=== PATIENT | female | born 1955 | race Caucasian/White ===

== ENCOUNTER 2023-06-06 09:58 | Emergency (ER) | payer MEDICARE, SELFPAY ==
[2023-06-06 10:05] VITALS: BP 116/68; BP 124/76; PULSE 60; PULSE 64; RESP 16; TEMP 36.7; O2SAT 99; BMI 22.5
--- NOTE | 2023-06-06 10:06 | ED.GENADULT ---
HPI - General Adult General Chief complaint: Chest Pain Stated complaint: cp Time Seen by Provider: 06/06/23 09:59 Source: patient, family and EMS Mode of arrival: EMS Limitations: no limitations History of Present Illness HPI narrative: 67-year-old female Latvian speaking history of dilated cardiomyopathy, HFrEF ( left ventricular ejection fracture of 20%, TTE on 01/14/2023 with diffuse severe hypokinesis), left bundle-branch block, COPD, type 2 diabetes, hypertension Zoll life vest on person ( unknown why per family and patient), presenting with substernal chest pressure with radiation into left upper extremity, pressure started last night and progressively worsened as of this morning. No associated shortness of breath. Patient and family member poor historian. Denies fevers, chills, nausea, vomiting, abdominal pain, headache, vision changes, dizziness and weakness Related Data Allergies Allergy/AdvReac Type Severity Reaction Status Date / Time Unable to Assess Allergy Verified 06/06/23 10:00 Review of Systems Review of Systems: Constitutional : No Weight loss, No Fever, No Chills, No Fatigue, No Malaise ENT/Mouth : No sore throat, No Rhinorrhea Eyes: No Eye Pain, No Swelling, No Redness Cardiovascular : No Chest Pain, No SOB, No Dyspnea on Exertion, No Orthopnea, No Edema, No Palpitations Respiratory : No Cough, No Sputum, No Wheezing Gastrointestinal : No Nausea, No Vomiting, No Diarrhea, No Constipation, No abdominal Pain, No Hematochezia, No Melena Genitourinary : No Dysuria, No Urinary Frequency, No Hematuria, Musculoskeletal : No joint pain, No Myalgias, No Joint Swelling Skin : No Skin Lesions, No rash Neuro : No Weakness, No Numbness, No Dizziness, No Headache Psych : No Anxiety/Panic, No Depression Heme/Lymph: No Bruising, No Bleeding,No Lymphadenopathy Endocrine : No Polyuria, No Polydipsia All other systems reviewed and are negative Yes all other systems are reviewed and are negative PMFSH Past Medical History Attestation statement: The following information was validated with the patient. Source: old records reviewed and nursing notes reviewed Social History Social History Smoked in Last 30 Days: No Use of substances other than those prescribed or required for medical reasons: No Advance Directives: Yes Advance Directives Information Provided: Yes Advance Directives on File: No Physical Exam ED Vital Signs: Vital Signs - 24 hr 06/06/23 10:05 06/06/23 12:42 06/06/23 12:49 Temperature 98.1 F Pulse Rate 60 64 Respiratory Rate 16 16 19 Blood Pressure 116/68 138/68 Pulse Oximetry 99 98 Oxygen Delivery Method Room Air Room Air BMI result Body Mass Index 22.5 vss Appearance: Alert.? Oriented X3.? No acute distress.? Head: Normocephalic, atraumatic, no step-offs or deformities Eyes: Pupils equal, round and reactive to light.? CVS: Normal heart rate and rhythm.? Pulses normal.? Respiratory: No respiratory distress.? Breath sounds normal.? Abdomen: Soft and nontender.? Skin: Skin warm and dry.? Normal skin color.? Normal skin turgor.? Extremities: No lower extremity edema.? No calf ttp. 5/5 strength to bilateral upper and lower extremities Neuro: Oriented X 3.? No motor deficit.? No sensory deficit. CN 2-12 intact Course Reevaluation(s) Reevaluation #1: Discussed this case w/ Dr. Morin cardiology who recommends biomarkers and will obain and echo at this time to look at EF. Time: 10:41 Reevaluation #2: cardiology here evaluated patient multiple times, as long as troponins are negative and there is no delta arise patient can be discharged home with outpatient follow-up, will likely need catheterization and ICD placement. He spoke to a novelties sales representative from his old who states patient's vest is still good for another month. Pending second troponin. Time: 13:27 Reevaluation #3: Initial troponin 3.9, repeat 4.5 nonischemic ekg LBBB old , not meeting delta criteria. Unlikely ACS, cardiology agrees. Cardiology also reviewed echo and imaging patient is good for DC home w/ prompt cardiology follow up. Time: 14:44 Medications Administered Discontinued Medications Generic Name Dose Route Start Last Admin Trade Name Freq PRN Reason Stop Dose Admin Morphine Sulfate 4 mg 06/06/23 10:05 06/06/23 12:42 Morphine Sulfate 4 Mg/Ml Cartridge IVPUSH 06/06/23 10:06 4 mg ONCE ONE Administration Protocol Medical Decision Making Medical Decision Making MDM Narrative: 1013 67 year old F presents w/ substernal cp since last night PE- unremarkable concerns for noncardiac related chest pain versus ACS versus viral illness vs anginal cp. Unlikely PE, pneumonia, dissection. Plan labs, imaging. Differential Diagnosis Differential Diagnoses: The differential diagnosis associated with the presentation includes concerns for noncardiac related chest pain versus ACS versus viral illness vs anginal cp. Unlikely PE, pneumonia, dissection. Admission/Observation Consideration of admission/observation: Escalation of care including admission/observation considered possible Consult Healthcare Provider Management of the patient was discussed with: Procurement Services Manager (cardiology ) Lab Data MDM Lab Attestation statement: I reviewed the patient's lab results. 06/06/23 10:59 06/06/23 10:59 Labs: Lab Results 06/06/23 06/06/23 06/06/23 Range/Units 10:59 12:51 13:44 WBC 7.8 (4.8-10.8) X10*3/uL RBC 5.18 (4.20-5.50) X10*6/uL Hgb 15.2 (12.0-16.0) g/dl Hct 47.6 H (37.0-47.0) % MCV 91.9 (80.0-98.0) fL MCH 29.3 (27.0-33.0) pg MCHC 31.9 (31.0-35.0) g/dl RDW 13.2 (11.0-16.0) % Plt Count 251 (160-400) X10*3/uL MPV 9.4 (9.4-12.3) fL Immature Gran % (Auto) 0.3 (0.0-0.4) % Neut % (Auto) 48.8 (45-73) % Lymph % (Auto) 36.5 (20-40) % [place] % (Auto) 10.2 (2-11) % Eos % (Auto) 3.8 (0-4) % Baso % (Auto) 0.4 (0-2) % Lymph # (Auto) 2.9 (1.2-4.9) X10*3/uL [place] # (Auto) 0.8 (0.1-1.2) X10*3/uL Eos # (Auto) 0.3 (0.0-0.4) X10*3/uL Baso # (Auto) 0.0 (0.0-0.2) X10*3/uL Abs Immat Gran (auto) 0.02 (0.00-0.03) X10*3/uL Absolute Neuts (auto) 3.8 (2.0-8.3) x10*3/uL Absolute Nucleated RBC 0.000 (0.0-0.012) X10*3/uL Nucleated RBC % (auto) 0.0 (0.0-0.2) /100WBC Sodium 141 (135-145) mmol/L Potassium 4.3 (3.3-5.1) mmol/L Chloride 103 (96-108) mmol/L Carbon Dioxide 28 (22-29) mmol/L Anion Gap 14 (12-20) BUN 17 H (9-16) mg/dL Creatinine 0.70 (0.5-1.4) mg/dL Estim Creat Clear Calc 59.9 Estimated GFR > 60 Random Glucose 69 (60-115) mg/dL Calcium 10.3 H (8.4-10.2) mg/dL Magnesium 2.2 (1.6-2.6) mg/dL Total Bilirubin 0.8 (0.0-1.0) mg/dL AST 22 (5-31) U/L ALT 16 (0-31) U/L Alkaline Phosphatase 84 (39-117) U/L Troponin I High Sens 3.9 4.5 (<3.5-17.0) ng/L B-Natriuretic Peptide 86 (<100) pg/mL Total Protein 8.3 H (6.5-8.0) g/dL Albumin 4.3 (3.5-5.0) g/dL Urine Color Yellow Urine Appearance Clear Urine pH 7.5 (5.0-9.0) Ur Specific [place] 1.025 (1.005-1.025) Urine Protein Negative (Neg-Trace) mg/dL Urine Glucose (UA) >=1000 H (Negative) mg/dL Urine Ketones Negative (Negative) mg/dL Urine Blood Negative (Negative) Urine Nitrite Negative (Negative) Ur Leukocyte Esterase Negative (Negative) Urine RBC 0-2 (0-2) /HPF Urine WBC 0-5 (0-5) /HPF Ur Squamous Epith Cells 0-2 (0-2) /HPF Urine Bacteria None Seen (None Seen) Hyaline Casts 0-2 (0-2) /LPF Independent Interpretation I performed an independent interpretation of an: EKG (ventricular rate of 64, pr normal, LBBB no robbi or inversions concerning for acute ischemia. ), Plain X-Ray and Ultrasound Radiology Impression Discussion of test interpretation with radiology: I have reviewed the radiologist's reading. Core Measures AMI core measures followed: Yes Measure exclusions: not indicated Critical Care Time Critical Care Time Critical Care Time: Yes Total Critical Care Time: 45 Attestation: I attest to this time spent taking care of the patient, obtaining history, physical, reviewing labs, imaging, speaking to my attending, speaking to specialist. Discharge Plan Discharge Clinical Impression: Chest pain Patient Disposition: Home, Self-Care Instructions: Chest Pain (ED), Chest Pain (DC) Additional Instructions: Take your medications as prescribed. If you were prescribed antibiotics today, it is important that you take your medication to their entirety, do not skip any doses, do not finish them early. Follow-up with your primary care provider this week. Return to the emergency department with new or worsening symptoms. Such as fevers, chills, chest pain, shortness of breath, nausea, vomiting, dizziness, headache, vision changes, lethargy In case of emergency call 911 Referrals: Camille Pineda, PRESS ASSISTANT AND FEEDER-C [Nurse Practitioner] - 2 days Pawan Morin MD [Physician] - 1 day Stand Alone Forms: Work/School Release
[2023-06-06 11:04] LABS: MANUAL DIFF FLAG NO
[2023-06-06 11:06] LABS: Basophils Percent Auto 0.4 % (0-2); Eosinophils Absolute Auto 0.3 X10*3/uL (0.0-0.4); Eosinophils Percent Auto 3.8 % (0-4); Hematocrit 47.6 % (37.0-47.0); Hemoglobin 15.2 g/dl (12.0-16.0); Imm Gran Abs Auto 0.02 X10*3/uL (0.00-0.03); Imm Gran Pct Auto 0.3 % (0.0-0.4); Lymphocytes Absolute Auto 2.9 X10*3/uL (1.2-4.9); Lymphocytes Percent Auto 36.5 % (20-40); Mean Corpuscular HGB Conc 31.9 g/dl (31.0-35.0); Mean Corpuscular Hemoglobin 29.3 pg (27.0-33.0); Mean Corpuscular Volume 91.9 fL (80.0-98.0); Mean Platelet Volume 9.4 fL (9.4-12.3); Monocytes Absolute Auto 0.8 X10*3/uL (0.1-1.2); Monocytes Percent Auto 10.2 % (2-11); Neutrophils Absolute Auto 3.8 x10*3/uL (2.0-8.3); Neutrophils Percent Auto 48.8 % (45-73); Platelet Count 251 X10*3/uL (160-400); Red Blood Count 5.18 X10*6/uL (4.20-5.50); Red Cell Distribution Width 13.2 % (11.0-16.0); White Blood Count 7.8 X10*3/uL (4.8-10.8)
[2023-06-06 11:54] LABS: Alanine Aminotransferase 16 U/L (0-31); Albumin Level 4.3 g/dL (3.5-5.0); Alkaline Phosphatase 84 U/L (39-117); Anion Gap 14 (12-20); Aspartate Amino Transferase 22 U/L (5-31); Bilirubin Total 0.8 mg/dL (0.0-1.0); Blood Urea Nitrogen 17 mg/dL (9-16); Calcium 10.3 mg/dL (8.4-10.2); Carbon Dioxide 28 mmol/L (22-29); Chloride 103 mmol/L (96-108); Creatinine Clr Calc Pharmacy 59.9; Estimated Glomerular Filt Rate > 60; Glucose Random 69 mg/dL (60-115); Magnesium 2.2 mg/dL (1.6-2.6); Potassium 4.3 mmol/L (3.3-5.1); Sodium 141 mmol/L (135-145); Total Protein 8.3 g/dL (6.5-8.0)
--- NOTE | 2023-06-06 12:21 | PM.CNCAR ---
History of Present Illness History of Present Illness Date of Service: 06/06/23 Requesting physician: Ti Redmond Chief complaint: cp, cardiomyopathy Narrative: 67-year-old female who presented to [facility] with chest pain. She said she had chest pain yesterday which is a pressure-like feeling in the center chest with radiation to left arm. Again today around 06:00 she started having same discomfort and she decided come to the emergency department. She previously has not come to [facility]. She had her care done at [facility] in [place]. It appears she was labeled as dilated cardiomyopathy with EF of 20 25%. There was some concern for nonsustained VT and she presented with a questionable history of syncope which actually happened in started the emergency department. No arrhythmia were documented in the notes. She was sent home by Cardiology with Zoll vest. She is with the impression that Zoll vest is only for 10 more days. I have received some records and I have reviewed them where she presented to [facility] with chest pain and was ruled out. She had a stress Mibi performed where large fixed anterior apical perfusion defect were noticed. Exercise Science Instructor there did not pursue angiography by documentation. She was sent home with Randall Flores and resolved past. Plan was to reassess ejection fraction and consider ICD. She also has a left bundle-branch block. She is insulin-dependent diabetic and also has history of asthma. I have discussed with is all wrapped and she did not have any episodes of nonsustained/sustained VT. No therapies given by the vest. [facility] Social History Social History Advance Directives: Yes Advance Directives Information Provided: Yes Advance Directives on File: No Meds Allergies Allergy/AdvReac Type Severity Reaction Status Date / Time Unable to Assess Allergy Verified 06/06/23 10:00 Physical Exam Vital Signs: Vital Signs: Last Vital Signs Temp 98.1 F 06/06/23 10:05 Pulse 60 06/06/23 10:05 Resp 16 06/06/23 10:05 BP 116/68 06/06/23 10:05 Pulse Ox 99 06/06/23 10:05 O2 Del Method Room Air 06/06/23 10:05 BMI result Body Mass Index 22.5 GENERAL APPEARANCE: in no acute distress, pleasant. NECK: no carotid bruit, no jugular venous distention. SKIN: no suspicious lesions, warm and dry. HEART: no murmurs, regular rate and rhythm. LUNGS: clear to auscultation bilaterally. ABDOMEN: soft, nontender. EXTREMITIES: no edema. PERIPHERAL PULSES: equal. NEUROLOGIC: No gross deficits, AAO X 3 Objective Labs and Meds 06/06/23 10:59 06/06/23 10:59 Lab results: Laboratory Results - last 24 hr 06/06/23 10:59 WBC 7.8 RBC 5.18 Hgb 15.2 Hct 47.6 H MCV 91.9 MCH 29.3 MCHC 31.9 RDW 13.2 Plt Count 251 MPV 9.4 Immature Gran % (Auto) 0.3 Neut % (Auto) 48.8 Lymph % (Auto) 36.5 [place] % (Auto) 10.2 Eos % (Auto) 3.8 Baso % (Auto) 0.4 Lymph # (Auto) 2.9 [place] # (Auto) 0.8 Eos # (Auto) 0.3 Baso # (Auto) 0.0 Abs Immat Gran (auto) 0.02 Absolute Neuts (auto) 3.8 Absolute Nucleated RBC 0.000 Nucleated RBC % (auto) 0.0 Sodium 141 Potassium 4.3 Chloride 103 Carbon Dioxide 28 Anion Gap 14 BUN 17 H Creatinine 0.70 Estim Creat Clear Calc 59.9 Estimated GFR > 60 Random Glucose 69 Calcium 10.3 H Magnesium 2.2 Total Bilirubin 0.8 AST 22 ALT 16 Alkaline Phosphatase 84 Troponin I High Sens 3.9 B-Natriuretic Peptide 86 Total Protein 8.3 H Albumin 4.3 Assessment and Plan (1) Chest pain: Status: Acute (2) LBBB (left bundle branch block): Status: Acute (3) Cardiomyopathy: Status: Acute Plan [age] year female presenting with chest discomfort radiating to her arm. She had persistent pain for many hours with normal troponin. Will repeat 1 more set. She previously had chest pains and had stress Mibi performed while she was in [facility]. This showed fixed anterior apical perfusion defect. No further testing was done based on documentation. Also had a discussion was all account maintenance representative and they have no record of cardiac catheterization. Clinically she appears euvolemic and stable. I really doubt this is ACS right now. I do think she needs a diagnostic angiogram and referral to EP for Bi V AICD placement. At EF by echo performed today is anyway 25-30% with severe dyskinesis of the apex and I feel left bundle-branch block could be the cause for her cardiomyopathy. If her 2nd set of troponin is normal I think she can be discharged back home and will do further testing as outpatient. Thank you for allowing me to participate in the care of your patient. Please feel free to contact me if you have any questions. Time Spent With Patient Time: Total time managing care of this patient today ____ minutes. Procedures Date of Service Date of Service: 06/06/23
[2023-06-06 12:42] VITALS: RESP 16
[2023-06-06 12:49] VITALS: BP 138/68; PULSE 64; RESP 19; O2SAT 98
== END 2023-06-06 16:50 | disposition home or self-care (01) ==
PROVIDERS: Physician Assistant; Emergency Provider Student in an Organized Health Care Education/Training Program
DX: R07.89 Other chest pain (principal); I44.7 Left bundle-branch block, unspecified; I42.9 Cardiomyopathy, unspecified; R06.02 Shortness of breath; Z79.899 Other long term (current) drug therapy
CPT/HCPCS: 36415; 71045; 80053; 81001; 81003; 83735; 83880; 84484; 85025; 93005; 93306; 96374; 99284; J2270; Q9957

== ENCOUNTER → 2023-06-06 10:38 | Outpatient (BNV) | payer MEDICARE, SELFPAY | PROVIDERS: Emergency Provider Student in an Organized Health Care Education/Training Program; Visit Provider Internal Medicine Cardiovascular Disease | DX: R07.9 Chest pain, unspecified (principal); I44.7 Left bundle-branch block, unspecified; I42.9 Cardiomyopathy, unspecified | CPT/HCPCS: 93306; 99283 ==

== ENCOUNTER 2023-06-07 13:12 | Outpatient (REF) | payer OTHER, SELFPAY ==
[2023-06-07 13:52] LABS: Prothrombin Time 12.1 SEC (11.1-13.3)
== END 2023-06-07 13:13 | disposition home or self-care (01) ==
LOC: HO.LAB 13:12
PROVIDERS: Visit Provider Internal Medicine Cardiovascular Disease
DX: I42.9 Cardiomyopathy, unspecified (principal); I44.7 Left bundle-branch block, unspecified
CPT/HCPCS: 36415; 85610

== ENCOUNTER → 2023-07-04 23:59 | Outpatient (BNV) | payer OTHER, SELFPAY | PROVIDERS: Visit Provider Internal Medicine Cardiovascular Disease | DX: I42.9 Cardiomyopathy, unspecified (principal); I44.7 Left bundle-branch block, unspecified; I50.20 Unspecified systolic (congestive) heart failure | CPT/HCPCS: 93458; 99152 ==

== ENCOUNTER 2023-07-26 12:31 | Outpatient (AMB) | payer OTHER, SELFPAY ==
--- NOTE | 2023-07-26 12:39 | A.OFFVIS_ITS ---
Intake Vital Signs 07/26/23 12:40 Height 5 ft 2 in Weight 130 lb 1.164 oz BMI 23.8 BP 126/76 Blood Pressure Location Lt brachial Position Sitting Pulse 87 Intake Visit Reasons: Follow up post cardiac cath Intake Note: Follow-up post defibrillator 07/19 at [facility] Cloth Hand Required: Yes Cloth Hand Name: daughter signed Test Tube Maker: Test Tube Maker Present Accompanied by: Daughter Allergies Unable to Assess Allergy (Verified 06/06/23 10:00) Medication List - Last Reconciled 07/26/23 by Vanita Alves NP aspirin 81 mg PO DAILY atorvastatin 10 mg PO DAILY empagliflozin (Jardiance) 10 mg PO DAILY gabapentin 300 mg PO BEDTIME metoprolol succinate ER 25 mg PO DAILY sacubitril-valsartan 24-26 mg (Entresto) 1 tab PO BID tiotropium bromide 2.5 mcg/actuation (Spiriva Respimat) 2 puffs inhalation DAILY torsemide 20 mg PO DAILY HPI HPI Comments History of Present Illness Details 67-year-old female presents with her [facility] for after having a Medtronic ICD placed and having a cardiac catheterization performed. Daughter and patient report she has been doing well with no complaints. She denies shortness of breath, chest pain, or swelling. ICD site is healing well and well approximated. Right radial site is healing well with no tenderness or redness. Pulse present proximal and distal to the site. [facility] Social History Household Members: Children Household Members Other:: Son Alcohol intake: never Patient Tobacco Use Status: Former Tobacco user Review of Systems Const Denies chills, Denies fatigue, Denies fever(s), Denies frequent falls, Denies weakness, Denies weight gain and Denies weight loss ENT Denies dizziness Card Denies chest pain, Denies leg edema, Denies lightheadedness, Denies palpitations, Denies dyspnea, Denies dyspnea on exertion, Denies orthopnea and Denies other (loss of consciousness) Resp Denies cough, Denies dyspnea and Denies dyspnea on exertion GI Denies hematochezia and Denies change in stool character Musc Denies abnormal gait, Denies muscle weakness, Denies numbness, Denies radiating pain into limb and Denies tingling Neuro Denies abnormal gait, Denies dizziness, Denies frequent falls, Denies numbness, Denies tingling and Denies weakness Endo Denies fatigue and Denies palpitations Physical Exam Vital Signs: Last Vital Signs Pulse 87 07/26/23 12:40 BP 126/76 07/26/23 12:40 BMI result Body Mass Index 23.8 Const General: healthy appearing and no acute distress Orientation/consciousness: patient oriented x3 HEENT Head: Yes normal to inspection Eyes General: appearance normal, both eyes and all related structures Neck Neck: Yes normal visual inspection Chest Chest palpation & inspection: normal inspection of the chest Resp Effort & Inspection: normal respiratory effort Auscultation: clear to auscultation bilaterally Cardio Jugular venous distension: no JVD Palpation: normal PMI Rate: regular rate Rhythm: regular rhythm Heart sounds: S1 normal heart sound present, S2 normal heart sound present, no click, no gallops, no murmurs and no rubs GI Inspection: Yes normal to inspection Palpation (GI): Soft to palpation Skin General skin exam: no rashes or lesions noted Neuro General: patient oriented x3 Extrem General: Yes normal to inspection Psych Appearance: grossly normal Assessment & Plan Assessment & Plan (1) Cardiomyopathy: Code(s): I42.9 - Cardiomyopathy, unspecified (2) LBBB (left bundle branch block): Code(s): I44.7 - Left bundle-branch block, unspecified Plan Went into detail about heart healthy diet including controlling her diabetes and reduction of salt. Activity as tolerated with gradual increase Continue to abstain from smoking or any alcohol use. Medication compliance stressed heavily and daughter assists with her medications. Report any new or worsening symptoms. Will have her return in 3 months to meet with Dr. Morin. Medications: New atorvastatin 10 mg PO DAILY 90 tabs 1RF metoprolol succinate ER 25 mg PO DAILY 90 tabs 1RF aspirin 81 mg PO DAILY 90 tabs 1RF Refilled sacubitril-valsartan 24-26 mg (Entresto) 1 tab PO BID 90 tabs 1RF torsemide 20 mg PO DAILY 90 tabs 1RF Coding Level of Care Code Est Pt Level 3 (38723) Diagnoses Cardiomyopathy I42.9 LBBB (left bundle branch block) I44.7
[2023-07-26 12:40] VITALS: BP 126/76; PULSE 87; BMI 23.8
== END 2023-07-26 13:38 | disposition home or self-care (01) ==
PROVIDERS: PCP Internal Medicine; Visit Provider Nurse Practitioner
DX: I42.9 Cardiomyopathy, unspecified (principal); I44.7 Left bundle-branch block, unspecified
CPT/HCPCS: 99213

== ENCOUNTER → 2023-07-26 12:31 | Outpatient (BNVA) | payer OTHER, SELFPAY | PROVIDERS: PCP Internal Medicine; Visit Provider Nurse Practitioner | DX: I42.9 Cardiomyopathy, unspecified (principal); I44.7 Left bundle-branch block, unspecified | CPT/HCPCS: 99212 ==

== ENCOUNTER 2023-08-10 10:30 | Outpatient (REF) | payer OTHER, SELFPAY ==
--- NOTE | ~2023-08-10 | XR_ITS ---
EXAMINATION: XR CHEST CLINICAL INFORMATION: Left bundle-branch block COMPARISON: Chest x-ray June 06, 2023 TECHNIQUE: 2 views of the chest were obtained. FINDINGS: Cardiac silhouette is normal in size. Interval insertion of multi lead AICD. The lungs are adequately aerated. There is similar diffuse coarsening of the interstitial markings, particularly within the right mid to lower lung. No gross lobar consolidation. No pleural effusion or pneumothorax. Mild degenerative changes of the spine. XR/XR chest 2V IMPRESSION: Similar diffuse coarsening of the interstitial markings, particularly within the right mid to lower lung. I suspect this represents chronic changes. CT imaging can always be obtained for further evaluation if clinically indicated.
== END 2023-08-10 10:31 | disposition home or self-care (01) ==
LOC: HO.XRAY 10:30
PROVIDERS: Visit Provider Internal Medicine Cardiovascular Disease
DX: I44.7 Left bundle-branch block, unspecified (principal); Z95.810 Presence of automatic (implantable) cardiac defibrillator
CPT/HCPCS: 71046

== ENCOUNTER → 2023-09-17 23:59 | Outpatient (BNV) | payer OTHER, SELFPAY ==
--- NOTE | 2023-09-25 13:53 | A.OFFVIS_ITS ---
Intake Intake Visit Reasons: Remote ICD Check- Medtronic Allergies Unable to Assess Allergy (Verified 06/06/23 10:00) [facility] Social History Household Members: Children Household Members Other:: Son Alcohol intake: never Patient Tobacco Use Status: Former Tobacco user Office Procedures Cardiac Device Check Cardiac Device Check Details: Medtronic [facility]-D No VT/VF. New onset Atrial fibrillation noted. The patient has been started on A/C. [id number] Cardiac Device Interrogation, pacemaker or defibrillator Procedure code (CPT) selection complete Assessment & Plan Assessment & Plan (1) Cardiomyopathy: Code(s): I42.9 - Cardiomyopathy, unspecified Plan: Medications: Discontinued aspirin Discontinued Reason: Doctor's Order 81 mg PO DAILY 90 tabs 1RF Coding Level of Care Code Procedure Only Diagnoses Cardiomyopathy I42.9 CPT Codes Cardiac Device Check - Cardiac Device 14: [id number] Cardiac Device Interrogation, pacemaker or defibrillator ([id number])
== END ==
PROVIDERS: PCP Internal Medicine; Visit Provider Internal Medicine Cardiovascular Disease
DX: I42.9 Cardiomyopathy, unspecified (principal); Z95.810 Presence of automatic (implantable) cardiac defibrillator
CPT/HCPCS: 93295

== ENCOUNTER 2023-10-18 10:13 | Outpatient (REF) | payer OTHER, MEDICAID, SELFPAY ==
[2023-10-21 08:34] LABS: TS Negative Control Passed; TS Panel A 0; TS Panel B 0; TS Positive Control Passed; TSpotTB Negative (Negative)
== END 2023-10-18 10:14 | disposition home or self-care (01) ==
LOC: HO.HHCL 10:13
PROVIDERS: Visit Provider General Practice
DX: Z11.1 Encounter for screening for respiratory tuberculosis (principal)
CPT/HCPCS: 36415; 86481

== ENCOUNTER 2023-11-06 13:38 | Outpatient (AMB) | payer OTHER, SELFPAY ==
--- NOTE | 2023-11-06 14:08 | A.OFFVIS_ITS ---
Intake Vital Signs 11/06/23 14:12 Height 5 ft 2 in Weight 130 lb BMI 23.8 BP 140/68 H Blood Pressure Location Rt brachial Position Sitting Pulse 66 Intake Visit Reasons: 3 mth fu w/ medtronic Intake Note: 3 month follow up [place] [employer] Required: No Accompanied by: Daughter Allergies Unable to Assess Allergy (Verified 11/06/23 14:12) Medication List - Last Reconciled 11/06/23 by Pawan Morin MD apixaban (Eliquis) 5 mg PO BID 30 days atorvastatin 10 mg PO DAILY empagliflozin (Jardiance) 10 mg PO DAILY gabapentin 300 mg PO BEDTIME metoprolol succinate ER 25 mg PO DAILY sacubitril-valsartan 24-26 mg (Entresto) 1 tab PO BID tiotropium bromide 2.5 mcg/actuation (Spiriva Respimat) 2 puffs inhalation DAILY torsemide 20 mg PO DAILY HPI HPI Comments History of Present Illness Details 67-year-old female who is here for [facility]. She was seen for cardiomyopathy and left bundle-branch block. Cardiac catheterization did not show any coronary disease. She was referred for Bi V AICD placement. Device interrogation showed that she has atrial fibrillation episodes and she was started on anticoagulation for stroke prevention. She is returning and has been doing well. No chest discomfort shortness of breath. She does have history of COPD. Blood pressure is elevated. She is taking medication regularly. No orthopnea or PND. She has been eating a lot and has gained weight. Compared to May 2023 her weight is increased 7 lb. [facility] Social History Household Members: Children Household Members Other:: Son Alcohol intake: never Patient Tobacco Use Status: Former Tobacco user Review of Systems Const Denies weakness ENT Denies dizziness Card Denies chest pain, Denies chest pain with activity, Denies syncope, Denies rapid heart rate, Denies pedal edema, Denies edema, Denies leg edema, Denies lightheadedness, Denies palpitations, Denies dyspnea, Denies dyspnea on exertion and Denies orthopnea Resp Denies cough, Denies dyspnea and Denies dyspnea on exertion GI Denies hematochezia and Denies change in stool character Musc Denies abnormal gait, Denies muscle cramps, Denies muscle weakness, Denies numbness, Denies radiating pain into limb and Denies tingling Neuro Denies abnormal gait, Denies dizziness, Denies syncope, Denies numbness, Denies tingling and Denies weakness Endo Denies palpitations Physical Exam Vital Signs: Last Vital Signs Pulse 66 11/06/23 14:12 BP 140/68 H 11/06/23 14:12 BMI result Body Mass Index 23.8 GENERAL APPEARANCE: in no acute distress, pleasant. NECK: no carotid bruit, no jugular venous distention. SKIN: no suspicious lesions, warm and dry. HEART: no murmurs, regular rate and rhythm. LUNGS: Right lung has fine inspiratory crackles starting from base to mid lungs. Left lung is completely normal. ABDOMEN: soft, nontender. EXTREMITIES: no edema. PERIPHERAL PULSES: equal. NEUROLOGIC: No gross deficits, AAO X 3 Office Procedures Cardiac Device Check Cardiac Device Check Details: Medtronic SHAPING MACHINE TENDER D DDD mode. Battery life 8.5 years. Ventricular paced 99.4%. Optivol is showing evidence of fluid overload. [id number] Cardiac Device Interrogation, pacemaker or defibrillator [id number] Cardiac Device Interrogation, cardio physiologic monitor Procedure code (CPT) selection complete Assessment & Plan Assessment & Plan (1) Cardiomyopathy: Code(s): I42.9 - Cardiomyopathy, unspecified (2) COPD (chronic obstructive pulmonary disease): Code(s): J44.9 - Chronic obstructive pulmonary disease, unspecified Plan [age] year female who is here for follow-up. She is history of COPD and left bundle-branch block and was diagnosed with cardiomyopathy near [place]. She underwent cardiac catheterization which did not show any coronary disease. She was referred for Bi V AICD placement. She is status post SHAPING MACHINE TENDER D at this stage. We will repeat echocardiogram to reassess LV function. Increasing the Entresto as her blood pressure is elevated. She is fine inspiratory crackles on examination which can be a sign for interstitial lung disease. Clinically she has not in heart failure although the OptiVol setting is showing some changes. I will check a BNP level. We will refer her to pulmonology for further assessment. Thank you for allowing me to participate in the care of your patient. Please feel free to contact me if you have any questions. Orders: Orders B Type Natriuretic Peptide Today I42.9 - Cardiomyopathy, unspecified AMB Cardiac Device Follow-up Today I48.0 - Paroxysmal atrial fibrillation Referrals Pulmonary Medicine Referral J44.9 - Chronic obstructive pulmonary disease, unspecified Medications: New sacubitril-valsartan 49-51 mg 1 tab PO BID 120 tabs 4RF J44.9 - Chronic obstructive pulmonary disease, unspecified Discontinued sacubitril-valsartan 24-26 mg (Entresto) Discontinued Reason: Duplicate 1 tab PO BID 90 tabs 3RF Coding Level of Care Code Est Pt Level 4 (71400) Diagnoses Cardiomyopathy I42.9 COPD (chronic obstructive pulmonary disease) J44.9 CPT Codes Cardiac Device Check - Cardiac Device 14: [id number] Cardiac Device Interrogation, pacemaker or defibrillator ([id number]) Cardiac Device Check - Cardiac Device 15: [id number] Cardiac Device Interrogation, cardio physiologic monitor ([id number])
[2023-11-06 14:12] VITALS: BP 140/68; PULSE 66; BMI 23.8
== END 2023-11-06 14:34 | disposition home or self-care (01) ==
PROVIDERS: PCP General Practice; Visit Provider Internal Medicine Cardiovascular Disease
DX: I42.9 Cardiomyopathy, unspecified (principal); J44.9 Chronic obstructive pulmonary disease, unspecified
CPT/HCPCS: 99214

== ENCOUNTER → 2023-11-06 13:38 | Outpatient (BNVA) | payer MEDICAID, SELFPAY | PROVIDERS: PCP Internal Medicine; Visit Provider Internal Medicine Cardiovascular Disease ==

== ENCOUNTER 2023-11-08 15:22 | Outpatient (REF) | payer OTHER, SELFPAY ==
[2023-11-08 18:41] LABS: B Type Natriuretic Peptide 40 pg/mL (<100)
== END 2023-11-08 15:23 | disposition home or self-care (01) ==
LOC: HO.LAB 15:22
PROVIDERS: PCP General Practice; Visit Provider Internal Medicine Cardiovascular Disease
DX: I42.9 Cardiomyopathy, unspecified (principal)
CPT/HCPCS: 36415; 83880

== ENCOUNTER 2023-12-18 14:09 | Outpatient (AMB) | payer OTHER, SELFPAY ==
--- NOTE | 2023-12-18 14:16 | A.OFFVIS_ITS ---
Vital Signs 12/18/23 14:24 Height 5 ft 2 in Weight 132 lb 4.438 oz BMI 24.2 BP 100/52 L Blood Pressure Location Rt brachial Position Sitting Pulse 60 Pulse Source Pulse Oximeter Pulse Oximetry (%) 97 Oxygen Delivery Method Room Air Intake Visit Reasons: Chronic obstructive pulmonary disease Allergies No Known Allergies Allergy (Verified 12/18/23 14:27) HPI HPI Chronic obstructive pulmonary disease: Details: Pebbles is a pleasant 67 year old female, former smoker with 80+ pack year history, quit approximately 10 years ago, with underlying COPD, CAD, HTN, LBBB, EF 32% s/p AICD and atrial fibrillation on coumadin. She was referred by cardiology for pulmonary evaluation for possible ILD. At baseline, she is using spiriva and albuterol multiple times per day. She reports dyspnea on exertion as well as at rest, with intermittent productive cough with clear sputum and wheezing. She denies chest tightness. She denies prior history of asthma. She reports parents with COPD, both smokers, otherwise no other pertinent family history. She denies any seasonal allergies. She denies any occupational exposures. [facility] Social History Household Members: Children Household Members Other:: Son Alcohol intake: never Patient Tobacco Use Status: Former Tobacco user Review of Systems Const Denies chills, Denies excessive sweating, Denies fever(s), Denies headache(s) and Denies night sweats Eyes Denies dry eyes, Denies irritation and Denies itchy eyes ENT Reports Normal hearing present, Denies headache(s), Denies nasal congestion, Denies nasal discharge, Denies post nasal drip and Denies sore throat Card Denies chest pain, Denies chest pain at rest, Denies chest pain with activity, Denies claudication, Denies leg edema, Denies orthopnea and Denies paroxysmal nocturnal dyspnea Resp Denies chest congestion, Denies excessive phlegm production, Denies pain on inspiration, Denies pain with cough and Denies stridor Musc Denies myalgias Neuro Reports Normal hearing present and Denies headache(s) Endo Denies excessive sweating Evan/Lymph Denies lymphadenopathy Aller/Immun Denies itchy eyes and Denies seasonal rhinorrhea Physical Exam Vital Signs: Last Vital Signs Pulse 60 12/18/23 14:24 BP 100/52 L 12/18/23 14:24 Pulse Ox 97 12/18/23 14:24 Oxygen Delivery Method Room Air 12/18/23 14:24 BMI result Body Mass Index 24.2 Const General: cooperative, healthy appearing, comfortable, no acute distress, well developed and alert Orientation/consciousness: patient oriented x3 Limitations: no limitations HEENT Head: Yes normal to inspection, Yes normocephalic and Yes atraumatic Ears: hearing grossly normal bilaterally and external ears normal Eyes General: appearance normal, both eyes and all related structures Eyelids: Yes eyelids normal Sclerae: sclerae normal EOM: EOMs intact bilaterally Neck Neck: Yes normal visual inspection and Yes no lymphadenopathy Lymphatic: no lymphadenopathy noted Chest Chest palpation & inspection: normal inspection of the chest Resp Other: inspiratory crackles right mid to lung base, otherwise clear. Effort & Inspection: normal respiratory effort, able to speak in complete sentences, no audible wheezes, no cough, no stridor, not tachypneic, no tripod positioning and no use of accessory muscles Auscultation: clear to auscultation bilaterally Cardio Jugular venous distension: no JVD Rate: regular rate Rhythm: regular rhythm Skin Other: warm, dry General skin exam: no rashes or lesions noted Neuro General: patient oriented x3 Cranial nerves: Yes Normal hearing present Cognition (Neuro): normal cognition Gait exam (Neuro): Normal gait present Extrem General: Yes normal to inspection, Yes capillary refill normal, Yes no clubbing, cyanosis or edema and Yes no pedal edema Psych Appearance: grossly normal and well kempt Speech and movement: Normal speech and movement present and Clear speech present Affect: normal affect Attitude: cooperative Thought process: Normal thought process present Thought content: Normal thought content present Insight: Good insight present (Psych) Judgement: Good judgement present (Psych) Office Procedures 6 Minute Walk Time:: 14:57 SPO2 % at rest: 97 Pulse at rest: 61 SPO2 % during excercise: 93 Pulse during excercise: 81 SPO2 % after excercise: 94 Pulse after excercise: 72 Distance in yards walked: 500 Bernadette Score: 5 Performance Observations:: Patient walked unassisted on level ground. Patient maintained O2 saturation of 93% or greater with pulse of 81 or less for the entire walk. Patient's daughter reports patient is short of breath with walking any distance. No resp distress today. No supplemental O2 was needed. 97216 - 6 Minute Walk Results Reviewed Results Reviewed: [address] [address] XRay Report Signed Patient: Pebbles Bourgeois MR#: [id number] : 1955 Acct:[id number] Age/Sex: 67 / F ADM Date: 08/10/23 Loc: HO.XRAY Attending Dr: Hilton Barrientos MD Ordering Physician: Hilton Barrientos MD Date of Service: 08/10/23 Procedure(s): XR chest 2V Accession Number(s): [id number] cc: Hilton Barrientos MD~ EXAMINATION: XR CHEST CLINICAL INFORMATION: Left bundle-branch block COMPARISON: Chest x-ray June 06, 2023 TECHNIQUE: 2 views of the chest were obtained. FINDINGS: Cardiac silhouette is normal in size. Interval insertion of multi lead AICD. The lungs are adequately aerated. There is similar diffuse coarsening of the interstitial markings, particularly within the right mid to lower lung. No gross lobar consolidation. No pleural effusion or pneumothorax. Mild degenerative changes of the spine. XR/XR chest 2V IMPRESSION: Similar diffuse coarsening of the interstitial markings, particularly within the right mid to lower lung. I suspect this represents chronic changes. CT imaging can always be obtained for further evaluation if clinically indicated. Dictated By: Jonny Ghosh MD Signed By: <Electronically signed by Jonny Ghosh MD in OV> 08/10/23 1455 DD/ 1121 TD/TT: Security Program Manager: PD Assessment & Plan Assessment & Plan (1) COPD (chronic obstructive pulmonary disease): Code(s): J44.9 - Chronic obstructive pulmonary disease, unspecified Category: Medical (2) Abnormal chest xray: Code(s): R93.89 - Abnormal findings on diagnostic imaging of other specified body structures Category: Medical (3) Personal history of tobacco use: Code(s): Z87.891 - Personal history of nicotine dependence Category: Social Hx (4) Cough: Code(s): R05.9 - Cough, unspecified Category: Medical (5) Dyspnea: Code(s): R06.00 - Dyspnea, unspecified Category: Medical Plan Pebbles reports worsening control of likely COPD, given smoking history, will send for PFT to thoroughly evaluate. Will also switch spiriva to Trelegy, as patient reports daily use of albuterol. 6MWT performed, and patient does not require supplemental oxygen at this time. On exam inspiratory crackles appreciated on right mid to lung base and prior CXR revealed diffused coarsening of the interstitial markings, within the right mid to lower lung suggestive of ILD. Will send for chest CT to evaluate. All questions were answered and patient is in agreement of plan. Will follow up to review results and response to inhaler. Orders: Orders CT chest wo IV con Today J84.9 - Interstitial pulmonary disease, unspecified, R93.89 - Abnormal findings on diagnostic imaging of other specified body structures, Z87.891 - Personal history of nicotine dependence AMB 6 minute walk Today J44.9 - Chronic obstructive pulmonary disease, unspecified PFT pulmonary function test Today J44.9 - Chronic obstructive pulmonary disease, unspecified Medications: New ayojdefsjhq-uhpfgyrwz-nsnlcrda 200-62.5-25 mcg (Trelegy Ellipta) 1 inh inhalation DAILY 60 ea 6RF
[2023-12-18 14:24] VITALS: BP 100/52; PULSE 60; O2SAT 97; BMI 24.2
[2023-12-18 15:13] VITALS: PULSE 61; O2SAT 97
== END 2023-12-18 15:14 | disposition home or self-care (01) ==
LOC: HO.HPS 14:10
PROVIDERS: PCP General Practice; Referring Provider Internal Medicine Cardiovascular Disease; Visit Provider Nurse Practitioner Family
DX: J44.9 Chronic obstructive pulmonary disease, unspecified (principal); R93.89 Abnormal findings on diagnostic imaging of other specified body structures; Z87.891 Personal history of nicotine dependence; R05.9 Cough, unspecified; R06.00 Dyspnea, unspecified
CPT/HCPCS: 99204

== ENCOUNTER → 2023-12-18 14:10 | Outpatient (BNVA) | payer OTHER, SELFPAY | PROVIDERS: PCP General Practice; Referring Provider Internal Medicine Cardiovascular Disease; Visit Provider Nurse Practitioner Family | DX: J44.9 Chronic obstructive pulmonary disease, unspecified (principal); R39.89 Other symptoms and signs involving the genitourinary system; R05.9 Cough, unspecified; R06.00 Dyspnea, unspecified; Z87.891 Personal history of nicotine dependence | CPT/HCPCS: 94618 ==

== ENCOUNTER → 2023-12-19 23:59 | Outpatient (BNV) | payer OTHER, SELFPAY ==
--- NOTE | 2024-01-01 10:53 | A.OFFVIS_ITS ---
Intake Visit Reasons: Remote HF monitoring- Medtronic Allergies No Known Allergies Allergy (Verified 12/18/23 14:27) [facility] Social History Household Members: Children Household Members Other:: Son Alcohol intake: never Patient Tobacco Use Status: Former Tobacco user Office Procedures Cardiac Device Check Cardiac Device Check Details: HF monitoring Optivol was showing fluid accumulation from September to mid November but improving fluid status since mid November. [id number]-Ulvjre Cardiac Device Interrogation, cardio physiologic monitor Procedure code (CPT) selection complete Assessment & Plan Assessment & Plan (1) Cardiomyopathy: Code(s): I42.9 - Cardiomyopathy, unspecified Category: Medical Plan Coding Level of Care Code Procedure Only Diagnoses Cardiomyopathy I42.9 CPT Codes Cardiac Device Check - Cardiac Device 15: [id number] Cardiac Device Int errogation, cardio physiologic monitor ([id number])
== END ==
PROVIDERS: PCP General Practice; Visit Provider Internal Medicine Cardiovascular Disease
DX: I42.9 Cardiomyopathy, unspecified (principal); Z95.810 Presence of automatic (implantable) cardiac defibrillator
CPT/HCPCS: 93297

== ENCOUNTER → 2023-12-19 23:59 | Outpatient (BNV) | payer OTHER, SELFPAY ==
--- NOTE | 2024-01-01 10:49 | A.OFFVIS_ITS ---
Intake Visit Reasons: Remote ICD check-Medtronic Allergies No Known Allergies Allergy (Verified 12/18/23 14:27) COUNT INCLUDES THE [facility] Social History Household Members: Children Household Members Other:: Son Alcohol intake: never Patient Tobacco Use Status: Former Tobacco user Office Procedures Cardiac Device Check Cardiac Device Check Details: Medtronic VEGETABLE WASHER-D Good battery life. V paced 98%. Episodes of atrial fibrillation recorded. [id number] Cardiac Device Interrogation, pacemaker or defibrillator Procedure code (CPT) selection complete Assessment & Plan Assessment & Plan (1) Cardiac defibrillator in place: Code(s): Z95.810 - Presence of automatic (implantable) cardiac defibrillator Category: Medical Plan Coding Level of Care Code Procedure Only Diagnoses Cardiac defibrillator in place Z95.810 CPT Codes Cardiac Device Check - Cardiac Device 14: [id number] Cardiac Device Interrogation, pacemaker or defibrillator ([id number])
== END ==
PROVIDERS: PCP General Practice; Visit Provider Internal Medicine Cardiovascular Disease
DX: Z45.02 Encounter for adjustment and management of automatic implantable cardiac defibrillator (principal)
CPT/HCPCS: 93295

== ENCOUNTER 2024-02-09 09:48 | Outpatient (REF) | payer OTHER, SELFPAY ==
[2024-02-09 11:53] LABS: Creatinine Urine 93.43 mg/dL; Microalbum/Creatinine Ratio Ur 14.9 ug/mg cr (<30)
[2024-02-09 12:00] LABS: Alanine Aminotransferase 22 U/L (0-31); Albumin Level 4.1 g/dL (3.5-5.0); Alkaline Phosphatase 90 U/L (39-117); Anion Gap 12 (12-20); Aspartate Amino Transferase 31 U/L (5-31); Bilirubin Total 0.6 mg/dL (0.0-1.0); Blood Urea Nitrogen 15 mg/dL (9-16); Calcium 9.7 mg/dL (8.4-10.2); Carbon Dioxide 30 mmol/L (22-29); Chloride 104 mmol/L (96-108); Cholesterol 167 mg/dL (<200); Estimated Glomerular Filt Rate > 60; Glucose Random 76 mg/dL (60-115); HDL Cholesterol 41 mg/dL (>40); LDL Cholesterol Calculated 110 mg/dL (<100); Potassium 4.2 mmol/L (3.3-5.1); Sodium 142 mmol/L (135-145); Total Protein 7.8 g/dL (6.5-8.0); Triglycerides 82 mg/dL (<150)
[2024-02-12 04:09] LABS: ~HepC Num1 0.25 S/CO (0.00-0.79); ~Hepatitis C Antibody Nonreactive (Nonreactive)
== END 2024-02-09 09:49 | disposition home or self-care (01) ==
LOC: HO.HHCL 09:48
PROVIDERS: Visit Provider General Practice
DX: E11.9 Type 2 diabetes mellitus without complications (principal); Z11.59 Encounter for screening for other viral diseases
CPT/HCPCS: 36415; 80053; 80061; 82043; 82570; 86803

== ENCOUNTER 2024-02-13 10:19 | Outpatient (REF) | payer OTHER, SELFPAY ==
--- NOTE | ~2024-02-13 | MM_ITS ---
EXAMINATION: MM SCREENING DIGITAL BREAST TOMOSYNTHESIS, BILATERAL CLINICAL INFORMATION: Screening. Asymptomatic. COMPARISON: Mammography: There are no prior mammograms available for comparison. TECHNIQUE: Digital breast tomosynthesis is performed in both the craniocaudal and mediolateral oblique views along with computer-aided detection (CAD). Synthesized 2D images are generated from the tomosynthesis. FINDINGS: There are scattered areas of fibroglandular density (ACR BI-RADS breast composition Category b). There are no significant masses, abnormal calcifications, or other abnormalities. There is a pacemaker in the superior aspect of the left side of the chest. MM/MM tomosynthesis screening BI IMPRESSION: No mammographic evidence of malignancy. ASSESSMENT: BI-RADS BI-RADS 1 - Negative RECOMMENDATION: Routine annual mammography screening. 1 year F/U This examination should not preclude the clinical evaluation of a suspicious palpable abnormality. This patient's information was entered into a reminder system with a target due date for their next mammogram.
== END 2024-02-13 10:20 | disposition home or self-care (01) ==
LOC: HO.MAMMO 10:19
PROVIDERS: PCP General Practice; Visit Provider General Practice
DX: Z12.31 Encounter for screening mammogram for malignant neoplasm of breast (principal)
CPT/HCPCS: 77063; 77067

== ENCOUNTER → 2024-02-13 11:15 | Outpatient (BNV) | payer OTHER, SELFPAY | PROVIDERS: PCP General Practice; Visit Provider Radiology Diagnostic Radiology | DX: Z12.31 Encounter for screening mammogram for malignant neoplasm of breast (principal) | CPT/HCPCS: 77063; 77067 ==

== ENCOUNTER 2024-02-19 13:35 | Outpatient (AMB) | payer OTHER, SELFPAY ==
--- NOTE | 2024-02-18 20:29 | MHC.OFFVIS ---
Vital Signs 02/19/24 13:41 Height 5 ft 2 in Weight 136 lb 10.986 oz BMI 25.0 BP 100/58 L Blood Pressure Location Lt brachial Position Sitting Pulse 78 Pulse Source Pulse Oximeter Pulse Oximetry (%) 95 Oxygen Delivery Method Room Air Intake Visit Reasons: COPD Allergies No Known Allergies Allergy (Verified 02/19/24 13:45) HPI HPI COPD: Details: Pebbles is a pleasant 67 year old female, former smoker with 80+ pack year history, quit approximately 10 years ago, with underlying COPD, CAD, HTN, LBBB, EF 32% s/p AICD and atrial fibrillation on coumadin. She was referred by cardiology for pulmonary evaluation for possible ILD. At the last visit, she reported suboptimal control with Spiriva and switched to Trelegy. She reports moderate improvements with Trelegy, continuing with dyspnea on exertion. Denies cough and wheezing at this time. Awaiting PFT which unfortunately had to be rescheduled by our office and chest CT which is scheduled in the next few weeks. [facility] Social History (Reviewed 02/19/24 @ 13:45 by Dorota Franco [facility] [address]) Household Members: Children Household Members Other:: Son Alcohol intake: never Patient Tobacco Use Status: Former Tobacco user Review of Systems Const Denies chills, Denies excessive sweating, Denies fever(s), Denies headache(s) and Denies night sweats Eyes Denies dry eyes, Denies irritation and Denies itchy eyes ENT Reports Normal hearing present, Denies headache(s), Denies nasal congestion, Denies nasal discharge, Denies post nasal drip and Denies sore throat Card Denies chest pain, Denies chest pain at rest, Denies chest pain with activity, Denies claudication, Denies leg edema, Denies orthopnea and Denies paroxysmal nocturnal dyspnea Resp Denies chest congestion, Denies excessive phlegm production, Denies pain on inspiration, Denies pain with cough and Denies stridor Musc Denies myalgias Neuro Reports Normal hearing present and Denies headache(s) Endo Denies excessive sweating Evan/Lymph Denies lymphadenopathy Aller/Immun Denies itchy eyes and Denies seasonal rhinorrhea Physical Exam Vital Signs: Last Vital Signs Pulse 78 02/19/24 13:41 BP 100/58 L 02/19/24 13:41 Pulse Ox 95 02/19/24 13:41 Oxygen Delivery Method Room Air 02/19/24 13:41 BMI result Body Mass Index 25.0 Const General: cooperative, healthy appearing, comfortable, no acute distress, well developed and alert Orientation/consciousness: patient oriented x3 Limitations: no limitations HEENT Head: Yes normal to inspection, Yes normocephalic and Yes atraumatic Ears: hearing grossly normal bilaterally and external ears normal Eyes General: appearance normal, both eyes and all related structures Eyelids: Yes eyelids normal Sclerae: sclerae normal EOM: EOMs intact bilaterally Neck Neck: Yes normal visual inspection and Yes no lymphadenopathy Lymphatic: no lymphadenopathy noted Chest Chest palpation & inspection: normal inspection of the chest Resp Other: inspiratory crackles right mid to lung base, otherwise clear. Effort & Inspection: normal respiratory effort, able to speak in complete sentences, no audible wheezes, no cough, no stridor, not tachypneic, no tripod positioning and no use of accessory muscles Auscultation: clear to auscultation bilaterally Cardio Jugular venous distension: no JVD Rate: regular rate Rhythm: regular rhythm Skin Other: warm, dry General skin exam: no rashes or lesions noted Neuro General: patient oriented x3 Cranial nerves: Yes Normal hearing present Cognition (Neuro): normal cognition Gait exam (Neuro): Normal gait present Extrem General: Yes normal to inspection, Yes capillary refill normal, Yes no clubbing, cyanosis or edema and Yes no pedal edema Psych Appearance: grossly normal and well kempt Speech and movement: Normal speech and movement present and Clear speech present Affect: normal affect Attitude: cooperative Thought process: Normal thought process present Thought content: Normal thought content present Insight: Good insight present (Psych) Judgement: Good judgement present (Psych) Assessment & Plan Assessment & Plan (1) COPD (chronic obstructive pulmonary disease): Code(s): J44.9 - Chronic obstructive pulmonary disease, unspecified Category: Medical (2) Abnormal chest xray: Code(s): R93.89 - Abnormal findings on diagnostic imaging of other specified body structures Category: Medical (3) Personal history of tobacco use: Code(s): Z87.891 - Personal history of nicotine dependence Category: Social Hx (4) Cough: Code(s): R05.9 - Cough, unspecified Category: Medical (5) Dyspnea: Code(s): R06.00 - Dyspnea, unspecified Category: Medical Plan Pebbles reports moderate improvement in symptoms since switching to Trelegy, advised to continue. Awaiting PFT and chest CT to evaluate patient more thoroughly. All questions were answered and patient is in agreement of plan. Will follow up in 4-6 weeks to review results or sooner if needed. Coding Level of Care Code Est Pt Level 3 (34449) Diagnoses COPD (chronic obstructive pulmonary disease) J44.9 Abnormal chest xray R93.89 Personal history of tobacco use Z87.891 Cough R05.9 Dyspnea R06.00
[2024-02-19 13:41] VITALS: BP 100/58; PULSE 78; O2SAT 95; BMI 25.0
== END 2024-02-19 14:13 | disposition home or self-care (01) ==
PROVIDERS: PCP General Practice; Visit Provider Nurse Practitioner Family
DX: J44.9 Chronic obstructive pulmonary disease, unspecified (principal); R93.89 Abnormal findings on diagnostic imaging of other specified body structures; Z87.891 Personal history of nicotine dependence; R05.9 Cough, unspecified; R06.00 Dyspnea, unspecified
CPT/HCPCS: 99213

== ENCOUNTER → 2024-02-19 13:35 | Outpatient (BNVA) | payer OTHER, SELFPAY | PROVIDERS: PCP General Practice; Visit Provider Nurse Practitioner Family | DX: J44.9 Chronic obstructive pulmonary disease, unspecified (principal) ==

== ENCOUNTER 2024-03-11 07:06 | Outpatient (REF) | payer OTHER, SELFPAY ==
--- NOTE | ~2024-03-11 | CT_ITS ---
EXAMINATION: CT CHEST WITHOUT CONTRAST CLINICAL INFORMATION: Personal history of nicotine dependence. COMPARISON: No prior CT available. Chest x-ray 08/10/2023. TECHNIQUE: Multidetector volumetric CT imaging of the chest was done. Axial MIP volume rendering provided. Sagittal and coronal reformatted images were obtained. This CT examination was performed using dose optimization techniques as appropriate, variously including the following: *Automated exposure control *Adjustment of mA and/or kV according to patient size (this includes techniques or standardized protocols for targeted exams where dose is matched to indication/reason for exam; i.e. extremities or head) *Use of iterative reconstruction technique DLP: 129 mGy-cm Please note, due to [employer] contractual, systems, and staffing issues, a radiologist was not available for review and dictation until 04/16/2024. FINDINGS: IDENTITY MANAGEMENT DEVELOPER: 3-lead left-sided AICD device in place, with leads terminating in the right atrium, right ventricle, and coronary sinus. The generator pack in the left hemithorax generates significant streak artifact, limiting evaluation of structures in the same plane. PULMONARY NODULES: -The degree of underlying interstitial lung disease limits the sensitivity for detection of small nodules, especially notable in the right lung. -There are a few scattered tiny calcified granulomata in both lungs. These are benign. -3 mm nodule in the medial posterior right apex, triangular in shape, with pleural tag most likely intrapulmonary lymph node (series 11, image 36). -5 mm groundglass nodule superior segment right lower lobe (series 11, image 85). -3 mm triangular nodule in the posterior right middle lobe, minor fissure, consistent with intrapulmonary lymph node (series 11, image 108). LUNGS: -There is subpleural and predominantly lower lung interstitial fibrosis present with honeycombing, extensive inter and intralobular septal thickening, peribronchovascular interstitial thickening, and mild traction bronchiectasis with bronchial thickening most notable in the right upper lobe, right middle lobe and lingula, and right greater than left lower lobes. Findings are highly suggestive of pulmonary fibrosis. -There are mild groundglass changes as well, most notable in the regions of honeycombing, and in the inferior left lower lobe medially, suggesting ongoing lung injury. -There is relative paucity of disease within the superior segment left lower lobe, and apical anterior segments left upper lobe. -There are no consolidations or findings suspicious for superimposed infectious disease. MEDIASTINUM: -Normal-appearing thyroid gland. -There are prominent lymph nodes in the pretracheal and precarinal region, subcarinal region, and in both yael, suggesting reactive etiology from fibrotic lung disease. There is also a prevascular node anterior to the descending aorta measuring 1.0 cm in diameter. -The thoracic aorta is normal in caliber, course, and branching pattern, with no significant calcific atheromatous change. -The main pulmonary artery is enlarged, with diameter of 3.5 cm, suggesting pulmonary hypertension to some degree. The trachea and major bronchi are patent. -Mildly patulous esophagus noted. No thickening. -Heart size is normal. There is no pericardial effusion. CORONARY ARTERY CALCIFICATION: Moderate LAD and RCA calcifications. PLEURA: There is no pleural effusion or pleural masses. AXILLA AND CHEST WALL: No masses. No abnormal lymph nodes. -Left upper chest anterior AICD generator pack. UPPER ABDOMEN: Unremarkable. OSSEOUS STRUCTURES: -No suspicious lytic or blastic bone lesions. -Mild to moderate spondylosis of the thoracic spine is present. -Mild associated dextroconvex thoracic scoliosis. CT/CT chest wo IV con IMPRESSION: 1. A few scattered pulmonary nodules bilaterally, with solid nodules measuring up to 3 mm and groundglass nodules measuring up to 5 mm. As noted, degree of underlying interstitial lung disease could easily obscure small pulmonary nodules. 2. A few calcified granulomata are present scattered in both lungs, benign. 3. Basilar interstitial disease most predominant in the right lower lobe and right middle lobe, with honeycombing and pattern distended with pulmonary fibrosis. Differential includes UIP, NSIP, and fibrotic lung disease based upon collagen vascular disease. Areas of groundglass attenuation are present as well, as described, likely indicating regions of ongoing lung injury. 4. 3-lead AICD device in place. 5. Lymphadenopathy in the mediastinum and hilar regions, likely reactive given the process in the lung parenchyma. 6. Enlarged main pulmonary arteries suggesting some degree of pulmonary hypertension. 7. Additional ancillary findings as discussed in the body of the report. Recommend one-year follow-up exam as per Fleischner criteria, or sooner as per patient symptomatology. Appointment Clerk consultation may be of benefit as well.
== END 2024-03-11 07:07 | disposition home or self-care (01) ==
LOC: HO.CT 07:06
PROVIDERS: Visit Provider Nurse Practitioner Family
DX: J84.9 Interstitial pulmonary disease, unspecified (principal); R93.89 Abnormal findings on diagnostic imaging of other specified body structures; Z87.891 Personal history of nicotine dependence
CPT/HCPCS: 71250

== ENCOUNTER → 2024-03-11 07:08 | Outpatient (BNV) | payer OTHER, SELFPAY | PROVIDERS: Visit Provider Radiology Diagnostic Radiology | DX: J84.9 Interstitial pulmonary disease, unspecified (principal); F17.210 Nicotine dependence, cigarettes, uncomplicated | CPT/HCPCS: 71250 ==

== ENCOUNTER → 2024-03-19 23:59 | Outpatient (BNV) | payer OTHER, SELFPAY ==
--- NOTE | 2024-03-25 11:25 | MHC.OFFVIS ---
Intake Visit Reasons: Remote HF monitoring- Medtronic Allergies No Known Allergies Allergy (Verified 02/19/24 13:45) PFSH Social History Household Members: Children Household Members Other:: Son Alcohol intake: never Patient Tobacco Use Status: Former Tobacco user Office Procedures Cardiac Device Check Cardiac Device Check Details: Medtronic HF monitoring DIRECTOR TRADING 99% Stable thoracic impedance. [id number] Cardiac Device Interrogation, cardio physiologic monitor Procedure code (CPT) selection complete Assessment & Plan Assessment & Plan (1) Cardiomyopathy: Code(s): I42.9 - Cardiomyopathy, unspecified Category: Medical Plan Orders: Orders AMB Cardiac Device Follow-up 03/19/24 I42.9 - Cardiomyopathy, unspecified Coding Level of Care Code Procedure Only Diagnoses Cardiomyopathy I42.9 CPT Codes Cardiac Device Check - Cardiac Device 15: [id number] Cardiac Device Interrogation, cardio physiologic monitor ([id number])
== END ==
PROVIDERS: PCP General Practice; Visit Provider Internal Medicine Cardiovascular Disease
DX: I42.9 Cardiomyopathy, unspecified (principal); Z95.810 Presence of automatic (implantable) cardiac defibrillator
CPT/HCPCS: 93297

== ENCOUNTER → 2024-03-19 23:59 | Outpatient (BNV) | payer OTHER, SELFPAY ==
--- NOTE | 2024-03-25 11:22 | A.OFFVIS_ITS ---
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 Episodes of PAF noted (known Afib). 83981-BB Cardiac Device Check, multi lead implantable defibrillator Procedure code (CPT) selection complete Assessment & Plan Assessment & Plan (1) Cardiomyopathy: Code(s): I42.9 - Cardiomyopathy, unspecified Category: Medical Plan Orders: Orders AMB Cardiac Device Follow-up 03/19/24 I42.9 - Cardiomyopathy, unspecified Coding Level of Care Code Procedure Only Diagnoses Cardiomyopathy I42.9 CPT Codes Cardiac Device Check - Cardiac Device 6: 23286-SD Cardiac Device Check, multi lead implantable defibrillator ([id number])
--- NOTE | 2024-03-25 11:22 | MHC.OFFVIS ---
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 Episodes of PAF noted (known Afib). 90780-EA Cardiac Device Check, multi lead implantable defibrillator Procedure code (CPT) selection complete Assessment & Plan Assessment & Plan (1) Cardiomyopathy: Code(s): I42.9 - Cardiomyopathy, unspecified Category: Medical Plan Orders: Orders AMB Cardiac Device Follow-up 03/19/24 I42.9 - Cardiomyopathy, unspecified Coding Level of Care Code Procedure Only Diagnoses Cardiomyopathy I42.9 CPT Codes Cardiac Device Check - Cardiac Device 6: 12583-JT Cardiac Device Check, multi lead implantable defibrillator ([id number])
== END ==
PROVIDERS: PCP General Practice; Visit Provider Internal Medicine Cardiovascular Disease
DX: I42.9 Cardiomyopathy, unspecified (principal); Z95.810 Presence of automatic (implantable) cardiac defibrillator
CPT/HCPCS: 93295

== ENCOUNTER 2024-04-01 08:47 | Outpatient (REF) | payer OTHER, SELFPAY ==
[2024-04-01 10:31] LABS: Rheumatoid Factor 23.3 IU/mL (<15.0)
[2024-04-01 15:49] LABS: Erythrocyte Sedimentation Rate 12 MM/HR (0-20)
[2024-04-02 20:53] LABS: Anti DNA DS Antibody 7 IU/mL; Antibody to SS-A Antigen <1.0 NEG AI (<1.0 NEG); Antibody to SS-B Antigen <1.0 NEG AI (<1.0 NEG); Scleroderma 70 Antibody <1.0 NEG AI (<1.0 NEG)
[2024-04-04 11:04] LABS: Anti Nuclear Antibody Screen POSITIVE (NEGATIVE); Anti Nuclear Antibody Titer 1:40 titer
== END 2024-04-01 08:48 | disposition home or self-care (01) ==
LOC: HO.LAB 08:47
PROVIDERS: PCP General Practice; Visit Provider Nurse Practitioner Family
DX: J44.9 Chronic obstructive pulmonary disease, unspecified (principal); J84.9 Interstitial pulmonary disease, unspecified; Z87.891 Personal history of nicotine dependence
CPT/HCPCS: 36415; 85652; 86038; 86039; 86141; 86225; 86235; 86431

== ENCOUNTER 2024-04-01 08:47 | Outpatient (AMB) | payer OTHER, SELFPAY ==
--- NOTE | 2024-04-01 08:19 | A.OFFVIS_ITS ---
Vital Signs 04/01/24 08:51 Height 5 ft 2 in Weight 137 lb 12.623 oz BMI 25.2 BP 118/64 Blood Pressure Location Rt brachial Position Sitting Pulse 80 Pulse Source Pulse Oximeter Pulse Oximetry (%) 95 Oxygen Delivery Method Room Air Intake Visit Reasons: COPD Allergies No Known Allergies Allergy (Verified 04/01/24 08:54) HPI HPI COPD: Details: Pebbles is a pleasant 68 year old female, former smoker with 80+ pack year history, quit approximately 10 years ago, with underlying COPD, CAD, HTN, LBBB, EF 32% s/p AICD and atrial fibrillation on coumadin. She was referred by cardiology for pulmonary evaluation for possible ILD. She has been well controlled on Trelegy and albuterol MDI, currently denies any symptoms. Today she presents to review chest CT which is not officially read by radiology. She denies any prior history of autoimmune conditions. She denies any rash, skin abnormalities, joint pain or fevers. She denies any difficulties with swallowing suggestive of aspiration. She reports daughter with fibromyalgia, otherwise denies family history of underlying autoimmune conditions. [facility] Social History (Reviewed 04/01/24 @ 08:54 by Dorota Franco [facility]) Household Members: Children Household Members Other:: Son Alcohol intake: never Patient Tobacco Use Status: Former Tobacco user Review of Systems Const Denies chills, Denies excessive sweating, Denies fever(s), Denies headache(s) and Denies night sweats Eyes Denies dry eyes, Denies irritation and Denies itchy eyes ENT Reports Normal hearing present, Denies headache(s), Denies nasal congestion, Denies nasal discharge, Denies post nasal drip and Denies sore throat Card Denies chest pain, Denies chest pain at rest, Denies chest pain with activity, Denies claudication, Denies leg edema, Denies orthopnea and Denies paroxysmal nocturnal dyspnea Resp Denies chest congestion, Denies excessive phlegm production, Denies pain on inspiration, Denies pain with cough and Denies stridor Musc Denies myalgias Neuro Reports Normal hearing present and Denies headache(s) Endo Denies excessive sweating Evan/Lymph Denies lymphadenopathy Aller/Immun Denies itchy eyes and Denies seasonal rhinorrhea Physical Exam Vital Signs: Last Vital Signs Pulse 80 04/01/24 08:51 BP 118/64 04/01/24 08:51 Pulse Ox 95 04/01/24 08:51 Oxygen Delivery Method Room Air 04/01/24 08:51 BMI result Body Mass Index 25.2 Const General: cooperative, healthy appearing, comfortable, no acute distress, well developed and alert Orientation/consciousness: patient oriented x3 Limitations: no limitations HEENT Head: Yes normal to inspection, Yes normocephalic and Yes atraumatic Ears: hearing grossly normal bilaterally and external ears normal Eyes General: appearance normal, both eyes and all related structures Eyelids: Yes eyelids normal Sclerae: sclerae normal EOM: EOMs intact bilaterally Neck Neck: Yes normal visual inspection and Yes no lymphadenopathy Lymphatic: no lymphadenopathy noted Chest Chest palpation & inspection: normal inspection of the chest Resp Other: inspiratory crackles right mid to lung base, otherwise clear. Effort & Inspection: normal respiratory effort, able to speak in complete sentences, no audible wheezes, no cough, no stridor, not tachypneic, no tripod positioning and no use of accessory muscles Auscultation: clear to auscultation bilaterally Cardio Jugular venous distension: no JVD Rate: regular rate Rhythm: regular rhythm Skin Other: warm, dry General skin exam: no rashes or lesions noted Neuro General: patient oriented x3 Cranial nerves: Yes Normal hearing present Cognition (Neuro): normal cognition Gait exam (Neuro): Normal gait present Extrem General: Yes normal to inspection, Yes capillary refill normal, Yes no clubbing, cyanosis or edema and Yes no pedal edema Psych Appearance: grossly normal and well kempt Speech and movement: Normal speech and movement present and Clear speech present Affect: normal affect Attitude: cooperative Thought process: Normal thought process present Thought content: Normal thought content present Insight: Good insight present (Psych) Judgement: Good judgement present (Psych) Assessment & Plan Assessment & Plan (1) COPD (chronic obstructive pulmonary disease): Code(s): J44.9 - Chronic obstructive pulmonary disease, unspecified Category: Medical (2) Personal history of tobacco use: Code(s): Z87.891 - Personal history of nicotine dependence Category: Social Hx (3) Interstitial lung disease: Code(s): J84.9 - Interstitial pulmonary disease, unspecified Category: Medical Plan At this time Pebbles denies any respiratory symptoms, advised to continue current regimen of Trelegy and albuterol MDI. She is aware if symptoms worsen to call office. Reviewed chest CT in office which reveals moderate to severe honeycombing of RML to RLL with mild honeycombing of LLL. Discussed possibility of idiopathic pulmonary fibrosis and need for an anti-fibrotic agent. Will send for assess for underlying causes of interstitial lung disease including connective tissue disorders. All questions were answered and patient is in agreement of plan. Will follow up when results available. Orders: Orders BRITTNI Reflex Titer and Pattern Today J84.9 - Interstitial pulmonary disease, unspecified Erythrocyte Sedimentation Rate Today J84.9 - Interstitial pulmonary disease, unspecified Anti DNA DS Antibody Today J84.9 - Interstitial pulmonary disease, unspecified Sjogren's Antibodies Today J84.9 - Interstitial pulmonary disease, unspecified Scleroderma 70 Antibody Today J84.9 - Interstitial pulmonary disease, unspecified Rheumatoid Factor Today J84.9 - Interstitial pulmonary disease, unspecified CRP High Sensitivity Today J84.9 - Interstitial pulmonary disease, unspecified Coding Level of Care Code Est Pt Level 4 (49484) Diagnoses COPD (chronic obstructive pulmonary disease) J44.9 Personal history of tobacco use Z87.891 Interstitial lung disease J84.9
[2024-04-01 08:51] VITALS: BP 118/64; PULSE 80; O2SAT 95; BMI 25.2
== END 2024-04-01 10:06 | disposition home or self-care (01) ==
PROVIDERS: PCP General Practice; Visit Provider Nurse Practitioner Family
DX: J44.9 Chronic obstructive pulmonary disease, unspecified (principal); Z87.891 Personal history of nicotine dependence; J84.9 Interstitial pulmonary disease, unspecified
CPT/HCPCS: 99214

== ENCOUNTER → 2024-05-03 23:59 | Outpatient (BNV) | payer OTHER, SELFPAY ==
--- NOTE | 2024-05-21 19:59 | A.OFFVIS_ITS ---
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 [id number] Cardiac Device Interrogation, cardio physiologic monitor Procedure code (CPT) selection complete Assessment & Plan Assessment & Plan (1) Cardiomyopathy: Code(s): I42.9 - Cardiomyopathy, unspecified Category: Medical Plan: Coding Level of Care Code Procedure Only Diagnoses Cardiomyopathy I42.9 CPT Codes Cardiac Device Check - Cardiac Device 15: [id number] Cardiac Device Interrogation, cardio physiologic monitor ([id number])
--- NOTE | 2024-05-21 19:59 | MHC.OFFVIS ---
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 12064-[id number] Cardiac Device Interrogation, cardio physiologic monitor Procedure code (CPT) selection complete Assessment & Plan Assessment & Plan (1) Cardiomyopathy: Code(s): I42.9 - Cardiomyopathy, unspecified Category: Medical Plan: Coding Level of Care Code Procedure Only Diagnoses Cardiomyopathy I42.9 CPT Codes Cardiac Device Check - Cardiac Device 15: [id number] Cardiac Device Interrogation, cardio physiologic monitor ([id number])
== END ==
PROVIDERS: PCP General Practice; Visit Provider Internal Medicine Cardiovascular Disease
DX: I42.9 Cardiomyopathy, unspecified (principal); Z95.810 Presence of automatic (implantable) cardiac defibrillator
CPT/HCPCS: 93297

== ENCOUNTER 2024-05-27 07:07 | Outpatient (REF) | payer OTHER, SELFPAY ==
--- NOTE | ~2024-05-27 | CT_ITS ---
EXAMINATION: CT CHEST WITHOUT CONTRAST CLINICAL INFORMATION: Interstitial pulmonary disease unspecified. COMPARISON: 03/11/2024. TECHNIQUE: Multidetector volumetric CT imaging of the chest was done. Axial MIP volume rendering provided. Sagittal and coronal reformatted images were obtained. This CT examination was performed using dose optimization techniques as appropriate, variously including the following: *Automated exposure control *Adjustment of mA and/or kV according to patient size (this includes techniques or standardized protocols for targeted exams where dose is matched to indication/reason for exam; i.e. extremities or head) *Use of iterative reconstruction technique DLP: 136 mGy-cm FINDINGS: MOLD STACKER: 3-lead left-sided AICD device in place, with leads terminating in the right atrium, right ventricle, and coronary sinus. The generator pack in the left hemithorax generates significant streak artifact, limiting evaluation of structures in the same plane. PULMONARY NODULES: -The degree of underlying interstitial lung disease limits the sensitivity for detection of small nodules, especially notable in the right lung. -There are a few scattered tiny calcified granulomata in both lungs. These are benign. -3 mm nodule in the medial posterior right apex, triangular in shape, with pleural tag most likely intrapulmonary lymph node (series 8, image 28), stable. -4 mm groundglass nodule superior segment right lower lobe (series 8, image 75), stable. -3 mm triangular nodule in the posterior right middle lobe, minor fissure, consistent with intrapulmonary lymph node (series 8, image 94), stable. -No new or enlarging nodules. LUNGS: -There is completely unchanged subpleural and predominantly lower lung interstitial fibrosis present with honeycombing, extensive inter and intralobular septal thickening, peribronchovascular interstitial thickening, and mild traction bronchiectasis with bronchial thickening most notable in the right upper lobe, right middle lobe and lingula, and right greater than left lower lobes. Findings are highly suggestive of pulmonary fibrosis. -There are mild groundglass changes as well, most notable in the regions of honeycombing, and in the inferior left lower lobe medially, suggesting ongoing lung injury. -There is relative paucity of disease within the superior segment left lower lobe, and apical anterior segments left upper lobe. -There are no consolidations or findings suspicious for superimposed infectious disease. MEDIASTINUM: -Normal-appearing thyroid gland. -There are prominent lymph nodes in the pretracheal and precarinal region, subcarinal region, and in both yael, suggesting reactive etiology from fibrotic lung disease. There is also a prevascular node anterior to the descending aorta measuring 1.0 cm in diameter. These are stable. -The thoracic aorta is normal in caliber, course, and branching pattern, with no significant calcific atheromatous change. -The main pulmonary artery is enlarged, with diameter of 3.5 cm, suggesting pulmonary hypertension to some degree. -The trachea and major bronchi are patent. -Mildly patulous esophagus noted. No thickening. -Heart size is normal. There is no pericardial effusion. CORONARY ARTERY CALCIFICATION: Moderate LAD and RCA calcifications. PLEURA: There is no pleural effusion or pleural masses. AXILLA AND CHEST WALL: -No masses. No abnormal lymph nodes. -Left upper chest anterior AICD generator pack. UPPER ABDOMEN: Unremarkable. OSSEOUS STRUCTURES: -No suspicious lytic or blastic bone lesions. -Mild to moderate spondylosis of the thoracic spine is present. -Mild associated dextroconvex thoracic scoliosis. CT/CT chest wo IV con IMPRESSION: 1. A few scattered pulmonary nodules bilaterally, unchanged, with solid nodules measuring up to 3 mm and groundglass nodules measuring up to 4 mm. As noted, degree of underlying interstitial lung disease could easily obscure small pulmonary nodules. 2. A few calcified granulomata are present scattered in both lungs, benign. 3. Basilar interstitial disease most predominant in the right lower lobe and right middle lobe, with honeycombing and pattern distended with pulmonary fibrosis. Differential includes UIP, NSIP, and fibrotic lung disease based upon collagen vascular disease. Areas of groundglass attenuation are present as well, as described, likely indicating regions of ongoing lung injury. Findings appear relatively unchanged when compared with 03/11/2024. 4. Lymphadenopathy in the mediastinum and hilar regions, likely reactive given the process in the lung parenchyma. 5. Enlarged main pulmonary arteries suggesting some degree of pulmonary hypertension. 6. Additional ancillary findings as discussed in the body of the report. Recommend one-year follow-up exam as per Fleischner criteria, or sooner as per patient symptomatology. Electronically signed by: Alex Alves MD 07/26/2024 02:46 PM [facility] - [place], [place]
== END 2024-05-27 07:08 | disposition home or self-care (01) ==
LOC: HO.CT 07:07
PROVIDERS: PCP General Practice; Visit Provider Nurse Practitioner Family
DX: J84.9 Interstitial pulmonary disease, unspecified (principal)
CPT/HCPCS: 71250

== ENCOUNTER → 2024-05-27 07:09 | Outpatient (BNV) | payer OTHER, SELFPAY | PROVIDERS: PCP General Practice; Visit Provider Radiology Diagnostic Radiology | DX: R91.1 Solitary pulmonary nodule (principal); L92.8 Other granulomatous disorders of the skin and subcutaneous tissue | CPT/HCPCS: 71250 ==

== ENCOUNTER 2024-05-27 09:06 | Outpatient (AMB) | payer OTHER, SELFPAY ==
--- NOTE | 2024-05-27 08:34 | A.OFFVIS_ITS ---
Vital Signs 05/27/24 09:09 Height 5 ft 2 in Weight 141 lb 1.533 oz BMI 25.8 BP 114/68 Blood Pressure Location Rt brachial Position Sitting Pulse 60 Pulse Source Pulse Oximeter Pulse Oximetry (%) 98 Oxygen Delivery Method Room Air Intake Visit Reasons: COPD Allergies No Known Allergies Allergy (Verified 05/27/24 09:13) HPI HPI COPD: Details: Pebbles is a pleasant 68 year old female, former smoker with 80+ pack year history, quit approximately 10 years ago, with underlying COPD, CAD, HTN, LBBB, EF 32% s/p AICD and atrial fibrillation on coumadin. She has been well controlled on Trelegy and albuterol MDI, currently denies any symptoms. Prior chest CT suggestive of pulmonary fibrosis with extensive subpleural and predominantly lower lung interstitial fibrosis present with honeycombing, extensive inter and intralobular septal thickening, peribronchovascular interstitial thickening, and mild traction bronchiectasis with bronchial thickening most notable in the right upper lobe, right middle lobe and lingula, and right greater than left lower lobes. She was started on prednisone and presents today to assess for any radiographic improvements. CT performed this AM, no official at this time. [facility] Social History Household Members: Children Household Members Other:: Son Alcohol intake: never Patient Tobacco Use Status: Former Tobacco user Review of Systems Const Denies chills, Denies excessive sweating, Denies fever(s), Denies headache(s) and Denies night sweats Eyes Denies dry eyes, Denies irritation and Denies itchy eyes ENT Reports Normal hearing present, Denies headache(s), Denies nasal congestion, Denies nasal discharge, Denies post nasal drip and Denies sore throat Card Denies chest pain, Denies chest pain at rest, Denies chest pain with activity, Denies claudication, Denies leg edema, Denies orthopnea and Denies paroxysmal nocturnal dyspnea Resp Denies chest congestion, Denies excessive phlegm production, Denies pain on inspiration, Denies pain with cough and Denies stridor Musc Denies myalgias Neuro Reports Normal hearing present and Denies headache(s) Endo Denies excessive sweating Evan/Lymph Denies lymphadenopathy Aller/Immun Denies itchy eyes and Denies seasonal rhinorrhea Physical Exam Vital Signs: Last Vital Signs Pulse 60 05/27/24 09:09 BP 114/68 05/27/24 09:09 Pulse Ox 98 05/27/24 09:09 Oxygen Delivery Method Room Air 05/27/24 09:09 BMI result Body Mass Index 25.8 Const General: cooperative, healthy appearing, comfortable, no acute distress, well developed and alert Orientation/consciousness: patient oriented x3 Limitations: no limitations HEENT Head: Yes normal to inspection, Yes normocephalic and Yes atraumatic Ears: hearing grossly normal bilaterally and external ears normal Eyes General: appearance normal, both eyes and all related structures Eyelids: Yes eyelids normal Sclerae: sclerae normal EOM: EOMs intact bilaterally Neck Neck: Yes normal visual inspection and Yes no lymphadenopathy Lymphatic: no lymphadenopathy noted Chest Chest palpation & inspection: normal inspection of the chest Resp Other: inspiratory crackles right mid to lung base, otherwise clear. Effort & Inspection: normal respiratory effort, able to speak in complete sentences, no audible wheezes, no cough, no stridor, not tachypneic, no tripod positioning and no use of accessory muscles Auscultation: clear to auscultation bilaterally Cardio Jugular venous distension: no JVD Rate: regular rate Rhythm: regular rhythm Skin Other: warm, dry General skin exam: no rashes or lesions noted Neuro General: patient oriented x3 Cranial nerves: Yes Normal hearing present Cognition (Neuro): normal cognition Gait exam (Neuro): Normal gait present Extrem General: Yes normal to inspection, Yes capillary refill normal, Yes no clubbing, cyanosis or edema and Yes no pedal edema Psych Appearance: grossly normal and well kempt Speech and movement: Normal speech and movement present and Clear speech present Affect: normal affect Attitude: cooperative Thought process: Normal thought process present Thought content: Normal thought content present Insight: Good insight present (Psych) Judgement: Good judgement present (Psych) Assessment & Plan Assessment & Plan (1) COPD (chronic obstructive pulmonary disease): Code(s): J44.9 - Chronic obstructive pulmonary disease, unspecified Category: Medical (2) Personal history of tobacco use: Code(s): Z87.891 - Personal history of nicotine dependence Category: Social Hx (3) Interstitial lung disease: Code(s): J84.9 - Interstitial pulmonary disease, unspecified Category: Medical Plan Reviewed chest CT and does reveal decrease in interstitial changes, however not officially read by radiology. Will continue prednisone for a total of three months. Discussed adverse effects of continued prednisone. Will monitor blood glucose and assess for any signs of infection. She has upcoming appt with station inspector. All questions were answered and patient is in agreement of plan. Will follow up when results available. Medications: Refilled prednisone 40 mg (2 x 20 mg) PO DAILY 60 tabs 2RF Coding Level of Care Code Est Pt Level 4 (52521) Diagnoses COPD (chronic obstructive pulmonary disease) J44.9 Personal history of tobacco use Z87.891 Interstitial lung disease J84.9
[2024-05-27 09:09] VITALS: BP 114/68; PULSE 60; O2SAT 98; BMI 25.8
== END 2024-05-27 09:29 | disposition home or self-care (01) ==
PROVIDERS: PCP General Practice; Visit Provider Nurse Practitioner Family
DX: J44.9 Chronic obstructive pulmonary disease, unspecified (principal); Z87.891 Personal history of nicotine dependence; J84.9 Interstitial pulmonary disease, unspecified
CPT/HCPCS: 99214

== ENCOUNTER → 2024-06-03 23:59 | Outpatient (BNV) | payer OTHER, SELFPAY ==
--- NOTE | 2024-06-09 18:33 | A.OFFVIS_ITS ---
Intake Visit Reasons: Remote ICD check- [employer] Allergies No Known Allergies Allergy (Verified 05/27/24 09:13) [facility] Social History Household Members: Children Household Members Other:: Son Alcohol intake: never Patient Tobacco Use Status: Former Tobacco user Office Procedures Cardiac Device Check Cardiac Device Check Details: CRTD Good battery life TELEMETRY TECH 99% Episodes of Afib recorded. Total duration 77 min. 58012-XO Cardiac Device Check, multi lead implantable defibrillator Procedure code (CPT) selection complete Assessment & Plan Assessment & Plan (1) Cardiomyopathy: Code(s): I42.9 - Cardiomyopathy, unspecified Category: Medical Plan: Orders: Orders 2 AMB Cardiac Device Follow-up 06/03/24 I42.9 - Cardiomyopathy, unspecified Coding Level of Care Code Procedure Only Diagnoses Cardiomyopathy I42.9 CPT Codes Cardiac Device Check - Cardiac Device 6: 28513-EO Cardiac Device Check, multi lead implantable defibrillator ([id number])
--- NOTE | 2024-06-09 18:33 | MHC.OFFVIS ---
Intake Visit Reasons: Remote ICD check- [employer] Allergies No Known Allergies Allergy (Verified 05/27/24 09:13) [facility] Social History Household Members: Children Household Members Other:: Son Alcohol intake: never Patient Tobacco Use Status: Former Tobacco user Office Procedures Cardiac Device Check Cardiac Device Check Details: CRTD Good battery life [employer] 99% Episodes of Afib recorded. Total duration 77 min. 77397-[place] Cardiac Device Check, multi lead implantable defibrillator Procedure code (CPT) selection complete Assessment & Plan Assessment & Plan (1) Cardiomyopathy: Code(s): I42.9 - Cardiomyopathy, unspecified Category: Medical Plan: Orders: Orders AMB Cardiac Device Follow-up 06/03/24 I42.9 - Cardiomyopathy, unspecified Coding Level of Care Code Procedure Only Diagnoses Cardiomyopathy I42.9 CPT Codes Cardiac Device Check - Cardiac Device 6: 18967-[place] Cardiac Device Check, multi lead implantable defibrillator ([id number])
== END ==
PROVIDERS: PCP General Practice; Visit Provider Internal Medicine Cardiovascular Disease
DX: I42.9 Cardiomyopathy, unspecified (principal); Z95.810 Presence of automatic (implantable) cardiac defibrillator
CPT/HCPCS: 93295

== ENCOUNTER → 2024-06-03 23:59 | Outpatient (BNV) | payer OTHER, SELFPAY ==
--- NOTE | 2024-06-09 18:27 | MHC.OFFVIS ---
Intake Visit Reasons: Remote HF monitoring- [employer] Allergies No Known Allergies Allergy (Verified 05/27/24 09:13) [facility] Social History Household Members: Children Household Members Other:: Son Alcohol intake: never Patient Tobacco Use Status: Former Tobacco user Office Procedures Cardiac Device Check Cardiac Device Check Details: HF monitoring Stable thoracic impedance. 37946-[id number] Device Interrogation, cardiac physiologic monitor system Procedure code (CPT) selection complete Assessment & Plan Assessment & Plan (1) Cardiomyopathy: Code(s): I42.9 - Cardiomyopathy, unspecified Category: Medical Plan: Orders: Orders AMB Cardiac Device Follow-up 06/03/24 I42.9 - Cardiomyopathy, unspecified Coding Level of Care Code Procedure Only Diagnoses Cardiomyopathy I42.9 CPT Codes Cardiac Device Check - Cardiac Device 10: 22316-[id number] Device Interrogation, cardiac physiologic monitor system ([id number])
== END ==
PROVIDERS: PCP General Practice; Visit Provider Internal Medicine Cardiovascular Disease
DX: I42.9 Cardiomyopathy, unspecified (principal); Z95.810 Presence of automatic (implantable) cardiac defibrillator
CPT/HCPCS: 93297

== ENCOUNTER 2024-06-14 10:27 | Outpatient (REF) | payer OTHER, SELFPAY ==
[2024-06-14 12:07] LABS: MANUAL DIFF FLAG NO
[2024-06-14 12:30] LABS: Basophils Percent Auto 0.2 % (0-2); Eosinophils Absolute Auto 0.3 X10*3/uL (0.0-0.4); Eosinophils Percent Auto 2.3 % (0-4); Hematocrit 49.1 % (37.0-47.0); Hemoglobin 15.9 g/dl (12.0-16.0); Imm Gran Abs Auto 0.04 X10*3/uL (0.00-0.03); Imm Gran Pct Auto 0.3 % (0.0-0.4); Lymphocytes Absolute Auto 3.2 X10*3/uL (1.2-4.9); Lymphocytes Percent Auto 23.5 % (20-40); Mean Corpuscular HGB Conc 32.4 g/dl (31.0-35.0); Mean Corpuscular Hemoglobin 29.4 pg (27.0-33.0); Mean Corpuscular Volume 90.9 fL (80.0-98.0); Mean Platelet Volume 9.5 fL (9.4-12.3); Monocytes Absolute Auto 1.2 X10*3/uL (0.1-1.2); Monocytes Percent Auto 8.8 % (2-11); Neutrophils Absolute Auto 8.9 x10*3/uL (2.0-8.3); Neutrophils Percent Auto 64.9 % (45-73); Platelet Count 195 X10*3/uL (160-400); Red Cell Distribution Width 14.3 % (11.0-16.0); White Blood Count 13.7 X10*3/uL (4.8-10.8)
[2024-06-14 13:41] LABS: Alanine Aminotransferase 28 U/L (0-31); Albumin Level 3.6 g/dL (3.5-5.0); Alkaline Phosphatase 54 U/L (39-117); Anion Gap 11 (12-20); Aspartate Amino Transferase 15 U/L (5-31); Bilirubin Total 0.9 mg/dL (0.0-1.0); Blood Urea Nitrogen 19 mg/dL (9-16); Calcium 9.4 mg/dL (8.4-10.2); Carbon Dioxide 29 mmol/L (22-29); Chloride 103 mmol/L (96-108); Estimated Glomerular Filt Rate > 60; Glucose Random 127 mg/dL (60-115); Magnesium 1.9 mg/dL (1.6-2.6); Potassium 4.9 mmol/L (3.3-5.1); Sodium 138 mmol/L (135-145); Total Protein 6.4 g/dL (6.5-8.0)
[2024-06-14 13:44] LABS: TSH reflex Free T4 1.02 uIU/mL (0.32-4.0)
== END 2024-06-14 10:28 | disposition home or self-care (01) ==
LOC: HO.LAB 10:27
PROVIDERS: PCP General Practice; Visit Provider Nurse Practitioner Family
DX: Z45.02 Encounter for adjustment and management of automatic implantable cardiac defibrillator (principal); Z95.810 Presence of automatic (implantable) cardiac defibrillator
CPT/HCPCS: 36415; 80053; 83735; 84443; 85025; 93005

== ENCOUNTER 2024-06-14 10:27 | Outpatient (AMB) | payer OTHER, SELFPAY ==
--- NOTE | 2024-06-14 11:15 | AM.OFFVISNUR ---
Vital Signs 06/14/24 11:37 BP 126/68 Blood Pressure Location Rt brachial Position Sitting Pulse 66 Pulse Source Monitor Intake Visit Reasons: metronic check the nurse visit Sales Performance Manager Required: Yes Sales Performance Manager Services: Sales Performance Manager Offered & Declined Accompanied by: Daughter Allergies No Known Allergies Allergy (Verified 05/27/24 09:13) Nursing Note pt is here for nurse visit with ekg device check and blood pressure check pt states before shock she felt numbness where heart and under arm is. Office Procedures EKG 11529-Hbkzxlqhrbhbevsux, Complete
[2024-06-14 11:37] VITALS: BP 126/68; PULSE 66
== END 2024-06-14 11:46 | disposition home or self-care (01) ==
PROVIDERS: PCP General Practice; Visit Provider Nurse Practitioner Family
DX: R94.31 Abnormal electrocardiogram [ECG] [EKG] (principal)
CPT/HCPCS: 93010

== ENCOUNTER → 2024-07-04 23:59 | Outpatient (BNV) | payer OTHER, SELFPAY ==
--- NOTE | 2024-07-20 20:57 | MHC.OFFVIS ---
Intake Visit Reasons: Remote HF monitoring- [employer] Allergies No Known Allergies Allergy (Verified 07/08/24 09:05) [facility] Social History Household Members: Children Household Members Other:: Son Alcohol intake: never Patient Tobacco Use Status: Former Tobacco user Office Procedures Cardiac Device Check Cardiac Device Check Details: HF monitoring Stable thoracic impedance. [id number] Device Interrogation, cardiac physiologic monitor system Procedure code (CPT) selection complete Assessment & Plan Assessment & Plan (1) ICD (implantable cardioverter-defibrillator) discharge: Code(s): Z45.02 - Encounter for adjustment and management of automatic implantable cardiac defibrillator Category: Medical Plan: Coding Level of Care Code Procedure Only Diagnoses ICD (implantable cardioverter-defibrillator) discharge Z45.02 CPT Codes Cardiac Device Check - Cardiac Device 10: 88718-Kvjwdka Device Interrogation, cardiac physiologic monitor system ([id number])
== END ==
PROVIDERS: PCP General Practice; Visit Provider Internal Medicine Cardiovascular Disease
DX: Z45.02 Encounter for adjustment and management of automatic implantable cardiac defibrillator (principal)
CPT/HCPCS: 93297

== ENCOUNTER 2024-07-08 08:54 | Outpatient (AMB) | payer OTHER, SELFPAY ==
--- NOTE | 2024-07-08 08:39 | MHC.OFFVIS ---
Vital Signs 07/08/24 08:59 Height 5 ft 2 in Weight 135 lb 9.349 oz BMI 24.8 BP 118/66 Blood Pressure Location Rt brachial Position Sitting Pulse 80 Pulse Source Pulse Oximeter Pulse Oximetry (%) 95 Oxygen Delivery Method Room Air Intake Visit Reasons: COPD Allergies No Known Allergies Allergy (Verified 07/08/24 09:05) HPI HPI COPD: Details: Pebbles is a pleasant 68 year old female, former smoker with 80+ pack year history, quit approximately 10 years ago, with underlying COPD, CAD, HTN, LBBB, EF 32% s/p AICD and atrial fibrillation on coumadin. She has been well controlled on Trelegy and albuterol MDI, however reports more noticeable dyspnea on exertion. Prior chest CT suggestive of pulmonary fibrosis with extensive subpleural and predominantly lower lung interstitial fibrosis present with honeycombing, extensive inter and intralobular septal thickening, peribronchovascular interstitial thickening, and mild traction bronchiectasis with bronchial thickening most notable in the right upper lobe, right middle lobe and lingula, and right greater than left lower lobes. She was started on prednisone and repeat chest CT revealed radiologic improvements. She has been maintained on prednisone and has been tolerating well. She denies any infections or visits to urgent/hospitalizations since the last visit. She has upcoming PFT at [facility]. [facility] Social History Household Members: Children Household Members Other:: Son Alcohol intake: never Patient Tobacco Use Status: Former Tobacco user Review of Systems Const Denies chills, Denies excessive sweating, Denies fever(s), Denies headache(s) and Denies night sweats Eyes Denies dry eyes, Denies irritation and Denies itchy eyes ENT Reports Normal hearing present, Denies headache(s), Denies nasal congestion, Denies nasal discharge, Denies post nasal drip and Denies sore throat Card Denies chest pain, Denies chest pain at rest, Denies chest pain with activity, Denies claudication, Denies leg edema, Denies orthopnea and Denies paroxysmal nocturnal dyspnea Resp Denies chest congestion, Denies excessive phlegm production, Denies pain on inspiration, Denies pain with cough and Denies stridor Musc Denies myalgias Neuro Reports Normal hearing present and Denies headache(s) Endo Denies excessive sweating Evan/Lymph Denies lymphadenopathy Aller/Immun Denies itchy eyes and Denies seasonal rhinorrhea Physical Exam Vital Signs: Last Vital Signs Pulse 80 07/08/24 08:59 BP 118/66 07/08/24 08:59 Pulse Ox 95 07/08/24 08:59 Oxygen Delivery Method Room Air 07/08/24 08:59 BMI result Body Mass Index 24.8 Const General: cooperative, healthy appearing, comfortable, no acute distress, well developed and alert Orientation/consciousness: patient oriented x3 Limitations: no limitations HEENT Head: Yes normal to inspection, Yes normocephalic and Yes atraumatic Ears: hearing grossly normal bilaterally and external ears normal Eyes General: appearance normal, both eyes and all related structures Eyelids: Yes eyelids normal Sclerae: sclerae normal EOM: EOMs intact bilaterally Neck Neck: Yes normal visual inspection and Yes no lymphadenopathy Lymphatic: no lymphadenopathy noted Chest Chest palpation & inspection: normal inspection of the chest Resp Other: inspiratory crackles right mid to lung base, otherwise clear. Effort & Inspection: normal respiratory effort, able to speak in complete sentences, no audible wheezes, no cough, no stridor, not tachypneic, no tripod positioning and no use of accessory muscles Auscultation: clear to auscultation bilaterally Cardio Jugular venous distension: no JVD Rate: regular rate Rhythm: regular rhythm Skin Other: warm, dry General skin exam: no rashes or lesions noted Neuro General: patient oriented x3 Cranial nerves: Yes Normal hearing present Cognition (Neuro): normal cognition Gait exam (Neuro): Normal gait present Extrem General: Yes normal to inspection, Yes capillary refill normal, Yes no clubbing, cyanosis or edema and Yes no pedal edema Psych Appearance: grossly normal and well kempt Speech and movement: Normal speech and movement present and Clear speech present Affect: normal affect Attitude: cooperative Thought process: Normal thought process present Thought content: Normal thought content present Insight: Good insight present (Psych) Judgement: Good judgement present (Psych) Assessment & Plan Assessment & Plan (1) COPD (chronic obstructive pulmonary disease): Code(s): J44.9 - Chronic obstructive pulmonary disease, unspecified Category: Medical (2) Personal history of tobacco use: Code(s): Z87.891 - Personal history of nicotine dependence Category: Social Hx (3) Interstitial lung disease: Code(s): J84.9 - Interstitial pulmonary disease, unspecified Category: Medical Plan Will maintain patient on prednisone for a total of three months and switch to steroid sparing agent. Will send for rheumatology given +BRITTNI, elevated RF and DSDNA. Patient has upcoming PFT scheduled through [facility]. Discussed adverse effects of continued prednisone. Will monitor blood glucose and assess for any signs of infection. 6MWT performed and after 300 yds desaturated to 1L recovering quickly with 1L of supplemental oxygen to 95%. Will send order for 1L supplemental oxygen with exertion and send for an overnight oximetry to assess for nocturnal hypoxemia. All questions were answered and patient is in agreement of plan. Will follow up in 4-6 weeks or sooner if needed. Orders: Orders Overnight Pulse Oximetry 07/08/24 G47.34 - Idiopathic sleep related nonobstructive alveolar hypoventilation Referrals Rheumatology Referral J84.9 - Interstitial pulmonary disease, unspecified, R76.8 - Other specified abnormal immunological findings in serum Coding Level of Care Code Est Pt Level 4 (54925) Complex EM visit Add On G2211 Diagnoses COPD (chronic obstructive pulmonary disease) J44.9 Personal history of tobacco use Z87.891 Interstitial lung disease J84.9
[2024-07-08 08:59] VITALS: BP 118/66; PULSE 80; O2SAT 95; BMI 24.8
== END 2024-07-08 09:38 | disposition home or self-care (01) ==
PROVIDERS: PCP General Practice; Visit Provider Nurse Practitioner Family
DX: J44.9 Chronic obstructive pulmonary disease, unspecified (principal); Z87.891 Personal history of nicotine dependence; J84.9 Interstitial pulmonary disease, unspecified
CPT/HCPCS: 99214; G2211

== ENCOUNTER → 2024-07-08 08:54 | Outpatient (BNVA) | payer OTHER, SELFPAY | PROVIDERS: PCP General Practice; Visit Provider Nurse Practitioner Family | DX: J84.9 Interstitial pulmonary disease, unspecified (principal); R76.8 Other specified abnormal immunological findings in serum ==

== ENCOUNTER → 2024-08-04 23:59 | Outpatient (BNV) | payer OTHER, SELFPAY ==
--- NOTE | 2024-08-21 20:57 | MHC.OFFVIS ---
Intake Visit Reasons: Remote HF monitoring-[employer] Allergies No Known Allergies Allergy (Verified 08/19/24 10:04) [facility] Social History Household Members: Children Household Members Other:: Son Alcohol intake: never Patient Tobacco Use Status: Former Tobacco user Office Procedures Cardiac Device Check Cardiac Device Check Details: HF monitoring Stable thoracic impedance. 78044-Bvjgigj Device Interrogation, cardiac physiologic monitor system Procedure code (CPT) selection complete Assessment & Plan Assessment & Plan (1) Cardiomyopathy: Code(s): I42.9 - Cardiomyopathy, unspecified Category: Medical Plan: Coding Level of Care Code Procedure Only Diagnoses Cardiomyopathy I42.9 CPT Codes Cardiac Device Check - Cardiac Device 10: 82360-Vdbpkqd Device Interrogation, cardiac physiologic monitor system ([id number])
== END ==
PROVIDERS: PCP General Practice; Visit Provider Internal Medicine Cardiovascular Disease
DX: I42.9 Cardiomyopathy, unspecified (principal); Z95.810 Presence of automatic (implantable) cardiac defibrillator
CPT/HCPCS: 93297

== ENCOUNTER 2024-08-19 09:58 | Outpatient (AMB) | payer OTHER, SELFPAY ==
--- NOTE | 2024-08-18 12:37 | MHC.OFFVIS ---
Vital Signs 08/19/24 10:02 Height 5 ft 2 in Weight 127 lb 13.89 oz BMI 23.4 BP 108/70 Blood Pressure Location Rt brachial Position Sitting Pulse 66 Pulse Source Pulse Oximeter Pulse Oximetry (%) 97 Oxygen Delivery Method Room Air Intake Visit Reasons: COPD Allergies No Known Allergies Allergy (Verified 08/19/24 10:04) HPI HPI COPD: Details: Pebbles is a pleasant 68 year old female, former smoker with 80+ pack year history, quit approximately 10 years ago, with underlying COPD, CAD, HTN, LBBB, EF 32% s/p AICD and atrial fibrillation on coumadin. She has been well controlled on Trelegy and albuterol MDI, however reports more noticeable dyspnea on exertion. Prior chest CT suggestive of pulmonary fibrosis with extensive subpleural and predominantly lower lung interstitial fibrosis present with honeycombing, extensive inter and intralobular septal thickening, peribronchovascular interstitial thickening, and mild traction bronchiectasis with bronchial thickening most notable in the right upper lobe, right middle lobe and lingula, and right greater than left lower lobes. She was started on prednisone and repeat chest CT revealed radiologic improvements. She has been maintained on prednisone and has been tolerating well. She denies any visits to urgent/hospitalizations since the last visit. She does note over the last two weeks productive cough with yellow sputum, denies wheezing, dyspnea, or chest tightness. Endorses chills, no fevers. She does note son who she lives with has had similar symptoms. She recently had eye exam which was reportedly unremarkable. She reported upcoming PFT at [facility], however this may have been a cardiology appt, so will need to reschedule. COUNT [facility]CLUDES [facility] Social History Household Members: Children Household Members Other:: Son Alcohol intake: never Patient Tobacco Use Status: Former Tobacco user Review of Systems Const Denies excessive sweating, Denies fever(s), Denies headache(s) and Denies night sweats Eyes Denies dry eyes, Denies irritation and Denies itchy eyes ENT Reports Normal hearing present, Denies headache(s), Denies nasal congestion, Denies nasal discharge, Denies post nasal drip and Denies sore throat Card Denies chest pain, Denies chest pain at rest, Denies chest pain with activity, Denies claudication, Denies leg edema, Denies dyspnea, Denies dyspnea on exertion, Denies orthopnea and Denies paroxysmal nocturnal dyspnea Resp Denies pain on inspiration, Denies pain with cough, Denies dyspnea, Denies dyspnea on exertion, Denies stridor and Denies wheezing Musc Denies myalgias Neuro Reports Normal hearing present and Denies headache(s) Endo Denies excessive sweating Evan/Lymph Denies lymphadenopathy Aller/Immun Denies itchy eyes, Denies seasonal rhinorrhea and Denies wheezing Physical Exam Vital Signs: Last Vital Signs Pulse 66 08/19/24 10:02 BP 108/70 08/19/24 10:02 Pulse Ox 97 08/19/24 10:02 Oxygen Delivery Method Room Air 08/19/24 10:02 BMI result Body Mass Index 23.4 Const General: cooperative, healthy appearing, comfortable, no acute distress, well developed and alert Orientation/consciousness: patient oriented x3 Limitations: no limitations HEENT Head: Yes normal to inspection, Yes normocephalic and Yes atraumatic Ears: hearing grossly normal bilaterally and external ears normal Eyes General: appearance normal, both eyes and all related structures Eyelids: Yes eyelids normal Sclerae: sclerae normal EOM: EOMs intact bilaterally Neck Neck: Yes normal visual inspection and Yes no lymphadenopathy Lymphatic: no lymphadenopathy noted Chest Chest palpation & inspection: normal inspection of the chest Resp Other: inspiratory crackles right mid to lung base, otherwise clear. Effort & Inspection: normal respiratory effort, able to speak in complete sentences, no audible wheezes, no cough, no stridor, not tachypneic, no tripod positioning and no use of accessory muscles Cardio Jugular venous distension: no JVD Rate: regular rate Rhythm: regular rhythm Skin Other: warm, dry General skin exam: no rashes or lesions noted Neuro General: patient oriented x3 Cranial nerves: Yes Normal hearing present Cognition (Neuro): normal cognition Gait exam (Neuro): Normal gait present Extrem General: Yes normal to inspection, Yes capillary refill normal, Yes no clubbing, cyanosis or edema and Yes no pedal edema Psych Appearance: grossly normal and well kempt Speech and movement: Normal speech and movement present and Clear speech present Affect: normal affect Attitude: cooperative Thought process: Normal thought process present Thought content: Normal thought content present Insight: Good insight present (Psych) Judgement: Good judgement present (Psych) Assessment & Plan Assessment & Plan (1) COPD (chronic obstructive pulmonary disease): Code(s): J44.9 - Chronic obstructive pulmonary disease, unspecified Category: Medical (2) Personal history of tobacco use: Code(s): Z87.891 - Personal history of nicotine dependence Category: Social Hx (3) Interstitial lung disease: Code(s): J84.9 - Interstitial pulmonary disease, unspecified Category: Medical Plan Patient was maintained on prednisone for a total of three months with mild improvement in chest CT and at baseline denies any respiratory symptoms. Will await rheum input. Order placed for rheumatology consultation given +BRITTNI, elevated RF and DSDNA, however not scheduled until October. Will see if patient can be seen sooner. Awaiting PFT to be scheduled. Discussed adverse effects of continued prednisone. Will monitor blood glucose and assess for any signs of infection. Will treat bronchitic symptoms with doxycycline, she is aware to call if symptoms do not improve. Will send for an overnight oximetry to assess for nocturnal hypoxemia, as patient requires 1L of supplemental oxygen with exertion. All questions were answered and patient is in agreement of plan. Will follow up in 4-6 weeks or sooner if needed. Medications: New prednisone see taper instructions 30 mg x 7 days, 20 mg x 7 days, 15 mg x 7 days, 10 mg x 7 days, 5 mg x 7 days 10 mg PO DIRECTED 57 tabs 0RF doxycycline hyclate 100 mg PO BID 14 caps 0RF Coding Level of Care Code Est Pt Level 4 (67737) Complex EM visit Add On G2211 Diagnoses COPD (chronic obstructive pulmonary disease) J44.9 Personal history of tobacco use Z87.891 Interstitial lung disease J84.9
[2024-08-19 10:02] VITALS: BP 108/70; PULSE 66; O2SAT 97; BMI 23.4
== END 2024-08-19 10:42 | disposition home or self-care (01) ==
PROVIDERS: PCP General Practice; Visit Provider Nurse Practitioner Family
DX: J44.9 Chronic obstructive pulmonary disease, unspecified (principal); Z87.891 Personal history of nicotine dependence; J84.9 Interstitial pulmonary disease, unspecified
CPT/HCPCS: 99214; G2211

== ENCOUNTER 2024-09-25 10:13 | Outpatient (AMB) | payer OTHER, SELFPAY ==
--- NOTE | 2024-09-25 10:25 | A.OFFVIS_ITS ---
Vital Signs 09/25/24 10:29 Height 5 ft 2 in Weight 130 lb 8.218 oz BMI 23.9 BP 124/64 Blood Pressure Location Rt brachial Position Sitting Pulse 70 Pulse Source Pulse Oximeter Intake Visit Reasons: r/s 03/13/24 4 mos followup s/p phan echo Intake Note: 4 mth f/up s/p echo Saddle Stitch Operator Required: No Saddle Stitch Operator Services: Saddle Stitch Operator Offered & Declined Saddle Stitch Operator Name: daughter Accompanied by: Daughter Allergies No Known Allergies Allergy (Verified 08/19/24 10:04) Medication List - Last Reconciled 09/25/24 by Pawan Morin MD apixaban (Eliquis) 5 mg PO BID 90 days atorvastatin 10 mg PO DAILY doxycycline hyclate 100 mg PO BID empagliflozin (Jardiance) 10 mg PO DAILY dyvrsrojchs-zhaszcdjo-dsocwvax 200-62.5-25 mcg (Trelegy Ellipta) 1 inh inhalation DAILY gabapentin 300 mg PO BEDTIME metoprolol succinate ER 50 mg PO DAILY prednisone 40 mg (2 x 20 mg) PO DAILY prednisone 10 mg PO DIRECTED sacubitril-valsartan 49-51 mg 1 tab PO BID torsemide 20 mg PO DAILY HPI Comments Details: 68-year-old female who is here for follow-up. She was seen for cardiomyopathy and left bundle-branch block. Cardiac catheterization did not show any coronary disease. She was referred for Bi V AICD placement. Device interrogation showed that she has atrial fibrillation episodes and she was started on anticoagulation for stroke prevention. 09/25/2024: In 06/16/2024 she had run of atrial fibrillation and device delivered a shock to her. She does not remember anything. She since then has been referred to [facility] and is due to see the for potential ablation. Amiodarone was suggested but she has known interstitial lung disease and we decided not to start that. She has not had any further episodes since then. S he has not had any recent EF assessment too. [facility] Social History Household Members: Children Household Members Other:: Son Alcohol intake: never Patient Tobacco Use Status: Former Tobacco user Review of Systems Const Denies chills, Denies fatigue, Denies fever(s), Denies frequent falls, Denies weakness, Denies weight gain and Denies weight loss ENT Denies dizziness Card Denies chest pain, Denies leg edema, Denies lightheadedness, Denies palpitations, Denies dyspnea and Denies dyspnea on exertion Resp Denies cough, Denies dyspnea and Denies dyspnea on exertion GI Denies hematochezia Musc Denies abnormal gait, Denies muscle weakness, Denies numbness, Denies radiating pain into limb and Denies tingling Neuro Denies abnormal gait, Denies dizziness, Denies frequent falls, Denies numbness, Denies tingling and Denies weakness Endo Denies fatigue and Denies palpitations Physical Exam Vital Signs: Last Vital Signs Pulse 70 09/25/24 10:29 BP 124/64 09/25/24 10:29 BMI result Body Mass Index 23.9 GENERAL APPEARANCE: in no acute distress, pleasant. NECK: no carotid bruit, no jugular venous distention. SKIN: no suspicious lesions, warm and dry. HEART: no murmurs, regular rate and rhythm. LUNGS: Right lung has fine inspiratory crackles starting from base to mid lungs. Left lung is completely normal. ABDOMEN: soft, nontender. EXTREMITIES: no edema. PERIPHERAL PULSES: equal. NEUROLOGIC: No gross deficits, AAO X 3 Assessment & Plan Assessment & Plan (1) Paroxysmal A-fib: Code(s): I48.0 - Paroxysmal atrial fibrillation Category: Medical (2) ICD (implantable cardioverter-defibrillator) discharge: Code(s): Z45.02 - Encounter for adjustment and management of automatic implantable cardiac defibrillator Category: Medical (3) Cardiomyopathy: Code(s): I42.9 - Cardiomyopathy, unspecified Category: Medical Plan Pleasant 68 year female with nonischemic cardiomyopathy with severe LV dysfunction due to left bundle-branch block. She had [employer]. Clinically she is euvolemic and has been doing well from heart failure point of view. Continue same medications. She had 1 shock delivered from episode of atrial fibrillation. She since then has been referred to [facility] for ablation in the assessment. Amiodarone was not given due to interstitial lung disease. I think we will repeat echocardiography to reassess the ejection fraction. If EF has improved then flecainide is an option to start while she is waiting for assessment by EP at [facility]. Thank you for allowing me to participate in the care of your patient. Please feel free to contact me if you have any questions. Orders: Orders CA echo transthoracic complete Today I42.9 - Cardiomyopathy, unspecified Coding Level of Care Code Est Pt Level 4 (22576) Diagnoses Paroxysmal A-fib I48.0 ICD (implantable cardioverter-defibrillator) discharge Z45.02 Cardiomyopathy I42.9
[2024-09-25 10:29] VITALS: BP 124/64; PULSE 70; BMI 23.9
== END 2024-09-25 10:48 | disposition home or self-care (01) ==
PROVIDERS: PCP General Practice; Visit Provider Internal Medicine Cardiovascular Disease
DX: I48.0 Paroxysmal atrial fibrillation (principal); Z45.02 Encounter for adjustment and management of automatic implantable cardiac defibrillator; I42.9 Cardiomyopathy, unspecified
CPT/HCPCS: 99214

== ENCOUNTER 2024-09-25 15:34 | Outpatient (REF) | payer OTHER, SELFPAY ==
--- NOTE | 2024-09-25 15:41 | PFT_ITS ---
Flows: FEV1: 82 % of predicted at 1.62 L FVC: 72 % of predicted at 1.83 L FEV1/FVC: 88 % Bronchodilator response: Absent Volumes: Total lung capacity: 60 % of predicted at 2.68 L Residual volume: 57 % of predicted at 1.00 L Slow vital capacity: 63 % of predicted at 1.68 L Expiratory reserve volume: 47 % of predicted at 0.29 L Diffusion capacity: Moderately decreased, adjusts to being mildly decreased after correction for alveolar ventilation. Impression: Mild restrictive ventilatory defect with no bronchodilator response. Decreased expiratory reserve volume suggests extrathoracic restriction likely secondary to abdominal obesity. Combination of restrictive ventilatory defect with decreased diffusion capacity suggests underlying pulmonary parenchymal disease. Clinical correlation is advised. MTDD
--- OUTSIDE RECORDS SUMMARY | 2024-09-25 17:27 | XMS_ITS | Data Portability ---
Author Organization [place] [employer] [facility], [facility] - Biomolecular Determination [facility] Address [address] [address] [place] [address] Assessment No assessment recorded. Plan of Treatment Reminders Order Date Submit Date Provider Last Modified By Organization Details Last Modified Time Details Appointments None recorded. Lab None recorded. Referral bone density referral 2018 019 [facility] (Radiology), [address] [place] [address], [id number], 9 12:42:32 Procedures None recorded. Surgeries None recorded. Imaging MAMMO, screening, digital, bilateral 2018 019 ROJAS [facility] (Radiology), [address] [place] [address], [id number], 0 05:03:02 Medication Orders quetiapine 200 mg tablet 2017 018 [facility][id number], [address] [place] [address], [id number], 8 10:12:27 trazodone 100 mg tablet 2017 018 INTERFACE [facility] #[id number], [address] [place] [address], [id number], 8 10:12:27 Zithromax Z-Darnell 250 mg tablet 2017 018 pvidal [facility] #[id number], [address] [place] [address], [id number], 9 08:48:40 Alcohol Prep Pads 2017 018 INTERFACE [facility] #[id number], [address] [place] [address], [id number], 8 10:12:26 Mapap Arthritis Pain 650 mg tablet,ext ended release 2018 019 INTERFACE [facility], [address] [place] [address], [id number], 9 09:19:39 Calcium 600 + D(3) 600 mg-10 mcg (400 unit) tablet 2018 019 INTERFACE [facility], [address] [place] [address], [id number], 9 11:09:11 Patient TargetsNo targets recorded. Patient InstructionsNo instructions recorded. Reason for Referral Bone Density Referral for Sc reening for osteoporosis Referring Physician: Rome Tafyoa, Internal Medicine, Encounter Date: 06/21/2019 Results Created Date Observation Date Name Description Value Unit Range Abnormal Flag Note LastModifiedBy Organization Detail LastModifiedTime 07/31/20 18 08/01/2018 glyco hemog lobin , total , blood hemoglobin A1C 6.2 % high <5.7% DECRE ASED RISK OF DIABE LOIDA 5.7-6 .0% INCRE ASED RISK OF DIABE LOIDA 6.1-6 .4% HIGHE R RISK OF DIABE LOIDA >6.4% CONSI STENT WITH DIABE LOIDA Not Available [facility] ([facility]) 4[place], [address], 08/01/2018 08:00:42 07/31/20 18 08/01/2018 glyco hemog lobin , total , blood estimated average glucose 131 mg/dL Not Available [facility] ([facility]) 4[place], [address], 08/01/2018 08:00:42 07/31/20 18 08/01/2018 micro album in, urine microalbumin (urine) 1.5 mg/dL 0.0-2. 3 Not Available [facility] ([facility]) [address], [address], 08/01/2018 08:00:43 06/21/2006/22/2019 TSH, ultra -sens itive , serum TSH - ultra sensitive 1.01 uIU/m L 0.35-4 .50 Not Available [facility] ([facility]) [address] [place] [address], [address], 06/22/2019 09:01:08 06/21/2006/22/2019 micro album in, urine microalbumin (urine) 6.3 mg/dL 0.0-2. 3 high Not Available [facility]) [address] [place] [address], [address], 06/22/2019 09:01:08 06/21/2006/22/2019 urina lysis , compl ete color YELLOW Not Available [facility] [address] [place] [address], [address], 06/22/2019 09:01:09 06/21/2006/22/2019 urina lysis , compl ete appearance CLEAR Not Available [facility]) [address] [place] [address], [address], 06/22/2019 09:01:09 06/21/2006/22/2019 urina lysis , compl ete spec.gravity 1.025 1.003- 1.035 Not Available [facility] ([facility]) [address] [place] [address], [address], 06/22/2019 09:01:09 06/21/2006/22/2019 urina lysis , compl ete urine pH 5.0 4.5-8. 0 Not Available [facility]) [address] [place] [address], [address], 06/22/2019 09:01:09 06/21/20 19 06/22/2019 urina lysis , compl ete nitrite NEGATI VE negati ve Not Available [facility] ([facility]) [address] [place] [address], [place], [address], 06/22/2019 09:01:09 06/21/20 19 06/22/2019 urina lysis , compl ete protein NEGATI VE negati ve Not Available [facility] ([facility]) [address] [place] [address], [address], 06/22/2019 09:01:09 06/21/20 19 06/22/2019 urina lysis , compl ete urine glucose NEGATI VE negati ve Not Available [facility] ([facility]) [address] [place] [address], [address], 06/22/2019 09:01:09 06/21/2006/22/2019 urina lysis , compl ete ketones NEGATI VE negati ve Not Available [facility] ([facility]) [address] [place] [address], [address], 06/22/2019 09:01:09 06/21/20 19 06/22/2019 urina lysis , compl ete blood NEGATI VE negati ve Not Available [facility] ([facility]) [address] [place] [address], [address], 06/22/2019 09:01:09 06/21/20 19 06/22/2019 urina lysis , compl ete bilirubine NEGATI VE negati ve Not Available [facility] ([facility]) [address] [place] [address], [address], 06/22/2019 09:01:09 06/21/20 19 06/22/2019 urina lysis , compl ete leukocyte esterase NEGATI VE negati ve Not Available [facility] ([facility]) [address] [place] [address], [address], 06/22/2019 09:01:09 06/21/20 19 06/22/2019 urina lysis , compl ete RBC/hpf 0-2 0-2 Not Available [facility] ([facility]) [address] [place] [address], [address], 06/22/2019 09:01:09 06/21/20 19 06/22/2019 urina lysis , compl ete WBC/hpf 0 0-2 Not Available [facility] ([facility]) [address] [place] [address], [address], 06/22/2019 09:01:09 06/21/20 19 06/22/2019 urina lysis , compl ete epithelium/h pf 0-1 0-2 Not Available [facility]) [address] [place] [address], [address], 06/22/2019 09:01:09 06/21/2006/22/2019 vitam in B12, serum vitamin B12 278 pg/mL DEFIC IENT <154 pg/mL INDET ERMIN ATE 154-2 22 pg/mL RIGO L 223-9 25 pg/mL Not Available [facility]) [address] [place] [address], [address], 06/22/2019 09:01:09 06/21/2006/22/2019 vitam in D, 25-hy droxy , total , serum vitamin D, 25-hydroxy 28.0 NG/mL low <30 ng/mL DEFIC IENCY 30-10 0 ng/mL OPTIM UM >150 ng/mL TOXIC ITY Not Available [facility] ([facility]) [address] [place] [address], [address], 06/22/2019 09:01:09 06/21/2006/22/2019 CBC w/ auto diff white blood cell count 7.8 10 3.8-10 .8 Not Available [facility]) [address] [place] [address], [address], 06/22/2019 09:01:10 06/21/20 19 06/22/2019 CBC w/ auto diff red blood cell count 4.95 10 4.00-5 .20 Not Available [facility]) [address] [place] [address], [address], 06/22/2019 09:01:10 06/21/20 19 06/22/2019 CBC w/ auto diff hemoglobin 14.5 g/dL 12.0-1 6.0 Not Available [facility] ([facility]) [address], [address], 06/22/2019 09:01:10 06/21/20 19 06/22/2019 CBC w/ auto diff hematocrit 45.9 % 36.0-4 6.0 Not Available [facility] ([facility]) [address], [address], 06/22/2019 09:01:10 06/21/20 19 06/22/2019 CBC w/ auto diff MCV 93 fL 80.0-1 00.0 Not Available [facility]) [address], [address], 06/22/2019 09:01:10 06/21/20 19 06/22/2019 CBC w/ auto diff MCH 29.3 pg 26.0-3 4.0 Not Available [facility] ([facility]) [address], [address], 06/22/2019 09:01:10 06/21/20 19 06/22/2019 CBC w/ auto diff MCHC 31.6 % 28.0-3 8.0 Not Available [facility] ([facility]) [address], [address], 06/22/2019 09:01:10 06/21/20 19 06/22/2019 CBC w/ auto diff RDW 13.5 % 11.5-1 4.5 Not Available [facility] ([facility]) [facility] [place], [address], 06/22/2019 09:01:10 06/21/20 19 06/22/2019 CBC w/ auto diff platelet count 307 10 150-45 0 Not Available [facility]) [address], [address], 06/22/2019 09:01:10 06/21/20 19 06/22/2019 CBC w/ auto diff mean platelet volume 10.1 fL 8.4-12 .0 Not Available [facility] ([facility]) [address], [address], 06/22/2019 09:01:10 06/21/20 19 06/22/2019 CBC w/ auto diff lymphocytes 38.9 % 19.3-5 1.7 Not Available [facility]) [address], [address], 06/22/2019 09:01:10 06/21/20 19 06/22/2019 CBC w/ auto diff monocytes 8.3 % 4.0-11 .0 Not Available [facility] ([facility]) [place], [address], 06/22/2019 09:01:10 06/21/20 19 06/22/2019 CBC w/ auto diff neutrophils 46.6 % 34.0-7 1.1 Not Available [facility] ([facility]) [address], [address], 06/22/2019 09:01:10 06/21/20 19 06/22/2019 CBC w/ auto diff eosinophils 5.7 % 0-7.0 Not Available [facility]) [address], [address], 06/22/2019 09:01:10 06/21/20 19 06/22/2019 CBC w/ auto diff basophils 0.4 % 0-3 Not Available [facility] ([facility]) [address] [place] [address], [address], 06/22/2019 09:01:10 06/21/20 19 06/22/2019 CBC w/ auto diff imm grans 0.1 % 0-0.5 Not Available [facility] ([facility]) 4[place], [address], 06/22/2019 09:01:10 06/21/20 19 06/22/2019 CBC w/ auto diff nucleated RBC 0.0 /100_ WBC 0-0.2 Not Available [facility] ([facility]) [place] [place], [address], 06/22/2019 09:01:10 06/21/20 19 06/22/2019 CBC w/ auto diff lymphocytes, absolute 3.1 10 1.18-3 .74 Not Available [facility] ([facility]) [address] [place] [address], [address], 06/22/2019 09:01:10 06/21/20 19 06/22/2019 CBC w/ auto diff monocytes, absolute 0.7 10 0.2-1. 2 Not Available [facility] [address] [place] [address], [address], 06/22/2019 09:01:10 06/21/20 19 06/22/2019 CBC w/ auto diff neutrophils, absolute 3.7 10 1.56-6 .13 Not Available [facility] ([facility]) [address] [place] [address], [address], 06/22/2019 09:01:10 06/21/20 19 06/22/2019 CBC w/ auto diff eosinophils, absolute 0.45 10 0.05-0 .55 Not Available [facility]) [address] [place] [address], [address], 06/22/2019 09:01:10 06/21/20 19 06/22/2019 CBC w/ auto diff basophils, absolute 0.03 10 0-0.20 Not Available [facility] ([facility]) [place] [place], [address], 06/22/2019 09:01:10 06/21/20 19 06/22/2019 CBC w/ auto diff imm grans, absolute 0.01 10 0-0.10 Not Available [facility] ([facility]) [address] [facility] [place], [address], 06/22/2019 09:01:10 06/21/2006/22/2019 CBC w/ auto diff nucleated RBC, absolute 0.00 10 0-0.01 2 Not Available [facility]) [address], [address], 06/22/2019 09:01:10 06/21/20 19 06/22/2019 CBC w/ auto diff comment Not Available [facility]) [address], [address], 06/22/2019 09:01:10 06/21/2006/22/2019 glyco hemog lobin , total , blood hemoglobin A1C 6.2 % high <5.7% DECRE ASED RISK OF DIABE LOIDA 5.7-6 .0% INCRE ASED RISK OF DIABE LOIDA 6.1-6 .4% HIGHE R RISK OF DIABE LOIDA >6.4% CONSI STENT WITH DIABE LOIDA Not Available [facility] ([facility]) [address], [address], 06/22/2019 09:01:10 06/21/2006/22/2019 glyco hemog lobin , total , blood estimated average glucose 131 mg/dL Not Available [facility] ([facility]) [address], [address], 06/22/2019 09:01:10 06/21/2006/22/2019 HIV 1+2 AB + HIV 1 p24 Ag, quali tativ e immun oassa y, serum HIV-1 Ag, HIV1/HIV2 Ab NOT DETECT ED NO ANTIB ODIES DETEC SHAJI TO HIV-1 AND HIV-2 Not Available [facility]) [address], [address], 06/22/2019 09:01:10 06/21/2006/22/2019 BMP, serum or plasm a CO2 28 mmol/ L 21-33 Not Available [facility] ([facility]) [address] [place] [address], [address], 06/22/2019 09:01:11 06/21/20 19 06/22/2019 BMP, serum or plasm a chloride 101 mmol/ L 98-110 Not Available [facility]) [address] [place] [address], [address], 06/22/2019 09:01:11 06/21/2006/22/2019 BMP, serum or plasm a potassium 5.1 mmol/ L 3.5-5. 3 Not Available [facility] ([facility]) [address] [place] [address], [address], 06/22/2019 09:01:11 06/21/2006/22/2019 BMP, serum or plasm a sodium 140 mmol/ L 135-14 6 Not Available [facility] ([facility]) [address] [place] [address], [address], 06/22/2019 09:01:11 06/21/2006/22/2019 BMP, serum or plasm a BUN 13 mg/dL 7-25 Not Available [facility] ([facility]) [address] [place] [address], [address], 06/22/2019 09:01:11 06/21/2006/22/2019 BMP, serum or plasm a creatinine serum 0.58 mg/dL 0.50-0 .99 Not Available [facility] ([facility]) [address] [place] [address], [address], 06/22/2019 09:01:11 06/21/2006/22/2019 BMP, serum or plasm a eGFR (non-) >90 > OR = 60 mL/mi n/1.7 3 SQUAR E METER S eGFR INTER PRETA TION (mL/m in/1. 73 SQUAR E METER S) >OR= 90 RIGO L 60 - 89 MILD DECRE ASE 45 - 59 MILD TO MODER ATE DECRE ASE 30 - 44 MODER ATE TO SEVER E DECRE ASE 15 - 29 SEVER E DECRE ASE <15 KIDNE Y FAILU RE Not Available [facility]) [address] [place] [address], [address], 06/22/2019 09:01:11 06/21/20 19 06/22/2019 BMP, serum or plasm a eGFR () >90 > OR = 60 mL/mi n/1.7 3 SQUAR E METER S eGFR INTER PRETA TION (mL/m in/1. 73 SQUAR E METER S) >OR= 90 RIGO L 60 - 89 MILD DECRE ASE 45 - 59 MILD TO MODER ATE DECRE ASE 30 - 44 MODER ATE TO SEVER E DECRE ASE 15 - 29 SEVER E DECRE ASE <15 KIDNE Y FAILU RE IF PATIE NT IS AFRIC AN-AM JAM N, MULTI PLY eGFR VALUE BY 1.212 . Not Available [facility]) [address] [place] [address], [address], 06/22/2019 09:01:11 06/21/20 19 06/22/2019 BMP, serum or plasm a glucose 94 mg/dL 65-99 Not Available [facility]) [address] [place] [address], [address], 06/22/2019 09:01:11 06/21/20 19 06/22/2019 BMP, serum or plasm a calcium 9.7 mg/dL 8.6-10 .4 Not Available [facility]) [address] [place] [address], [address], 06/22/2019 09:01:11 06/21/20 19 06/22/2019 hepat ic funct ion panel , serum albumin 4.2 g/dL 3.6-5. 1 Not Available [facility]) [address] [place] [address], [address], 06/22/2019 09:01:11 06/21/20 19 06/22/2019 hepat ic funct ion panel , serum total protein 7.6 g/dL 6.2-8. 3 [facility] Available [facility]) [address] [facility], [place], [address], 06/22/2019 09:01:11 06/21/20 19 06/22/2019 hepat ic funct ion panel , serum direct bilirubin 0.10 mg/dL 0.00-0 .20 Not Available [facility]) [address] [place] [address], [address], 06/22/2019 09:01:11 06/21/20 19 06/22/2019 hepat ic funct ion panel , serum bilirubin total 0.5 mg/dL 0.2-1. 2 Not Available [facility]) [address] [place] [address], [address], 06/22/2019 09:01:11 06/21/20 19 06/22/2019 hepat ic funct ion panel , serum SGPT(ALT) 12 U/L 6-40 Not Available [facility]) [address] [place] [address], [address], 06/22/2019 09:01:11 06/21/20 19 06/22/2019 hepat ic funct ion panel , serum SGOT(AST) 15 U/L 10-35 Not Available [facility]) [address] [place] [address], [address], 06/22/2019 09:01:11 06/21/20 19 06/22/2019 hepat ic funct ion panel , serum alkaline phosphatase 81 U/L 33-130 Not Available [facility] [place] [place], [address], 06/22/2019 09:01:11 06/21/20 19 06/22/2019 lipid panel , serum cholesterol, total 140 mg/dL 125-20 0 Not Available [facility]) [address] [place] [address], [address], 06/22/2019 09:01:12 06/21/20 19 06/22/2019 lipid panel , serum triglyceride s 102 mg/dL <150 Not Available [facility] ([facility]) [address], [address], 06/22/2019 09:01:12 06/21/20 19 06/22/2019 lipid panel , serum HDL cholesterol 41 mg/dL >46 low Not Available [facility]) [address] [place] [address], [address], 06/22/2019 09:01:12 06/21/20 19 06/22/2019 lipid panel , serum LDL cholesterol (calc.) 78 mg/dL <130 Not Available [facility] ([facility]) [address] [place] [address], [address], 06/22/2019 09:01:12 06/21/20 19 06/22/2019 lipid panel , serum VLDL cholesterol (calc.) 20 mg/dL <30 Not Available [facility]) [address] [place] [address], [address], 06/22/2019 09:01:12 06/21/2006/22/2019 lipid panel , serum cholesterol/ HDL risk factor 3.4 ratio 3.7-6. 7 Not Available [facility]) [address] [place] [address], [address], 06/22/2019 09:01:12 Result Notes None recorded. Problems Name Problem SNOMED Code Status Onset Date Resolution Date Notes Provider Name and Address Organization Details Recorded Time Hyperten sive disorder 04183067 Active 2017 Gwen nath [facility] 8 10:44:23 Diabetes mellitus 33002497 Completed 201709/11/2018 Removal Reason: improved Mark nath [employer] [facility], [facility] 9 08:48:03 Hypercho lesterol emia 96608999 Active 2017 Gwen nath [employer] [facility], [facility] 8 10:44:46 Vertigo 171413596 [facility] 2017 [facility] 8 10:45:00 Heart disease 37393387 Active 2017 [facility] 8 10:46:00 Chronic depressi on 430772031 [facility] 8 11:25:22 Parkinso nism 33450965 [facility] 8 15:02:26 Type 2 diabetes mellitus without complica tion 349575592 Active 2018 [facility] 9 08:47:47 Problem Notes None recorded. Procedures Surgical History Date Name Laterality Status Provider Name and Address Organization Details Recorded Time Pacemaker monitr digital/vis completed [facility] 02/05/2018 10:47:18 delivery completed [facility] 02/05/2018 10:47:30 Tubal Ligation completed [facility] 02/05/2018 10:48:06 Imaging Results None recorded. Procedure Notes None recorded. Medical Equipment None Reported. Allergies No known drug allergies Medications Name Sig Start Date Stop Date Status Note LastModified by Organization Details LastModified Time Prescriptio n - Renewal active Not Available Not Available Not Available Prescriptio n - Change active Not Available Not Available N ot Available Miralax 17 gram oral powder packet Take 1 packet every day by oral route. 2017 active Not Available Not Available Not Avai lable losartan 50 mg tablet Take 1 tablet every day by oral route. active Not Available Not Available No t Available furosemide 40 mg tablet TAKE 1 TABLET BY MOUTH EVERY DAY. 2020 active Not Available Not Available Not Avai lable benztropine 0.5 mg tablet TAKE 1 TABLET BY MOUTH AT BEDTIME. DAVID 1 TABLETA POR BOCA AL ACOSTARSE . 2020 active Not Available Not Available Not Avai lable cefpodoxime 200 mg tablet active Not Available Not Available Not Available azithromyci n 250 mg tablet TAKE 2 TABLETS (500 MG) BY ORAL ROUTE ONCE DAILY FOR 1 DAY THEN 1 TABLET (250 MG) BY ORAL ROUTE ONCE DAILY FOR 4 DAYS 05/22 completed Not Available Not Available Not Available metoprolol succinate ER 50 mg tablet,exte nded release 24 hr TAKE 1 TABLET BY MOUTH IN THE EVENING EVERY DAY. DAVID 1 TABLETA POR BOCA POR LA NOCHE. DAVID TENA MEDICAMEN TO TODOS LOS D . 2020 active Not Available Not Available Not Avai lable lisinopril 20 mg tablet TAKE 1 TABLET BY MOUTH EVERY DAY. DAVID 1 TABLETA POR BOCA TODOS LOS D . 2020 active Not Available Not Available Not Avai lable Alcohol Pads USE DIRECTED. USAR SEG N LO INDICADO. active Not Available Not Available No t Available quetiapine 200 mg tablet TAKE ONE TABLET BY MOUTH AT BEDTIME/ DAVID LOPEZ TABLETA POR BOCA EN AL ACOSTARSE active Not Available Not Available No t Available Lantus U-100 Insulin 100 unit/mL subcutaneou s solution INJECT 20 UNITS SUBCUTANE OUSLY. USE THIS MEDICINE EVERY DAY. INYE CTAR 20 UNIDADES POR V A SUBCUT DORIE. USAR TENA MEDICAMEN TO TODOS LOS D . 2020 active Not Available Not Available Not Avai lable Advair Diskus 100 mcg-50 mcg/dose powder for inhalation Inhale 1 puff twice a day by inhalatio n route. active Not Available Not Available No t Available aspirin 81 mg tablet,zackery yed release TAKE 1 TABLET BY MOUTH EVERY DAY. MAGDA R 1 TABLETA POR BOCA TODOS LOS D . active Not Available Not Available No t Available spironolact one 25 mg tablet TAKE 1 TABLET BY MOUTH IN THE MORNING. TAKE EVERY DAY. MAGDA R 1 TABLETA POR BOCA POR LA VERN BRITTNI. DAVID TODOS LOS D . active Not Available Not Available No t Available butalbital- acetaminoph en-caffeine 50 mg-325 mg-40 mg tablet Take 1 tablet every 4 hours by oral route. 05/22 completed Not Available Not Available Not Available simvastatin 40 mg tablet TAKE 1 TABLET BY MOUTH EVERY DAY. MAGDA R 1 TABLETA POR BOCA TODOS LOS D . 2020 active Not Available Not Available Not Avai lable citalopram 20 mg tablet TAKE 1 TABLET BY MOUTH EVERY DAY. DAVID 1 TABLETA POR ROMANA TODOS LOS D . 2020 active Not Available Not Available Not Avai lable trazodone 100 mg tablet TAKE 1 TABLET BY MOUTH AT BEDTIME. active Not Available Not Available No t Available diazepam 2 mg tablet TAKE 1 TABLET BY MOUTH TWICE DAILY NEEDED FOR MUSCLE SPASM active Not Available Not Available No t Available pantoprazol e 40 mg tablet,zackery yed release TAKE 1 TABLET BY MOUTH EVERY DAY. MAGDA R 1 TABLETA POR [facility] TODOMarisa LOS D . active Not Available Not Available No t Available ranitidine 150 mg tablet 02/05 completed Not Available Not Available Not Available irbesartan 75 mg tablet TAKE 1 TABLET BY MOUTH EVERY DAY. MAGDA R 1 TABLETA POR [facility] TOGONZALO LOS D . active Not Available Not Available No t Available ibuprofen 600 mg tablet TAKE 1 TABLET BY MOUTH EVERY 6 HOURS NEEDED FOR PAIN active Not Available Not Available No t Available Mapap Arthritis Pain 650 mg tablet,exte nded release Take 2 tablets every 8 hours by oral route. active Not Available Not Available No t Available BD Insulin Syringe Ultra-Fine 0.5 mL 30 gauge x 1/2 active Not Available Not Available Not Available ProAir HFA 90 mcg/actuati on aerosol inhaler Inhale 2 puffs every 4 hours by inhalatio n route. 2017 active Not Available Not Available Not Avai lable calcium 600 mg (as carbonate)- vitamin D3 10 mcg (400 unit) tablet TAKE 1 TABLET BY MOUTH 2 TIMES A DAY. DAVID 1 TABLETA POR BOCA 2 VECES AL D A. 2020 active Not Available Not Available Not Avai lable Prevnar 13 (PF) 0.5 mL intramuscul ar syringe active Not Available Not Available N ot Available Easy Comfort Lancets 30 gauge USE THIS MEDICINE 2 TIMES A DAY. USE DIRECTED. USAR TENA MEDICAMEN TO 2 VECES AL D A. USAR SEG N LO INDICADO. active Not Available Not Available No t Available Easy Touch Twist Lancets 28 gauge USE DIRECTED. 2019 active Not Available Not Available Not Avai lable True Metrix Glucose Test Strip USE DIRECTED. 2020 active Not Available Not Available Not Avai lable True Metrix Glucose Meter DIRECTED DIRECTED active Not Available Not Available No t Available Anikethay JujuMiguel U-100 Insulin 100 unit/mL (3 mL) subcutaneou s INJECT 20 UNIT(S) EVERY DAY BY SUBCUTANE OUS ROUTE FOR 30 DAYS. 05/15 completed Not Available Not Available Not Available Shingrix (PF) 50 mcg/0.5 mL intramuscul ar suspension, kit active Not Available Not Available Not Available Fluarix Quad (PF) 60 mcg (15 mcg x 4)/0.5 mL IM syringe active Not Available Not Available N ot Available Fluzone High-Dose Quad (PF) 240 mcg/0.7 mL IM syringe active Not Available Not Available N ot Available Vitals Date Recorded Body height Heart rate Oxygen saturation Oxygen saturation in Arterial blood by Pulse oximetry Respiratory rate Body temperature Body mass index (BMI) Body weight Heart rate Systolic blood pressure Diastolic blood pressure Provider Name and Address Organization Details Last Updated DateTime 8 152.4 cm 70 /min 97 % 97 % 14 /min 97.8 [degF] 27.8 kg/m2 09168.2 7 g 70 /min 110 mm[Hg] 75 mm[Hg] Mark Crowley [employer] [facility] 8 09:57:10 Date Recorded Body height Heart rate Oxygen saturation Oxygen saturation in Arterial blood by Pulse oximetry Respiratory rate Body temperature Body mass index (BMI) Body weight Heart rate Systolic blood pressure Diastolic blood pressure Provider Name and Address Organization Details Last Updated DateTime 9 152.4 cm 65 /min 97 % 97 % 16 /min 97.8 [degF] 28.2 kg/m2 48584.0 2 g 65 /min 129 mm[Hg] 73 mm[Hg] Afia Haynes [facility] [employer] [facility] 9 08:26:18 Date Recorded Body height Heart rate Oxygen saturation Oxygen saturation in Arterial blood by Pulse oximetry Respiratory rate Body temperature Body mass index (BMI) Body weight Heart rate Systolic blood pressure Diastolic blood pressure Provider Name and Address Organization Details Last Updated DateTime 9 152.4 cm 86 /min 96 % 96 % 18 /min 98.4 [degF] 28.4 kg/m2 40204.0 5 g 86 /min 99 mm[Hg] 62 mm[Hg] Gwen Kwok [employer] [facility] 9 08:42:43 Date Recorded Body height Heart rate Oxygen saturation Oxygen saturation in Arterial blood by Pulse oximetry Respiratory rate Body temperature Body mass index (BMI) Body weight Heart rate Systolic blood pressure Diastolic blood pressure Provider Name and Address Organization Details Last Updated DateTime 9 152.4 cm 67 /min 96 % 96 % 18 /min 98 [degF] 29.3 kg/m2 21535.8 6 g 67 /min 100 mm[Hg] 60 mm[Hg] Josie Diaz [facility] [employer] [facility] 9 11:45:05 Date Recorded Body height Heart rate Oxygen saturation Oxygen saturation in Arterial blood by Pulse oximetry Respiratory rate Body temperature Body mass index (BMI) Body weight Heart rate Systolic blood pressure Diastolic blood pressure Provider Name and Address Organization Details Last Updated DateTime 9 152.4 cm 72 /min 96 % 96 % 18 /min 97.7 [degF] 28.5 kg/m2 08756.7 7 g 72 /min 110 mm[Hg] 70 mm[Hg] Luke Ching [facility] [employer] [facility] 9 10:27:13 Social History Question Answer Notes LastModified by Organizat ion Details LastModified Time Tobacco Smoking Status Current Every Day Smoker Gwen Kwok [facility] [employer] [facility] 02/05/2018 10:46:12 What Was The Date Of Your Most Recent Tobacco Screening? 10/04/2018 Information n ot available 03/21/2019 How Much Tobacco Do You Smoke? 1 PPW Information not available 02/05/2018 How Many Years Have You Smoked Tobacco? 40 Information not available 02/05/2018 Sex: Unknown Functional Status None recorded. Mental Status None recorded. Family History Relationship Description Onset Age of this Age Resolved Age Notes LastModified by Organization Details LastModified Time Father No current problems or disability Heart Proble ms. Not available 02/05/2018 10:45:31 Mother No current problems or disability Diabet es Not available 02/05/2018 10:45:41 Medical History Condition Response Coronary Artery Disease N Gout N Kidney Stones N Hyperthyroidism N Hypothyroidism N Depression Y COPD N Diabetes Y Anxiety Disorder N Arthritis N Tuberculosis N Cancer N Stroke N Diverticulitis N Asthma N GERD/Reflux N High Cholesterol Y Liver Disease N Heart Disease Y Pulmonary Embolism N Fibromyalgia N Hypertension Y Osteoporosis N Kidney Disease N Gynecological History Statement/Question Response If Post Menopausal, Age at Menopause 38 Age at Menarche 11 Age at First Child 14 Obstetrics History GPAL:G 3 P 0 0 0 3 Type Value Living 3 Total 3 Immunizations Vaccine Type Date Status Note Provider Nam e and Address Organization Details Recorded Time zoster live 8 completed [employer] [facility] 02/05/2018 10:44:03 Tdap 6 completed [employer] [facility] 02/22/2018 09:40:49 pneumococcal polysaccharide PPV23 8 completed [employer] [place] [facility] 02/22/2018 09:41:12 Past Encounters Encounter ID Performer Location Encounter Start Date Encounter Closed Date Diagnosis/Indication Diagnosis SNOMED-CT Code Diagnosis ICD10 Code Diagnosis Note [id number] [facility] [address] [address] 02/05/2018 09:57:29 02/05/2018 11:15:09 Vertigo 711040046 R42 cane with quad base Constipation 28861632 K5 9.00 Increase fluid intake, take osmotic med Diabetes mellitus 870572 09 E11.9 Take meds, refill when necessary Hypertensive disorder 38 309372 I10 take med, refill when necessary Heart disease 14453732 I 51.9 No CP, or SOB. records requested. She had a PPM inserted, failed due to infection. Chronic depression 09248 0009 F34.1 continue taking meds. Mood and alertness are OK now Dry eyes 131444934 H04.1 29 recommend natural tears tid [id number] [employer] [address] [place] [id number] 0 02/20/2018 09:29:08 02/20/2018 10:50:34 Vertigo 475705011 R42 cane with quad base Constipation 47470769 K5 9.00 Increase fluid intake, take osmotic med Diabetes mellitus 910083 09 E11.9 Take meds, refill when necessary Hypertensive disorder 38 048610 I10 take med, refill when necessary Heart disease 16637105 I 51.9 No CP, or SOB. records requested. She had a PPM inserted, failed due to infection. Chronic depression 8 F34.1 Per PHQ9 currently severity is mild. continue taking meds. citalopram . Mood and alertness are OK now Dry eyes 953691757 H04.1 29 recommend natural tears tid Parkinsonism 33201154 G2 0 Not evident on gross exam. OK for benztropin e refill Hypercholesterolemia 136 98436 E78.00 refills of statin; diet Asthma 016743704 J45.90 9 Some wheezing found, but she does well on albuterol. Refill of albuterol MDI [id number] [facility] [employer] [address] [place] [id number] 0 06/14/2018 09:55:44 06/14/2018 10:52:19 Tension-type headache 920372390 G44.209 Hypertensive disorder 38 608485 I10 will switch her BP med and f/u for control Cough 90514559 R05 I could be secondary to lisinopril use. Explained to her and caregiver [id number] [employer] [address] [place] [id number] 0 07/16/2018 09:00:13 07/16/2018 10:08:57 Acute gastritis 19052969 K29.00 recurrence now, no bleeding signs. Stop condiments , coffee. Low back pain 285277574 M54.5 [id number] Mark [employer] [address] [place] [address] [id number] 0 07/31/2018 08:57:32 07/31/2018 10:18:03 Acute gastritis 02130705 K29.00 Improved, feels much better. Cont Rx Acute exac erbation of chronic obstructive pulmonary disease 674194011 J44.1 increased cough and phlegm, will Rx. She uses Advair diskus Chronic depression 8 F34.1 mild. continue taking meds. citalopram . Mood and alertness are OK now. Some abnormal thinking has been helped by quetiapine . Diabetes mellitus 996928 09 E11.9 Take meds, well controlled ; refill when necessary. Check Hb A1c Trying to give up smoking 994779928 Z72.0 Still smokes, per her report, 3 cigarettes a week. [id number] [facility] [address] [place] [id number] 0 09/11/2018 08:10:27 09/11/2018 08:45:49 Type 2 diabetes mellitus without complication 003415216 E11.9 Self administer ed 20 units of insulin with my observatio n. Will f/u in one week with the log of her [facility]SB[facility] to see if more is needed. REportedly she does not receive the pm dose of 20. [id number] Mark [employer] [address] [place] [phone] 0 10/04/2018 08:31:13 10/04/2018 09:59:09 Type 2 diabetes mellitus without complication 864200328 E11.9 Self administer ed 20 units of insulin with my observatio n. Will f/u in one week with the log of her FSBG to see if more is needed. REportedly she does not receive the pm dose of 20. Low back pain 056698321 M54.5 Acetaminop hen and local heat (explained ) [id number] GLORIA Mariano [employer] [address] [place] [address] [id number] 0 05/24/2019 10:12:41 05/24/2019 13:40:17 Type 2 diabetes mellitus without complication 807712555 E11.9 Pt is injecting insulin and according to her the BS is under control, i will send her for HGB A1c. Pure hypercholesterolemia 232302496 E78.00 Pt advised to watch his diet very close, try to be away from fatty food, exercise on a regular bases and take cholestero l med as directed on a daily bases. [id number] GLORIA Mariano [employer] [address] [place] [address] [id number] 0 06/21/2019 09:11:38 06/21/2019 11:13:34 Administration of pneumococcal vaccine 95894145 Z23 Adult heal th examination 258956979 Z00.01 Pt with a normal CPE, pt advised to eat healthily and exercise on a regular bases. Watch the: diet low sodium, fat and sugar. Pt will go for blood work today. Screening for osteoporosis 259775533 Z13.820 Screening mammography 24 878835 Z12.31 Health Concerns Section Related Observation LastModified by Organization Detai ls LastModified Time None Recorded Concern Status LastModified by Organization Details LastModified Time None Recorded Advance Directives Directive None Recorded Payers Encounter Date Sequence Insurance Name Policy Number Policy Garza Covered Member ID Garza Member ID Guarantor Name 07/31/2018 2 [place] [facility] Pebbles Zimmer [id number] Pebbles Zimmer 07/31/2018 2 [place] Pebbles Bourgeois [id number] Pebbles Zimmer 09/11/2018 2 [place] [facility] Pebbles Zimmer [id number] Pebbles Zimmer 09/11/2018 2 [place] [facility] Peb[facility] Bourgeois [id number] Pebbles Zimmer 10/04/2018 2 [place] [facility] Pebbles Zimmer [id number] Pebbles Zimmer 10/04/2018 2 [place] [employer] Pebbles Bourgeois [id number] Pebbles Zimmer 05/24/2019 1 [facility] - SENIOR [employer]AN (MEDICARE REPLACEMENT HMO) Pebbles Zimmer [id number] Pebbles Zimmer 05/24/2019 2 [place] [facility] Pebbles Zimmer [id number] Pebbles Zimmer 06/21/2019 1 [employer] [facility] - SENIOR [employer]AN (MEDICARE REPLACEMENT HMO) Pebbles Zimmer [id number] Pebbles Zimmer 06/21/2019 2 [place] [facility] Pebbles Zimmer [id number] Pebbles [employer]immer Notes Date Note Type Note Provider Name and Address Organization Details Recorded Time 07/31/2018 text/html Stomach discomfo rt has improved Mark nath [place] 07/31/2018 10:25:14 09/11/2018 text/html PT comes in for F/u on diabetes mellitus. Technique of self administering insulin Mark nath [place] 09/11/2018 08:50:15 10/04/2018 text/html 62 y/o F present s today to follow up Type 2 diabetes mellitus without complication. BS is 130 in fasting. Insulin intake 20 units daily, self administered Mark nath, [place] - [facility] 10/04/2018 09:31:48 05/24/2019 text/html 63 Y/O F present today to F/U Type 2 diabetes mellitus without complication, Complaining of headache for three days. GLORIA Mariano [address] [facility] [address], [place], [address], [employer] [facility] 05/26/2019 17:40:02 06/21/2019 text/html 63 Y/O F present today to for CPE. GLORIA Mariano [address] [facility] [address], [place], [address], [employer] 06/21/2019 11:09:12 OBGyn Episode No OBEpisode recorded.
== END 2024-09-25 15:35 | disposition home or self-care (01) ==
LOC: HO.RESP 15:34
PROVIDERS: PCP General Practice; Visit Provider Nurse Practitioner Family
DX: J44.9 Chronic obstructive pulmonary disease, unspecified (principal)
CPT/HCPCS: 94010; 94640; 94727; 94729

== ENCOUNTER → 2024-09-25 15:41 | Outpatient (BNV) | payer OTHER, SELFPAY | PROVIDERS: PCP General Practice; Visit Provider Internal Medicine Pulmonary Disease | DX: J44.9 Chronic obstructive pulmonary disease, unspecified (principal) | CPT/HCPCS: 94060; 94727; 94729 ==

== ENCOUNTER → 2024-10-05 23:59 | Outpatient (BNV) | payer OTHER, SELFPAY ==
--- NOTE | 2024-10-12 23:07 | MHC.OFFVIS ---
Intake Visit Reasons: Remote HF monitoring-[employer] Allergies No Known Allergies Allergy (Verified 08/19/24 10:04) [facility] Social History Household Members: Children Household Members Other:: Son Alcohol intake: never Patient Tobacco Use Status: Former Tobacco user Office Procedures Cardiac Device Check Cardiac Device Check Details: HF monitoring Improving volume overload based on optivol values. [id number] Cardiac Device Interrogation, cardio physiologic monitor Procedure code (CPT) selection complete Assessment & Plan Assessment & Plan (1) Cardiomyopathy: Code(s): I42.9 - Cardiomyopathy, unspecified Category: Medical Plan Orders: Orders AMB Cardiac Device Follow-up 10/05/24 I42.9 - Cardiomyopathy, unspecified Coding Level of Care Code Procedure Only Diagnoses Cardiomyopathy I42.9 CPT Codes Cardiac Device Check - Cardiac Device 15: [id number] Cardiac Device Interrogation, cardio physiologic monitor ([id number])
== END ==
PROVIDERS: PCP General Practice; Visit Provider Internal Medicine Cardiovascular Disease
DX: I42.9 Cardiomyopathy, unspecified (principal); Z95.810 Presence of automatic (implantable) cardiac defibrillator
CPT/HCPCS: 93297

== ENCOUNTER → 2024-10-22 09:29 | Outpatient (REF) | payer OTHER, SELFPAY ==
--- NOTE | 2024-10-22 09:32 | CA_ITS ---
Transthoracic Echocardiogram Patient (Last, First, Middle): Pebbles Bourgeois, Gender: Female Date of : 1955 Age: 68 Procedure Date: 10/22/2024 Procedure Type: Transthoracic Echocardiogram Location: OP Height: 160.02 cm Weight: 54.01 kg BSA: 1.55 m2 Heart Rate: bpm BP: 108 / 64 mmHg Manager Reimbursement: TO Referring MD: Pawan Morin MD Resource Recovery Engineer: Pawan Morin MD Symptoms: I42.9 - Cardiomyopathy, unspecified Study Quality: Adequate w contrast ECG Rhythm: Sinus Conclusions: - The left ventricular systolic function is low normal. The visually estimated ejection fraction is between 50-55%. - The apex segment is dyskinetic. - No obvious valvular pathology seen on this study. Findings Procedure Information Contrast agent, definity, is being given per protocol without apparent complications. Left Ventricle Normal left ventricular cavity size. There is normal left ventricular wall thickness. The left ventricular systolic function is low normal. The visually estimated ejection fraction is between 50-55%. Diastolic function is normal for age. Wall Motion Rest Echo Findings The apex segment is dyskinetic. Right Ventricle Normal right ventricular cavity size and systolic function. Atria Both atria are normal in size. Aortic Valve There is a normal trileaflet aortic valve. There is no aortic valve stenosis. There is mild aortic valve regurgitation. Mitral Valve The mitral valve appears normal. There is mild mitral valve regurgitation. There is no mitral valve stenosis. Pulmonic Valve The pulmonic valve is likely normal. Tricuspid Valve There is mild tricuspid valve regurgitation. There is no evidence of pulmonary hypertension. Great Vessels The asc aorta is normal in size. Venous The inferior vena cava is normal in size and collapses greater than 50% with inspiration. Pericardium/Pleural There is no evidence of pericardial effusion. Prior Study Comparison Changes noted compared to prior study dated: 06/06/2023. Improved LVEF. Recommendations, Care & Conclusions No obvious valvular pathology seen on this study. Measurements 2D Linear Measurements IVSd: 0.66 0.6-0.9/0.6-1.0 cm LVIDd: 4.47 3.9-5.3/4.2-5.9 cm LVIDd Index: 2.88 2.4-3.2/2.2-3.1 cm/m2 LVIDs: 3.27 2.0-3.6 cm LVPWd: 0.60 0.7-1.1 cm LA Diam: 3.00 2.7-3.8/3.0-4.0 cm LAIDs Index: 1.94 1.5-2.3 cm/m2 LV Mass: 101.95 67-162/88-224 g LV Mass Index: 65.78 43-95/49-115 g/m2 LVOT Diam: 2.00 3.0+(-)1.3 cm 2D Systolic Function EF 4C: 51.80 >55% EF 2C: 59.40 >55% EF BiP: 55.50 >55% Mitral Valve MV Pk E: 0.37 MV PK A: 0.59 MV Decel Time: 255.00 E/A: 0.60 E'Lateral: 7.18 E'Medial: 3.92 E/E' Med: 9.50 E/E' Lat: 5.20 PHT: 75.00 MVA PHT: 2.93 Decel [place]: 1.46 Aortic Valve AoV Pk Kyler: 1.18 AoV Mn Kyler: 0.81 AoV VTI: 0.24 AoV Pk Grad: 6.00 Aov Mn Grad: 3.00 DEL Cont.VTI: 2.27 AI Pk Kyler: 3.92 AI [place]: 1.56 LVOT LVOT Pk Kyler: 0.89 LVOT Mn Kyler: 0.56 LVOT VTI: 0.17 LVOT Pk Grad: 3.00 LVOT Mn Grad: 1.00 LVOT Diam: 2.00 LVOT Area: 3.14 Diastolic Function MV Pk E: 0.37 MV Pk A: 0.59 E/A: 0.60 E'Medial: 3.92 E/E' Med: 9.50 E' Laterial: 7.18 E/E' Lat: 5.20 Right Ventricle TAPSE (mm): 15.90 TVS' Kyler: 13.10 Tricuspid Valve TR Pk Kyler: 2.17 TR Pk Grad: 19.00 RA Press: 3.00 RVSP: 22.00 Great Vessels Aorta Sinus of Valsalva: 3.60 2.0-3.5 cm Ao Asc: 3.30 2.1-3.4 cm Ao Arch: 2.80 Updated in Other Vendor System with Status of Final Chau Marinelli MD electronically signed on 10/23/2024 11:12:18 AM with status of Final
--- OUTSIDE RECORDS SUMMARY | 2024-10-22 10:37 | XMS_ITS | Encounter Summary ---
Author Organization [employer] Address [address] [facility] [facility] [address] [place] [address] Care Team Providers Care Supervisor [employer] Name Role Phone Shania Morgan MD Primary Care Provider [phone] Reason for Visit * Reason Onset Date Comments Care Coordination 10/16/2024 Encounter Details Date Type Department Care Team (Late st Contact Info) Description 10/16/2024 Telephone [facility] [address] [place] [address] [facility] [address] [place] [address] Care Coordination Social History Tobacco Use Types Packs/Day Years Used Date Smoking Tobacco: Never Passive Smoke Exposure: Never Smokeless Tobacco: Never Alcohol Use Standard Drinks/Week Comments Never 0 (1 standard drink = 0.6 oz pur e alcohol) Depression Answer Date Recorded Patient Health Questionnaire-9 Score 0 09/30/2024 Patient Health Questionnaire-9 Score 0 09/30/2024 Last PHQ-9: Questionnaire Data Not on file 0 09/30/2024 Housing Stability Answer Date Recorded What is your housing situation today? I have montez sanabria 08/02/[address] you li ve. Do you have problems with any of the following? None of the above 08/02/2023 Food Insecurity Answer Date Recorded Within the past 12 months, y ou worried that your food would run out before you got money to buy more: Never True 08/02/2023 Within the past 12 months,th e food you bought just didn't last and you didn't have enough money to get more: Never True 01/2023 Transportation Answer Date Recorded In the past 12 months, has l ack of transportation kept you from medical appts, meetings, work or from getting things needed for daily living? No 10/02/2023 Utilities Answer Date Recorded In the past 12 months, has t he electric, gas, oil or water company threatened to shut off services in your home? No 08/02/2023 Depression Answer Date Recorded Patient Health Questionnaire-2 Score 0 09/30/2024 Internet Access Answer Date Recorded Internet Access Q1 Yes 09/30/2024 Internet Access Q2 Not on file 09/30/2024 Comments Unknown Sex and Gender Information Value Date Recorded Sex Assigned at Female 06/06/2023 9:55 AM EDT Legal Sex Female 9:50 AM EDT Gender Identity Female 06/06/2023 9:54 AM EDT Sexual Orientation Don't know 06/06/2023 9: 55 AM EDT documented as of this encounter Miscellaneous Notes * Telephone Encounter - Rae Mccullough RN - 10/16/2024 3:27 PM EST TC placed to patient [phone] in regards to below message. RN spoke to daughter (Sarika on HIPAA) in regards to below message. Daughter advised once they obtain the atorvastatin 20mg from the pharmacy, the patient should STOP the atorvastatin 10mg. Daughter also informed ASA is no longer neededd/t patient being on eliquis. Daughter did not have any further questions/concerns. Daughter to f/uPRN. ----- Message from Shruthi Allen sent at 10/16/2024 3:05 PM EST ----- Hi! Please advise patient of increased atorvastatin dose (please queue!) and ensure she is no longer taking ASA. Thank you! Shruhti ----- Message ----- From: Shania Morgan MD Sent: 10/14/2024 10:33 AM EST To: CIRO Iqbal Thanks for taking care of her and for asking for med reconiliation! Please increase Atorvastatin to20mg, or I made a note to do it at my next visit with her. And yes, she does not need ASA anymore. ----- Message ----- From: CIRO Iqbal Sent: 10/02/2024 7:19 AM EST To: MD Jazmine Tate As I was doing her chart I had a couple more thoughts --- I don't think she needs to still be taking aspirin since she is now taking eliquis? Should atorvastatin be increased to 20mg? Med discrepancies with cardiology list--I asked pharmacy to do a med rec. Let me know your thoughts! documented in this encounter Plan of Treatment Upcoming Encounters Date Type Department Care Team (Late st Contact Info) Description 10/23/2024 10:00 AM EST Clinical Support [address] [address] 11/25/2024 3:45 PM EDT Office Visit [address] [address] Shania Morgan MD [address] [place] [id number] documented as of this encounter Visit Diagnoses Not on filedocumented in this encounter Additional Health Concerns Assessment Noted Time PHQ-9 Depression Total Score: 0 09/30/19 25 10:31 AM EST documented as of this encounter Care Teams Supervisor Asphalt Paving Relationship Specialty Start Date End Date Shania Morgan MD [address] [place] [id number] PCP - General Family Medicine 08/01/23 documented as of this encounter
--- OUTSIDE RECORDS SUMMARY | 2024-10-22 10:37 | XMS_ITS | Encounter Summary ---
Author Organization [employer] Address [address] [facility] [address] [place] [address] Care Team Providers Care Watch And Clock Repairer Name Role Phone Shania Morgan MD Primary Care Provider [phone] Reason for Visit * Reason Onset Date Comments Appointment Request 09/26/2024 Encounter Details Date Type Department Care Team (Late st Contact Info) Description 09/26/2024 Telephone [facility] [address] [place] [address] Stefania BentleyraVERN Appointment Request Social History Tobacco Use Types Packs/Day Years Used Date Smoking Tobacco: Never Passive Smoke Exposure: Never Smokeless Tobacco: Never Alcohol Use Standard Drinks/Week Comments Never 0 (1 standard drink = 0.6 oz pur e alcohol) Depression Answer Date Recorded Patient Health Questionnaire-9 Score 18 08/31/2023 Patient Health Questionnaire-9 Score 18 08/31/2023 Last PHQ-9: Questionnaire Data Not on file 0 08/31/2023 Housing Stability Answer Date Recorded What is [...] Answer Date Recorded Patient Health Questionnaire-2 Score 2 08/31/2023 Comments Unknown Sex and Gender Information Value Date Recorded Sex Assigned at Female 06/06/2023 9:55 AM EDT Legal Sex Female 9:50 AM EDT Gender Identity Female 06/06/2023 9:54 AM EDT Sexual Orientation Don't know 06/06/2023 9: 55 AM EDT documented as of this encounter Miscellaneous Notes * Telephone Encounter - Loretta Bentley MA - 09/26/2024 2:01 PM EST T/C placed spoke with pt, pt agreed to come in on 09/30/24 AT 10AM documented in this encounter Plan of Treatment Upcoming Encounters Date Type Department Care Team (Late st Contact Info) Description 10/23/2024 10:00 AM EST Clinical Support [address] [address] 11/25/2024 3:45 PM EDT Office Visit [address] [address] Shania Morgan MD [address] [place] [phone] documented as of this encounter Visit Diagnoses Not on filedocumented in this encounter Additional Health Concerns Assessment Noted Time PHQ-9 Depression Total Score: 18 024 10:39 AM EST documented as of this encounter Care Teams Watch And Clock Repairer Relationship Specialty Start Date End Date Shania Morgan MD [address] [place] [id number] PCP - General Family Medicine 08/01/23 documented as of this encounter
--- OUTSIDE RECORDS SUMMARY | 2024-10-22 10:37 | XMS_ITS | Data Portability ---
Author Organization [place] - [employer] [facility], [employer] [facility] Address [address] [facility] [address] [place] [address] Assessment No assessment recorded. Plan of Treatment Reminders Order Date Submit Date Provider Last Modified By Organization Details Last Modified Time Details Appointments None recorded. Lab None recorded. Referral bone density referral 2018 [facility] (Rad[facility]), [address] [place] [address], [id number], 9 12:42:32 Procedures None recorded. Surgeries None recorded. Imaging MAMMO, screening, digital, bilateral 2018 019 ROJAS [facility] [employer] [facility] (Radiology), [address] [place] [address], [id number], 0 05:03:02 Medication Orders Calcium 600 + D(3) 600 mg-10 mcg (400 unit) tablet 2018 019 [facility], [address] [place] [address], [id number], 9 11:09:11 Mapap Arthritis Pain 650 mg tablet,ext ended release 2018 019 INTERFACE [facility], [address] [place] [address], [address], 9 09:19:39 quetiapine 200 mg tablet 2017 018 INTERFACE [facility] #00570, [address] [place] [address], [id number], 8 10:12:27 trazodone 100 mg tablet 2017 018 INTERFACE [facility] #60564, [address], [place], [id number], 8 10:12:27 Zithromax Z-Darnell 250 mg tablet 2017 018 pvidal [facility] #51598, [address] [place] [address], [id number], 9 08:48:40 Alcohol Prep Pads 2017 018 INTERFACE [facility] #[id number], [address] [place] [address], [id number], 8 10:12:26 Patient TargetsNo targets recorded. Patient InstructionsNo instructions recorded. Reason for Referral Bone Density Referral for Sc reening for osteoporosis Referring Physician: Rome Tafoya, Internal Medicine, Encounter Date: 06/21/2019 Results Created [...] CONSI STENT WITH DIABE LOIDA Not Available [facility] ([facility]) [address], [address], 08/01/2018 08:00:42 07/31/20 18 08/01/2018 glyco hemog lobin , total , blood estimated average glucose 131 mg/dL Not Available [facility] ([facility]) [address], [address], 08/01/2018 08:00:42 07/31/20 18 08/01/2018 micro album in, urine microalbumin (urine) 1.5 mg/dL 0.0-2. 3 Not Available [facility] ([facility]) [address], [address], 08/01/2018 08:00:43 06/21/2006/22/2019 TSH, ultra -sens itive , serum TSH - ultra sensitive 1.01 uIU/m L 0.35-4 .50 Not Available [facility] ([facility]) [address] [place] [address], [id number], 06/22/2019 09:01:08 06/21/2006/22/2019 micro album in, urine microalbumin (urine) 6.3 mg/dL 0.0-2. 3 high Not Available [facility] ([facility]) [address] [place] [address], [address], 06/22/2019 09:01:08 06/21/2006/22/2019 urina lysis , compl ete color YELLOW Not Available [facility] [address] [place] [address], [id number], 06/22/2019 09:01:09 06/21/2006/22/2019 urina lysis , compl ete appearance CLEAR Not Available [facility]) [address] [place] [address], [address], 06/22/2019 09:01:09 06/21/2006/22/2019 urina lysis , compl ete spec.gravity 1.025 1.003- 1.035 Not Available [facility] ([facility]) [address] [place] [address], [address], 06/22/2019 09:01:09 06/21/2006/22/2019 urina lysis , compl ete urine pH 5.0 4.5-8. 0 Not Available [facility] ([facility]) [address] [place] [address], [address], 06/22/2019 09:01:09 06/21/20 19 06/22/2019 urina lysis , compl ete nitrite NEGATI VE negati ve Not Available [facility] ([facility]) [address] [place] [address], [place], [address], 06/22/2019 09:01:09 06/21/20 19 06/22/2019 urina lysis , compl ete protein NEGATI VE negati ve Not Available [facility] ([facility]) [address] [place] [address], [address], 06/22/2019 09:01:09 06/21/20 19 06/22/2019 urina lysis , compl ete urine glucose NEGATI VE negati ve Not Available [facility] ([facility]) [address] [place] [address], [address], 06/22/2019 09:01:09 06/21/2006/22/2019 urina lysis , compl ete ketones NEGATI VE negati ve Not Available [facility] ([facility]) [address] [place] [address], [address], 06/22/2019 09:01:09 06/21/20 19 06/22/2019 urina lysis , compl ete blood NEGATI VE negati ve Not Available [facility] ([facility]) [address] [place] [address], 96[address], 06/22/2019 09:01:09 06/21/20 19 06/22/2019 urina lysis , compl ete bilirubine NEGATI VE negati ve Not Available [facility] ([facility]) [address] [place] [address], 728[address], 06/22/2019 09:01:09 06/21/20 19 06/22/2019 urina lysis , compl ete leukocyte esterase NEGATI VE negati ve Not Available [facility] ([facility]) [address] [place] [address], [address], 06/22/2019 09:01:09 06/21/20 19 06/22/2019 urina lysis , compl ete RBC/hpf 0-2 0-2 Not Available [facility] ([facility]) [address] [place] [address], [id number], 06/22/2019 09:01:09 06/21/20 19 06/22/2019 urina lysis , compl ete WBC/hpf 0 0-2 Not Available [facility] ([facility]) [address] [place] [address], 177[address], 06/22/2019 09:01:09 06/21/20 19 06/22/2019 urina lysis , compl ete epithelium/h pf 0-1 0-2 Not Available [facility] ([facility]) [address] [place] [address], [address], 06/22/2019 09:01:09 06/21/2006/22/2019 vitam in B12, serum vitamin B12 278 pg/mL DEFIC IENT <154 pg/mL INDET ERMIN ATE 154-2 22 pg/mL RIGO L 223-9 25 pg/mL Not Available [facility] ([facility]) [address] [place] [address], [address], 06/22/2019 09:01:09 06/21/2006/22/2019 vitam in D, 25-hy droxy , total , serum vitamin D, 25-hydroxy 28.0 NG/mL low <30 ng/mL DEFIC IENCY 30-10 0 ng/mL OPTIM UM >150 ng/mL TOXIC ITY Not Available [facility] ([facility]) [address] [place] [address], [address], 06/22/2019 09:01:09 06/21/2006/22/2019 CBC w/ auto diff white blood cell count 7.8 10 3.8-10 .8 Not Available [facility] ([facility]) [address] [place] [address], [address], 06/22/2019 09:01:10 06/21/20 19 06/22/2019 CBC w/ auto diff red blood cell count 4.95 10 4.00-5 .20 Not Available [facility] ([facility]) [address] [place] [address], [address], 06/22/2019 09:01:10 06/21/20 19 06/22/2019 CBC w/ auto diff hemoglobin 14.5 g/dL 12.0-1 6.0 Not Available [facility] ([facility]) [address], [address], 06/22/2019 09:01:10 06/21/20 19 06/22/2019 CBC w/ auto diff hematocrit 45.9 % 36.0-4 6.0 Not Available [facility] ([facility]) [address], [address], 06/22/2019 09:01:10 06/21/20 19 06/22/2019 CBC w/ auto diff MCV 93 fL 80.0-1 00.0 Not Available [facility]) [address], [address], 06/22/2019 09:01:10 06/21/20 19 06/22/2019 CBC w/ auto diff MCH 29.3 pg 26.0-3 4.0 Not Available [facility] ([facility]) [address], [address], 06/22/2019 09:01:10 06/21/20 19 06/22/2019 CBC w/ auto diff MCHC 31.6 % 28.0-3 8.0 Not Available [facility] ([facility]) [address], [address], 06/22/2019 09:01:10 06/21/20 19 06/22/2019 CBC w/ auto diff RDW 13.5 % 11.5-1 4.5 Not Available [facility] ([facility]) [facility] [place] [place], [address], 06/22/2019 09:01:10 06/21/20 19 06/22/2019 CBC w/ auto diff platelet count 307 10 150-45 0 Not Available [facility] ([facility]) [address], [address], 06/22/2019 09:01:10 06/21/20 19 06/22/2019 CBC w/ auto diff mean platelet volume 10.1 fL 8.4-12 .0 Not Available [facility] ([facility]) [address], [address], 06/22/2019 09:01:10 06/21/20 19 06/22/2019 CBC w/ auto diff lymphocytes 38.9 % 19.3-5 1.7 Not Available [facility] ([facility]) [address], [address], 06/22/2019 09:01:10 06/21/20 19 06/22/2019 CBC w/ auto diff monocytes 8.3 % 4.0-11 .0 Not Available [facility] ([facility]) [address], [address], 06/22/2019 09:01:10 06/21/20 19 06/22/2019 CBC w/ auto diff neutrophils 46.6 % 34.0-7 1.1 Not Available [facility] ([facility]) [place], [address], 06/22/2019 09:01:10 06/21/20 19 06/22/2019 CBC w/ auto diff eosinophils 5.7 % 0-7.0 Not Available [facility] ([facility]) [address], [address], 06/22/2019 09:01:10 06/21/20 19 06/22/2019 CBC w/ auto diff basophils 0.4 % 0-3 Not Available [facility] ([facility]) [address] [place] [address], [address], 06/22/2019 09:01:10 06/21/20 19 06/22/2019 CBC w/ auto diff imm grans 0.1 % 0-0.5 Not Available [facility] ([facility]) [address], [address], 06/22/2019 09:01:10 06/21/20 19 06/22/2019 CBC w/ auto diff nucleated RBC 0.0 /100_ WBC 0-0.2 Not Available [facility] ([facility]) [facility] [place] [place], [address], 06/22/2019 09:01:10 06/21/20 19 06/22/2019 CBC w/ auto diff lymphocytes, absolute 3.1 10 1.18-3 .74 Not Available [facility] ([facility]) [address] [place] [address], [address], 06/22/2019 09:01:10 06/21/20 19 06/22/2019 CBC w/ auto diff monocytes, absolute 0.7 10 0.2-1. 2 Not Available [facility] [address] [place] [address], 78[address], 06/22/2019 09:01:10 06/21/20 19 06/22/2019 CBC w/ auto diff neutrophils, absolute 3.7 10 1.56-6 .13 Not Available [facility] ([facility]) [address] [place] [address], [address], 06/22/2019 09:01:10 06/21/20 19 06/22/2019 CBC w/ auto diff eosinophils, absolute 0.45 10 0.05-0 .55 Not Available [facility] ([facility]) [address] [place] [address], [address], 06/22/2019 09:01:10 06/21/20 19 06/22/2019 CBC w/ auto diff basophils, absolute 0.03 10 0-0.20 Not Available [facility] ([facility]) [facility] [place] [place], [address], 06/22/2019 09:01:10 06/21/20 19 06/22/2019 CBC w/ auto diff imm grans, absolute 0.01 10 0-0.10 Not Available [facility] ([facility]) [address] [facility] [place], [address], 06/22/2019 09:01:10 06/21/2006/22/2019 CBC w/ auto diff nucleated RBC, absolute 0.00 10 0-0.01 2 Not Available [facility] ([facility]) [address], [address], 06/22/2019 09:01:10 06/21/20 19 06/22/2019 CBC w/ auto diff comment Not Available [facility] ([facility]) [address], [address], 06/22/2019 09:01:10 06/21/2006/22/2019 glyco hemog lobin , total , blood hemoglobin A1C 6.2 % high <5.7% DECRE ASED RISK OF DIABE LOIDA 5.7-6 .0% INCRE ASED RISK OF DIABE LOIDA 6.1-6 .4% HIGHE R RISK OF DIABE LOIDA >6.4% CONSI STENT WITH DIABE LOIDA Not Available [facility] ([facility]) [address], [address], 06/22/2019 09:01:10 06/21/2006/22/2019 glyco hemog lobin , total , blood estimated average glucose 131 mg/dL Not Available [facility] ([facility]) [address], [address], 06/22/2019 09:01:10 06/21/2006/22/2019 HIV 1+2 AB + HIV 1 p24 Ag, quali tativ e immun oassa y, serum HIV-1 Ag, HIV1/HIV2 Ab NOT DETECT ED NO ANTIB ODIES DETEC SHAJI TO HIV-1 AND HIV-2 Not Available [facility] ([facility]) [address], [address], 06/22/2019 09:01:10 06/21/2006/22/2019 BMP, serum or plasm a CO2 28 mmol/ L 21-33 Not Available [facility] ([facility]) [address] [place] [address], [address], 06/22/2019 09:01:11 06/21/20 19 06/22/2019 BMP, serum or plasm a chloride 101 mmol/ L 98-110 Not Available [facility]) [address] [place] [address], [address], 06/22/2019 09:01:11 06/21/2006/22/2019 BMP, serum or plasm a potassium 5.1 mmol/ L 3.5-5. 3 Not Available [facility] ([facility]) [address] [place] [address], [address]223, 06/22/2019 09:01:11 06/21/2006/22/2019 BMP, serum or plasm a sodium 140 mmol/ L 135-14 6 Not Available [facility] ([facility]) [address] [place] [address], [address]79, 06/22/2019 09:01:11 06/21/2006/22/2019 BMP, serum or plasm a BUN 13 mg/dL 7-25 Not Available [facility] ([facility]) [address] [place] [address], 58[address], 06/22/2019 09:01:11 06/21/2006/22/2019 BMP, serum or plasm a creatinine serum 0.58 mg/dL 0.50-0 .99 Not Available [facility] ([facility]) [address] [place] [address], 29216, 06/22/2019 09:01:11 06/21/2006/22/2019 BMP, serum or plasm [...] <15 KIDNE Y FAILU RE Not Available [facility]) [address] [place] [address], 46708, 06/22/2019 09:01:11 06/21/20 19 06/22/2019 BMP, serum [...] eGFR VALUE BY 1.212 . Not Available [facility]) [address] [place] [address], 42862, 06/22/2019 09:01:11 06/21/20 19 06/22/2019 BMP, serum or plasm a glucose 94 mg/dL 65-99 Not Available [facility]) [address] [place] [address], 95863, 06/22/2019 09:01:11 06/21/20 19 06/22/2019 BMP, serum or plasm a calcium 9.7 mg/dL 8.6-10 .4 Not Available [facility]) [address] [place] [address], 76540, 06/22/2019 09:01:11 06/21/20 19 06/22/2019 hepat ic funct ion panel , serum albumin 4.2 g/dL 3.6-5. 1 Not Available [facility]) [address] [place] [address], 08604, 06/22/2019 09:01:11 06/21/20 19 06/22/2019 hepat ic funct ion panel , serum total protein 7.6 g/dL 6.2-8. 3 Not Available [facility]) [address] [facility] [place], [address], 06/22/2019 09:01:11 06/21/20 19 06/22/2019 hepat ic funct ion panel , serum direct bilirubin 0.10 mg/dL 0.00-0 .20 Not Available [facility] ([facility]) [address] [place] [address], [address], 06/22/2019 09:01:11 06/21/20 19 06/22/2019 hepat ic funct ion panel , serum bilirubin total 0.5 mg/dL 0.2-1. 2 Not Available [facility] ([facility]) [address] [place] [address], 98468, 06/22/2019 09:01:11 06/21/20 19 06/22/2019 hepat ic funct ion panel , serum SGPT(ALT) 12 U/L 6-40 Not Available [facility] ([facility]) [address] [place] [address], [address], 06/22/2019 09:01:11 06/21/20 19 06/22/2019 hepat ic funct ion panel , serum SGOT(AST) 15 U/L 10-35 Not Available [facility] ([facility]) [address] [place] [address], 7[address], 06/22/2019 09:01:11 06/21/20 19 06/22/2019 hepat ic funct ion panel , serum alkaline phosphatase 81 U/L 33-130 Not Available [facility] ([facility]) [facility] [place] [place], [address], 06/22/2019 09:01:11 06/21/20 19 06/22/2019 lipid panel , serum cholesterol, total 140 mg/dL 125-20 0 Not Available [facility] ([facility]) [address] [place] [address], 17964, 06/22/2019 09:01:12 06/21/20 19 06/22/2019 lipid panel , serum triglyceride s 102 mg/dL <150 Not Available [facility] ([facility]) [address], [address], 06/22/2019 09:01:12 06/21/20 19 06/22/2019 lipid panel , serum HDL cholesterol 41 mg/dL >46 low Not Available [facility]) [address] [place] [address], 90[address], 06/22/2019 09:01:12 06/21/20 19 06/22/2019 lipid panel , serum LDL cholesterol (calc.) 78 mg/dL <130 Not Available [facility] ([facility]) [address] [place] [address], 17816, 06/22/2019 09:01:12 06/21/20 19 06/22/2019 lipid panel , serum VLDL cholesterol (calc.) 20 mg/dL <30 Not Available [facility]) [address] [place] [address], 49098, 06/22/2019 09:01:12 06/21/2006/22/2019 lipid panel , serum cholesterol/ HDL risk factor 3.4 ratio 3.7-6. 7 Not Available [facility] ([facility]) [address] [place] [address], [address], 06/22/2019 09:01:12 Result Notes None recorded. Problems Name Problem SNOMED Code Status Onset Date Resolution Date Notes Provider Name and Address Organization Details Recorded Time Hyperten sive disorder 54636631 Active 2017 Gwen nath [employer] [facility] 8 10:44:23 Diabetes mellitus 01824359 Completed 201709/11/2018 Removal Reason: improved Mark nath [employer] [facility], [facility] 9 08:48:03 Hypercho lesterol emia 72973567 Active 2017 Gwen nath [employer] [facility], [facility] 8 10:44:46 Vertigo 805623921 Active 2017 [facility] [employer] [facility] 8 10:45:00 Heart disease 09518357 [facility] 2017 [facility] [employer] [facility] 8 10:46:00 Chronic depressi on 621636243 [facility] 2017 [facility] [employer] [facility] 8 11:25:22 Parkinso nism 96718368 [facility] 2017 [facility] [employer] [facility] 8 15:02:26 Type 2 diabetes mellitus without complica tion 677617145 Active 2018 [facility] [employer] [facility] 9 08:47:47 Problem Notes None recorded. Procedures Surgical History Date Name Laterality Status Provider Name and Address Organization Details Recorded Time Pacemaker monitr digital/vis completed [facility] [employer] [facility] 02/05/2018 10:47:18 delivery completed [facility] [employer] [facility] 02/05/2018 10:47:30 Tubal Ligation completed [facility] [employer] [facility] 02/05/2018 10:48:06 Imaging Results None recorded. Procedure [...] EVERY DAY. MAGDA R 1 TABLETA [facility] TOD[facility]isa LOS D . active Not Available Not Available No t Available ranitidine 150 mg tablet 02/05 completed Not Available Not Available Not Available irbesartan 75 mg tablet TAKE 1 TABLET BY MOUTH EVERY DAY. MAGDA R 1 TABLETA [facility] TOGONZALO LOS D . active Not [...] % 14 /min 97.8 [degF] 27.8 kg/m2 89151.2 7 g 70 /min 110 mm[Hg] 75 mm[Hg] Mark Crowley [employer] [facility] [employer] [facility] 8 09:57:10 Date Recorded Body height Heart rate Oxygen saturation Oxygen saturation in Arterial blood by Pulse oximetry Respiratory rate Body temperature Body mass index (BMI) Body weight Heart rate Systolic blood pressure Diastolic blood pressure Provider Name and Address Organization Details Last Updated DateTime 9 152.4 cm 65 /min 97 % 97 % 16 /min 97.8 [degF] 28.2 kg/m2 69900.0 2 g 65 /min 129 mm[Hg] 73 mm[Hg] Afia Haynes [facility] [employer] [facility] [employer] [facility] 9 08:26:18 Date Recorded Body height Heart rate Oxygen saturation Oxygen saturation in Arterial blood by Pulse oximetry Respiratory rate Body temperature Body mass index (BMI) Body weight Heart rate Systolic blood pressure Diastolic blood pressure Provider Name and Address Organization Details Last Updated DateTime 9 152.4 cm 86 /min 96 % 96 % 18 /min 98.4 [degF] 28.4 kg/m2 36101.0 5 g 86 /min 99 mm[Hg] 62 mm[Hg] Gwen Kwok [employer] [facility] 9 08:42:43 Date Recorded Body height Heart rate Oxygen saturation Oxygen saturation in Arterial blood by Pulse oximetry Respiratory rate Body temperature Body mass index (BMI) Body weight Heart rate Systolic blood pressure Diastolic blood pressure Provider Name and Address Organization Details Last Updated DateTime 9 152.4 cm 67 /min 96 % 96 % 18 /min 98 [degF] 29.3 kg/m2 03996.8 6 g 67 /min 100 mm[Hg] 60 mm[Hg] Josie Diaz [facility] [employer] [facility] 9 11:45:05 Date Recorded Body height Heart rate Oxygen saturation Oxygen saturation in Arterial blood by Pulse oximetry Respiratory rate Body temperature Body mass index (BMI) Body weight Heart rate Systolic blood pressure Diastolic blood pressure Provider Name and Address Organization Details Last Updated DateTime 9 152.4 cm 72 /min 96 % 96 % 18 /min 97.7 [degF] 28.5 kg/m2 53836.7 7 g 72 /min 110 mm[Hg] 70 mm[Hg] Luke Ching [facility] [employer] [facility] 9 10:27:13 Social History Question Answer Notes LastModified by Organizat ion Details LastModified Time Tobacco Smoking Status Current Every Day Smoker Gwen Kwok [facility] [employer] [facility] 02/05/2018 10:46:12 What Was The Date Of [...] available 02/05/2018 10:45:41 Medical History Condition Response Anxiety Disorder N Diabetes Y Coronary Artery Disease N Gout N Arthritis N Kidney Stones N Hyperthyroidism N Tuberculosis N Cancer N Diverticulitis N Stroke N Asthma N COPD N Depression Y Hypothyroidism N GERD/Reflux N High Cholesterol Y Liver [...] Details Recorded Time zoster live 8 completed [employer] [facility] 02/05/2018 10:44:03 Tdap 6 completed [employer] [facility] 02/22/2018 09:40:49 pneumococcal polysaccharide PPV23 8 completed [employer] [facility] 02/22/2018 09:41:12 Past Encounters Encounter ID Performer Location Encounter Start Date Encounter Closed Date Diagnosis/Indication Diagnosis SNOMED-CT Code Diagnosis ICD10 Code Diagnosis Note [id number] [employer] [address] [id number] 02/05/2018 09:57:29 02/05/2018 11:15:09 Vertigo 109716035 R42 cane with quad base Constipation 19492430 K5 9.00 Increase fluid intake, take osmotic med Diabetes mellitus 199375 09 E11.9 Take meds, refill when necessary Hypertensive disorder 38 668170 I10 take med, refill when necessary Heart disease 17148222 I 51.9 No CP, or SOB. records requested. She had a PPM inserted, failed due to infection. Chronic depression 31870 0009 F34.1 continue taking meds. Mood and alertness are OK now Dry eyes 161420802 H04.1 29 recommend natural tears tid 303807 [facility] [address] [place] [address] [phone] 0 02/20/2018 09:29:08 02/20/2018 10:50:34 Vertigo 477422821 R42 cane with quad base Constipation 62052571 K5 9.00 Increase fluid intake, take osmotic med Diabetes mellitus 917133 09 E11.9 Take meds, refill when necessary Hypertensive disorder 38 157782 I10 take med, refill when necessary Heart disease 64777894 I 51.9 No CP, or SOB. records requested. She had a PPM inserted, failed due to infection. Chronic depression 8 F34.1 Per PHQ9 currently severity is mild. continue taking meds. citalopram . Mood and alertness are OK now Dry eyes 633195164 H04.1 29 recommend natural tears tid Parkinsonism 63749247 G2 0 Not evident on gross exam. OK for benztropin e refill Hypercholesterolemia 136 83116 E78.00 refills of statin; diet Asthma 145204737 J45.90 9 Some wheezing found, but she does well on albuterol. Refill of albuterol MDI [id number] [facility] [address] [place] [address] [phone] 0 06/14/2018 09:55:44 06/14/2018 10:52:19 Tension-type headache 820875976 G44.209 Hypertensive disorder 38 582864 I10 will switch her BP med and f/u for control Cough 83820581 R05 I could be secondary to lisinopril use. Explained to her and caregiver 440940 [facility] [address] [place] [address] [phone] 0 07/16/2018 09:00:13 07/16/2018 10:08:57 Acute gastritis 12582137 K29.00 recurrence now, no bleeding signs. Stop condiments , coffee. Low back pain 521398245 M54.5 [id number] Mark [facility] [address] [place] [address] [phone] 0 07/31/2018 08:57:32 07/31/2018 10:18:03 Acute gastritis 14095762 K29.00 Improved, feels much better. Cont Rx Acute exac erbation of chronic obstructive pulmonary disease 050267901 J44.1 increased cough and phlegm, will Rx. She uses Advair diskus Chronic depression 8 F34.1 mild. continue taking meds. citalopram . Mood and alertness are OK now. Some abnormal thinking has been helped by quetiapine . Diabetes mellitus 678924 09 E11.9 Take meds, well controlled ; refill when necessary. Check Hb A1c Trying to give up smoking 160774060 Z72.0 Still smokes, per her report, 3 cigarettes a week. [id number] [facility] [address] [place] [address] [phone] 0 09/11/2018 08:10:27 09/11/2018 08:45:49 Type 2 diabetes mellitus without complication 851523931 E11.9 Self administer ed 20 units of insulin with my observatio n. Will f/u in one week with the log of her [facility] to see if more is needed. REportedly she does not receive the pm dose of 20. [id number] Mark [facility] [address] [place] [address] [phone] 0 10/04/2018 08:31:13 10/04/2018 09:59:09 Type 2 diabetes mellitus without complication 623268513 E11.9 Self administer ed 20 units of insulin with my observatio n. Will f/u in one week with the log of her [facility] to see if more is needed. REportedly she does not receive the pm dose of 20. Low back pain 675960676 M54.5 Acetaminop hen and local heat (explained ) [id number] GLORIA Mariano [facility] [address] [place] [address] [phone] 0 05/24/2019 10:12:41 05/24/2019 13:40:17 Type 2 diabetes mellitus without complication 643847739 E11.9 Pt is injecting insulin and according to her the BS is under control, i will send her for HGB A1c. Pure hypercholesterolemia 830579513 E78.00 Pt advised to watch his diet very close, try to be away from fatty food, exercise on a regular bases and take cholestero l med as directed on a daily bases. [id number] GLORIA Mariano [facility] [address] [place] [address] [phone] 0 06/21/2019 09:11:38 06/21/2019 11:13:34 Administration of pneumococcal vaccine 22614254 Z23 Adult heal th examination 930001789 Z00.01 Pt with a normal CPE, pt advised to eat healthily and exercise on a regular bases. Watch the: diet low sodium, fat and sugar. Pt will go for blood work today. Screening for osteoporosis 573784464 Z13.820 Screening mammography 24 094667 Z12.31 Health Concerns Section Related Observation LastModified by Organization Detai ls LastModified Time None Recorded Concern Status LastModified by Organization Details LastModified Time None Recorded Advance Directives Directive None Recorded Payers Encounter Date Sequence Insurance Name Policy Number Policy Garza Covered Member ID Garza Member ID Guarantor Name 07/31/2018 2 [place] [facility] Pebbles Zimmer [id number] Pebbles Zimmer 07/31/2018 2 [place] Pebbles Bourgeois [id number] Pebbles Zimmer 09/11/2018 2 [place] [facility] Pebbles Zimmer [id number] Pebbles Zimmer 09/11/2018 2 [place] [facility] Pebbles Bourgeois [id number] Pebbles Zimmer 10/04/2018 2 [place] [facility] Pebbles Zimmer [id number] Pebbles Zimmer 10/04/2018 2 [place] [employer] Pebbles Bourgeois [id number] Pebbles Zimmer 05/24/2019 1 [facility] - SENIOR [facility] (MEDICARE REPLACEMENT HMO) Pebbles Zimmer [id number] Pebbles Zimmer 05/24/2019 2 [place] [facility] Pebbles Zimmer [id number] Pebbles Zimmer 06/21/2019 1 [facility] SENIOR [facility] (MEDICARE REPLACEMENT HMO) Pebbles Zimmer [id number] Pebbles Zimmer 06/21/2019 2 [place] [facility] Pebbles Zimmer [id number] Pebbles Zimmer Notes Date Note Type Note Provider Name and Address Organization Details Recorded Time 07/31/2018 text/html Stomach discomfo rt has improved Mark nath [place] - [employer] 07/31/2018 10:25:14 09/11/2018 text/html PT comes in for F/u on diabetes mellitus. Technique of self administering insulin Mark nath MA - [employer] 09/11/2018 08:50:15 10/04/2018 text/html 62 y/o F present s today to follow up Type 2 diabetes mellitus without complication. BS is 130 in fasting. Insulin intake 20 units daily, self administered Mark nath, [place] - [employer] [facility] 10/04/2018 09:31:48 05/24/2019 text/html 63 Y/O F present today to F/U Type 2 diabetes mellitus without complication, Complaining of headache for three days. GLORIA Mariano [address] [facility] [address], [place], [address], [employer] [facility] 05/26/2019 17:40:02 06/21/2019 text/html 63 Y/O F present today to for CPE. GLORIA Mariano [address] [facility] [address], [place], [address], N-1-1 06/21/2019 11:09:12 OBGyn Episode No OBEpisode recorded.
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
--- OUTSIDE RECORDS SUMMARY | 2024-10-22 10:37 | XMS_ITS | Encounter Summary ---
Author Organization [employer] Address [address] [facility] 7t [place] [address] Care Team Providers Care Tugger Operator Name Role Phone Shania Morgan MD Primary Care Provider [phone] Encounter Details Date Type Department Care Team (Latest Contact Info) Description 09/30/2024 Travel Social History Tobacco Use Types Packs/Day Years [...] AM EDT documented as of this encounter Plan of Treatment Upcoming Encounters Date Type Department Care Team (Late st Contact Info) Description 10/23/2024 10:00 AM EST Clinical Support [facility] MED[facility]INE [address] [place] [address] 11/25/2024 3:45 PM EDT Office Visit [address] [address] Shania Morgan MD [address] [place] [address] documented as of this encounter Visit Diagnoses Not on filedocumented in this encounter Additional Health Concerns Assessment Noted Time PHQ-9 Depression Total Score: 0 09/30/19 25 10:31 AM EST documented as of this encounter Care Teams Tugger Operator Relationship Specialty Start Date End Date Shania Morgan MD [address] [place] [id number] PCP - General Family Medicine 08/01/23 documented as of this encounter
--- OUTSIDE RECORDS SUMMARY | 2024-10-22 10:37 | XMS_ITS | Encounter Summary ---
Author Organization [employer] Address 75 [facility] 7t [place] [address] Care Team Providers Care Operations Inspector Name Role Phone Shania Morgan MD Primary Care Provider [phone] Reason for Visit * Reason Onset Date Comments Medication Question 10/10/2024 Encounter Details Date Type Department Care Team (Late st Contact Info) Description 10/10/2024 Telephone [facility] MEDICINE [address] [place] [address] Shania Morgan MD [address] [place] [address] Medication Question Social History Tobacco Use Types Packs/Day Years [...] Telephone Encounter - Rae Mccullough RN - 10/10/2024 12:02 PM EST TC returned to patient [phone] in regards to below message. RN spoke to daughter on HIPAA who reports she was not provided teaching when she p/u the insulin. RN advised daughter to bring insulinto [facility] pharmacy and inquire for teaching as we have staff available to teach insulin administration. RN offered to explain to daughter verbally however she is requesting to be taught in person. Daughter reports she will bring insulin and supplies to [facility] pharmacy for teaching. Daughter to f/u PRN. * Telephone Encounter - Xi Reveles - 10/10/2024 11:28 AM EST Tc from pt requesting a call back regarding insulins. [phone] documented in this encounter Plan of Treatment Upcoming Encounters Date Type Department Care Team (Late st Contact Info) Description 10/23/2024 10:00 AM EST Clinical Support [facility] MEDICINE [address] [place] [address] 11/25/2024 3:45 PM EDT Office Visit [facility]INE [address] [place] [address] Shania Morgan MD [address] [place] [address] documented as of this encounter Visit Diagnoses Not on filedocumented in this encounter Additional Health Concerns Assessment Noted Time PHQ-9 Depression Total Score: 0 09/30/19 25 10:31 AM EST documented as of this encounter Care Teams Operations Inspector Relationship Specialty Start Date End Date Shania Morgan MD [address] [place] [address] PCP - General Family Medicine 08/01/23 documented as of this encounter
--- OUTSIDE RECORDS SUMMARY | 2024-10-22 10:37 | XMS_ITS | Encounter Summary ---
Author Organization [employer] Address 75 [facility] 7t [place] [address] Care Team Providers Care Reed Or Wind Instrument Repairer Name Role Phone Shania Morgan MD Primary Care Provider [phone] Reason for Visit * Reason Onset Date Comments LAZARO CASTRO 10/02/2024 Encounter Details Date Type Department Care Team (Late st Contact Info) Description 10/02/2024 Telephone [facility]ICINE [address] [place] [address] Rae Mccullough RN [address] [place] [address] LAZARO CASTRO Social History Tobacco Use Types Packs/Day Years [...] Encounter - Rae Mccullough RN - 10/16/2024 8:38 AM EST TC placed to [facility] pharmacy to inquire if PA for CGM reader and sensor is processing. RN was informedthey are both going thru with a $0 copay. TC placed to patient [phone] to schedule teaching appointment. Patient scheduled for 10/23/24 at 10am. TC returned to pharmacy to inform of teaching appointment. Pilar from pharmacy verbalized understanding. * Telephone Encounter - Rae Mccullough RN - 10/02/2024 9:35 AM EST Continuous Glucose Monitor Prior Authorization Documentation: CGM PA initiated for: Freestyle Toña 2 sensors and reader Insurance: [employer] PA form completed and faxed to . Patient's preferred pharmacy: [facility] - [address] [facility] [id number] CGM PA should be approved by: 10/16/2024 Pebbles Zimmer will be scheduled with red team nurses for CGM placement/teaching once PA is approved. ----- Message from [facility] sent at 10/02/2024 6:50 AM EST ----- Hey! I ordered a CGM for this patient will need PA and teaching. Thank you! documented in this encounter Plan of Treatment Upcoming Encounters Date Type Department Care Team (Late st Contact Info) Description 10/23/2024 10:00 AM EST Clinical Support [address] [address] 11/25/2024 3:45 PM EDT Office Visit [address] [address] Shania Morgan MD [address] [place] [address] documented as of this encounter Visit Diagnoses Not on filedocumented in this encounter Additional Health Concerns Assessment Noted Time PHQ-9 Depression Total Score: 0 09/30/19 25 10:31 AM EST documented as of this encounter Care Teams Reed Or Wind Instrument Repairer Relationship Specialty Start Date End Date Shania Morgan MD [address] [place] [address] PCP - General Family Medicine 08/01/23 documented as of this encounter
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
--- OUTSIDE RECORDS SUMMARY | 2024-10-22 10:37 | XMS_ITS | Continuity of Care Document ---
Author Organization [facility] Address [address] [place] [address]- Care Team Providers Care Plate Grainer Apprentice Name Role Phone Not on Staff, PCP Primary Care Physician Unavail able [place] [facility] [place] 10/09/24 [facility] [address] [place] [address]- Attending Physician: Juvenal Singleton MD Admitting Physician: Juvenal Singleton MD Referring Physician: Camille Pineda NP Encounter Type: Pre-OutPatient One Time Allergies, Adverse Reactions, Alerts No Known Allergies Medications aspirin 81 mg oral delayed release tablet 81 mg, 1, tablet, By Mouth, Daily, # 30 tablet, Refills 0, Maintenance, 07/04/23 10:16:00 AM EST, Partial fill upon patient request if the prescription is for a schedule II opioid drug. Start Date: 07/04/23 Status: Ordered Quantity: 30.0 Unit: tablet Repeat number: 1 atorvastatin 10 mg oral tablet 1 tablet = 10 mg, By Mouth, Daily, # 30 tablet, 0 Refills, Maintenance, 07/04/23 10:16:00 AM EST, Partial fill upon patient request if the prescription is for a schedule II opioid drug. Start Date: 07/04/23 Status: Ordered Quantity: 30.0 Unit: tablet Repeat number: 1 Entresto 24 mg-26 mg oral tablet 1 tablet, By Mouth, 2 times a day, # 60 tablet, 0 Refills, Maintenance, 07/04/23 10:16:00 AM EST, Tablet, Partial fill upon patient request if the prescription is for a schedule II opioid drug. Start Date: 07/04/23 Status: Ordered Quantity: 60.0 Unit: tablet Repeat number: 1 famotidine 20 mg oral tablet 20 mg, 1, tablet, By Mouth, 2 times a day, # 60 tablet, Refills 0, Maintenance, 07/04/23 10:16:00 AMEST, Partial fill upon patient request if the prescription is for a schedule II opioid drug. Start Date: 07/04/23 Status: Ordered Quantity: 60.0 Unit: tablet Repeat number: 1 gabapentin 300 mg oral capsule 300 mg, 1, capsule, By Mouth, Daily at bedtime, Refills 0, Maintenance, 07/04/23 10:17:00 AM EST, Partial fill upon patient request if the prescription is for a schedule II opioid drug. Start Date: 07/04/23 Status: Ordered Repeat number: 1 Jardiance 10 mg oral tablet 1 tablet = 10 mg, By Mouth, Daily in AM, # 30 tablet, 0 Refills, Maintenance, 07/04/23 10:16:00 AM EST, Tablet, Partial fill upon patient request if the prescription is for a schedule II opioid drug. Start Date: 07/04/23 Status: Ordered Quantity: 30.0 Unit: tablet Repeat number: 1 metoprolol 25 mg oral tablet, extended release 25 mg, 1, tablet, By Mouth, Daily, # 30 tablet, Refills 0, Maintenance, 07/04/23 10:17:00 AM EST, Partial fill upon patient request if the prescription is for a schedule II opioid drug. Start Date: 07/04/23 Status: Ordered Quantity: 30.0 Unit: tablet Repeat number: 1 Spiriva HandiHaler 18 mcg Inhalation Capsule 1 capsule, Inhalation, Daily, # 90 capsule, 0 Refills, Maintenance, 07/04/23 10:17:00 AM EST, Partial fill upon patient request if the prescription is for a schedule II opioid drug. Start Date: 07/04/23 Status: Ordered Quantity: 90.0 Unit: capsule Repeat number: 1 Symbicort 80mcg/4.5mcg Inhaler 2, puffs, Inhalation, 2 times a day, # 6.9 Gm, Refills 0, Maintenance, 07/04/23 10:17:00 AM EST, Aerosol Start Date: 07/04/23 Status: Ordered Quantity: 6.9 Unit: g Repeat number: 1 torsemide 20 mg oral tablet 1 tablet = 20 mg, By Mouth, Daily, # 30 tablet, 0 Refills, Maintenance, 07/04/23 10:17:00 AM EST, Tablet, Partial fill upon patient request if the prescription is for a schedule II opioid drug. Start Date: 07/04/23 Status: Ordered Quantity: 30.0 Unit: tablet Repeat number: 1 Problem List Condition Confirmation Course Effective Dates Status Health St atus Informant Severe obesity Confirmed Active Patient Care team information Care Team Personnel Name: Elder Duvall RN Position: [facility] RN Member Role: Primary Care Nurse Name: Not on Staff, PCP Position: [facility] Physician (General Medicine) Member Role: PCP Care Team Related Persons Name: HUSSEIN SCHWARTZ Insurance Providers Guarantor name: PUJA Health Plan Information #: 2 Payer: [facility] Member Number: [id number] Policy Number: PUJA Group Number: PUJA Health Plan Information #: 1 Payer: [facility] Member Number: [id number] Policy Number: PUJA Group Number: PUJA Health Plan Information #: 3 Payer: [facility] Member Number: [id number] Policy Number: PUJA Group Number: NA
--- OUTSIDE RECORDS SUMMARY | 2024-10-22 10:37 | XMS_ITS | Encounter Summary ---
Author Organization [employer] Address [address] [facility] 7t [place] [address] Care Team Providers Care Income Tax Analyst Name Role Phone Shania Morgan MD Primary Care Provider [phone] Reason for Visit * Reason Comments Med Refill Encounter Details Date Type Department Care Team (Late st Contact Info) Description 08/13/[address] [facility] [address] [place] [address] Shania Morgan MD [address] [place] [address] Social History Tobacco Use Types Packs/Day Years [...] Description 10/23/2024 10:00 AM EST Clinical Support [address] [address] 11/25/2024 3:45 PM EDT Office Visit [address] [address] Shania Morgan MD [address] [place] [address] documented as of this encounter Visit Diagnoses Not on filedocumented in this encounter Additional Health Concerns Assessment Noted Time PHQ-9 Depression Total Score: 18 024 10:39 AM EST documented as of this encounter Care Teams Income Tax Analyst Relationship Specialty Start Date End Date Shania Morgan MD [address] [place] [phone] PCP - General Family Medicine 08/01/23 documented as of this encounter
--- OUTSIDE RECORDS SUMMARY | 2024-10-22 10:37 | XMS_ITS | Encounter Summary ---
Author Organization [employer] Address [address] [facility] 7t [place] [address] Care Team Providers Care Hunter Guide Name Role Phone Shania Morgan MD Primary Care Provider [phone] Reason for Visit * Reason Comments Med Refill Encounter Details Date Type Department Care Team (Late st Contact Info) Description 09/17/2024 Refill [facility] [address] [place] [address] Shania Morgan MD [address] [place] [address] Social History Tobacco Use Types Packs/Day Years [...] Description 10/23/2024 10:00 AM EST Clinical Support [address] [address] 11/25/2024 3:45 PM EDT Office Visit [address] [address] Shania Morgan MD [address] [place] [address] documented as of this encounter Visit Diagnoses Not on filedocumented in this encounter Additional Health Concerns Assessment Noted Time PHQ-9 Depression Total Score: 18 024 10:39 AM EST documented as of this encounter Care Teams Hunter Guide Relationship Specialty Start Date End Date Shania Morgan MD [address] [place] [phone] PCP - General Family Medicine 08/01/23 documented as of this encounter
--- OUTSIDE RECORDS SUMMARY | 2024-10-22 10:37 | XMS_ITS | Continuity of Care Document ---
Author Organization [facility] Address [address] [place] [address]- Care Team Providers Care Beekeeper Farmer Name Role Phone Not on Staff, PCP Primary Care Physician Unavail able Encounter [facility] [place] Date(s): 09/09/24 - 10/09/24 [facility] [address] [place] [address]- Attending Physician: Rogelio Zambrano Admitting Physician: Rogelio Zambrano Referring Physician: AdmtrRogelio Encounter Type: Triage Allergies, Adverse Reactions, Alerts No Known Allergies [...] Team Personnel Name: Elder Duvall RN Position: [facility] RN Member Role: Primary Care Nurse Name: Not on Staff, PCP Position: [facility] Physician (General Medicine) Member Role: PCP Care Team Related Persons Name: HUSSEIN SCHWARTZ Insurance Providers Guarantor name: PUJA Health Plan Information #: 1 Payer: [facility] Member Number: NA Policy Number: NA Group Number: NA Health Plan Information #: 2 Payer: [facility] Member Number: NA Policy Number: NA Group Number: NA Health Plan Information #: 3 Payer: [facility] Member Number: NA Policy Number: NA Group Number: NA
--- OUTSIDE RECORDS SUMMARY | 2024-10-22 10:37 | XMS_ITS | Encounter Summary ---
Author Organization [employer] Address [address] [facility] 7t [place] [address] Care Team Providers Care Saloonkeeper Name Role Phone Shania Morgan MD Primary Care Provider [phone] Reason for Visit * Reason Onset Date Comments chart prep 09/27/2024 Encounter Details Date Type Department Care Team (Late st Contact Info) Description 09/27/2024 Telephone [facility] MEDICINE [address] [place] [address] Shania Morgan MD [address] [place] [address] chart prep Social History Tobacco Use Types Packs/Day Years [...] encounter Miscellaneous Notes * Telephone Encounter - Lesley Shirley [place] - 09/27/2024 8:47 AM EST Chart Prep Labs: done Images: done Vaccines due: yes Referrals: complete Screenings: colonoscopy Overdue care gaps: A1C, Glucose, Sbirt, SDOH, PHQ-9, Oral Health documented in this encounter Plan of Treatment Upcoming Encounters Date Type Department Care Team (Late st Contact Info) Description 10/23/2024 10:00 AM EST Clinical Support [facility] MEDICINE [address] [place] [address] 11/25/2024 3:45 PM EDT Office Visit [facility] [address] [place] [address] Shania Morgan MD [address] [place] [address] documented as of this encounter Visit Diagnoses Not on filedocumented in this encounter Additional Health Concerns Assessment Noted Time PHQ-9 Depression Total Score: 18 024 10:39 AM EST documented as of this encounter Care Teams Saloonkeeper Relationship Specialty Start Date End Date Shania Morgan MD [address] [place] [address] PCP - General Family Medicine 08/01/23 documented as of this encounter
--- OUTSIDE RECORDS SUMMARY | 2024-10-22 10:37 | XMS_ITS | Encounter Summary ---
Author Organization [employer] Address [address] [facility] 7t [place] [address] Care Team Providers Care Senior Software Analyst Name Role Phone Shania Morgan MD Primary Care Provider [phone] Reason for Visit * Reason Comments Med Refill Encounter Details Date Type Department Care Team (Late st Contact Info) Description 10/14/[address] [facility] MED[facility] [address] [place] [address] Penelope Wick MD [address] [place] [address] Social History Tobacco Use Types Packs/Day Years [...] t he electric, gas, oil or water [employer] threatened to shut off services in your [...] Description 10/23/2024 10:00 AM EST Clinical Support [address] [address] 11/25/2024 3:45 PM EDT Office Visit [address] [address] Shania Morgan MD [address] [place] [address] documented as of this encounter Visit Diagnoses Not on filedocumented in this encounter Additional Health Concerns Assessment Noted Time PHQ-9 Depression Total Score: 0 09/30/19 25 10:31 AM EST documented as of this encounter Care Teams Senior Software Analyst Relationship Specialty Start Date End Date Shania Morgan MD [address] [place] [address] PCP - General Family Medicine 08/01/23 documented as of this encounter
== END ==
LOC: HO.CARD 09:29
PROVIDERS: PCP General Practice; Visit Provider Internal Medicine Cardiovascular Disease
DX: I42.9 Cardiomyopathy, unspecified (principal)
CPT/HCPCS: 93306; Q9957

== ENCOUNTER → 2024-10-22 09:32 | Outpatient (BNV) | payer OTHER, SELFPAY | PROVIDERS: PCP General Practice; Visit Provider Internal Medicine | DX: I35.1 Nonrheumatic aortic (valve) insufficiency (principal); I34.0 Nonrheumatic mitral (valve) insufficiency; I36.1 Nonrheumatic tricuspid (valve) insufficiency | CPT/HCPCS: 93306 ==

== ENCOUNTER → 2024-11-05 23:59 | Outpatient (BNV) | payer OTHER, SELFPAY ==
--- NOTE | 2024-12-22 21:00 | MHC.OFFVIS ---
Intake Visit Reasons: Remote HF monitoring-[employer] Allergies No Known Allergies Allergy (Verified 12/11/24 10:43) [facility] Medical History (Updated 12/11/24 @ 10:48 by Dangelo Marte MD) Osteoporosis Surgical History History of pacemaker Family History Mother Cancer of unknown origin Father Heart attack Social History Household Members: Children Household Members Other:: Son Alcohol intake: never Patient Tobacco Use Status: Former Tobacco user Office Procedures Cardiac Device Check Cardiac Device Check Details: HF monitoring Stable thoracic impedance [id number] Cardiac Device Interrogation, cardio physiologic monitor Procedure code (CPT) selection complete Assessment & Plan Assessment & Plan (1) ICD (implantable cardioverter-defibrillator) discharge: Code(s): Z45.02 - Encounter for adjustment and management of automatic implantable cardiac defibrillator Category: Medical Plan: Coding Level of Care Code Procedure Only Diagnoses ICD (implantable cardioverter-defibrillator) discharge Z45.02 CPT Codes Cardiac Device Check - Cardiac Device 15: [id number] Cardiac Device Interrogation, cardio physiologic monitor ([id number])
== END ==
PROVIDERS: PCP General Practice; Visit Provider Internal Medicine Cardiovascular Disease
DX: Z45.02 Encounter for adjustment and management of automatic implantable cardiac defibrillator (principal)
CPT/HCPCS: 93297

== ENCOUNTER 2024-11-06 10:42 | Outpatient (REF) | payer OTHER, SELFPAY ==
--- NOTE | ~2024-11-06 | MM_ITS ---
EXAMINATION: DXA BONE DENSITY AXIAL HISTORY: Estrogen deficiency TECHNIQUE: [employer] Dual energy absorptiometry (DEXA) of the lumbar spine, total left hip, and femoral neck was performed. COMPARISON: There are no prior studies for comparison. FINDINGS: The bone mineral density of the lumbar spine is 0.712 with a T-score of -4.1, and a Z-score of -2.2. The bone mineral density of the left total hip is 0.842 with a T-score of -1.3, and a Z-score of 0.3. The bone mineral density of the left femoral neck is 0.733 with a T-score of -2.2, and a Z-score of -0.4. MM/XR DEXA axial skeleton IMPRESSION: Based on bone mineral density, and according to World Health Organization (WHO) criteria, the diagnosis is consistent with osteoporosis. All bone density values are in grams per centimeter squared (g/cm2). Statistically, 68% of repeat scans fall within 1 SD (+/- 0.010 g/cm2 for AP spine L1-L4) and 1 SD (+/- 0.012 g/cm2 for femur total) FRAX is a trademark of the [employer]'s [employer] [facility] Met[employer], a World Health Organization (WHO) Collaborating Center. Electronically signed by: Dangelo Denis MD 11/06/2024 12:22 PM EDT
--- OUTSIDE RECORDS SUMMARY | 2024-11-06 12:23 | XMS_ITS | Encounter Summary ---
Author Organization [employer] Address [address] [facility] 7t [place] [address] Care Team Providers Care Foreign Broadcast Specialist Name Role Phone Shania Morgan MD Primary Care Provider [phone] Reason for Referral * Consultation (Routine) - Authorized Specialty Diagnoses / Procedures Referred By Contac t Referred To Contact Pharmacy Diagnoses Type 2 diabetes mellitus with hyperglycemia, with long-term current use of insulin (CMS/[facility]) Shania Morgan MD [address] [place] [address] Phone: tel: fax: Referral ID Status Reason Start Date Expiration Date Visits Requested Visits Authorized [id number] Authorized Consult and Treat 10/23/2024 10/23/2025 6 6 Scheduling Instructions CGM teaching occurred on 10/23/24, A1c is 11.7 Reason for Visit * Reason Comments CGM teaching Encounter Details Date Type Department Care Team (Latest Contact Info) Description 10/23/2024 10:00 AM EST Clinical Support [facility] [address] [place] [address] Rae Mccullough, [place] [address] [place] [address] Type 2 diabetes mellitus with hyperglycemia, with long-term current use of insulin (CMS/HCC) Social History Tobacco Use Types Packs/Day [...] your housing situation today? I have montez sing 08/02/[address] you li [...] AM EDT documented as of this encounter Progress Notes * Rae Mccullough RN - 10/23/2024 10:00 AM EST SUBJECTIVE: Pebbles Zimmer is a 68 y.o. year old female who presented for CGM teaching Preferred language for medical information: Collection Systems Foreman needed: Yes, daughter interpreted (Sarika on HIPAA) CGM device: Popcorn networkstyle Toña 2 Pebbles Zimmer brought in CGM device to today's visit OBJECTIVE: Lab Results Component Value Date ALT 28 06/14/2024 AST 15 06/14/2024 LDLCHOLCAL 110 (H) 02/09/2024 TRIG 82 02/09/2024 K 4.9 06/14/2024 NA 138 06/14/2024 MICROALBCREU 14.9 02/09/2024 CREATININE 0.74 06/14/2024 EGFR >60 06/14/2024 HGBA1C 11.7 (A) 09/30/2024 HGBA1C 9.4 (A) 07/16/2024 HGBA1C 6.2 (A) 02/09/2024 BP Readings from Last 4 Encounters: 09/30/24 107/62 07/16/24 100/60 04/15/24 124/80 02/09/24 98/66 Pulse Readings from Last 4 Encounters: 09/30/24 74 07/16/24 70 04/15/24 66 02/09/24 80 EDUCATION: The following was reviewed with Pebbles Zimmer and they confirmed understanding- Select site on back of upper arm. Do not use other sites as these are not approved and may result in inaccurate glucose readings. Note avoid scars, moles, stretch briceño, lumps, and insulin injection sites. The sensor should be changed every 14 days and site rotated between applications. Clean site with alcohol wipe. Allow site to dry before proceeding. Peel lid completely off sensor pack. Unscrew cap from sensor applicator. Caution sensor codes must match on sensor pack and sensor applicator or glucose readings will be incorrect. Line up dark madeline on sensor applicator with dark madeline on sensor pack. On a hard surface, press downfirmly on sensor applicator until it comes to a stop. Lift sensor applicator out of sensor pack. Sensor applicator is ready to apply sensor. Caution sensor applicator now contains a needle. Do nottouch inside sensor applicator or put back into sensor pack. Place sensor applicator over site and push down firmly to apply sensor. Caution do not push down onsensor applicator until placed over prepared site to prevent unintended results or injury. Gently pull sensor applicator away from your body. Make sure sensor is secure. Discard used sensor applicator and sensor pack according to local regulations. Allow 60 minute warm-up time from 1st scan to get readings. If sensor falls off, do not re-apply, apply 2nd sensor. Can apply patch to help keep sensor in place Products available to help adhesion to skin: Simpatch, available on [employer], Torbat Skin Tac, Skin-Prep Protective Barrier Wipe, Tegaderm I.V. Mastisol Liquid Adhesive available over the counter. Can get wet up to 3ft of water for 30 minutes. Remove sensor for MRI, CT scan or high frequency electrical treatment- this may damage sensor and possibly injure the patient. Do not ignore low/high symptoms- if sensor readings don't match with symptoms, use BG meter to confirm readings. Use only the electrical equipment provided by the green building materials distributor. Do not use if you are on dialysis or critically ill- it has not been approved. Aspirin may falsely lower readings at doses greater than 650mg. Vitamin C at doses greater than 500mg may falsely raise readings. GOALS: Pebbles Bourgeois Baez will utilize CGM device at least 70% of the time Pebbles Bourgeois Goran will recognize hypoglycemic signs and symptoms and treatment ASSESSMENT/PLAN: Pebbles Zimmer left wearing 1st sensor Follow up appointment will be scheduled with clinical pharmacists (A1c 11.7). Rae Mccullough RN documented in this encounter Plan of Treatment Upcoming Encounters Date Type Department Care Team (Late st Contact Info) Description 11/20/2024 9:30 AM EDT Medication Management [facility] MED[facility]INE [address] [place] [phone] Aileen Bernabe PharmD [address] [place] [address] 11/25/2024 3:45 PM EDT Office Visit [address] [address] Shania Morgan MD [address] [place] [address] Scheduled Referrals Name Type Priority Associated Diagnoses Orde r Schedule Referral to Pharmacy CDTM Outpatient Referral Routine Type 2 diabetes mellitus with hyperglycemia, with long-term current use of insulin ([facility]) Ordered: 10/23/2024 documented as of this encounter Visit Diagnoses Diagnosis Type 2 diabetes mellitus with hyperglycemia, with long-term current use of insulin (CMS/[facility]) documented in this encounter Additional Health Concerns Assessment Noted Time PHQ-9 Depression Total Score: 0 09/30/19 25 10:31 AM EST documented as of this encounter Care Teams Foreign Broadcast Specialist Relationship Specialty Start Date End Date Shania Morgan MD [address] [place] [address] PCP - General Family Medicine 08/01/23 documented as of this encounter
--- OUTSIDE RECORDS SUMMARY | 2024-11-06 12:23 | XMS_ITS | Encounter Summary ---
Author Organization [employer] Address [address] [facility] 7t [place] [address] Care Team Providers Care Ticket Maker Name Role Phone Shania Morgan MD Primary Care Provider [phone] Encounter Details Date Type Department Care Team (Latest Contact Info) Description 10/23/2024 Travel Social History Tobacco Use Types Packs/Day [...] Description 11/20/2024 9:30 AM EDT Medication Management [facility] [address] [place] [address] Aileen Bernabe, TishaD [address] [place] [address] 11/25/2024 3:45 PM EDT Office Visit [facility] [address] [place] [address] Shania Morgan MD [address] [place] [address] documented as of this encounter Visit Diagnoses Not on filedocumented in this encounter Additional Health Concerns Assessment Noted Time PHQ-9 Depression Total Score: 0 09/30/19 25 10:31 AM EST documented as of this encounter Care Teams Ticket Maker Relationship Specialty Start Date End Date Shania Morgan MD [address] [place] [phone] PCP - General Family Medicine 08/01/23 documented as of this encounter
--- OUTSIDE RECORDS SUMMARY | 2024-11-06 12:23 | XMS_ITS | Clinical Summary ---
Author Organization [employer] Address 75 [facility] 7t [place] [address] Care Team Providers Care Underground Production Foreperson Name Role Phone Shaina Morgan MD Primary Care Provider [phone] Allergies No known active allergies Medications * [...] hyperglycemia, with long-term current use of insulin ([facility]) Inject 10 Units under the skin at bedtime. 15 mL 09/30/19 25 026 Active Alcohol Swabs (Alcohol Prep) padsIndication s:Type 2 diabetes mellitus with hyperglycemia, with long-term current use of insulin ([facility]) Use one pad each to prep skin prior to injection as directed 100 each 11 09/30/19 25 Active insulin pen needle 30G x 5 mm miscIndication s:Type 2 diabetes mellitus with hyperglycemia, with long-term current use of insulin ([facility]) Use as instructed 100 each 09/30/19 25 Active Lancets 33G miscIndication s:Type 2 diabetes mellitus with hyperglycemia, with long-term current use of insulin (CMS/HCC) Use as directed to check blood sugar four times daily 100 each 3 09/30/19 25 Active glucose blood test stripIndicatio ns:Type 2 diabetes mellitus with hyperglycemia, with long-term current use of insulin (CMS/[facility]) Use as directed to check blood sugar four times daily 100 each 12 09/30/19 25 Active Continuous Glucose Manager Technical (FreeStyle Toña 2 [place]) deviceIndicati ons:Type 2 diabetes mellitus with hyperglycemia, with long-term current use of insulin ([facility]) Scan sensor every 8 hours 1 each 10/02/19 25 Active Continuous Glucose Sensor (FreeStyle Toña 2 Sensor) miscIndication s:Type 2 diabetes mellitus with hyperglycemia, with long-term current use of insulin ([facility]) Apply 1 sensor every 14 [...] the activities and social interaction from the [facility] PTSD (post-traumatic stress disorder) 08/31/2023 Assessment & [...] Plan (02/09/2024 10:27 AM EDT): Continue pacemaker Assistant Guest Services Manager in [facility] at [facility] On Entresto and torsemide Left bundle branch [...] Encounters Date Type Department Care Team Description 10/23/2024 10:00 AM EST Clinical Support [facility] [address] [facility] [place] [address] Rae Mccullough, RN Type 2 diabetes mellitus with hyperglycemia, with long-term current use of insulin ([facility]) 10/23/2024 Travel 10/22/2024 Telephone [facility] [address] [facility] [place] [address] Shania Morgan MD insurance (/) 10/16/2024 Telephone [facility] [address] [facility] [place] [address] [facility] Care Coordination 10/14/2024 Refill [facility] [address] [facility] [place] [address] Penelope Wick MD 10/10/2024 Telephone [facility] [address] [facility] [place] [address] Shania Morgan MD Medication Question 10/02/2024 Telephone [facility] [address] [facility] [place] [address] Rae Mccullough RN CGM PA 09/30/2024 10:00 AM EST Office Visit [facility] [address] [facility] [address] [place] [place] [address] [facility] Type 2 diabetes mellitus with hyperglycemia, with long-term current use of insulin (CMS/[facility]) (Primary Dx); Interstitial lung disease (CMS/HCC); Left bundle branch block; Hypertrophic nonobstructive cardiomyopathy (CMS/HCC); Healthcare maintenance; Encounter for colorectal cancer screening; 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; senior care systemic steroid user; Paroxysmal A-fib (CMS/HCC) 09/30/2024 Travel 09/27/2024 Telephone [facility] [address] [facility] [address] [address] [place] [place] [address] Shania Morgan MD chart prep 09/26/2024 Telephone [facility] 230 [place] [address] Loretta BentleyVERN Appointment Request 09/17/2024 Refill [facility] 230 [place], [place] [phone] Shania Morgan MD 08/13/2024 Refill [facility] 230 [place], [place] [phone] Shania Morgan MD 08/13/2024 Refill [facility] 230 [place] [address] Shania Morgan MD from Last 3 Months [...] Description 11/20/2024 9:30 AM EDT Medication Management [facility] [address] [place] [address] Aileen Bernabe, PharmD [address] [place] [address] 11/25/2024 3:45 PM EDT Office Visit [facility] [address] [place] [address] Shania Morgan MD [address] [place] [address] Health Maintenance Due Date Last Done Comments [...] HGB A1C (09/30/2024 10:32 AM EST) Pathologist [facility] Hemoglobin A1C 11.7(A) 4.0 - 6.0 % QC Media Lot # [id number] Lot# Expiration Date Blood 09/30/2024 10:3 2 AM EST [facility] POINT OF CARE TEST ENTER/EDIT ORDERABLES Final Result * (ABNORMAL) POCT Glucose (09/30/2024 10:32 AM EST) Glucose Blood, POC 324(A) 60 - 200 mg/dL Blood Capillary blood specimen / Unknown 09/30/2024 10:32 AM EST us Shruthi Alejandro WOOD MODEL MAKER POINT OF CARE TEST ENTER/EDIT ORDERABLES Final Result * BI Mammogram Screening Tomosynthesis Bilateral (02/13/2024 11:00 AM EDT) Anatomical Region Laterality Modality Breast Bilateral Mammography 02/13/2024 11:0 0 AM EDT Narrative 03/14/2024 3:15 PM EDT ? [facility] ? [address] ?[place] [address] ? Mammography Report ? Signed ? Patient: Bk,Pebbles ?MR#: [id number] ?? [id number] ? : 1955 ?Acct:[id number] ? Age/Sex: 68 / F ?ADM Date: 02/13/24 ? Loc: HO.MAMMO ? Attending Dr: Shania Morgan MD ? Ordering Physician: Shania Morgan ?Results: 1Negative ? Date of Service: 02/13/24 ?Follow Up: 1 Year From Orig ?? inal Mammogram ? Procedure(s): MM tomosynthesis screening BI ?? Accession Number(s): [id number] ? cc: Shania Morgan ? EXAMINATION: ?? [...] 1511 ? DD/ 1100 ? TD/TT: ? Part Maker: ? Procedure Note Elaine Chau - 03/14/2024 [facility] [address] [place] [address] Mammography Report Signed Patient: Piedad Bourgeois#: [id number] : 4Acct:[id number] Age/Sex: 68 / FADM Date: 02/13/24 Loc: HO.MAMMO Attending Dr: Shania Morgan MD Ordering Physician: Delilah Morganults: 1Negative Date of Service: 02/13/24Follow Up: 1 Year From Orig inal Mammogram Procedure(s): MM tomosynthesis screening BI Accession Number(s): [id number] cc: Shania Morgan EXAMINATION: MM SCREENING DIGITAL [...] in OV> 03/14/24 1511 DD/ 1100 TD/TT: Part Maker: Shania Morgan MD IMG BI PROCEDURES Final Result * Albumin, Random Urine W/Creatinine (02/09/2024 9:50 AM EDT) Creatinine, Urine 93.43 mg/dL [facility] Microalbumin Urine 14.0 mg/L [facility] Microalbum Creatinine Ratio Ur 14.9 <30 ug/mg cr [facility] Comment:Albumin/Creatinine R atio Reference Ranges: Normal: < 30 ug/mg creatinine Microalbuminuria: 30 - 300 ug/mg creatinineClinical Albuminuria: > 300 ug/mg creatinine Urine (Urine, Random) 02/09/2024 9:50 AM EDT 02/09/2024 11:10 AM EDT Shania Morgan MD LAB URINE ORDERABLES Final Res ult [facility] [address] [place] [phone] * Hepatitis C Antibody with Reflex to HCV, RNA, Quantitative, Real-Time PCR (02/09/2024 9:50 AM EDT) Hepatitis C Antibody Nonreactive Nonreactive [facility] Comment:Antibodies to HCV no t detected; does not exclude early acuteHCV infection. Blood Venous blood specimen / Unknown 02/09/2024 9:50 AM EDT 02/09/2024 11:12 AM EDT Shania Morgan MD LAB BLOOD ORDERABLES Final Res ult Performing Organization Address [facility] de Phone Number [facility] [address] [place] [address] [phone] * (ABNORMAL) Lipid Panel, Standard (02/09/2024 9:50 AM EDT) Triglycerides 82 <150 mg/dL [facility] Comment:Desirable Triglyceri de: less than 150 mg/dLBorderline High Triglyceride 150-199 mg/dLHigh Triglyceride: 200-499 mg/dLVery High Triglyceride: greater than or equal to 5OO mg/dL Cholesterol 167 <200 mg/dL [facility] Comment:Desirable Cholestero l: less than 200 mg/dLBorderline High Cholesterol: 200-239 mg/dLHigh Cholesterol: greater than 239 mg/dL LDL Cholesterol Calculated 110(H) <100 mg/dL [facility] Comment:Desirable LDL: less than 100 mg/dLNear Optimal/Above Optimal LDL: 110- 129 mg/dLBorderline High LDL: 130-159 mg/dLHigh LDL: 160-189 mg/dLVery High LDL: greater than or equal to 190 mg/dL HDL Cholesterol 41 >40 mg/dL [facility] Comment:Desirable HDL: great er than 40 mg/dL Note: This HDL assay may give artificially low results in patients with liver disease. Blood Venous blood specimen / Unknown 02/09/2024 9:50 AM EDT 02/09/2024 11:12 AM EDT us Shania Morgan MD LAB BLOOD ORDERABLES Final Res ult Performing Organization Address City/[facility]/ZIP Co de Phone Number [facility] [address] [place] [phone] [phone] from Last 3 Months or Most Recently Relevant to Health Maintenance Insurance [employer] Care Teams Underground Production Foreperson Relationship Specialty Start Date End Date Shania Morgan MD [address] [place] [address] PCP - General Family Medicine 08/01/23
--- OUTSIDE RECORDS SUMMARY | 2024-11-06 12:23 | XMS_ITS | Encounter Summary ---
Author Organization [employer] Address 75 [facility] 7t [place] [address] Care Team Providers Care Photocomposing Machine Operator Name Role Phone Shania Morgan MD Primary Care Provider Reason for Visit * Reason Onset Date Comments insurance 10/22/2024 Encounter Details Date Type Department Care Team (Late st Contact Info) Description 10/22/2024 Telephone [facility] [address] [place] [address] Shania Morgan MD 230 [place] [address] insurance (/) Social History Tobacco Use Types Packs/Day Years [...] encounter Miscellaneous Notes * Telephone Encounter - Sharlene Sim - 10/22/2024 3:22 PM EST Called pt to let them know that their insurance is coming back like they couldn't find them in their system, pt informed me that there last name Goran the insurance is missing the letter ''Z'' so I ran the insurance on Bob without the letter Z and it verified I informed pt to call them and make sure they switch it , pt said she had called a while back but she will give them another call. I will scan the pt insurance eligibly into mediation commissioner. documented in this encounter Plan of Treatment Upcoming Encounters Date Type Department Care Team (Late st Contact Info) Description 11/20/2024 9:30 AM EDT Medication Management [facility] [address] [place] [address] Aileen Bernabe, PharmD [address] [place] [address] 11/25/2024 3:45 PM EDT Office Visit [facility] [address] [place] [address] Shania Morgan MD [address] [place] [address] documented as of this encounter Visit Diagnoses Not on filedocumented in this encounter Additional Health Concerns Assessment Noted Time PHQ-9 Depression Total Score: 0 09/30/19 25 10:31 AM EST documented as of this encounter Care Teams Photocomposing Machine Operator Relationship Specialty Start Date End Date Shania Morgan MD 230 [place] [address] PCP - General Family Medicine 08/01/23 documented as of this encounter
--- OUTSIDE RECORDS SUMMARY | 2024-11-06 12:23 | XMS_ITS | Encounter Summary ---
Author Organization [employer] Address 75 [facility] 7t [place] [address] Care Team Providers Care Bus Washer Name Role Phone Shania Morgan MD Primary Care Provider [phone] Reason for Visit * Reason Comments Med Refill Encounter Details Date Type Department Care Team (Late st Contact Info) Description 08/13/2024 Refill [facility] 230 [place] [address] Shania Morgan MD 230 [place] [address] Social History Tobacco Use Types Packs/Day Years [...] Description 11/20/2024 9:30 AM EDT Medication Management [facility] [address] [place] [address] Aileen Bernabe, TishaD [address] [place] [address] 11/25/2024 3:45 PM EDT Office Visit [facility] [address] [place] [address] Shania Morgan MD [address] [place] [address] documented as of this encounter Visit Diagnoses Not on filedocumented in this encounter Additional Health Concerns Assessment Noted Time PHQ-9 Depression Total Score: 18 024 10:39 AM EST documented as of this encounter Care Teams Bus Washer Relationship Specialty Start Date End Date Shania Morgan MD [address] [place] [address] PCP - General Family Medicine 08/01/23 documented as of this encounter
--- OUTSIDE RECORDS SUMMARY | 2024-11-06 12:24 | XMS_ITS | Encounter Summary ---
Author Organization [employer] Address 75 [facility] 7t [place] [address] Care Team Providers Care Go Go Dancer Name Role Phone Shania Morgan MD Primary Care Provider [phone] Reason for Visit * Reason Onset Date Comments Medication Question 10/10/2024 Encounter Details Date Type Department Care Team (Late st Contact Info) Description 10/10/2024 Telephone [facility] 230 [place] [address] Shania Morgan MD 230 [place] [address] Medication Question Social History Tobacco Use Types [...] Miscellaneous Notes * Telephone Encounter - Rae cMcullough RN - 10/10/2024 12:02 PM EST TC returned to patient [phone] in regards to below message. RN spoke to daughter on HIPAA who reports she was not provided teaching when she p/u the insulin. RN advised daughter to bring insulinto [facility] pharmacy and inquire for teaching as we have staff available to teach insulin administration. RN offered to explain to daughter verbally however she is requesting to be taught in person. Daughter reports she will bring insulin and supplies to [facility] pharmacy for teaching. Daughter to f/u PRN. * Telephone Encounter - Xi Reveles - 10/10/2024 11:28 AM EST Tc from pt requesting a call back regarding insulins. [phone] documented in this encounter Plan of Treatment Upcoming Encounters Date Type Department Care Team (Late st Contact Info) Description 11/20/2024 9:30 AM EDT Medication Management [facility] [address] [place] [address] Aileen Bernabe, PharmD 230 [place] [address] 11/25/2024 3:45 PM EDT Office Visit [facility] 230 [place] [address] Shania Morgan MD 230 [place] [address] documented as of this encounter Visit Diagnoses Not on filedocumented in this encounter Additional Health Concerns Assessment Noted Time PHQ-9 Depression Total Score: 0 09/30/19 25 10:31 AM EST documented as of this encounter Care Teams Go Go Dancer Relationship Specialty Start Date End Date Shania Morgan MD [address] [place] [address] PCP - General Family Medicine 08/01/23 documented as of this encounter
--- OUTSIDE RECORDS SUMMARY | 2024-11-06 12:24 | XMS_ITS | Encounter Summary ---
Author Organization [employer] Address 75 [facility] 7t [place] [address] Care Team Providers Care Prescriptionist Name Role Phone Shania Morgan MD Primary Care Provider [phone] Reason for Visit * Reason Onset Date Comments LAZARO CASTRO 10/02/2024 Encounter Details Date Type Department Care Team (Late st Contact Info) Description 10/02/2024 Telephone [facility] 230 [place] [address] Rae Mccullough RN 230 [place] [address] LAZARO CASTRO Social History Tobacco Use Types [...] 10/16/2024 8:38 AM EST TC placed to [facility] pharmacy to inquire if PA for CGM reader and sensor is processing. RN was informedthey are both going thru with a $0 copay. TC placed to patient [phone] to schedule teaching appointment. Patient scheduled for 10/23/24 at 10am. TC returned to pharmacy to inform of teaching appointment. Pilar from pharmacy verbalized understanding. * Telephone Encounter - Rae Mccullough RN - 10/02/2024 9:35 AM EST Continuous Glucose Monitor Prior Authorization Documentation: CGM PA initiated for: Freestyle Toña 2 sensors and reader Insurance: [place] PA form completed and faxed to . Patient's preferred pharmacy: [facility] - [address] 230 [facility] [phone] CGM PA should be approved by: 10/16/2024 Pebbles Zimmer will be scheduled with red team nurses for CGM placement/teaching once PA is approved. ----- Message from [facility] sent at 10/02/2024 6:50 AM EST ----- Hey! I ordered a CGM for this patient will need PA and teaching. Thank you! documented in this encounter Plan of Treatment Upcoming Encounters Date Type Department Care Team (Late st Contact Info) Description 11/20/2024 9:30 AM EDT Medication Management [facility] [address] [place] [address] Aileen Bernabe PharmD 230 [place] [address] 11/25/2024 3:45 PM EDT Office Visit [facility] [address] [place] [address] Shania Morgan MD [address] [place] [address] documented as of this encounter Visit Diagnoses Not on filedocumented in this encounter Additional Health Concerns Assessment Noted Time PHQ-9 Depression Total Score: 0 09/30/19 25 10:31 AM EST documented as of this encounter Care Teams Prescriptionist Relationship Specialty Start Date End Date Shania Morgan MD [address] [place] [phone] PCP - General Family Medicine 08/01/23 documented as of this encounter
--- OUTSIDE RECORDS SUMMARY | 2024-11-06 12:24 | XMS_ITS | Encounter Summary ---
Author Organization [employer] Address 75 [facility] 7t [place] [address] Care Team Providers Care Supervisor Cutting Department Name Role Phone Shania Morgan MD Primary Care Provider [phone] Reason for Visit * Reason Comments Med Refill Encounter Details Date Type Department Care Team (Late st Contact Info) Description 10/14/2024 Refill [facility] 230 [place] [address] Penelope Wick MD 230 [place] [address] Social History Tobacco Use Types Packs/Day Years [...] t he electric, gas, oil or water [employer] threatened to shut off services in your [...] Description 11/20/2024 9:30 AM EDT Medication Management [facility] [address] [place] [address] Aileen Bernabe PharmD [address] [place] [address] 11/25/2024 3:45 PM EDT Office Visit [facility] [address] [place] [address] Shania Morgan MD [address] [place] [address] documented as of this encounter Visit Diagnoses Not on filedocumented in this encounter Additional Health Concerns Assessment Noted Time PHQ-9 Depression Total Score: 0 09/30/19 25 10:31 AM EST documented as of this encounter Care Teams Supervisor Cutting Department Relationship Specialty Start Date End Date Shania Morgan MD [address] [place] [address] PCP - General Family Medicine 08/01/23 documented as of this encounter
--- OUTSIDE RECORDS SUMMARY | 2024-11-06 12:24 | XMS_ITS | Encounter Summary ---
Author Organization [employer] Address 75 [facility] 7t [place] [address] Care Team Providers Care Concrete Pipe Plant Supervisor Name Role Phone Shania Morgan MD Primary Care Provider [phone] Reason for Visit * Reason Comments Med Refill Encounter Details Date Type Department Care Team (Late st Contact Info) Description 09/17/2024 Refill [facility] 230 [place] [address] Shania Morgan MD 230 [place] [address] Social History Tobacco Use Types Packs/Day Years [...] Description 11/20/2024 9:30 AM EDT Medication Management [facility] [address] [place] [address] Aileen Bernabe, TishaD 230 [place] [address] 11/25/2024 3:45 PM EDT Office Visit [facility] [address] [place] [address] Shania Morgan MD [address] [place] [address] documented as of this encounter Visit Diagnoses Not on filedocumented in this encounter Additional Health Concerns Assessment Noted Time PHQ-9 Depression Total Score: 18 024 10:39 AM EST documented as of this encounter Care Teams Concrete Pipe Plant Supervisor Relationship Specialty Start Date End Date Shania Morgan MD [address] [place] [address] PCP - General Family Medicine 08/01/23 documented as of this encounter
--- OUTSIDE RECORDS SUMMARY | 2024-11-06 12:24 | XMS_ITS | Encounter Summary ---
Author Organization [employer] Address 75 [facility] 7t [place] [address] Care Team Providers Care Dip Guider Stoves Name Role Phone Shania Morgan MD Primary Care Provider [phone] Reason for Visit * Reason Onset Date Comments Care Coordination 10/16/2024 Encounter Details Date Type Department Care Team (Late st Contact Info) Description 10/16/2024 Telephone [facility]INE 230 [place] [address] [facility] 230 [place] [address] Care Coordination Social History Tobacco Use Types [...] 3:27 PM EST TC placed to patient [phone] in regards to below message. RN spoke [...] is no longer taking ASA. Thank you! Shruthi ----- Message ----- From: Shania Morgan MD [...] 9:30 AM EDT Medication Management [facility] [address] [place] [address] Aileen Bernabe PharmD 230 [place] [address] 11/25/2024 3:45 PM EDT Office Visit [facility] [place] [address] Shania Morgan MD [address] [place] [address] documented as of this encounter Visit Diagnoses Not on filedocumented in this encounter Additional Health Concerns Assessment Noted Time PHQ-9 Depression Total Score: 0 09/30/19 25 10:31 AM EST documented as of this encounter Care Teams Dip Guider Stoves Relationship Specialty Start Date End Date Shania Morgan MD [address] [place] [address] PCP - General Family Medicine 08/01/23 documented as of this encounter
== END 2024-11-06 10:43 | disposition home or self-care (01) ==
LOC: HO.MAMMO 10:42
PROVIDERS: PCP General Practice; Visit Provider Registered Nurse
DX: Z13.820 Encounter for screening for osteoporosis (principal); Z79.52 Long term (current) use of systemic steroids; Z78.0 Asymptomatic menopausal state
CPT/HCPCS: 77080

== ENCOUNTER → 2024-11-06 10:45 | Outpatient (BNV) | payer OTHER, SELFPAY | PROVIDERS: PCP General Practice; Visit Provider Radiology Diagnostic Radiology | DX: E28.39 Other primary ovarian failure (principal) | CPT/HCPCS: 77080 ==

== ENCOUNTER 2024-11-18 14:28 | Outpatient (AMB) | payer OTHER, SELFPAY ==
[2024-11-18 15:06] VITALS: BP 104/60; PULSE 66; O2SAT 97; BMI 23.6
--- NOTE | 2024-11-18 15:06 | A.OFFVIS_ITS ---
Vital Signs 11/18/24 15:06 Height 5 ft 2 in Weight 128 lb 15.527 oz BMI 23.6 BP 104/60 Blood Pressure Location Rt brachial Position Sitting Pulse 66 Pulse Source Pulse Oximeter Pulse Oximetry (%) 97 Oxygen Delivery Method Room Air Intake Visit Reasons: COPD Electronic Maintenance Supervisor: Electronic Maintenance Supervisor offered & declined Allergies No Known Allergies Allergy (Verified 11/18/24 15:11) Medication List - Last Reconciled 11/18/24 by Trang Menjivar LPN apixaban (Eliquis) 5 mg PO BID 90 days atorvastatin 10 mg PO DAILY empagliflozin (Jardiance) 10 mg PO DAILY xllpzyjleyr-ubkwyzfta-pqfwhagn 200-62.5-25 mcg (Trelegy Ellipta) 1 inh inhalation DAILY gabapentin 300 mg PO BEDTIME metoprolol succinate ER 50 mg PO DAILY sacubitril-valsartan 49-51 mg 1 tab PO BID torsemide 20 mg PO DAILY HPI HPI COPD: Details: Pebbles is a pleasant 68 year old female, former smoker with 80+ pack year history, quit approximately 10 years ago, with underlying COPD, CAD, HTN, LBBB, EF 32% s/p AICD and atrial fibrillation on coumadin. She has been well controlled on Trelegy and albuterol MDI, reporting minimal dyspnea on exertion. Denies cough, wheezing or chest tightness/congestion. Prior chest CT suggestive of pulmonary fibrosis with extensive subpleural and predominantly lower lung interstitial fibrosis present with honeycombing, extensive inter and intralobular septal thickening, peribronchovascular interstitial thickening, and mild traction bronchiectasis with bronchial thickening most notable in the right upper lobe, right middle lobe and lingula, and right greater than left lower lobes, suggestive of UIP vs NSIP. She was started on prednisone and repeat chest CT revealed radiologic improvements. She was also sent for labs which were suggestive of underlying CTD and sent to rheumatology back in June 2024. She was started on a taper at the last visit which would have ended near the time of the scheduled rheumatology appt however due to two no shows and is now scheduled in May. She also was started on supplemental oxygen 1L with exertion, ho nancy returned equipment as she felt there was no longer a need. She denies any visits to urgent/hospitalizations since the last visit. Today she presents to review PFT. She has an upcoming chest CT tomorrow to assess progression of ILD. [facility] Social History Household Members: Children Household Members Other:: Son Alcohol intake: never Patient Tobacco Use Status: Former Tobacco user Review of Systems Const Denies excessive sweating, Denies fever(s), Denies headache(s) and Denies night sweats Eyes Denies dry eyes, Denies irritation and Denies itchy eyes ENT Reports Normal hearing present, Denies headache(s), Denies nasal congestion, Denies nasal discharge, Denies post nasal drip and Denies sore throat Card Denies chest pain, Denies chest pain at rest, Denies chest pain with activity, Denies claudication, Denies leg edema, Denies orthopnea and Denies paroxysmal nocturnal dyspnea Resp Denies pain on inspiration, Denies pain with cough, Denies stridor and Denies wheezing Musc Denies myalgias Neuro Reports Normal hearing present and Denies headache(s) Endo Denies excessive sweating Evan/Lymph Denies lymphadenopathy Aller/Immun Denies itchy eyes, Denies seasonal rhinorrhea and Denies wheezing Physical Exam Vital Signs: Last Vital Signs Pulse 66 11/18/24 15:06 BP 104/60 11/18/24 15:06 Pulse Ox 97 11/18/24 15:06 Oxygen Delivery Method Room Air 11/18/24 15:06 BMI result Body Mass Index 23.6 Const General: cooperative, healthy appearing, comfortable, no acute distress, well developed and alert Orientation/consciousness: patient oriented x3 Limitations: no limitations HEENT Head: Yes normal to inspection, Yes normocephalic and Yes atraumatic Ears: hearing grossly normal bilaterally and external ears normal Eyes General: appearance normal, both eyes and all related structures Eyelids: Yes eyelids normal Sclerae: sclerae normal EOM: EOMs intact bilaterally Neck Neck: Yes normal visual inspection and Yes no lymphadenopathy Lymphatic: no lymphadenopathy noted Chest Chest palpation & inspection: normal inspection of the chest Resp Other: inspiratory crackles right mid to lung base, otherwise clear. Effort & Inspection: normal respiratory effort, able to speak in complete sentences, no audible wheezes, no cough, no stridor, not tachypneic, no tripod positioning and no use of accessory muscles Cardio Jugular venous distension: no JVD Rate: regular rate Rhythm: regular rhythm Skin Other: warm, dry General skin exam: no rashes or lesions noted Neuro General: patient oriented x3 Cranial nerves: Yes Normal hearing present Cognition (Neuro): normal cognition Gait exam (Neuro): Normal gait present Extrem General: Yes normal to inspection, Yes capillary refill normal, Yes no clubbing, cyanosis or edema and Yes no pedal edema Psych Appearance: grossly normal and well kempt Speech and movement: Normal speech and movement present and Clear speech present Affect: normal affect Attitude: cooperative Thought process: Normal thought process present Thought content: Normal thought content present Insight: Good insight present (Psych) Judgement: Good judgement present (Psych) Assessment & Plan Assessment & Plan (1) COPD (chronic obstructive pulmonary disease): Code(s): J44.9 - Chronic obstructive pulmonary disease, unspecified Category: Medical (2) Personal history of tobacco use: Code(s): Z87.891 - Personal history of nicotine dependence Category: Social Hx (3) Interstitial lung disease: Code(s): J84.9 - Interstitial pulmonary disease, unspecified Category: Medical Plan Reviewed PFT which revealed mild restrictive ventilatory defect with no bronchodilator response. Decreased expiratory reserve volume suggests extrathoracic restriction likely secondary to abdominal obesity. Combination of restrictive ventilatory defect with decreased diffusion capacity suggests underlying pulmonary parenchymal disease. She has a chest CT tomorrow to review progression of ILD. Order had been placed for rheumatology however patient had to r/s twice and now appt pushed out until may. Urged patient to call rheum to attempt to be seen sooner. Will also reach out in attempts to schedule a closer appt. We again discussed potential treatments for ILD including steroids vs antifibrotic agents, as well as the possibility of progression of fibrosis with no treatments. We also reviewed importance of continuing supplemental oxygen and the adverse effects of hypoxia. Patient will consider after chest CT. Will resend overnight oximetry order as this was never performed to assess need for supplemental oxygen at [facility]. All questions were answered and patient is in agreement of plan. Will follow up in 4-6 weeks or sooner if needed. Coding Level of Care Code Est Pt Level 4 (83274) Complex EM visit Add On G2211 Diagnoses COPD (chronic obstructive pulmonary disease) J44.9 Personal history of tobacco use Z87.891 Interstitial lung disease J84.9
== END 2024-11-18 15:40 | disposition home or self-care (01) ==
LOC: HO.HPS 14:28
PROVIDERS: PCP General Practice; Visit Provider Nurse Practitioner Family
DX: J44.9 Chronic obstructive pulmonary disease, unspecified (principal); Z87.891 Personal history of nicotine dependence; J84.9 Interstitial pulmonary disease, unspecified
CPT/HCPCS: 99214; G2211

== ENCOUNTER → 2024-11-18 14:28 | Outpatient (BNVA) | payer OTHER, SELFPAY | PROVIDERS: PCP General Practice; Visit Provider Nurse Practitioner Family | DX: J44.9 Chronic obstructive pulmonary disease, unspecified (principal); J84.9 Interstitial pulmonary disease, unspecified; Z87.891 Personal history of nicotine dependence; Z99.81 Dependence on supplemental oxygen | CPT/HCPCS: 99212 ==

== ENCOUNTER 2024-11-19 08:32 | Outpatient (REF) | payer OTHER, SELFPAY ==
--- NOTE | ~2024-11-19 | CT_ITS ---
CLINICAL HISTORY: J84.9 - Interstitial pulmonary disease, unspecified CT chest without IV contrast. COMPARISON: CT chest dated 05/27/24 at 07:33 EDT FINDINGS: Visualized thyroid is unremarkable. No supraclavicular or axillary lymphadenopathy. Left-sided cardiac pacemaker. Main pulmonary artery is enlarged measuring up to 3.2 cm. This can be associated with pulmonary hypertension. Coronary artery calcifications present within the LAD. No pericardial effusion. Likely small hiatal hernia. Multiple normal-sized and prominent mediastinal lymph nodes. For example AP window lymph node measuring 1.7 x 1.3 cm (series 10, image 38), previously measured 1.8 x 0.8 cm when remeasured in similar fashion. Right paratracheal lymph node measuring 1.7 x 1.0 cm (series 10, image 35) previously measured 1.4 x 1.0 cm. No pleural effusion. Fibrosing interstitial pneumonia characterized by interlobular septal thickening, traction bronchiectasis and honeycombing. Findings are predominantly within the mid to lower lungs in the craniocaudal plane. In the axillary plane findings are predominantly within the right lung and have a peripheral predominance. Findings appears stable when compared with prior imaging. No consolidation. Trachea and central airways are clear. No significant bronchial wall thickening. Right upper lobe 3 mm pulmonary nodule (series 9, image 27), stable. Previously seen ground-glass nodule in the right lower lobe is not identified on current imaging. Right upper lobe 2 mm pulmonary micronodule (series 9, image 48), stable. Visualized portions of the upper abdomen are unremarkable. Moderate spondylosis. No acute fracture identified. IMPRESSION: 1. 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 Findings can be associated with environmental exposure, drug reaction, autoimmune processes or be idiopathic. 2. Stable small pulmonary nodules measuring 2-3 mm. No new or growing pulmonary nodule. 3. Similar prominent mediastinal lymph nodes, likely reactive. 4. Coronary artery atherosclerosis. Enlarged main pulmonary artery can be associated with pulmonary hypertension. This document has been electronically signed by: Dami Larson MD on 11/19/2024 16:14:44
--- OUTSIDE RECORDS SUMMARY | 2024-11-19 09:07 | XMS_ITS | Encounter Summary ---
Author Organization [employer] Address [address] [facility] [address] [place] [address] Care Team Providers Care Telecommunications Administrator Name Role Phone Shania Morgan MD Primary Care Provider [phone] Reason for Visit * Reason Comments Med Refill Encounter Details Date Type Department Care Team (Late st Contact Info) Description 08/13/2024 Refill [facility] [address] [place] [address] Shania Morgan MD [address] [place] [address] Social History Tobacco Use Types Packs/Day Years [...] Description 11/20/2024 9:30 AM EDT Medication Management [facility] [address] [place] [phone] Aileen Bernabe, TishaD [address] [place] [address] 11/25/2024 3:45 PM EDT Office Visit [facility] [address] [place] [phone] Shania Morgan MD [address] [place] [address] documented as of this encounter Visit Diagnoses Not on filedocumented in this encounter Additional Health Concerns Assessment Noted Time PHQ-9 Depression Total Score: 18 024 10:39 AM EST documented as of this encounter Care Teams Telecommunications Administrator Relationship Specialty Start Date End Date Shania Morgan MD [address] [place] [phone] PCP - General Family Medicine 08/01/23 documented as of this encounter
--- OUTSIDE RECORDS SUMMARY | 2024-11-19 09:07 | XMS_ITS | Encounter Summary ---
Author Organization [employer] Address [address] [facility] 7t [place] [address] Care Team Providers Care Film Inspector Name Role Phone Shania Morgan MD Primary Care Provider [phone] Encounter Details Date Type Department Care Team [...] Description 11/20/2024 9:30 AM EDT Medication Management [facility] [address] [place] [phone] Aileen Bernabe, TishaD [address] [place] [address] 11/25/2024 3:45 PM EDT Office Visit [facility] [address] [place] [phone] Shania Morgan MD [address] [place] [address] documented as of this encounter Visit Diagnoses Not on filedocumented in this encounter Additional Health Concerns Assessment Noted Time PHQ-9 Depression Total Score: 0 09/30/19 25 10:31 AM EST documented as of this encounter Care Teams Film Inspector Relationship Specialty Start Date End Date Shania Morgan MD [address] [place] [address] [phone] PCP - General Family Medicine 08/01/23 documented as of this encounter
--- OUTSIDE RECORDS SUMMARY | 2024-11-19 09:07 | XMS_ITS | Encounter Summary ---
Author Organization [employer] Address [address] [facility] 7 [place] [address] Care Team Providers Care Sail Lay Out Worker Name Role Phone Shania Morgan MD Primary Care Provider [phone] Reason for Referral * Consultation (Routine) - Pending Review Specialty Diagnoses / Procedures Referred By Contac t Referred To Contact Pharmacy Diagnoses Type 2 diabetes mellitus with hyperglycemia, with long-term current use of insulin (CMS/[facility]) Shania Morgan MD [address] [place] [address] Phone: tel: fax: Referral ID Status Reason Start Date Expiration Date Visits Requested Visits Authorized [id number] Pending Review Consult and Treat 10/23/2024 10/23/2025 6 6 Scheduling Instructions CGM teaching occurred on 10/23/24, A1c is 11.7 Reason for Visit * Reason Comments CGM teaching Encounter Details Date Type Department Care Team (Latest Contact Info) Description 10/23/2024 10:00 AM EST Clinical Support [facility] [address] [place] [address] Rae Mccullough, RN [address] [place] [address] Type 2 diabetes mellitus with hyperglycemia, with [...] CGM teaching Preferred language for medical information: Billboard Installer needed: Yes, daughter interpreted (Sarika on HIPAA) CGM device: Freestyle Toña 2 Pebbles Zimmer brought in CGM [...] help adhesion to skin: Simpatch, available on [employer], Torbat Skin Tac, Skin-Prep Protective Barrier Wipe, [...] only the electrical equipment provided by the diversional therapist's assistant. Do not use if you are on dialysis or critically ill- it has not been approved. Aspirin may falsely lower readings at doses greater than 650mg. Vitamin C at doses greater than 500mg may falsely raise readings. GOALS: Pebbles Bk Zimmer will utilize CGM device at least 70% of the time Pebbles Bk Zimmer will recognize hypoglycemic signs and symptoms and treatment ASSESSMENT/PLAN: Pebbles Bk Zimmer left wearing 1st sensor Follow up appointment will be scheduled with clinical pharmacists (A1c 11.7). Rae Mccullough RN documented in this encounter Plan of Treatment Upcoming Encounters Date Type Department Care Team (Late st Contact Info) Description 11/20/2024 9:30 AM EDT Medication Management [facility] MED[facility] [address] [place] [phone] Aileen Bernabe PharmD [address] [place] [address] 11/25/2024 3:45 PM EDT Office Visit [facility] [address] [place] [phone] Shania Morgan MD [address] [place] [phone] Scheduled Referrals Name Type Priority Associated Diagnoses Orde r Schedule Referral to Pharmacy CDTM Outpatient Referral Routine Type 2 diabetes mellitus with hyperglycemia, with long-term current use of insulin ([facility]) Ordered: 10/23/2024 documented as of this encounter Visit Diagnoses Diagnosis Type 2 diabetes mellitus with hyperglycemia, with long-term current use of insulin (CMS/[facility]) documented in this encounter Additional Health Concerns Assessment Noted Time PHQ-9 Depression Total Score: 0 09/30/19 25 10:31 AM EST documented as of this encounter Care Teams Sail Lay Out Worker Relationship Specialty Start Date End Date Shania Morgan MD [address] [place] [phone] PCP - General Family Medicine 08/01/23 documented as of this encounter
--- OUTSIDE RECORDS SUMMARY | 2024-11-19 09:07 | XMS_ITS | Encounter Summary ---
Author Organization [employer] Address [address] [facility] [address]t [place] [address] Care Team Providers Care Rehabilitation Physician Name Role Phone Shania Morgan MD Primary Care Provider [phone] Reason for Visit * Reason Comments Med Refill Encounter Details Date Type Department Care Team (Late st Contact Info) Description 09/17/2024 Refill [facility] [address] [place] [address] Shania Morgan MD [address] [place] [address] Social History Tobacco Use Types Packs/Day Years [...] Description 11/20/2024 9:30 AM EDT Medication Management [facility] [address] [place] [phone] Aileen Bernabe, TishaD [address] [place] [address] 11/25/2024 3:45 PM EDT Office Visit [facility] [address] [place] [phone] Shania Morgan MD [address] [place] [phone] documented as of this encounter Visit Diagnoses Not on filedocumented in this encounter Additional Health Concerns Assessment Noted Time PHQ-9 Depression Total Score: 18 024 10:39 AM EST documented as of this encounter Care Teams Rehabilitation Physician Relationship Specialty Start Date End Date Shania Morgna MD [address] [place] [phone] PCP - General Family Medicine 08/01/23 documented as of this encounter
--- OUTSIDE RECORDS SUMMARY | 2024-11-19 09:07 | XMS_ITS | Encounter Summary ---
Author Organization [employer] Address [address] [facility] [address]t [place] [address] Care Team Providers Care Lunchroom Aide Name Role Phone Shania Morgan MD Primary Care Provider [phone] Reason for Visit * Reason Comments Pre-visit Planning SDOH was already com pleted Encounter Details Date Type Department Care Team (Late st Contact Info) Description 11/18/2024 Patient Outreach [facility] [address] [place], [place] [phone] Shania Morgan MD [address] [place] [address] Pre-visit Planning (SDOH was already completed) Social History Tobacco Use Types Packs/Day Years [...] as of this encounter Progress Notes * Arcelia Handy - 11/18/2024 3:35 PM EDT CC Arcelia Aguirre placed successful outbound call to patient for pre-visit planning. Patient name and confirmed. Patient confirms appt date and time, and has transportation arrangements. Biggest concern for appointment at this time is no concerns. Appropriate screenings completed in anticipation ofappointment. documented in this encounter Plan of Treatment Upcoming Encounters Date Type Department Care Team (Late st Contact Info) Description 11/20/2024 9:30 AM EDT Medication Management [facility] MED[facility] [address] [place] [phone] Aileen Bernabe, PharmD [address] [place] [address] 11/25/2024 3:45 PM EDT Office Visit [facility] [address] [place] [phone] Shania Morgan MD [address] [place] [phone] documented as of this encounter Visit Diagnoses Not on filedocumented in this encounter Additional Health Concerns Assessment Noted Time PHQ-9 Depression Total Score: 0 09/30/19 25 10:31 AM EST documented as of this encounter Care Teams Lunchroom Aide Relationship Specialty Start Date End Date Shania Morgan MD [address] [place] [address] PCP - General Family Medicine 08/01/23 documented as of this encounter
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
--- OUTSIDE RECORDS SUMMARY | 2024-11-19 09:07 | XMS_ITS | Encounter Summary ---
Author Organization [employer] Address [address] [facility] [address] [place] [address] Care Team Providers Care Experienced Truck Driver Name Role Phone Shania Morgan MD Primary Care Provider [phone] Encounter Details Date Type Department Care Team (Late st Contact Info) Description 11/18/2024 Patient Outreach [facility] [address] [place], [place] [phone] Shania Morgan MD [address] [place] [address] Social History Tobacco Use Types Packs/Day Years [...] Progress Notes * Arcelia Handy - 11/18/2024 3:45 PM EDT error documented in this encounter Plan of Treatment Upcoming Encounters Date Type Department Care Team (Late st Contact Info) Description 11/20/2024 9:30 AM EDT Medication Management [facility] [address] [place] [phone] Aileen Bernabe, PharmD [address] [place] [phone] 11/25/2024 3:45 PM EDT Office Visit [facility] [address] [place] [phone] Shania Morgan MD [address] [place] [address] documented as of this encounter Visit Diagnoses Not on filedocumented in this encounter Additional Health Concerns Assessment Noted Time PHQ-9 Depression Total Score: 0 09/30/19 25 10:31 AM EST documented as of this encounter Care Teams Experienced Truck Driver Relationship Specialty Start Date End Date Shania Morgan MD [address] [place] [phone] PCP - General Family Medicine 08/01/23 documented as of this encounter
--- OUTSIDE RECORDS SUMMARY | 2024-11-19 09:07 | XMS_ITS | Encounter Summary ---
Author Organization [employer] Address [address] [facility] [address] [place] [address] Care Team Providers Care Program Control Analyst Name Role Phone Shania Morgan MD Primary Care Provider [phone] Reason for Visit * Reason Onset Date Comments insurance 10/22/2024 Encounter Details Date Type Department Care Team (Late st Contact Info) Description 10/22/2024 Telephone [facility] [address] [place] [address] Shania Morgan MD [address] [place] [address] insurance (/) Social History Tobacco Use Types [...] will scan the pt insurance eligibly into digital media manager. documented in this encounter Plan of Treatment Upcoming Encounters Date Type Department Care Team (Late st Contact Info) Description 11/20/2024 9:30 AM EDT Medication Management [facility] [address] [place] [phone] Aileen Bernabe, PharmD [address] [place] [phone] 11/25/2024 3:45 PM EDT Office Visit [facility] [address] [place] [address] Shania Morgan MD [address] [place] [phone] documented as of this encounter Visit Diagnoses Not on filedocumented in this encounter Additional Health Concerns Assessment Noted Time PHQ-9 Depression Total Score: 0 09/30/19 25 10:31 AM EST documented as of this encounter Care Teams Program Control Analyst Relationship Specialty Start Date End Date Shania Morgan MD [address] [place] [address] PCP - General Family Medicine 08/01/23 documented as of this encounter
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
--- OUTSIDE RECORDS SUMMARY | 2024-11-19 09:07 | XMS_ITS | Encounter Summary ---
Author Organization [id number] Address [address] [facility] 7t [place] [address] Care Team Providers Care Video Game Developer Name Role Phone Shania Morgan MD Primary Care Provider [phone] Reason for Referral * Consultation (Routine) - Canceled Specialty Diagnoses / Procedures Referred By Ag gonzales Referred To Contact Endocrinology Diagnoses Age-related osteoporosis without current pathological fracture Shruthi Allen FNP [address] [place] [address] Phone: tel: fax: Referral ID Status Reason Start Date Expiration Date Visits Requested Visits Authorized [id number] Canceled Specialty Services Required 11/08/2024 11/08/2025 1 1 Encounter Details Date Type Department Care Team (Late st Contact Info) Description 11/08/2024 Orders Only [facility] [address] [place] [address] Shruthi Allen FNP [address] [place] [address] Age-related osteoporosis without current pathological fracture (Primary Dx) Social History Tobacco Use Types Packs/Day Years [...] Description 11/20/2024 9:30 AM EDT Medication Management [facility] [address] [place] [address] Aileen Bernabe, PharmD [address] [place] [address] 11/25/2024 3:45 PM EDT Office Visit [facility] [address] [place] [address] Shania Morgan MD [address] [place] [address] Scheduled Orders Name Type Priority Associated Diagnoses Orde r Schedule Comprehensive Metabolic Panel Lab Routine Age-related osteoporosis without current pathological fracture Expected: 11/08/2024 (Approximate), Expires: 11/08/2025 Vitamin D, 25-Hydroxy, Total, Immunoassay Lab Routine Age-related osteoporosis without current pathological fracture Expected: 11/08/2024 (Approximate), Expires: 11/08/2025 PTH, Intact Without Calcium Lab Routine Age-related osteoporosis without current pathological fracture Expected: 11/08/2024, Expires: 11/08/2025 Scheduled Referrals Name Type Priority Associated Diagnoses Orde r Schedule Referral to Endocrinology Outpatient Referral Routine Age-related osteoporosis without current pathological fracture Expected: 11/08/2024 (Approximate), Expires: 11/08/2025 documented as of this encounter Visit Diagnoses Diagnosis Age-related osteoporosis without current pathological fracture- Primary documented in this encounter Additional Health Concerns Assessment Noted Time PHQ-9 Depression Total Score: 0 09/30/19 25 10:31 AM EST documented as of this encounter Care Teams Video Game Developer Relationship Specialty Start Date End Date Shania Morgan MD [address] [place] [address] PCP - General Family Medicine 08/01/23 documented as of this encounter
== END 2024-11-19 08:33 | disposition home or self-care (01) ==
LOC: HO.CT 08:32
PROVIDERS: PCP Registered Nurse; Visit Provider Nurse Practitioner Family
DX: J84.9 Interstitial pulmonary disease, unspecified (principal)
CPT/HCPCS: 71250

== ENCOUNTER → 2024-11-19 08:34 | Outpatient (BNV) | payer OTHER, SELFPAY | PROVIDERS: PCP Registered Nurse; Visit Provider Radiology Diagnostic Radiology | DX: J84.9 Interstitial pulmonary disease, unspecified (principal) | CPT/HCPCS: 71250 ==

== ENCOUNTER 2024-11-27 14:18 | Outpatient (REF) | payer OTHER, SELFPAY ==
--- NOTE | ~2024-11-27 | XR_ITS ---
EXAMINATION: XR SHOULDER 2 OR MORE VIEWS RIGHT HISTORY: pain with overhead motion COMPARISON: There are no prior studies available for comparison. FINDINGS: Three views of the right shoulder are submitted. Osseous mineralization is normal. There is no fracture or dislocation. The glenohumeral joint is maintained. There is moderate narrowing of the AC joint. The humeral head appears slightly high riding, suggestive of rotator cuff disease. There fibrotic changes in the visualized portion of the right lung. XR/XR shoulder RT min 2V IMPRESSION: Moderate osteoarthritis of the AC joint. High riding humeral head suggestive of rotator cuff disease. Electronically signed by: Dangelo Denis MD 11/27/2024 02:53 PM EDT
--- OUTSIDE RECORDS SUMMARY | 2024-11-27 17:07 | XMS_ITS | Encounter Summary ---
Author Organization [employer] Address 75 [facility] 7t [place] [address] Care Team Providers Care Staple Processing Machine Operator Name Role Phone Shania Morgan MD Primary Care Provider [phone] Aileen Bernabe PharmD Unavailable [phone] Reason for Visit * Reason Comments Med Refill Encounter Details Date Type Department Care Team ([facility] st Contact Info) Description 08/13/2024 Refill [facility] [address] [place] [address] Shania Morgan MD [address] [place] [address] Social History Tobacco Use Types Packs/Day Years [...] Care Team (Late st Contact Info) Description 01/03/2025 11:00 AM EDT Medication Management [facility] [address] [place] [address] Aileen Bernabe PharmD [address] [place] [address] documented as of this encounter Visit Diagnoses Not on filedocumented in this encounter Additional Health Concerns Assessment Noted Time PHQ-9 Depression Total Score: 18 024 10:39 AM EST documented as of this encounter Care Teams Staple Processing Machine Operator Relationship Specialty Start Date End Date Shania Morgan MD [address] [place] [address] PCP - General Family Medicine 08/01/23 Aileen Bernabe PharmD [address] [place] [address] Pharmacist Internal Medicine 11/20/24 documented as of this encounter
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
--- OUTSIDE RECORDS SUMMARY | 2024-11-27 17:07 | XMS_ITS | Encounter Summary ---
Author Organization [employer] Address [address] [facility] [address] [place] [address] Care Team Providers Care Hydraulic Press In Operator Name Role Phone Shania Morgan MD Primary Care Provider [phone] Aileen Bernabe PharmD Unavailable [phone] Reason for Visit * Reason Comments Med Refill Encounter Details Date Type Department Care Team ([facility] st Contact Info) Description 09/17/2024 Refill [facility] [address] [place], [place] [phone] Shania Morgan MD [address] [place] [address] Social History Tobacco Use Types Packs/Day Years [...] Description 01/03/2025 11:00 AM EDT Medication Management [facility] [address] [place] [address] Aileen Bernabe PharmD [address] [place] [address] documented as of this encounter Visit Diagnoses Not on filedocumented in this encounter Additional Health Concerns Assessment Noted Time PHQ-9 Depression Total Score: 18 024 10:39 AM EST documented as of this encounter Care Teams Hydraulic Press In Operator Relationship Specialty Start Date End Date Shania Morgan MD [address] [place] [phone] PCP - General Family Medicine 08/01/23 Aileen Bernabe PharmD [address] [place] [phone] Pharmacist Internal Medicine 11/20/24 documented as of this encounter
--- OUTSIDE RECORDS SUMMARY | 2024-11-27 17:07 | XMS_ITS | Data Portability ---
Author Organization [place] - [employer] [facility] [employer] [facility] Address [address] [facility] [address] [place] [address] Assessment No assessment recorded. Plan of Treatment Reminders Order Date Submit Date Provider Last Modified By Organization Details Last Modified Time Details Appointments None recorded. Lab None recorded. Referral bone density referral 2018 [facility] (Radiology), [address] [place] [address], [id number], 9 12:42:32 Procedures None recorded. Surgeries None recorded. Imaging MAMMO, screening, digital, bilateral 2018 019 ROJAS [facility] (Radiology), [address] [place] [address], [id number], 0 05:03:02 Medication Orders Calcium 600 + D(3) 600 mg-10 mcg (400 unit) tablet 2018 019 INTERFACE [facility], [address] [place] [address], [id number], 9 11:09:11 Mapap Arthritis Pain 650 mg tablet,ext ended release 2018 019 INTERFACE [facility], [address] [place] [address], [id number], 9 09:19:39 quetiapine 200 mg tablet 2017 018 INTERFACE [facility] #90064, [address] [place] [address], [id number], 8 10:12:27 trazodone 100 mg tablet 2017 018 INTERFACE [facility] #[id number], [address], [place], [id number], 8 10:12:27 Zithromax Z-Darnell 250 mg tablet 2017 018 pvidal [facility] #54100, [address] [place] [address], [id number], 9 08:48:40 Alcohol Prep Pads 2017 018 INTERFACE [facility] #77398, [address] [place] [address], [id number], 8 10:12:26 Patient TargetsNo targets recorded. Patient [...] CONSI STENT WITH DIABE LOIDA Not Available [facility] ([facility]) [address], [address], 08/01/2018 08:00:42 07/31/20 18 08/01/2018 glyco hemog lobin , total , blood estimated average glucose 131 mg/dL Not Available [facility] ([facility]) [address], [address], 08/01/2018 08:00:42 07/31/20 18 08/01/2018 micro album in, urine microalbumin (urine) 1.5 mg/dL 0.0-2. 3 Not Available [facility] ([facility]) [address], [address], 08/01/2018 08:00:43 06/21/2006/22/2019 TSH, ultra -sens itive , serum TSH - ultra sensitive 1.01 uIU/m L 0.35-4 .50 Not Available [facility] ([facility]) [address] [place] [address], [id number], 06/22/2019 09:01:08 06/21/2006/22/2019 micro album in, urine microalbumin (urine) 6.3 mg/dL 0.0-2. 3 high Not Available [facility] ([facility]) [address] [place] [address], [id number], 06/22/2019 09:01:08 06/21/2006/22/2019 urina lysis , compl ete color YELLOW Not Available [facility] [address] [place] [address], [address], 06/22/2019 09:01:09 06/21/2006/22/2019 urina lysis , compl ete appearance CLEAR Not Available [facility] [address] [place] [address], [address], 06/22/2019 09:01:09 06/21/2006/22/2019 urina lysis , compl ete spec.gravity 1.025 1.003- 1.035 Not Available [facility] ([facility]) [address] [place] [address], [address], 06/22/2019 09:01:09 06/21/2006/22/2019 urina lysis , compl ete urine pH 5.0 4.5-8. 0 Not Available [facility] ([facility]) [address] [place] [address], [address], 06/22/2019 09:01:09 06/21/20 19 06/22/2019 urina lysis , compl ete nitrite NEGATI VE negati ve Not Available [facility] ([facility]) [address] [place] [address], [place], [address], 06/22/2019 09:01:09 06/21/20 19 06/22/2019 urina lysis , compl ete protein NEGATI VE negati ve Not Available [facility] ([facility]) [address] [place] [address], [address], 06/22/2019 09:01:09 06/21/20 19 06/22/2019 urina lysis , compl ete urine glucose NEGATI VE negati ve Not Available [facility] ([facility]) [address] [place] [address], [address], 06/22/2019 09:01:09 06/21/2006/22/2019 urina lysis , compl ete ketones NEGATI VE negati ve Not Available [facility] ([facility]) [address] [place] [address], [address], 06/22/2019 09:01:09 06/21/20 19 06/22/2019 urina lysis , compl ete blood NEGATI VE negati ve Not Available [facility] ([facility]) [address] [place] [address], 288[address], 06/22/2019 09:01:09 06/21/20 19 06/22/2019 urina lysis , compl ete bilirubine NEGATI VE negati ve Not Available [facility] ([facility]) [address] [place] [address], 497[address], 06/22/2019 09:01:09 06/21/20 19 06/22/2019 urina lysis , compl ete leukocyte esterase NEGATI VE negati ve Not Available [facility] ([facility]) [address] [place] [address], [address], 06/22/2019 09:01:09 06/21/20 19 06/22/2019 urina lysis , compl ete RBC/hpf 0-2 0-2 Not Available [facility] ([facility]) [address] [place] [address], 10[address], 06/22/2019 09:01:09 06/21/20 19 06/22/2019 urina lysis , compl ete WBC/hpf 0 0-2 Not Available [facility] ([facility]) [address] [place] [address], 288[address], 06/22/2019 09:01:09 06/21/20 19 06/22/2019 urina lysis , compl ete epithelium/h pf 0-1 0-2 Not Available [facility] ([facility]) [address] [place] [address], [address], 06/22/2019 09:01:09 06/21/2006/22/2019 vitam in B12, serum vitamin B12 278 pg/mL DEFIC IENT <154 pg/mL INDET ERMIN ATE 154-2 22 pg/mL RIGO L 223-9 25 pg/mL Not Available [facility] ([facility]) [address] [place] [address], [address], 06/22/2019 09:01:09 06/21/2006/22/2019 vitam in D, 25-hy droxy , total , serum vitamin D, 25-hydroxy 28.0 NG/mL low <30 ng/mL DEFIC IENCY 30-10 0 ng/mL OPTIM UM >150 ng/mL TOXIC ITY Not Available [facility] ([facility]) [address] [place] [address], [address], 06/22/2019 09:01:09 06/21/2006/22/2019 CBC w/ auto diff white blood cell count 7.8 10 3.8-10 .8 Not Available [facility] ([facility]) [address] [place] [address], 477[address], 06/22/2019 09:01:10 06/21/20 19 06/22/2019 CBC w/ auto diff red blood cell count 4.95 10 4.00-5 .20 Not Available [facility] ([facility]) [address] [place] [address], [address], 06/22/2019 09:01:10 06/21/20 19 06/22/2019 CBC w/ auto diff hemoglobin 14.5 g/dL 12.0-1 6.0 Not Available [facility] ([facility]) [address], [address], 06/22/2019 09:01:10 06/21/20 19 06/22/2019 CBC w/ auto diff hematocrit 45.9 % 36.0-4 6.0 Not Available [facility] ([facility]) [address], [address], 06/22/2019 09:01:10 06/21/20 19 06/22/2019 CBC w/ auto diff MCV 93 fL 80.0-1 00.0 [facility] Available [facility] [address], [address], 06/22/2019 09:01:10 06/21/20 19 06/22/2019 CBC w/ auto diff MCH 29.3 pg 26.0-3 4.0 Not Available [facility] ([facility]) [address], [address], 06/22/2019 09:01:10 06/21/20 19 06/22/2019 CBC w/ auto diff MCHC 31.6 % 28.0-3 8.0 Not Available [facility] ([facility]) [address], [address], 06/22/2019 09:01:10 06/21/20 19 06/22/2019 CBC w/ auto diff RDW 13.5 % 11.5-1 4.5 Not Available [facility] ([facility]) [facility] [place], [address], 06/22/2019 09:01:10 06/21/20 19 06/22/2019 CBC w/ auto diff platelet count 307 10 150-45 0 Not Available [facility] ([facility]) [address], [address], 06/22/2019 09:01:10 06/21/20 19 06/22/2019 CBC w/ auto diff mean platelet volume 10.1 fL 8.4-12 .0 Not Available [facility] ([facility]) [address], [address], 06/22/2019 09:01:10 06/21/20 19 06/22/2019 CBC w/ auto diff lymphocytes 38.9 % 19.3-5 1.7 Not Available [facility] ([facility]) [address], [address], 06/22/2019 09:01:10 06/21/20 19 06/22/2019 CBC w/ auto diff monocytes 8.3 % 4.0-11 .0 Not Available [facility] ([facility]) [address], [address], 06/22/2019 09:01:10 06/21/20 19 06/22/2019 CBC w/ auto diff neutrophils 46.6 % 34.0-7 1.1 Not Available [facility] ([facility]) [address], [address], 06/22/2019 09:01:10 06/21/20 19 06/22/2019 CBC w/ auto diff eosinophils 5.7 % 0-7.0 Not Available [facility] ([facility]) [address], [address], 06/22/2019 09:01:10 06/21/20 19 06/22/2019 CBC w/ auto diff basophils 0.4 % 0-3 Not Available [facility] ([facility]) [address] [place] [address], [address], 06/22/2019 09:01:10 06/21/20 19 06/22/2019 CBC w/ auto diff imm grans 0.1 % 0-0.5 Not Available [facility] ([facility]) [address], [address], 06/22/2019 09:01:10 06/21/20 19 06/22/2019 CBC w/ auto diff nucleated RBC 0.0 /100_ WBC 0-0.2 Not Available [facility] ([facility]) [facility], [address], 06/22/2019 09:01:10 06/21/20 19 06/22/2019 CBC w/ auto diff lymphocytes, absolute 3.1 10 1.18-3 .74 Not Available [facility] ([facility]) [address] [place] [address], [address], 06/22/2019 09:01:10 06/21/20 19 06/22/2019 CBC w/ auto diff monocytes, absolute 0.7 10 0.2-1. 2 Not Available [facility] [address] [place] [address], [address], 06/22/2019 09:01:10 06/21/20 19 06/22/2019 CBC w/ auto diff neutrophils, absolute 3.7 10 1.56-6 .13 Not Available [facility] ([facility]) [address] [place] [address], [address], 06/22/2019 09:01:10 06/21/20 19 06/22/2019 CBC w/ auto diff eosinophils, absolute 0.45 10 0.05-0 .55 Not Available [facility] ([facility]) [address] [place] [address], [address], 06/22/2019 09:01:10 06/21/20 19 06/22/2019 CBC w/ auto diff basophils, absolute 0.03 10 0-0.20 Not Available [facility] ([facility]) [facility], [address], 06/22/2019 09:01:10 06/21/20 19 06/22/2019 CBC w/ auto diff imm grans, absolute 0.01 10 0-0.10 Not Available [facility] ([facility]) [address] [facility] [place], [address], 06/22/2019 09:01:10 06/21/2006/22/2019 CBC w/ auto diff nucleated RBC, absolute 0.00 10 0-0.01 2 Not Available [facility] ([facility]) [address], [address], 06/22/2019 09:01:10 06/21/20 19 06/22/2019 CBC w/ auto diff comment Not Available [facility] ([facility]) [address], [address], 06/22/2019 09:01:10 06/21/2006/22/2019 glyco hemog lobin , total , blood hemoglobin A1C 6.2 % high <5.7% DECRE ASED RISK OF DIABE LOIDA 5.7-6 .0% INCRE ASED RISK OF DIABE LOIDA 6.1-6 .4% HIGHE R RISK OF DIABE LOIDA >6.4% CONSI STENT WITH DIABE LOIDA Not Available [facility] ([facility]) [address], [address], 06/22/2019 09:01:10 06/21/2006/22/2019 glyco hemog lobin , total , blood estimated average glucose 131 mg/dL Not Available [facility] ([facility]) [address], [address], 06/22/2019 09:01:10 06/21/2006/22/2019 HIV 1+2 AB + HIV 1 p24 Ag, quali tativ e immun oassa y, serum HIV-1 Ag, HIV1/HIV2 Ab NOT DETECT ED NO ANTIB ODIES DETEC SHAJI TO HIV-1 AND HIV-2 Not Available [facility] ([facility]) [address], [address], 06/22/2019 09:01:10 06/21/2006/22/2019 BMP, serum or plasm a CO2 28 mmol/ L 21-33 Not Available [facility] ([facility]) [address] [place] [address], [address], 06/22/2019 09:01:11 06/21/20 19 06/22/2019 BMP, serum or plasm a chloride 101 mmol/ L 98-110 Not Available [facility]) [address] [place] [address], [address], 06/22/2019 09:01:11 06/21/2006/22/2019 BMP, serum or plasm a potassium 5.1 mmol/ L 3.5-5. 3 Not Available [facility] ([facility]) [address] [place] [address], [address], 06/22/2019 09:01:11 06/21/2006/22/2019 BMP, serum or plasm a sodium 140 mmol/ L 135-14 6 Not Available [facility] ([facility]) [address] [place] [address], 817[address], 06/22/2019 09:01:11 06/21/2006/22/2019 BMP, serum or plasm a BUN 13 mg/dL 7-25 Not Available [facility] ([facility]) [address] [place] [address], [address], 06/22/2019 09:01:11 06/21/2006/22/2019 BMP, serum or plasm a creatinine serum 0.58 mg/dL 0.50-0 .99 Not Available [facility] ([facility]) [address] [place] [address], 40[address], 06/22/2019 09:01:11 06/21/2006/22/2019 BMP, serum or plasm [...] <15 KIDNE Y FAILU RE Not Available [facility]) [address] [place] [address], [address], 06/22/2019 09:01:11 06/21/20 19 06/22/2019 BMP, serum [...] eGFR VALUE BY 1.212 . Not Available [facility]) [address] [place] [address], [address], 06/22/2019 09:01:11 06/21/20 19 06/22/2019 BMP, serum or plasm a glucose 94 mg/dL 65-99 Not Available [facility]) [address] [place] [address], 6[address], 06/22/2019 09:01:11 06/21/20 19 06/22/2019 BMP, serum or plasm a calcium 9.7 mg/dL 8.6-10 .4 Not Available [facility]) [address] [place] [address], 589[address], 06/22/2019 09:01:11 06/21/20 19 06/22/2019 hepat ic funct ion panel , serum albumin 4.2 g/dL 3.6-5. 1 Not Available [facility]) [address] [place] [address], 28[address], 06/22/2019 09:01:11 06/21/20 19 06/22/2019 hepat ic funct ion panel , serum total protein 7.6 g/dL 6.2-8. 3 Not Available [facility] [address] [facility] [place], [address], 06/22/2019 09:01:11 06/21/20 19 06/22/2019 hepat ic funct ion panel , serum direct bilirubin 0.10 mg/dL 0.00-0 .20 Not Available [facility] ([facility]) [address] [place] [address], [address], 06/22/2019 09:01:11 06/21/20 19 06/22/2019 hepat ic funct ion panel , serum bilirubin total 0.5 mg/dL 0.2-1. 2 Not Available [facility] ([facility]) [address] [place] [address], [address], 06/22/2019 09:01:11 06/21/20 19 06/22/2019 hepat ic funct ion panel , serum SGPT(ALT) 12 U/L 6-40 Not Available [facility] ([facility]) [address] [place] [address], 40847, 06/22/2019 09:01:11 06/21/20 19 06/22/2019 hepat ic funct ion panel , serum SGOT(AST) 15 U/L 10-35 Not Available [facility] ([facility]) [address] [place] [address], [address], 06/22/2019 09:01:11 06/21/20 19 06/22/2019 hepat ic funct ion panel , serum alkaline phosphatase 81 U/L 33-130 Not Available [facility] ([facility]) [facility], [address], 06/22/2019 09:01:11 06/21/20 19 06/22/2019 lipid panel , serum cholesterol, total 140 mg/dL 125-20 0 Not Available [facility] ([facility]) [address] [place] [address], [address], 06/22/2019 09:01:12 06/21/20 19 06/22/2019 lipid panel , serum triglyceride s 102 mg/dL <150 Not Available [facility] ([facility]) [address], [address], 06/22/2019 09:01:12 06/21/20 19 06/22/2019 lipid panel , serum HDL cholesterol 41 mg/dL >46 low Not Available [facility]) [address] [place] [address], 380[address], 06/22/2019 09:01:12 06/21/20 19 06/22/2019 lipid panel , serum LDL cholesterol (calc.) 78 mg/dL <130 Not Available [facility] ([facility]) [address] [place] [address], 48[address], 06/22/2019 09:01:12 06/21/20 19 06/22/2019 lipid panel , serum VLDL cholesterol (calc.) 20 mg/dL <30 Not Available [facility]) [address] [place] [address], 6[address], 06/22/2019 09:01:12 06/21/2006/22/2019 lipid panel , serum cholesterol/ HDL risk factor 3.4 ratio 3.7-6. 7 Not Available [facility] ([facility]) [address] [place] [address], [address], 06/22/2019 09:01:12 Result Notes None recorded. Problems Name Problem SNOMED Code Status Onset Date Resolution Date Notes Provider Name and Address Organization Details Recorded Time Hyperten sive disorder 26149939 Active 2017 Gwen nath [employer] [facility] 8 10:44:23 Diabetes mellitus 60903128 Completed 201709/11/2018 Removal Reason: improved Mark nath [employer], [facility] 9 08:48:03 Hypercho lesterol emia 04008798 Active 2017 Gwen nath [employer] [facility], [facility] 8 10:44:46 Vertigo 065240982 Active 2017 [facility] [employer] [facility] 8 10:45:00 Heart disease 70168510 [facility] [employer] [facility] 8 10:46:00 Chronic depressi on 088420949 [facility] [employer] [facility] 8 11:25:22 Parkinso nism 19330324 Active 2017 [facility] [employer] [facility] 8 15:02:26 Type 2 diabetes mellitus without complica tion 892927304 Active 2018 [facility] [employer] [facility] 9 08:47:47 Problem Notes None recorded. Procedures Surgical History Date Name Laterality Status Provider Name and Address Organization Details Recorded Time Pacemaker monitr digital/vis completed [facility] [employer] [facility] 02/05/2018 10:47:18 delivery completed [facility] [employer] [facility] 02/05/2018 10:47:30 Tubal Ligation completed [facility] [employer] [facility] 02/05/2018 10:48:06 Imaging Results None [...] EVERY DAY. MAGDA R 1 [facility]TA [facility] D . active Not Available Not Available No t Available ranitidine 150 mg tablet 02/05 completed Not Available Not Available Not Available irbesartan 75 mg tablet TAKE 1 TABLET BY MOUTH EVERY DAY. MAGDA R 1 TABLETA [facility] TOGONZALO LOS D . active Not Available [...] % 14 /min 97.8 [degF] 27.8 kg/m2 39136.2 7 g 70 /min 110 mm[Hg] 75 mm[Hg] Mark Crowley [employer] [facility] 8 09:57:10 Date Recorded Body height Heart rate Oxygen saturation Oxygen saturation in Arterial blood by Pulse oximetry Respiratory rate Body temperature Body mass index (BMI) Body weight Heart rate Systolic blood pressure Diastolic blood pressure Provider Name and Address Organization Details Last Updated DateTime 9 152.4 cm 65 /min 97 % 97 % 16 /min 97.8 [degF] 28.2 kg/m2 48229.0 2 g 65 /min 129 mm[Hg] 73 mm[Hg] Afia Haynes [facility] [employer] [facility] 9 08:26:18 Date Recorded Body height Heart rate Oxygen saturation Oxygen saturation in Arterial blood by Pulse oximetry Respiratory rate Body temperature Body mass index (BMI) Body weight Heart rate Systolic blood pressure Diastolic blood pressure Provider Name and Address Organization Details Last Updated DateTime 9 152.4 cm 86 /min 96 % 96 % 18 /min 98.4 [degF] 28.4 kg/m2 97101.0 5 g 86 /min 99 mm[Hg] 62 mm[Hg] Gwen Kwok [employer] [facility] 9 08:42:43 Date Recorded Body height Heart rate Oxygen saturation Oxygen saturation in Arterial blood by Pulse oximetry Respiratory rate Body temperature Body mass index (BMI) Body weight Heart rate Systolic blood pressure Diastolic blood pressure Provider Name and Address Organization Details Last Updated DateTime 9 152.4 cm 67 /min 96 % 96 % 18 /min 98 [degF] 29.3 kg/m2 10832.8 6 g 67 /min 100 mm[Hg] 60 mm[Hg] Josie Diaz [facility] [employer] [facility] 9 11:45:05 Date Recorded Body height Heart rate Oxygen saturation Oxygen saturation in Arterial blood by Pulse oximetry Respiratory rate Body temperature Body mass index (BMI) Body weight Heart rate Systolic blood pressure Diastolic blood pressure Provider Name and Address Organization Details Last Updated DateTime 9 152.4 cm 72 /min 96 % 96 % 18 /min 97.7 [degF] 28.5 kg/m2 28195.7 7 g 72 /min 110 mm[Hg] 70 mm[Hg] Luke hCing [facility] [employer] [facility] 9 10:27:13 Social History Question Answer Notes LastModified by Organizat ion Details LastModified Time Tobacco Smoking Status Current Every Day Smoker Gwen Kwok [facility] [employer] [facility] 02/05/2018 10:46:12 What Was The [...] N Hypothyroidism N Depression Y COPD N Anxiety Disorder N Arthritis N Cancer N Stroke N High Cholesterol Y Liver Disease N Fibromyalgia N Kidney Disease N Diabetes Y Tuberculosis N Diverticulitis N Asthma N GERD/Reflux N Heart Disease Y Pulmonary Embolism N Hypertension Y Osteoporosis N Gynecological History Statement/Question Response If Post Menopausal, Age at Menopause 38 Age at Menarche 11 Age at First Child 14 Obstetrics History GPAL:G 3 P 0 0 0 3 Type Value Living 3 Total 3 Immunizations Vaccine Type Date Status Note Provider Nam e and Address Organization Details Recorded Time zoster live 8 completed [employer] [facility] 02/05/2018 10:44:03 Tdap 6 completed [employer] [facility] 02/22/2018 09:40:49 pneumococcal polysaccharide PPV23 8 completed [employer] [facility] 02/22/2018 09:41:12 Past Encounters Encounter ID Performer Location Encounter Start Date Encounter Closed Date Diagnosis/Indication Diagnosis SNOMED-CT Code Diagnosis ICD10 Code Diagnosis Note [id number] [facility] [address] [id number] 02/05/2018 09:57:29 02/05/2018 11:15:09 Vertigo 130463364 R42 cane with quad base Constipation 31076675 K5 9.00 Increase fluid intake, take osmotic med Diabetes mellitus 184295 09 E11.9 Take meds, refill when necessary Hypertensive disorder 38 321309 I10 take med, refill when necessary Heart disease 08775453 I 51.9 No CP, or SOB. records requested. She had a PPM inserted, failed due to infection. Chronic depression 88741 0009 F34.1 continue taking meds. Mood and alertness are OK now Dry eyes 331760474 H04.1 29 recommend natural tears [place] [id number] [employer] [address] [place] [phone] 0 02/20/2018 09:29:08 02/20/2018 10:50:34 Vertigo 050787530 R42 cane with quad base Constipation 38984034 K5 9.00 Increase fluid intake, take osmotic med Diabetes mellitus 456436 09 E11.9 Take meds, refill when necessary Hypertensive disorder 38 060566 I10 take med, refill when necessary Heart disease 89518807 I 51.9 No CP, or SOB. records requested. She had a PPM inserted, failed due to infection. Chronic depression 8 F34.1 Per PHQ9 currently severity is mild. continue taking meds. citalopram . Mood and alertness are OK now Dry eyes 964467533 H04.1 29 recommend natural tears tid Parkinsonism 85046225 G2 0 Not evident on gross exam. OK for benztropin e refill Hypercholesterolemia 136 25533 E78.00 refills of statin; diet Asthma 818687325 J45.90 9 Some wheezing found, but she does well on albuterol. Refill of albuterol MDI [id number] [facility] [address] [place] [address] [phone] 0 06/14/2018 09:55:44 06/14/2018 10:52:19 Tension-type headache 276100944 G44.209 Hypertensive disorder 38 274512 I10 will switch her BP med and f/u for control Cough 61857574 R05 I could be secondary to lisinopril use. Explained to her and caregiver [id number] [employer] [address] [place] [address] [phone] 0 07/16/2018 09:00:13 07/16/2018 10:08:57 Acute gastritis 78296916 K29.00 recurrence now, no bleeding signs. Stop condiments , coffee. Low back pain 639107466 M54.5 [id number] Mark [facility] [address] [place] [address] [phone] 0 07/31/2018 08:57:32 07/31/2018 10:18:03 Acute gastritis 94091016 K29.00 Improved, feels much better. Cont Rx Acute exac erbation of chronic obstructive pulmonary disease 550950795 J44.1 increased cough and phlegm, will Rx. She uses Advair diskus Chronic depression 8 F34.1 mild. continue taking meds. citalopram . Mood and alertness are OK now. Some abnormal thinking has been helped by quetiapine . Diabetes mellitus 131508 09 E11.9 Take meds, well controlled ; refill when necessary. Check Hb A1c Trying to give up smoking 924499301 Z72.0 Still smokes, per her report, 3 cigarettes a week. [id number] [employer] [address] [place] [address] [phone] 0 09/11/2018 08:10:27 09/11/2018 08:45:49 Type 2 diabetes mellitus without complication 664065631 E11.9 Self administer ed 20 units of insulin with my observatio n. Will f/u in one week with the log of her [facility] to see if more is needed. REportedly she does not receive the pm dose of 20. [id number] [facility] [address] [place] [address] [phone] 0 10/04/2018 08:31:13 10/04/2018 09:59:09 Type 2 diabetes mellitus without complication 516905352 E11.9 Self administer ed 20 units of insulin with my observatio n. Will f/u in one week with the log of her FSBG to see if more is needed. REportedly she does not receive the pm dose of 20. Low back pain 435812580 M54.5 Acetaminop hen and local heat (explained ) [id number] GLORIA Mariano [employer] [address] [place] [address] [phone] 0 05/24/2019 10:12:41 05/24/2019 13:40:17 Type 2 diabetes mellitus without complication 428970014 E11.9 Pt is injecting insulin and according to her the BS is under control, i will send her for HGB A1c. Pure hypercholesterolemia 437269590 E78.00 Pt advised to watch his diet very close, try to be away from fatty food, exercise on a regular bases and take cholestero l med as directed on a daily bases. [id number] GLORIA Mariano [employer] [address] [place] [address] [phone] 0 06/21/2019 09:11:38 06/21/2019 11:13:34 Administration of pneumococcal vaccine 08771251 Z23 Adult heal th examination 997715929 Z00.01 Pt with a normal CPE, pt advised to eat healthily and exercise on a regular bases. Watch the: diet low sodium, fat and sugar. Pt will go for blood work today. Screening for osteoporosis 626587611 Z13.820 Screening mammography 24 844071 Z12.31 Health Concerns Section Related Observation LastModified by Organization Detai ls LastModified Time None Recorded Concern Status LastModified by Organization Details LastModified Time None Recorded Advance Directives Directive None Recorded Payers Encounter Date Sequence Insurance Name Policy Number Policy Garza Covered Member ID Garza Member ID Guarantor Name 07/31/2018 2 [place] [employer] Pebbles Zimmer [id number] Pebbles Zimmer 07/31/2018 2 [place] Pebbles Bourgeois [id number] Pebbles Zimmer 09/11/2018 2 [place] [employer] Pebbles Zimmer [id number] Pebbles Zimmer 09/11/2018 2 [place] Pebbles Bourgeois [id number] Pebbles Zimmer 10/04/2018 2 [place] [employer] Pebbles Zimmer [id number] Pebbles Zimmer 10/04/2018 2 [place] Pebbles Bourgeois [id number] Pebbles Zimmer 05/24/2019 1 [employer] (MEDICARE REPLACEMENT HMO) Pebbles Zimmer [id number] Pebbles Zimmer 05/24/2019 2 [place] [employer] Pebbles Zimmer [id number] Pebbles Zimmer 06/21/2019 1 [employer] (MEDICARE REPLACEMENT HMO) Pebbles Zimmer [id number] Pebbles Zimmer 06/21/2019 2 [place] [employer] Pebbles Zimmer [id number] Pebbles Zimmer Notes Date Note Type Note Provider Name and Address Organization Details Recorded Time 07/31/2018 text/html Stomach discomfo rt has improved Mark nath [place] [facility] 07/31/2018 10:25:14 09/11/2018 text/html PT comes in for F/u on diabetes mellitus. Technique of self administering insulin VERN Tucker [employer] 09/11/2018 08:50:15 10/04/2018 text/html 62 y/o F present s today to follow up Type 2 diabetes mellitus without complication. BS is 130 in fasting. Insulin intake 20 units daily, self administered Mark nath [facility] [employer], [facility] 10/04/2018 09:31:48 05/24/2019 text/html 63 Y/O F present today to F/U Type 2 diabetes mellitus without complication, Complaining of headache for three days. GLORIA Mariano [address] [address], [place], [phone], [employer] 05/26/2019 17:40:02 06/21/2019 text/html 63 Y/O F present today to for CPE. GLORIA Mariano [address] [address], [place], [phone], [employer] 06/21/2019 11:09:12 OBGyn Episode No OBEpisode recorded.
--- OUTSIDE RECORDS SUMMARY | 2024-11-27 17:07 | XMS_ITS | Encounter Summary ---
Author Organization [employer] Address [address] [facility] [address] [place] [address] Care Team Providers Care Director Records Management Name Role Phone Shania Morgan MD Primary Care Provider [phone] Aileen Bernabe PharmD Unavailable [phone] Encounter Details Date Type Department Care Team (Latest Contact Info) Description 11/25/2024 Travel Social History Tobacco Use Types Packs/Day [...] Description 01/03/2025 11:00 AM EDT Medication Management [facility] [address] [place] [address] Aileen Bernabe PharmD [address] [place] [address] documented as of this encounter Visit Diagnoses Not on filedocumented in this encounter Additional Health Concerns Assessment Noted Time PHQ-9 Depression Total Score: 0 09/30/19 25 10:31 AM EST documented as of this encounter Care Teams Director Records Management Relationship Specialty Start Date End Date Shania Morgan MD [address] [place] [address] PCP - General Family Medicine 08/01/23 Aileen Bernabe PharmD [address] [place] [address] Pharmacist Internal Medicine 11/20/24 documented as of this encounter
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
== END 2024-11-27 14:19 | disposition home or self-care (01) ==
LOC: HO.HHCX 14:18
PROVIDERS: Visit Provider General Practice
DX: M25.511 Pain in right shoulder (principal); G89.29 Other chronic pain
CPT/HCPCS: 73030

== ENCOUNTER → 2024-11-27 14:19 | Outpatient (BNV) | payer OTHER, SELFPAY | PROVIDERS: Visit Provider Radiology Diagnostic Radiology | DX: M19.011 Primary osteoarthritis, right shoulder (principal) | CPT/HCPCS: 73030 ==

== ENCOUNTER → 2024-12-06 23:59 | Outpatient (BNV) | payer OTHER, SELFPAY ==
--- NOTE | 2025-01-01 08:52 | A.OFFVIS_ITS ---
Intake Visit Reasons: Remote ICD check- Medtronic Allergies No Known Allergies Allergy (Verified 12/11/24 10:43) [facility] Medical History (Updated 12/11/24 @ 10:48 by Dangelo Marte MD) Osteoporosis Surgical History History of pacemaker Family History Mother Cancer of unknown origin Father Heart attack Social History Household Members: Children Household Members Other:: Son Alcohol intake: never Patient Tobacco Use Status: Former Tobacco user Office Procedures Cardiac Device Check Cardiac Device Check Details: Medtronic CONFIGURATION DEVELOPER-D TAX MANAGER PUBLIC 99% Good battery life. No new alerts. [id number] Cardiac Device Interrogation, pacemaker or defibrillator Procedure code (CPT) selection complete Assessment & Plan Assessment & Plan (1) ICD (implantable cardioverter-defibrillator) discharge: Code(s): Z45.02 - Encounter for adjustment and management of automatic implantable cardiac defibrillator Category: Medical Plan Coding Level of Care Code Procedure Only Diagnoses ICD (implantable cardioverter-defibrillator) discharge Z45.02 CPT Codes Cardiac Device Check - Cardiac Device 14: [id number] Cardiac Device Interrogation, pacemaker or defibrillator ([id number])
== END ==
PROVIDERS: PCP General Practice; Visit Provider Internal Medicine Cardiovascular Disease
DX: Z45.02 Encounter for adjustment and management of automatic implantable cardiac defibrillator (principal)
CPT/HCPCS: 93295

== ENCOUNTER → 2024-12-06 23:59 | Outpatient (BNV) | payer OTHER, SELFPAY ==
--- NOTE | 2025-01-01 08:55 | A.OFFVIS_ITS ---
Intake Visit Reasons: Remote HF monitoring-Medtronic Allergies No Known Allergies Allergy (Verified 12/11/24 10:43) [facility] Medical History (Updated 12/11/24 @ 10:48 by Dangelo Marte MD) Osteoporosis Surgical History History of pacemaker Family History Mother Cancer of unknown origin Father Heart attack Social History Household Members: Children Household Members Other:: Son Alcohol intake: never Patient Tobacco Use Status: Former Tobacco user Office Procedures Cardiac Device Check Cardiac Device Check Details: HF monitoring V paced 99% OptiVol showing potential volume overload in October 2024 and improvement towards end of October. [id number] Cardiac Device Interrogation, cardio physiologic monitor Procedure code (CPT) selection complete Assessment & Plan Assessment & Plan (1) Cardiomyopathy: Code(s): I42.9 - Cardiomyopathy, unspecified Category: Medical Plan Coding Level of Care Code Procedure Only Diagnoses Cardiomyopathy I42.9 CPT Codes Cardiac Device Check - Cardiac Device 15: [id number] Cardiac Device Interrogation, cardio physiologic monitor ([id number])
== END ==
PROVIDERS: PCP General Practice; Visit Provider Internal Medicine Cardiovascular Disease
DX: I42.9 Cardiomyopathy, unspecified (principal); Z95.810 Presence of automatic (implantable) cardiac defibrillator
CPT/HCPCS: 93297

== ENCOUNTER 2024-12-11 10:28 | Outpatient (AMB) | payer OTHER, SELFPAY ==
--- NOTE | 2024-12-11 10:33 | MHC.OFFVIS ---
Vital Signs 12/11/24 10:42 Height 5 ft 1.3 in Weight 130 lb 11.746 oz BMI 24.5 BP 116/64 Blood Pressure Location Rt brachial Position Sitting Pulse 63 Pulse Source Pulse Oximeter Pulse Oximetry (%) 96 Oxygen Delivery Method Room Air Intake Visit Reasons: Osteoporosis Intake Note: New patient today present today for Osteoporosis. Comp Field Case Manager Required: Yes Comp Field Case Manager Language: Pulp Grinder Services: Comp Field Case Manager Offered & Declined Accompanied by: Daughter Allergies No Known Allergies Allergy (Verified 12/11/24 10:43) HPI Comments Details: The patient is a 68-year-old female presenting with osteoporosis. She was recently diagnosed and lacks past treatment for the condition. The patient denies any fractures or falls historically. A dietary assessment revealed consumption of Polish cheese and almond milk with no supplemental calcium in her routine, despite a recommendation for 1200 mg daily calcium intake. She acknowledges a gain in weight, which is recognized as beneficial for osteoporosis but is possibly detrimental to her cardiovascular status given her heart failure diagnosis. Of note, the patient hit menarche at age 10, experienced menopause at 54, and verified no familial predisposition to osteoporosis or related fractures. Her history of heavy smoking has contributed to chronic obstructive pulmonary disease, but she no longer smokes. The patient recalls a recent T-score result that indicates severe osteoporosis with high fracture risk regardless of trauma. First diagnosed in recently . Not Received treatment in the past No history of pathologic fracture or ONJ. Has several servings of dietary calcium per day in the form of cheese, milk , oranges . Takes Calcium supplement ? mg daily in divided doses. Takes ? IU of Vitamin D daily. - Daily vitamins: specific components undisclosed; includes calcium and vitamin D but not measured. The patient regularly includes Polish cheese and almond milk in her diet, emphasizing an interest in vegetables and fruits such as oranges, apples, and bananas. She was advised to maintain daily calcium intake of 1200 milligrams primarily through dietary sources rather than supplements. Denies ever using PPI, anticoagulant, antiepileptic or glucocorticoid medication. 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 UTD on dental cleanings and sees dentist every 6 months. No planned upcoming dental work or extractions. No heavy ETOH use but previous tabacco use DXA dated 11/06/24 : FINDINGS: The bone mineral density of the lumbar spine is 0.712 with a T-score of -4.1, and a Z-score of -2.2. The bone mineral density of the left total hip is 0.842 with a T-score of -1.3, and a Z-score of 0.3. The bone mineral density of the left femoral neck is 0.733 with a T-score of -2.2, and a Z-score of -0.4. MM/XR DEXA axial skeleton IMPRESSION: Based on bone mineral density, and according to World Health Organization (WHO) criteria, the diagnosis is consistent with osteoporosis. Labs: ON LICENSE OF [facility] Medical History (Updated 12/11/24 @ 10:48 by Dangelo Marte MD) Osteoporosis Surgical History History of pacemaker Family History (Updated 12/11/24 @ 10:44 by JOI Suarez) Mother Cancer of unknown origin Father Heart attack Social History Household Members: Children Household Members Other:: Son Alcohol intake: never Patient Tobacco Use Status: Former Tobacco user Physical Exam Vital Signs: BMI result Body Mass Index 24.5 There are no Cushingoid features. Absence of blue sclera. Absence of kyphosis. Thyroid gland is of nl size and weighs 15 gms. There are no thyroid nodules palpated. Lungs CTA. Heart S1 S2 Reg R/R Abdominal exam benign. Muscle strength 5/5 . Examination of spine reveals absence of tenderness on palpation Assessment & Plan Assessment & Plan (1) Osteoporosis: Code(s): M81.0 - Age-related osteoporosis without current pathological fracture Category: Medical Plan: This is a 68-year-old female with a history of severe osteoporosis. Rule out secondary causes Plan is to check a phosphorus, SPEP, urine immunofixation, 24 hour urine for calcium and creatinine, 25 hydroxy vitamin-D. Will ensure 1200 mg of calcium and vitamin D3 2000 IU per day. Assuming secondary workup was negative considering very low bone density and high risk for fracture, pharmacologic treatment with anabolic agent such as Evenity, Forteo or Tymlos proceeded by an anti resorptive agent is warranted. 1. Osteoporosis The patient presents with severe osteoporosis reflected by a spine T-score of -4.1. An emphasis was placed on ensuring an adequate calcium intake of 1200 mg daily, preferable via diet. Vitamin D3 supplementation is targeted at 2000 IU. Diagnostic workup includes blood tests and a 24-hour urine collection to exclude secondary causes. Potential treatment options include Forteo, Tymlos, and Evenity, contingent upon insurance approval. I discussed the diagnosis of severe osteoporosis with the patient, detailing the implications of a low T-score (-4.1) and the associated fracture risk. We covered the importance of achieving a daily calcium intake of 1200 mg and 2000 IU of Vitamin D3 to support bone health. I explained available anabolic treatments like Forteo, Tymlos, and Evenity, emphasizing Evenity for its bone-building potential although conditional upon coverage. We proceeded with ordering necessary labs and a 24-hour urine collection to rule out secondary osteoporosis causes. Follow-up was scheduled to review diagnostic findings and finalize treatment plans. - Ensure daily dietary intake of 1200 mg calcium, ideally through foods such as Polish cheese and almond milk. - Take Vitamin D3 supplements to reach a total of 2000 IU daily. - Complete blood work and 24-hour urine collection as instructed for assessment. - Avoid weight-bearing exercises, consider alternative [id number] exercises if possible and safe. - Maintain a safe living environment with well-lit spaces and clear pathways to prevent falls. - Follow up in four months with all lab tests completed prior and stay informed on further treatment plans. The patient had an opportunity to ask questions regarding treatment plan. The patient expressed understanding and agreement with the above treatment plan. Patient was informed and verbally consented to the use of an ambient scribe for clinic note documentation during this visit. Orders: Orders Phosphorus Today M81.0 - Age-related osteoporosis without current pathological fracture Immunofixation, Random Urine Today M81.0 - Age-related osteoporosis without current pathological fracture Calcium, 24 Hr Ur Today M81.0 - Age-related osteoporosis without current pathological fracture Creatinine, 24 Hr Group Today M81.0 - Age-related osteoporosis without current pathological fracture Vitamin D 25-OH Total Today M81.0 - Age-related osteoporosis without current pathological fracture Protein Electrophoresis, Serum Today M81.0 - Age-related osteoporosis without current pathological fracture Coding Level of Care Code New Pt Level 4 (67824) Diagnoses Osteoporosis M81.0
[2024-12-11 10:42] VITALS: BP 116/64; PULSE 63; O2SAT 96; BMI 24.5
--- OUTSIDE RECORDS SUMMARY | 2024-12-11 12:19 | XMS_ITS | Encounter Summary ---
Author Organization [employer] Address [address] [place] [address] Care Team Providers Care Seismographer Name Role Phone Shania Morgan MD Primary Care Provider [phone] Aileen Bernabe PharmD Unavailable [phone] Reason for Visit * Reason Comments Med Refill Encounter Details Date Type Department Care Team ([facility] st Contact Info) Description 08/13/2024 Refill [facility] [address] [place] [address] Shania Morgan MD [address] [place] [address] Social History Tobacco Use Types Packs/Day Years [...] Description 01/03/2025 11:00 AM EDT Medication Management [facility] [address] [place] [id number] Aileen Bernabe PharmD [address] [place] [phone] 01/07/2025 9:15 AM EDT Procedure Visit [facility] [address] [place] [phone] Shania Morgan MD [address] [place] [id number] documented as of this encounter Visit Diagnoses Not on filedocumented in this encounter Additional Health Concerns Assessment Noted Time PHQ-9 Depression Total Score: 18 024 10:39 AM EST documented as of this encounter Care Teams Seismographer Relationship Specialty Start Date End Date Shania Morgan MD [address] [place] [id number] PCP - General Family Medicine 08/01/23 Aileen Bernabe PharmD [address] [place] [address] [phone] Pharmacist Internal Medicine 11/20/24 documented as of this encounter
--- OUTSIDE RECORDS SUMMARY | 2024-12-11 12:19 | XMS_ITS | Data Portability ---
Author Organization [place] - [employer] [facility] Address [address] [facility] [address] [place] [address] Assessment No assessment recorded. Plan of Treatment Reminders Order Date Submit Date Provider Last Modified By Organization Details Last Modified Time Details Appointments None recorded. Lab None recorded. Referral bone density referral 2018 [facility] (Radiology), [address] [place] [address], [id number], 9 12:42:32 Procedures None recorded. Surgeries None recorded. Imaging MAMMO, screening, digital, bilateral 2018 019 ROJAS [facility] (Radiology), [address] [place] [address], [id number], 0 05:03:02 Medication Orders Calcium 600 + D(3) 600 mg-10 mcg (400 unit) tablet 2018 019 INTERFACE [facility], [address] [place] [address], [address], 9 11:09:11 Mapap Arthritis Pain 650 mg tablet,ext ended release 2018 019 INTERFACE [facility], [address] [place] [address], [address], 9 09:19:39 quetiapine 200 mg tablet 2017 018 INTERFACE [facility] #[id number], [address] [place] [address], [id number], 8 10:12:27 trazodone 100 mg tablet 2017 018 INTERFACE [facility] #[id number], [address] [place], [place], [id number], 8 10:12:27 Zithromax Z-Darnell 250 mg tablet 2017 018 pvidal [facility] #[id number], [address] [place] [address], [id number], 9 08:48:40 Alcohol Prep Pads 2017 018 INTERFACE [facility] #[id number], [address] [place] [address], [id number], 8 10:12:26 Patient TargetsNo targets recorded. Patient [...] CONSI STENT WITH DIABE LOIDA Not Available [facility] ([facility]) [address], [address], 08/01/2018 08:00:42 07/31/20 18 08/01/2018 glyco hemog lobin , total , blood estimated average glucose 131 mg/dL Not Available [facility] ([facility]) [address], [address], 08/01/2018 08:00:42 07/31/20 18 08/01/2018 micro album in, urine microalbumin (urine) 1.5 mg/dL 0.0-2. 3 Not Available [facility] ([facility]) [address], [address], 08/01/2018 08:00:43 06/21/2006/22/2019 TSH, ultra -sens itive , serum TSH - ultra sensitive 1.01 uIU/m L 0.35-4 .50 Not Available [facility] ([facility]) [address] [place] [address], [address], 06/22/2019 09:01:08 06/21/2006/22/2019 micro album in, urine microalbumin (urine) 6.3 mg/dL 0.0-2. 3 high Not Available [facility]) [address] [place] [address], [address], 06/22/2019 09:01:08 06/21/2006/22/2019 urina lysis , compl ete color YELLOW Not Available [facility] [address] [place] [address], [address], 06/22/2019 09:01:09 06/21/2006/22/2019 urina lysis , compl ete appearance CLEAR Not Available [facility]) [address] [place] [address], [address], 06/22/2019 09:01:09 06/21/2006/22/2019 urina lysis , compl ete spec.gravity 1.025 1.003- 1.035 Not Available [facility] ([facility]) [address] [place] [address], [address], 06/22/2019 09:01:09 06/21/2006/22/2019 urina lysis , compl ete urine pH 5.0 4.5-8. 0 Not Available [facility] ([facility]) [address] [place] [address], [address], 06/22/2019 09:01:09 06/21/20 19 06/22/2019 urina lysis , compl ete nitrite NEGATI VE negati ve Not Available [facility] ([facility]) [address] [place] [address], [place], [address], 06/22/2019 09:01:09 06/21/20 19 06/22/2019 urina lysis , compl ete protein NEGATI VE negati ve Not Available [facility] ([facility]) [address] [place] [address], [address], 06/22/2019 09:01:09 06/21/20 19 06/22/2019 urina lysis , compl ete urine glucose NEGATI VE negati ve Not Available [facility] ([facility]) [address] [place] [address], [address], 06/22/2019 09:01:09 06/21/2006/22/2019 urina lysis , compl ete ketones NEGATI VE negati ve Not Available [facility] ([facility]) [address] [place] [address], 265[address], 06/22/2019 09:01:09 06/21/20 19 06/22/2019 urina lysis , compl ete blood NEGATI VE negati ve Not Available [facility] ([facility]) [address] [place] [address], [address], 06/22/2019 09:01:09 06/21/20 19 06/22/2019 urina lysis , compl ete bilirubine NEGATI VE negati ve Not Available [facility] ([facility]) [address] [place] [address], 93[address], 06/22/2019 09:01:09 06/21/20 19 06/22/2019 urina lysis , compl ete leukocyte esterase NEGATI VE negati ve Not Available [facility] ([facility]) [address] [place] [address], [address], 06/22/2019 09:01:09 06/21/20 19 06/22/2019 urina lysis , compl ete RBC/hpf 0-2 0-2 Not Available [facility] ([facility]) [address] [place] [address], [address], 06/22/2019 09:01:09 06/21/20 19 06/22/2019 urina lysis , compl ete WBC/hpf 0 0-2 Not Available [facility] ([facility]) [address] [place] [address], [address], 06/22/2019 09:01:09 06/21/20 19 06/22/2019 urina lysis , compl ete epithelium/h pf 0-1 0-2 Not Available [facility]) [address] [place] [address], [address], 06/22/2019 09:01:09 06/21/2006/22/2019 vitam in B12, serum vitamin B12 278 pg/mL DEFIC IENT <154 pg/mL INDET ERMIN ATE 154-2 22 pg/mL RIGO L 223-9 25 pg/mL Not Available [facility]) [address] [place] [address], [address], 06/22/2019 09:01:09 06/21/2006/22/2019 vitam in D, 25-hy droxy , total , serum vitamin D, 25-hydroxy 28.0 NG/mL low <30 ng/mL DEFIC IENCY 30-10 0 ng/mL OPTIM UM >150 ng/mL TOXIC ITY Not Available [facility] ([facility]) [address] [place] [address], [address], 06/22/2019 09:01:09 06/21/2006/22/2019 CBC w/ auto diff white blood cell count 7.8 10 3.8-10 .8 Not Available [facility]) [address] [place] [address], [address], 06/22/2019 09:01:10 06/21/20 19 06/22/2019 CBC w/ auto diff red blood cell count 4.95 10 4.00-5 .20 Not Available [facility]) [address] [place] [address], [address], 06/22/2019 09:01:10 06/21/20 19 06/22/2019 CBC w/ auto diff hemoglobin 14.5 g/dL 12.0-1 6.0 Not Available [facility] ([facility]) [address], [address], 06/22/2019 09:01:10 06/21/20 19 06/22/2019 CBC w/ auto diff hematocrit 45.9 % 36.0-4 6.0 Not Available [facility] ([facility]) [address], [address], 06/22/2019 09:01:10 06/21/20 19 06/22/2019 CBC w/ auto diff MCV 93 fL 80.0-1 00.0 Not Available [facility]) [address], [address], 06/22/2019 09:01:10 06/21/20 19 06/22/2019 CBC w/ auto diff MCH 29.3 pg 26.0-3 4.0 Not Available [facility] ([facility]) [address], [address], 06/22/2019 09:01:10 06/21/20 19 06/22/2019 CBC w/ auto diff MCHC 31.6 % 28.0-3 8.0 Not Available [facility] ([facility]) [address], [address], 06/22/2019 09:01:10 06/21/20 19 06/22/2019 CBC w/ auto diff RDW 13.5 % 11.5-1 4.5 Not Available [facility] ([facility]) [facility] [place], [address], 06/22/2019 09:01:10 06/21/20 19 06/22/2019 CBC w/ auto diff platelet count 307 10 150-45 0 Not Available [facility]) [address], [address], 06/22/2019 09:01:10 06/21/20 19 06/22/2019 CBC w/ auto diff mean platelet volume 10.1 fL 8.4-12 .0 Not Available [facility] ([facility]) [address], [address], 06/22/2019 09:01:10 06/21/20 19 06/22/2019 CBC w/ auto diff lymphocytes 38.9 % 19.3-5 1.7 Not Available [facility] ([facility]) [address], [address], 06/22/2019 09:01:10 06/21/20 19 06/22/2019 CBC w/ auto diff monocytes 8.3 % 4.0-11 .0 Not Available [facility]) [address], [address], 06/22/2019 09:01:10 06/21/20 19 06/22/2019 CBC w/ auto diff neutrophils 46.6 % 34.0-7 1.1 Not Available [facility] ([facility]) [address], [address], 06/22/2019 09:01:10 06/21/20 19 06/22/2019 CBC w/ auto diff eosinophils 5.7 % 0-7.0 Not Available [facility] ([facility]) [address], [address], 06/22/2019 09:01:10 06/21/20 19 06/22/2019 CBC w/ auto diff basophils 0.4 % 0-3 Not Available [facility] ([facility]) [address] [place] [address], [address], 06/22/2019 09:01:10 06/21/20 19 06/22/2019 CBC w/ auto diff imm grans 0.1 % 0-0.5 Not Available [facility] ([facility]) 4[place], [address], 06/22/2019 09:01:10 06/21/20 19 06/22/2019 CBC w/ auto diff nucleated RBC 0.0 /100_ WBC 0-0.2 Not Available [facility] ([facility]) [facility] [place], [address], 06/22/2019 09:01:10 06/21/20 19 06/22/2019 CBC w/ auto diff lymphocytes, absolute 3.1 10 1.18-3 .74 Not Available [facility] ([facility]) [address] [place] [address], [address], 06/22/2019 09:01:10 06/21/20 19 06/22/2019 CBC w/ auto diff monocytes, absolute 0.7 10 0.2-1. 2 Not Available [facility] [address] [place] [address], [address], 06/22/2019 09:01:10 06/21/20 19 06/22/2019 CBC w/ auto diff neutrophils, absolute 3.7 10 1.56-6 .13 Not Available [facility] ([facility]) [address] [place] [address], [address], 06/22/2019 09:01:10 06/21/20 19 06/22/2019 CBC w/ auto diff eosinophils, absolute 0.45 10 0.05-0 .55 Not Available [facility] ([facility]) [address] [place] [address], [address], 06/22/2019 09:01:10 06/21/20 19 06/22/2019 CBC w/ auto diff basophils, absolute 0.03 10 0-0.20 Not Available [facility] ([facility]) [facility] [place], [address], 06/22/2019 09:01:10 06/21/20 19 06/22/2019 CBC w/ auto diff imm grans, absolute 0.01 10 0-0.10 Not Available [facility] ([facility]) [address] [facility] [place], [address], 06/22/2019 09:01:10 06/21/2006/22/2019 CBC w/ auto diff nucleated RBC, absolute 0.00 10 0-0.01 2 Not Available [facility]) [address], [address], 06/22/2019 09:01:10 06/21/20 19 06/22/2019 CBC w/ auto diff comment Not Available [facility]) [address], [address], 06/22/2019 09:01:10 06/21/2006/22/2019 glyco hemog lobin , total , blood hemoglobin A1C 6.2 % high <5.7% DECRE ASED RISK OF DIABE LOIDA 5.7-6 .0% INCRE ASED RISK OF DIABE LOIDA 6.1-6 .4% HIGHE R RISK OF DIABE LOIDA >6.4% CONSI STENT WITH DIABE LOIDA Not Available [facility] ([facility]) [address], [address], 06/22/2019 09:01:10 06/21/2006/22/2019 glyco hemog lobin , total , blood estimated average glucose 131 mg/dL Not Available [facility] ([facility]) [address], [address], 06/22/2019 09:01:10 06/21/2006/22/2019 HIV 1+2 AB + HIV 1 p24 Ag, quali tativ e immun oassa y, serum HIV-1 Ag, HIV1/HIV2 Ab NOT DETECT ED NO ANTIB ODIES DETEC SHAJI TO HIV-1 AND HIV-2 Not Available [facility]) [address], [address], 06/22/2019 09:01:10 06/21/2006/22/2019 BMP, serum or plasm a CO2 28 mmol/ L 21-33 Not Available [facility] ([facility]) [address] [place] [address], [address], 06/22/2019 09:01:11 06/21/20 19 06/22/2019 BMP, serum or plasm a chloride 101 mmol/ L 98-110 Not Available [facility]) [address] [place] [address], [address], 06/22/2019 09:01:11 06/21/2006/22/2019 BMP, serum or plasm a potassium 5.1 mmol/ L 3.5-5. 3 Not Available [facility] ([facility]) [address] [place] [address], 285[address], 06/22/2019 09:01:11 06/21/2006/22/2019 BMP, serum or plasm a sodium 140 mmol/ L 135-14 6 Not Available [facility] ([facility]) [address] [place] [address], 5[address], 06/22/2019 09:01:11 06/21/2006/22/2019 BMP, serum or plasm a BUN 13 mg/dL 7-25 Not Available [facility] ([facility]) [address] [place] [address], [address], 06/22/2019 09:01:11 06/21/2006/22/2019 BMP, serum or plasm a creatinine serum 0.58 mg/dL 0.50-0 .99 Not Available [facility] ([facility]) [address] [place] [address], [address], 06/22/2019 09:01:11 06/21/2006/22/2019 BMP, serum or plasm [...] <15 KIDNE Y FAILU RE Not Available [facility]) [address] [place] [address], [address], 06/22/2019 09:01:11 06/21/20 19 06/22/2019 BMP, serum [...] eGFR VALUE BY 1.212 . Not Available [facility]) [address] [place] [address], 24[address], 06/22/2019 09:01:11 06/21/20 19 06/22/2019 BMP, serum or plasm a glucose 94 mg/dL 65-99 Not Available [facility]) [address] [place] [address], 787[address], 06/22/2019 09:01:11 06/21/20 19 06/22/2019 BMP, serum or plasm a calcium 9.7 mg/dL 8.6-10 .4 Not Available [facility]) [address] [place] [address], 335[address], 06/22/2019 09:01:11 06/21/20 19 06/22/2019 hepat ic funct ion panel , serum albumin 4.2 g/dL 3.6-5. 1 Not Available [facility]) [address] [place] [address], [address], 06/22/2019 09:01:11 06/21/20 19 06/22/2019 hepat ic funct ion panel , serum total protein 7.6 g/dL 6.2-8. 3 Not Available [facility]) [address] [facility] [place], [address], 06/22/2019 09:01:11 06/21/20 19 06/22/2019 hepat ic funct ion panel , serum direct bilirubin 0.10 mg/dL 0.00-0 .20 Not Available [facility]) [address] [place] [address], [address], 06/22/2019 09:01:11 06/21/20 19 06/22/2019 hepat ic funct ion panel , serum bilirubin total 0.5 mg/dL 0.2-1. 2 Not Available [facility]) [address] [place] [address], 86[address], 06/22/2019 09:01:11 06/21/20 19 06/22/2019 hepat ic funct ion panel , serum SGPT(ALT) 12 U/L 6-40 Not Available [facility]) [address] [place] [address], [address], 06/22/2019 09:01:11 06/21/20 19 06/22/2019 hepat ic funct ion panel , serum SGOT(AST) 15 U/L 10-35 Not Available [facility]) [address] [place] [address], [address], 06/22/2019 09:01:11 06/21/20 19 06/22/2019 hepat ic funct ion panel , serum alkaline phosphatase 81 U/L 33-130 Not Available [facility] ([facility]) [facility] [place], [address], 06/22/2019 09:01:11 06/21/20 19 06/22/2019 lipid panel , serum cholesterol, total 140 mg/dL 125-20 0 Not Available [facility]) [address] [place] [address], [address], 06/22/2019 09:01:12 06/21/20 19 06/22/2019 lipid panel , serum triglyceride s 102 mg/dL <150 Not Available [facility] ([facility]) [address], [address], 06/22/2019 09:01:12 06/21/20 19 06/22/2019 lipid panel , serum HDL cholesterol 41 mg/dL >46 low Not Available [facility]) [address] [place] [address], [address], 06/22/2019 09:01:12 06/21/20 19 06/22/2019 lipid panel , serum LDL cholesterol (calc.) 78 mg/dL <130 Not Available [facility] ([facility]) [address] [place] [address], [address], 06/22/2019 09:01:12 06/21/20 19 06/22/2019 lipid panel , serum VLDL cholesterol (calc.) 20 mg/dL <30 Not Available [facility]) [address] [place] [address], 8[address], 06/22/2019 09:01:12 06/21/2006/22/2019 lipid panel , serum cholesterol/ HDL risk factor 3.4 ratio 3.7-6. 7 Not Available [facility] ([facility]) [address] [place] [address], [address], 06/22/2019 09:01:12 Result Notes None recorded. Problems Name Problem SNOMED Code Status Onset Date Resolution Date Notes Provider Name and Address Organization Details Recorded Time Hyperten sive disorder 67882054 Active 2017 Gwen nath [facility] 8 10:44:23 Diabetes mellitus 68533175 Completed 201709/11/2018 Removal Reason: improved Mark nath [facility] [employer] [facility], [facility] 9 08:48:03 Hypercho lesterol emia 14347398 Active 2017 Gwen nath [facility] [employer] [facility], [facility] 8 10:44:46 Vertigo 593218047 Active 2017 [facility] 8 10:45:00 Heart disease 93256935 [facility] 2017 [facility] 8 10:46:00 Chronic depressi on 119376936 [facility] 8 11:25:22 Parkinso nism 00869286 [facility] 8 15:02:26 Type 2 diabetes mellitus without complica tion 056685788 Active 2018 [facility] 9 08:47:47 Problem Notes None recorded. Procedures Surgical History Date Name Laterality Status Provider Name and Address Organization Details Recorded Time Pacemaker monitr digital/vis completed [facility] 02/05/2018 10:47:18 delivery completed [facility] 02/05/2018 10:47:30 Tubal Ligation completed [facility] 02/05/2018 10:48:06 Imaging Results None recorded. [...] EVERY DAY. MAGDA R 1 [facility] . active Not Available Not Available No t Available ranitidine 150 mg tablet 02/05 completed Not Available Not Available Not Available irbesartan 75 mg tablet TAKE 1 TABLET BY MOUTH EVERY DAY. MAGDA R 1 TABLETA [facility] TOGON[facility] LOS D . active Not [...] % 14 /min 97.8 [degF] 27.8 kg/m2 16072.2 7 g 70 /min 110 mm[Hg] 75 mm[Hg] Mark Crowley [facility] [employer] [facility] 8 09:57:10 Date Recorded Body height Heart rate Oxygen saturation Oxygen saturation in Arterial blood by Pulse oximetry Respiratory rate Body temperature Body mass index (BMI) Body weight Heart rate Systolic blood pressure Diastolic blood pressure Provider Name and Address Organization Details Last Updated DateTime 9 152.4 cm 65 /min 97 % 97 % 16 /min 97.8 [degF] 28.2 kg/m2 05462.0 2 g 65 /min 129 mm[Hg] 73 mm[Hg] Afia Haynes [facility] [employer] [facility] 9 08:26:18 Date Recorded Body height Heart rate Oxygen saturation Oxygen saturation in Arterial blood by Pulse oximetry Respiratory rate Body temperature Body mass index (BMI) Body weight Heart rate Systolic blood pressure Diastolic blood pressure Provider Name and Address Organization Details Last Updated DateTime 9 152.4 cm 86 /min 96 % 96 % 18 /min 98.4 [degF] 28.4 kg/m2 33517.0 5 g 86 /min 99 mm[Hg] 62 mm[Hg] Gwen Kwok [facility] [employer] [facility] 9 08:42:43 Date Recorded Body height Heart rate Oxygen saturation Oxygen saturation in Arterial blood by Pulse oximetry Respiratory rate Body temperature Body mass index (BMI) Body weight Heart rate Systolic blood pressure Diastolic blood pressure Provider Name and Address Organization Details Last Updated DateTime 9 152.4 cm 67 /min 96 % 96 % 18 /min 98 [degF] 29.3 kg/m2 20535.8 6 g 67 /min 100 mm[Hg] 60 mm[Hg] Josie Diaz [facility] [employer] [facility] 9 11:45:05 Date Recorded Body height Heart rate Oxygen saturation Oxygen saturation in Arterial blood by Pulse oximetry Respiratory rate Body temperature Body mass index (BMI) Body weight Heart rate Systolic blood pressure Diastolic blood pressure Provider Name and Address Organization Details Last Updated DateTime 9 152.4 cm 72 /min 96 % 96 % 18 /min 97.7 [degF] 28.5 kg/m2 31143.7 7 g 72 /min 110 mm[Hg] 70 mm[Hg] Luke Ching [facility] [employer] 9 10:27:13 Social History Question Answer Notes LastModified by Organizat ion Details LastModified Time Tobacco Smoking Status Current Every Day Smoker Gwen Kwok [facility] [employer] [facility] 02/05/2018 10:46:12 What Was The Date Of [...] Details Recorded Time zoster live 8 completed [facility] [employer] [facility] 02/05/2018 10:44:03 Tdap 6 completed [facility] [employer] [facility] 02/22/2018 09:40:49 pneumococcal polysaccharide PPV23 8 completed [facility] [facility] 02/22/2018 09:41:12 Past Encounters Encounter ID Performer Location Encounter Start Date Encounter Closed Date Diagnosis/Indication Diagnosis SNOMED-CT Code Diagnosis ICD10 Code Diagnosis Note [id number] [facility] [address] [phone] 02/05/2018 09:57:29 02/05/2018 11:15:09 Vertigo 656582589 R42 cane with quad base Constipation 57332844 K5 9.00 Increase fluid intake, take osmotic med Diabetes mellitus 066220 09 E11.9 Take meds, refill when necessary Hypertensive disorder 38 887590 I10 take med, refill when necessary Heart disease 29466627 I 51.9 No CP, or SOB. records requested. She had a PPM inserted, failed due to infection. Chronic depression 44739 0009 F34.1 continue taking meds. Mood and alertness are OK now Dry eyes 851807480 H04.1 29 recommend natural tears tid [id number] [employer] [address] [place] [id number] 02/20/2018 09:29:08 02/20/2018 10:50:34 Vertigo 054737912 R42 cane with quad base Constipation 67719534 K5 9.00 Increase fluid intake, take osmotic med Diabetes mellitus 723869 09 E11.9 Take meds, refill when necessary Hypertensive disorder 38 [id number] I10 take med, refill when necessary Heart disease 38037589 I 51.9 No CP, or SOB. records requested. She had a PPM inserted, failed due to infection. Chronic depression 8 F34.1 Per PHQ9 currently severity is mild. continue taking meds. citalopram . Mood and alertness are OK now Dry eyes 612958146 H04.1 29 recommend natural tears tid Parkinsonism 43443699 G2 0 Not evident on gross exam. OK for benztropin e refill Hypercholesterolemia 136 14621 E78.00 refills of statin; diet Asthma 458802848 J45.90 9 Some wheezing found, but she does well on albuterol. Refill of albuterol MDI [id number] [facility] [email or web address] [address] [place] [address] [phone] 06/14/2018 09:55:44 06/14/2018 10:52:19 Tension-type headache 459711270 G44.209 Hypertensive disorder 38 797349 I10 will switch her BP med and f/u for control Cough 15099177 R05 I could be secondary to lisinopril use. Explained to her and caregiver [id number] [employer] [address] [place] [address] [phone] 07/16/2018 09:00:13 07/16/2018 10:08:57 Acute gastritis 81928253 K29.00 recurrence now, no bleeding signs. Stop condiments , coffee. Low back pain 551991335 M54.5 [id number] Mark [email or web address] [address] [place] [address] [phone] 0 07/31/2018 08:57:32 07/31/2018 10:18:03 Acute gastritis 53348485 K29.00 Improved, feels much better. Cont Rx Acute exac erbation of chronic obstructive pulmonary disease 299066592 J44.1 increased cough and phlegm, will Rx. She uses Advair diskus Chronic depression 8 F34.1 mild. continue taking meds. citalopram . Mood and alertness are OK now. Some abnormal thinking has been helped by quetiapine . Diabetes mellitus 661531 09 E11.9 Take meds, well controlled ; refill when necessary. Check Hb A1c Trying to give up smoking 414727704 Z72.0 Still smokes, per her report, 3 cigarettes a week. [id number] [facility] [employer] [address] [place] [address] [phone] 0 09/11/2018 08:10:27 09/11/2018 08:45:49 Type 2 diabetes mellitus without complication 285783375 E11.9 Self administer ed 20 units of insulin with my observatio n. Will f/u in one week with the log of her [facility] to see if more is needed. REportedly she does not receive the pm dose of 20. [id number] Mark [email or web address] [address] [place] [address] [phone] 10/04/2018 08:31:13 10/04/2018 09:59:09 Type 2 diabetes mellitus without complication 743769309 E11.9 Self administer ed 20 units of insulin with my observatio n. Will f/u in one week with the log of her [facility] to see if more is needed. REportedly she does not receive the pm dose of 20. Low back pain 408520083 M54.5 Acetaminop hen and local heat (explained ) [id number] GLORIA Mariano [employer] [address] [place] [address] [phone] 0 05/24/2019 10:12:41 05/24/2019 13:40:17 Type 2 diabetes mellitus without complication 259139764 E11.9 Pt is injecting insulin and according to her the BS is under control, i will send her for HGB A1c. Pure hypercholesterolemia 987296013 E78.00 Pt advised to watch his diet very close, try to be away from fatty food, exercise on a regular bases and take cholestero l med as directed on a daily bases. [id number] GLORIA Mariano [employer] [address] [place] [address] [phone] 0 06/21/2019 09:11:38 06/21/2019 11:13:34 Administration of pneumococcal vaccine 07790189 Z23 Adult heal th examination 971811771 Z00.01 Pt with a normal CPE, pt advised to eat healthily and exercise on a regular bases. Watch the: diet low sodium, fat and sugar. Pt will go for blood work today. Screening for osteoporosis 318739534 Z13.820 Screening mammography 24 395710 Z12.31 Health Concerns Section Related Observation LastModified by Organization Detai ls LastModified Time None Recorded Concern Status LastModified by Organization Details LastModified Time None Recorded Advance Directives Directive None Recorded Payers Encounter Date Sequence Insurance Name Policy Number Policy Garza Covered Member ID Garza Member ID Guarantor Name 07/31/2018 2 [place] [employer] Pebbles Zimmer [id number] Pebbles Zimmer 07/31/2018 2 [place] Pebbles Bourgeois [id number] Pebbles Zimmer 09/11/2018 2 [place] [employer] Pebbles Zimmer [id number] Pebbles Zimmer 09/11/2018 2 [place] Pebbles Bourgeois [id number] Pebbles Zimmer 10/04/2018 2 [place] [employer] Pebbles Zimmer [id number] Pebbles Zimmer 10/04/2018 2 [place] Pebbles Bourgeois [id number] Pebbles Zimmer 05/24/2019 1 [employer] S[employer] (MEDICARE REPLACEMENT HMO) Pebbles Zimmre [id number] Pebbles Zimmer 05/24/2019 2 [place] [employer] Pebbles Zimmer [id number] Pebbles Zimmer 06/21/2019 1 [employer] (MEDICARE REPLACEMENT HMO) Pebbles Zimmer [id number] Pebbles Zimmer 06/21/2019 2 [place] [employer] Pebbles Zimmer [id number] Pebbles Zimmer Notes Date Note Type Note Provider Name and Address Organization Details Recorded Time 07/31/2018 text/html Stomach discomfo rt has improved Mark nath [place] - [facility] 07/31/2018 10:25:14 09/11/2018 text/html PT comes in for F/u on diabetes mellitus. Technique of self administering insulin VERN Tucker [facility] 09/11/2018 08:50:15 10/04/2018 text/html 62 y/o F present s today to follow up Type 2 diabetes mellitus without complication. BS is 130 in fasting. Insulin intake 20 units daily, self administered Mark nath [facility], [facility] 10/04/2018 09:31:48 05/24/2019 text/html 63 Y/O F present today to F/U Type 2 diabetes mellitus without complication, Complaining of headache for three days. GLORIA Mariano [address] [address], [place], [address], [employer] 05/26/2019 17:40:02 06/21/2019 text/html 63 Y/O F present today to for CPE. GLORIA Mariano [address] [address], [place], [address], [employer] 06/21/2019 11:09:12 OBGyn Episode No OBEpisode recorded.
--- OUTSIDE RECORDS SUMMARY | 2024-12-11 12:19 | XMS_ITS | Encounter Summary ---
Author Organization [employer] Address [address] [place] [address] Care Team Providers Care Electrician Supervisor Airplane Name Role Phone Shania Morgan MD Primary Care Provider [phone] Aileen Bernabe PharmD Unavailable [phone] Reason for Visit * Reason Comments Med Refill Encounter Details Date Type Department Care Team ([facility] st Contact Info) Description 09/17/2024 Refill [facility] MEDICINE [address] [place], [place] [phone] Shania Morgan MD [address] [place] [address] Social History Tobacco Use Types Packs/Day Years [...] Description 01/03/2025 11:00 AM EDT Medication Management [facility] MEDICINE [address] [place] [phone] Aileen Bernabe PharmD [address] [place] [phone] 01/07/2025 9:15 AM EDT Procedure Visit [facility] MEDICINE [address] [place] [phone] Shania Morgan MD [address] [place] [phone] documented as of this encounter Visit Diagnoses Not on filedocumented in this encounter Additional Health Concerns Assessment Noted Time PHQ-9 Depression Total Score: 18 024 10:39 AM EST documented as of this encounter Care Teams Electrician Supervisor Airplane Relationship Specialty Start Date End Date Shania Morgan MD [address] [place] [id number] PCP - General Family Medicine 08/01/23 Aileen Bernabe PharmD [address] [place] [address] [phone] Pharmacist Internal Medicine 11/20/24 documented as of this encounter
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
== END 2024-12-11 11:19 | disposition home or self-care (01) ==
LOC: HO.ENCR 10:29
PROVIDERS: PCP Registered Nurse; Visit Provider Internal Medicine Endocrinology, Diabetes & Metabolism
DX: M81.0 Age-related osteoporosis without current pathological fracture (principal)
CPT/HCPCS: 99204

== ENCOUNTER → 2024-12-11 10:28 | Outpatient (BNVA) | payer OTHER, SELFPAY | PROVIDERS: PCP Registered Nurse; Visit Provider Internal Medicine Endocrinology, Diabetes & Metabolism | DX: M81.0 Age-related osteoporosis without current pathological fracture (principal) | CPT/HCPCS: 99202 ==

== ENCOUNTER 2024-12-13 14:42 | Outpatient (REF) | payer OTHER, SELFPAY ==
--- OUTSIDE RECORDS SUMMARY | 2024-12-13 14:55 | XMS_ITS | Encounter Summary ---
Author Organization [employer] Address [address] [facility] 7t [place] [address] Care Team Providers Care Screw Machine Repairer Name Role Phone Shania Morgan MD Primary Care Provider [phone] Aileen Bernabe PharmD Unavailable [phone] Reason for Visit * Reason Comments Med Refill Encounter Details Date Type Department Care Team ([facility] st Contact Info) Description 08/13/2024 Refill [facility] [address] [place] [address] Shania Morgan MD [address] [place] [address] Social History Tobacco Use Types Packs/Day Years [...] Description 01/03/2025 11:00 AM EDT Medication Management [facility] [address] [place] [phone] Aileen Bernabe PharmD [address] [place] [phone] 01/07/2025 9:15 AM EDT Procedure Visit [facility] [address] [place] [phone] Shania Morgan MD [address] [place] [phone] documented as of this encounter Visit Diagnoses Not on filedocumented in this encounter Additional Health Concerns Assessment Noted Time PHQ-9 Depression Total Score: 18 024 10:39 AM EST documented as of this encounter Care Teams Screw Machine Repairer Relationship Specialty Start Date End Date Shania Morgan MD [address] [place] [phone] PCP - General Family Medicine 08/01/23 Aileen Bernabe PharmD [address] [place] [address] [phone] Pharmacist Internal Medicine 11/20/24 documented as of this encounter
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
--- OUTSIDE RECORDS SUMMARY | 2024-12-13 14:56 | XMS_ITS | Encounter Summary ---
Author Organization [employer] Address [address] [facility] [address] [place] [address] Care Team Providers Care Supervisor Irrigation Name Role Phone Shania Morgan MD Primary Care Provider [phone] Aileen Bernabe PharmD Unavailable [phone] Reason for Visit * Reason Comments Med Refill Encounter Details Date Type Department Care Team ([facility] st Contact Info) Description 09/17/2024 Refill [facility] [address] [place], [place] [phone] Shania Morgan MD [address] [place] [address] Social History Tobacco Use Types Packs/Day Years [...] Description 01/03/2025 11:00 AM EDT Medication Management [facility] [address] [place] [address] Aileen Bernabe PharmD [address] [place] [address] 01/07/2025 9:15 AM EDT Procedure Visit [facility] [address] [place] [phone] Shania Morgan MD [address] [place] [phone] documented as of this encounter Visit Diagnoses Not on filedocumented in this encounter Additional Health Concerns Assessment Noted Time PHQ-9 Depression Total Score: 18 024 10:39 AM EST documented as of this encounter Care Teams Supervisor Irrigation Relationship Specialty Start Date End Date Shania Morgan MD [address] [place] [phone] PCP - General Family Medicine 08/01/23 Aileen Bernabe PharmD [address] [place] [address] [phone] Pharmacist Internal Medicine 11/20/24 documented as of this encounter
[2024-12-13 15:57] LABS: Parathyroid Hormone Intact 88.5 pg/mL (8.7-77.1)
[2024-12-13 15:59] LABS: Alanine Aminotransferase 26 U/L (0-31); Albumin Level 3.6 g/dL (3.5-5.0); Anion Gap 11 (12-20); Aspartate Amino Transferase 30 U/L (5-31); Bilirubin Total 0.5 mg/dL (0.0-1.0); Blood Urea Nitrogen 15 mg/dL (9-16); Calcium 9.3 mg/dL (8.4-10.2); Carbon Dioxide 29 mmol/L (22-29); Chloride 103 mmol/L (96-108); Estimated Glomerular Filt Rate > 60; Glucose Random 178 mg/dL (60-115); Phosphorus 3.8 mg/dL (2.7-4.5); Potassium 4.1 mmol/L (3.3-5.1); Sodium 139 mmol/L (135-145); Total Protein 7.3 g/dL (6.5-8.0)
[2024-12-13 16:13] LABS: Vitamin D 25-OH Total 27.8 ng/mL (>30)
[2024-12-13 17:11] LABS: Creatinine, 24Hr Urine 0.4 G/Day (1.0-2.0); Total Volume 24 Hour Urine 2675 mL
[2024-12-13 19:09] LABS: Alkaline Phosphatase 75 U/L (39-117)
[2024-12-17 00:18] LABS: Prot Elec - Albumin 3.5 g/dL (3.8-4.8); Prot Elec - Alpha1 0.3 g/dL (0.2-0.3); Prot Elec - Beta 1 0.4 g/dL (0.4-0.6); Prot Elec - Beta 2 0.4 g/dL (0.2-0.5); Prot Elec - Gamma 1.3 g/dL (0.8-1.7); Prot Elec - Total Protein 6.8 g/dL (6.1-8.1)
[2024-12-20 11:53] LABS: Calcium/Creatinine Ratio 359 mg/g creat (30-275)
== END 2024-12-13 14:43 | disposition home or self-care (01) ==
LOC: HO.LAB 14:42
PROVIDERS: Registered Nurse; PCP General Practice; Visit Provider Internal Medicine Endocrinology, Diabetes & Metabolism
DX: M81.0 Age-related osteoporosis without current pathological fracture (principal)
CPT/HCPCS: 36415; 80053; 82306; 82340; 82570; 83970; 84100; 84165; 86335

== ENCOUNTER 2024-12-30 13:43 | Outpatient (AMB) | payer OTHER, SELFPAY ==
--- NOTE | 2024-12-30 14:21 | MHC.OFFVIS ---
Vital Signs 12/30/24 14:23 Height 5 ft 2 in Weight 135 lb 5.821 oz BMI 24.8 BP 114/62 Blood Pressure Location Lt brachial Position Sitting Pulse 69 Pulse Source Pulse Oximeter Intake Visit Reasons: 3m follow up/ echo Intake Note: 3 mth f/up -echo Swiss Type Screw Machine Operator Required: No Swiss Type Screw Machine Operator Services: Swiss Type Screw Machine Operator Offered & Declined Swiss Type Screw Machine Operator Name: daughter Accompanied by: Daughter Allergies No Known Allergies Allergy (Verified 12/11/24 10:43) Medication List - Last Reconciled 12/30/24 by Pawan Morin MD alcohol swabs (Alcohol Prep Pads) 1 pad topical TID apixaban (Eliquis) 5 mg PO BID 90 days aspirin 1 tab PO DAILY atorvastatin 10 mg PO DAILY blood sugar diagnostic ([employer] Ultra Test strips) As directed empagliflozin (Jardiance) 10 mg PO DAILY flash glucose scanning reader (FreeStyle Toña 2 Huffman) As directed flash glucose sensor (FreeStyle Toña 2 Sensor kit) As directed cvqqbjxjqdk-fbnrcjdqw-pardmolp 200-62.5-25 mcg (Trelegy Ellipta) 1 inh inhalation DAILY gabapentin 300 mg PO BEDTIME insulin glargine (Lantus Solostar U-100 Insulin) units subcut lancets (InstapioTouch Delica Plus Lancet) As directed melatonin 5 mg PO BEDTIME metoprolol succinate ER 50 mg PO DAILY multivitamin (One Daily Multivitamin tablet) 1 tab PO DAILY pen needle, diabetic (Easy Touch) As directed prednisone 50 mg PO DAILY sacubitril-valsartan 49-51 mg 1 tab PO BID torsemide 20 mg PO DAILY HPI Comments Details: 69-year-old female who is here for follow-up. She was seen for cardiomyopathy and left bundle-branch block. Cardiac catheterization did not show any coronary disease. She was referred for Bi V AICD placement. Device interrogation showed that she has atrial fibrillation episodes and she was started on anticoagulation for stroke prevention. 09/25/2024: In 06/16/2024 she had run of atrial fibrillation and device delivered a shock to her. She does not remember anything. She since then has been referred to [facility] and is due to see the for potential ablation. Amiodarone was suggested but she has known interstitial lung disease and we decided not to start that. She has not had any further episodes since then. She has not had any recent EF assessment too. 12/30/2024: She is here for follow-up. She has been doing well. No chest pain or shortness of breath. Euvolemic clinically. Denying significant shortness of breath. 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 She has been following with pulmonology. The daughter said that the employment training specialist recommended that she should be on supplemental oxygen but the patient became very depressed and did not use the oxygen. The daughter has been trying to encourage her to use oxygen. [facility] Medical History (Updated 12/11/24 @ 10:48 by Dangelo Marte MD) Osteoporosis Surgical History History of pacemaker Family History Mother Cancer of unknown origin Father Heart attack Social History Household Members: Children Household Members Other:: Son Alcohol intake: never Patient Tobacco Use Status: Former Tobacco user Review of Systems Const Denies chills, Denies fatigue, Denies fever(s), Denies frequent falls, Denies weakness, Denies weight gain and Denies weight loss ENT Denies dizziness Card Denies chest pain, Denies leg edema, Denies lightheadedness, Denies palpitations, Denies dyspnea and Denies dyspnea on exertion Resp Denies cough, Denies dyspnea and Denies dyspnea on exertion GI Denies hematochezia Musc Denies abnormal gait, Denies muscle weakness, Denies numbness, Denies radiating pain into limb and Denies tingling Neuro Denies abnormal gait, Denies dizziness, Denies frequent falls, Denies numbness, Denies tingling and Denies weakness Endo Denies fatigue and Denies palpitations Physical Exam Vital Signs: Last Vital Signs Pulse 69 12/30/24 14:23 BP 114/62 12/30/24 14:23 BMI result Body Mass Index 24.8 GENERAL APPEARANCE: in no acute distress, pleasant. NECK: no carotid bruit, no jugular venous distention. SKIN: no suspicious lesions, warm and dry. HEART: no murmurs, regular rate and rhythm. LUNGS: Right lung has fine inspiratory crackles starting from base to mid lungs. Left lung is completely normal. ABDOMEN: soft, nontender. EXTREMITIES: no edema. PERIPHERAL PULSES: equal. NEUROLOGIC: No gross deficits, AAO X 3 Assessment & Plan Assessment & Plan (1) Cardiomyopathy: Code(s): I42.9 - Cardiomyopathy, unspecified Category: Medical (2) Cardiac defibrillator in place: Code(s): Z95.810 - Presence of automatic (implantable) cardiac defibrillator Category: Medical (3) Interstitial lung disease: Code(s): J84.9 - Interstitial pulmonary disease, unspecified Category: Medical (4) Paroxysmal A-fib: Code(s): I48.0 - Paroxysmal atrial fibrillation Category: Medical Plan Pleasant 69 year female who is here for follow-up. She has background history of nonischemic cardiomyopathy status post CRTD with improvement in ejection fraction to 50-55%. Apical dyskinesis was noted on the echocardiogram. Clinically she has improved significantly. She did have episode of atrial fibrillation diagnosed through her device and she is currently on Eliquis 5 mg twice a day. She is also taking baby aspirin and I have advised her to stop the baby aspirin. Overall clinically euvolemic and not in heart failure. She has interstitial lung disease and has been advised to use oxygen. I have explained to the daughter and the patient that supplemental oxygen will be helpful in preventing consequences of interstitial lung disease including pulmonary hypertension which can sometimes lead to right ventricular dysfunction and failure. Also she maybe able to function better with more activities if she is hypoxic due to lung disease. The daughter will talk to her and we will try to encourage her to use oxygen. Thank you for allowing me to participate in the care of your patient. Please feel free to contact me if you have any questions. Coding Level of Care Code Est Pt Level 4 (46881) Diagnoses Cardiomyopathy I42.[address] Z95.810 Interstitial lung disease J84.9 Paroxysmal A-fib I48.0
[2024-12-30 14:23] VITALS: BP 114/62; PULSE 69; BMI 24.8
--- OUTSIDE RECORDS SUMMARY | 2024-12-30 15:19 | XMS_ITS | Data Portability ---
Author Organization [place] - [employer] [facility] Emergency DepartmentFreeppie, StreetLight Data [facility] Address [address] [place] [address] Assessment No assessment recorded. Plan of Treatment Reminders Order Date Submit Date Provider Last Modified By Organization Details Last Modified Time Details Appointments None recorded. Lab None recorded. Referral bone density referral 2018 [facility] (Radiology), [address] [place] [address], [id number], 9 12:42:32 Procedures None recorded. Surgeries None recorded. Imaging MAMMO, screening, digital, bilateral 2018 019 ROJAS [facility] (Radiology), [address] [place] [address], [id number], 0 05:03:02 Medication Orders Calcium 600 + D(3) 600 mg-10 mcg (400 unit) tablet 2018 019 INTERFACE [facility], [address] [place] [address], [id number], 9 11:09:11 Mapap Arthritis Pain 650 mg tablet,ext ended release 2018 019 INTERFACE [facility], [address] [place] [address], [id number], 9 09:19:39 quetiapine 200 mg tablet 2017 018 INTERFACE [facility] #[id number], [address] [place] [address], [id number], 8 10:12:27 trazodone 100 mg tablet 2017 018 INTERFACE [facility] #[id number], [address] [place], [place], [id number], 8 10:12:27 Zithromax Z-Darnell 250 mg tablet 2017 018 pvidal [facility] #[id number], [address] [place] [address], [id number], 9 08:48:40 Alcohol Prep Pads 2017 018 INTERFACE [facility] #[id number], [address] [place] [address], [id number], 8 10:12:26 Patient TargetsNo targets recorded. Patient [...] CONSI STENT WITH DIABE LOIDA Not Available [facility] ([employer]) [address], [address], 08/01/2018 08:00:42 07/31/20 18 08/01/2018 glyco hemog lobin , total , blood estimated average glucose 131 mg/dL Not Available [facility] ([employer]) [address], [address], 08/01/2018 08:00:42 07/31/20 18 08/01/2018 micro album in, urine microalbumin (urine) 1.5 mg/dL 0.0-2. 3 Not Available [facility] ([employer]) [address], [address], 08/01/2018 08:00:43 06/21/2006/22/2019 TSH, ultra -sens itive , serum TSH - ultra sensitive 1.01 uIU/m L 0.35-4 .50 Not Available [facility] ([employer]) [address] [place] [address], [address], 06/22/2019 09:01:08 06/21/2006/22/2019 micro album in, urine microalbumin (urine) 6.3 mg/dL 0.0-2. 3 high Not Available [facility]) [address] [place] [address], [address], 06/22/2019 09:01:08 06/21/2006/22/2019 urina lysis , compl ete color YELLOW Not Available [facility] [address] [place] [address], [address], 06/22/2019 09:01:09 06/21/2006/22/2019 urina lysis , compl ete appearance CLEAR Not Available [facility]) [address] [place] [address], [address], 06/22/2019 09:01:09 06/21/2006/22/2019 urina lysis , compl ete spec.gravity 1.025 1.003- 1.035 Not Available [facility] ([employer]) [address] [place] [address], [address], 06/22/2019 09:01:09 06/21/2006/22/2019 urina lysis , compl ete urine pH 5.0 4.5-8. 0 Not Available [facility]) [address] [place] [address], [address], 06/22/2019 09:01:09 06/21/20 19 06/22/2019 urina lysis , compl ete nitrite NEGATI VE negati ve Not Available [facility] ([employer]) [address] [place] [address], [place], [address], 06/22/2019 09:01:09 06/21/20 19 06/22/2019 urina lysis , compl ete protein NEGATI VE negati ve Not Available [facility] ([employer]) [address] [place] [address], 41[address], 06/22/2019 09:01:09 06/21/20 19 06/22/2019 urina lysis , compl ete urine glucose NEGATI VE negati ve Not Available [facility] ([employer]) [address] [place] [address], [address], 06/22/2019 09:01:09 06/21/2006/22/2019 urina lysis , compl ete ketones NEGATI VE negati ve Not Available [facility] ([employer]) [address] [place] [address], 8[address], 06/22/2019 09:01:09 06/21/20 19 06/22/2019 urina lysis , compl ete blood NEGATI VE negati ve Not Available [facility] ([employer]) [address] [place] [address], 64[address], 06/22/2019 09:01:09 06/21/20 19 06/22/2019 urina lysis , compl ete bilirubine NEGATI VE negati ve Not Available [facility] ([employer]) [address] [place] [address], [address], 06/22/2019 09:01:09 06/21/20 19 06/22/2019 urina lysis , compl ete leukocyte esterase NEGATI VE negati ve Not Available [facility] ([employer]) [address] [place] [address], [address], 06/22/2019 09:01:09 06/21/20 19 06/22/2019 urina lysis , compl ete RBC/hpf 0-2 0-2 Not Available [facility] ([employer]) [address] [place] [address], 34[address], 06/22/2019 09:01:09 06/21/20 19 06/22/2019 urina lysis , compl ete WBC/hpf 0 0-2 Not Available [facility] ([employer]) [address] [place] [address], 87[address], 06/22/2019 09:01:09 06/21/20 19 06/22/2019 urina lysis , compl ete epithelium/h pf 0-1 0-2 Not Available [facility]) [address] [place] [address], [address], 06/22/2019 09:01:09 06/21/2006/22/2019 vitam in B12, serum vitamin B12 278 pg/mL DEFIC IENT <154 pg/mL INDET ERMIN ATE 154-2 22 pg/mL RIGO L 223-9 25 pg/mL Not Available [facility]) [address] [place] [address], 57[address], 06/22/2019 09:01:09 06/21/2006/22/2019 vitam in D, 25-hy droxy , total , serum vitamin D, 25-hydroxy 28.0 NG/mL low <30 ng/mL DEFIC IENCY 30-10 0 ng/mL OPTIM UM >150 ng/mL TOXIC ITY Not Available [facility] ([employer]) [address] [place] [address], [address], 06/22/2019 09:01:09 06/21/2006/22/2019 CBC w/ auto diff white blood cell count 7.8 10 3.8-10 .8 Not Available [facility]) [address] [place] [address], [address], 06/22/2019 09:01:10 06/21/20 19 06/22/2019 CBC w/ auto diff red blood cell count 4.95 10 4.00-5 .20 Not Available [facility]) [address] [place] [address], [address], 06/22/2019 09:01:10 06/21/20 19 06/22/2019 CBC w/ auto diff hemoglobin 14.5 g/dL 12.0-1 6.0 Not Available [facility] ([employer]) [address], [address], 06/22/2019 09:01:10 06/21/20 19 06/22/2019 CBC w/ auto diff hematocrit 45.9 % 36.0-4 6.0 Not Available [facility] ([employer]) [address], [address], 06/22/2019 09:01:10 06/21/20 19 06/22/2019 CBC w/ auto diff MCV 93 fL 80.0-1 00.0 Not Available [facility]) [address], [address], 06/22/2019 09:01:10 06/21/20 19 06/22/2019 CBC w/ auto diff MCH 29.3 pg 26.0-3 4.0 Not Available [facility] ([employer]) [address], [address], 06/22/2019 09:01:10 06/21/20 19 06/22/2019 CBC w/ auto diff MCHC 31.6 % 28.0-3 8.0 Not Available [facility] ([employer]) [address], [address], 06/22/2019 09:01:10 06/21/20 19 06/22/2019 CBC w/ auto diff RDW 13.5 % 11.5-1 4.5 Not Available [facility] ([employer]) [facility] [place], [address], 06/22/2019 09:01:10 06/21/20 19 06/22/2019 CBC w/ auto diff platelet count 307 10 150-45 0 Not Available [facility]) [address], [address], 06/22/2019 09:01:10 06/21/20 19 06/22/2019 CBC w/ auto diff mean platelet volume 10.1 fL 8.4-12 .0 Not Available [facility] ([employer]) [address], [address], 06/22/2019 09:01:10 06/21/20 19 06/22/2019 CBC w/ auto diff lymphocytes 38.9 % 19.3-5 1.7 Not Available [facility] ([employer]) [address], [address], 06/22/2019 09:01:10 06/21/20 19 06/22/2019 CBC w/ auto diff monocytes 8.3 % 4.0-11 .0 Not Available [facility]) [address], [address], 06/22/2019 09:01:10 06/21/20 19 06/22/2019 CBC w/ auto diff neutrophils 46.6 % 34.0-7 1.1 Not Available [facility] ([employer]) [address], [address], 06/22/2019 09:01:10 06/21/20 19 06/22/2019 CBC w/ auto diff eosinophils 5.7 % 0-7.0 Not Available [facility] ([employer]) [address], [address], 06/22/2019 09:01:10 06/21/20 19 06/22/2019 CBC w/ auto diff basophils 0.4 % 0-3 Not Available [facility] ([employer]) [address] [place] [address], [address], 06/22/2019 09:01:10 06/21/20 19 06/22/2019 CBC w/ auto diff imm grans 0.1 % 0-0.5 Not Available [facility] ([employer]) [address], [address], 06/22/2019 09:01:10 06/21/20 19 06/22/2019 CBC w/ auto diff nucleated RBC 0.0 /100_ WBC 0-0.2 Not Available [facility] ([employer]) [facility] [place], [address], 06/22/2019 09:01:10 06/21/20 19 06/22/2019 CBC w/ auto diff lymphocytes, absolute 3.1 10 1.18-3 .74 Not Available [facility] ([employer]) [address] [place] [address], [address], 06/22/2019 09:01:10 06/21/20 19 06/22/2019 CBC w/ auto diff monocytes, absolute 0.7 10 0.2-1. 2 Not Available [facility] [address] [place] [address], [address], 06/22/2019 09:01:10 06/21/20 19 06/22/2019 CBC w/ auto diff neutrophils, absolute 3.7 10 1.56-6 .13 Not Available [facility] ([employer]) [address] [place] [address], [address]82, 06/22/2019 09:01:10 06/21/20 19 06/22/2019 CBC w/ auto diff eosinophils, absolute 0.45 10 0.05-0 .55 Not Available [facility] ([employer]) [address] [place] [address], 99867, 06/22/2019 09:01:10 06/21/20 19 06/22/2019 CBC w/ auto diff basophils, absolute 0.03 10 0-0.20 Not Available [facility] ([employer]) [facility] [place], [address], 06/22/2019 09:01:10 06/21/20 19 06/22/2019 CBC w/ auto diff imm grans, absolute 0.01 10 0-0.10 Not Available [facility] ([employer]) [address] [facility] [place], [address], 06/22/2019 09:01:10 06/21/2006/22/2019 CBC w/ auto diff nucleated RBC, absolute 0.00 10 0-0.01 2 Not Available [facility]) [address], [address], 06/22/2019 09:01:10 06/21/20 19 06/22/2019 CBC w/ auto diff comment Not Available [facility]) [address], [address], 06/22/2019 09:01:10 06/21/2006/22/2019 glyco hemog lobin , total , blood hemoglobin A1C 6.2 % high <5.7% DECRE ASED RISK OF DIABE LOIDA 5.7-6 .0% INCRE ASED RISK OF DIABE LOIDA 6.1-6 .4% HIGHE R RISK OF DIABE LOIDA >6.4% CONSI STENT WITH DIABE LOIDA Not Available [facility] ([employer]) [address], [address], 06/22/2019 09:01:10 06/21/2006/22/2019 glyco hemog lobin , total , blood estimated average glucose 131 mg/dL Not Available [facility] ([employer]) [address], [address], 06/22/2019 09:01:10 06/21/2006/22/2019 HIV 1+2 AB + HIV 1 p24 Ag, quali tativ e immun oassa y, serum HIV-1 Ag, HIV1/HIV2 Ab NOT DETECT ED NO ANTIB ODIES DETEC SHAJI TO HIV-1 AND HIV-2 Not Available [facility]) [address], [address], 06/22/2019 09:01:10 06/21/2006/22/2019 BMP, serum or plasm a CO2 28 mmol/ L 21-33 Not Available [facility] ([employer]) [address] [place] [address], [address]68, 06/22/2019 09:01:11 06/21/20 19 06/22/2019 BMP, serum or plasm a chloride 101 mmol/ L 98-110 Not Available [facility]) [address] [place] [address], [address], 06/22/2019 09:01:11 06/21/2006/22/2019 BMP, serum or plasm a potassium 5.1 mmol/ L 3.5-5. 3 Not Available [facility] ([employer]) [address] [place] [address], 28380, 06/22/2019 09:01:11 06/21/2006/22/2019 BMP, serum or plasm a sodium 140 mmol/ L 135-14 6 Not Available [facility] ([employer]) [address] [place] [address], 52750, 06/22/2019 09:01:11 06/21/2006/22/2019 BMP, serum or plasm a BUN 13 mg/dL 7-25 Not Available [facility] ([employer]) [address] [place] [address], 22562, 06/22/2019 09:01:11 06/21/2006/22/2019 BMP, serum or plasm a creatinine serum 0.58 mg/dL 0.50-0 .99 Not Available [facility] ([employer]) [address] [place] [address], 34938, 06/22/2019 09:01:11 06/21/2006/22/2019 BMP, serum or plasm [...] <15 KIDNE Y FAILU RE Not Available [facility]) [address] [place] [address], [address]66, 06/22/2019 09:01:11 06/21/20 19 06/22/2019 BMP, serum [...] eGFR VALUE BY 1.212 . Not Available [facility]) [address] [place] [address], 24[address], 06/22/2019 09:01:11 06/21/20 19 06/22/2019 BMP, serum or plasm a glucose 94 mg/dL 65-99 Not Available [facility]) [address] [place] [address], 80703, 06/22/2019 09:01:11 06/21/20 19 06/22/2019 BMP, serum or plasm a calcium 9.7 mg/dL 8.6-10 .4 Not Available [facility]) [address] [place] [address], 75499, 06/22/2019 09:01:11 06/21/20 19 06/22/2019 hepat ic funct ion panel , serum albumin 4.2 g/dL 3.6-5. 1 Not Available [facility]) [address] [place] [address], 41240, 06/22/2019 09:01:11 06/21/20 19 06/22/2019 hepat ic funct ion panel , serum total protein 7.6 g/dL 6.2-8. 3 Not Available [facility]) [address] [facility] [place], [address], 06/22/2019 09:01:11 06/21/20 19 06/22/2019 hepat ic funct ion panel , serum direct bilirubin 0.10 mg/dL 0.00-0 .20 Not Available [facility]) [address] [place] [address], [address]10, 06/22/2019 09:01:11 06/21/20 19 06/22/2019 hepat ic funct ion panel , serum bilirubin total 0.5 mg/dL 0.2-1. 2 Not Available [facility]) [address] [place] [address], 19008, 06/22/2019 09:01:11 06/21/20 19 06/22/2019 hepat ic funct ion panel , serum SGPT(ALT) 12 U/L 6-40 Not Available [facility]) [address] [place] [address], 60424, 06/22/2019 09:01:11 06/21/20 19 06/22/2019 hepat ic funct ion panel , serum SGOT(AST) 15 U/L 10-35 Not Available [facility]) [address] [place] [address], 35569, 06/22/2019 09:01:11 06/21/20 19 06/22/2019 hepat ic funct ion panel , serum alkaline phosphatase 81 U/L 33-130 Not Available [facility] ([employer]) [facility] [place], [address], 06/22/2019 09:01:11 06/21/20 19 06/22/2019 lipid panel , serum cholesterol, total 140 mg/dL 125-20 0 Not Available [facility]) [address] [place] [address], 88898, 06/22/2019 09:01:12 06/21/20 19 06/22/2019 lipid panel , serum triglyceride s 102 mg/dL <150 Not Available [facility] ([employer]) [address], [address], 06/22/2019 09:01:12 06/21/20 19 06/22/2019 lipid panel , serum HDL cholesterol 41 mg/dL >46 low Not Available [facility]) [address] [place] [address], [address]21, 06/22/2019 09:01:12 06/21/20 19 06/22/2019 lipid panel , serum LDL cholesterol (calc.) 78 mg/dL <130 Not Available [facility] ([employer]) [address] [place] [address], 24513, 06/22/2019 09:01:12 06/21/20 19 06/22/2019 lipid panel , serum VLDL cholesterol (calc.) 20 mg/dL <30 Not Available [facility]) [address] [place] [address], 40774, 06/22/2019 09:01:12 06/21/2006/22/2019 lipid panel , serum cholesterol/ HDL risk factor 3.4 ratio 3.7-6. 7 Not Available [facility] ([employer]) [address] [place] [address], 5[address], 06/22/2019 09:01:12 Result Notes None recorded. Problems Name Problem SNOMED Code Status Onset Date Resolution Date Notes Provider Name and Address Organization Details Recorded Time Hyperten sive disorder 37142541 Active 2017 Gwen nath [employer] [facility] 8 10:44:23 Diabetes mellitus 16889830 Completed 201709/11/2018 Removal Reason: improved Mark nath [employer] [facility], [facility] 9 08:48:03 Hypercho lesterol emia 05936809 Active 2017 Gwen nath [employer] [facility], [facility] 8 10:44:46 Vertigo 553659658 Active 2017 [facility] [employer] [facility] 8 10:45:00 Heart disease [facility]6786147 [facility] [employer] [facility] 8 10:46:00 Chronic depressi on 304244280 [facility] 2017 [facility] [employer] [facility] 8 11:25:22 Parkinso nism 35547212 Active 2017 [facility] [employer] [facility] 8 15:02:26 Type 2 diabetes mellitus without complica tion 963957438 Active 2018 [facility] [employer] [facility] 9 08:47:47 Problem Notes None recorded. Procedures Surgical History Date Name Laterality Status Provider Name and Address Organization Details Recorded Time Pacemaker monitr digital/vis completed [facility] [employer] [facility] 02/05/2018 10:47:18 delivery completed [facility] [employer] [facility] 02/05/2018 10:47:30 Tubal Ligation completed [facility] [employer] [facility] 02/05/2018 10:48:06 Imaging Results None [...] EVERY DAY. MAGDA R 1 [facility] . active Not Available Not Available No t Available ranitidine 150 mg tablet 02/05 completed Not Available Not Available Not Available irbesartan 75 mg tablet TAKE 1 TABLET BY MOUTH EVERY DAY. MAGDA R 1 [facility]TA [facility] TOGONZAL[facility] LOS D . active Not [...] % 14 /min 97.8 [degF] 27.8 kg/m2 39461.2 7 g 70 /min 110 mm[Hg] 75 mm[Hg] Mark Crowley [employer] [facility] 8 09:57:10 Date Recorded Body height Heart rate Oxygen saturation Oxygen saturation in Arterial blood by Pulse oximetry Respiratory rate Body temperature Body mass index (BMI) Body weight Heart rate Systolic blood pressure Diastolic blood pressure Provider Name and Address Organization Details Last Updated DateTime 9 152.4 cm 65 /min 97 % 97 % 16 /min 97.8 [degF] 28.2 kg/m2 81395.0 2 g 65 /min 129 mm[Hg] 73 mm[Hg] Afia Haynes [facility] [employer] [facility] DepartmentDe[facility] 9 08:26:18 Date Recorded Body height Heart rate Oxygen saturation Oxygen saturation in Arterial blood by Pulse oximetry Respiratory rate Body temperature Body mass index (BMI) Body weight Heart rate Systolic blood pressure Diastolic blood pressure Provider Name and Address Organization Details Last Updated DateTime 9 152.4 cm 86 /min 96 % 96 % 18 /min 98.4 [degF] 28.4 kg/m2 90615.0 5 g 86 /min 99 mm[Hg] 62 mm[Hg] Gwen Kwok [employer] [facility] 9 08:42:43 Date Recorded Body height Heart rate Oxygen saturation Oxygen saturation in Arterial blood by Pulse oximetry Respiratory rate Body temperature Body mass index (BMI) Body weight Heart rate Systolic blood pressure Diastolic blood pressure Provider Name and Address Organization Details Last Updated DateTime 9 152.4 cm 67 /min 96 % 96 % 18 /min 98 [degF] 29.3 kg/m2 01986.8 6 g 67 /min 100 mm[Hg] 60 mm[Hg] Josie Diaz [facility] [employer] [facility] 9 11:45:05 Date Recorded Body height Heart rate Oxygen saturation Oxygen saturation in Arterial blood by Pulse oximetry Respiratory rate Body temperature Body mass index (BMI) Body weight Heart rate Systolic blood pressure Diastolic blood pressure Provider Name and Address Organization Details Last Updated DateTime 9 152.4 cm 72 /min 96 % 96 % 18 /min 97.7 [degF] 28.5 kg/m2 93640.7 7 g 72 /min 110 mm[Hg] 70 mm[Hg] Luke Ching [facility] [employer] [facility] 9 10:27:13 Social History Question Answer Notes LastModified by Organizat ion Details LastModified Time Tobacco Smoking Status Current Every Day Smoker Gwen Kwok [facility] [employer] [facility] 02/05/2018 10:46:12 What Was The [...] Details Recorded Time zoster live 8 completed [employer] [facility] [employer] [facility] 02/05/2018 10:44:03 Tdap 6 completed [employer] [facility] [employer] [facility] 02/22/2018 09:40:49 pneumococcal polysaccharide PPV23 8 completed [employer] [facility] 02/22/2018 09:41:12 Past Encounters Encounter ID Performer Location Encounter Start Date Encounter Closed Date Diagnosis/Indication Diagnosis SNOMED-CT Code Diagnosis ICD10 Code Diagnosis Note [id number] Mark Crowley MD [employer] [address] [place] [address] [id number] 02/05/2018 09:57:29 02/05/2018 11:15:09 Vertigo 981477788 R42 cane with quad base Constipation 90495911 K5 9.00 Increase fluid intake, take osmotic med Diabetes mellitus 444961 09 E11.9 Take meds, refill when necessary Hypertensive disorder 38 995299 I10 take med, refill when necessary Heart disease 25433240 I 51.9 No CP, or SOB. records requested. She had a PPM inserted, failed due to infection. Chronic depression 77567 0009 F34.1 continue taking meds. Mood and alertness are OK now Dry eyes 778222166 H04.1 29 recommend natural tears tid [id number] Mark Crowley MD [employer] [address] [place] [address] [id number] 02/20/2018 09:29:08 02/20/2018 10:50:34 Vertigo 602905830 R42 cane with quad base Constipation 92547364 K5 9.00 Increase fluid intake, take osmotic med Diabetes mellitus 237784 09 E11.9 Take meds, refill when necessary Hypertensive disorder 38 591662 I10 take med, refill when necessary Heart disease 18002001 I 51.9 No CP, or SOB. records requested. She had a PPM inserted, failed due to infection. Chronic depression 8 F34.1 Per PHQ9 currently severity is mild. continue taking meds. citalopram . Mood and alertness are OK now Dry eyes 074509684 H04.1 29 recommend natural tears tid Parkinsonism 69928388 G2 0 Not evident on gross exam. OK for benztropin e refill Hypercholesterolemia 136 64552 E78.00 refills of statin; diet Asthma 632719490 J45.90 9 Some wheezing found, but she does well on albuterol. Refill of albuterol MDI [id number] Mark Crowley MD [facility] [address] [place] [address] [phone] 06/14/2018 09:55:44 06/14/2018 10:52:19 Tension-type headache 665210965 G44.209 Hypertensive disorder 38 809161 I10 will switch her BP med and f/u for control Cough 33954702 R05 I could be secondary to lisinopril use. Explained to her and caregiver [id number] Mark Crowley MD [facility] [address] [place] [address] [phone] 0 07/16/2018 09:00:13 07/16/2018 10:08:57 Acute gastritis 46174238 K29.00 recurrence now, no bleeding signs. Stop condiments , coffee. Low back pain 388695602 M54.5 [id number] Mark Crowley MD [facility] [address] [place] [address] [phone] 0 07/31/2018 08:57:32 07/31/2018 10:18:03 Acute gastritis 72584426 K29.00 Improved, feels much better. Cont Rx Acute exac erbation of chronic obstructive pulmonary disease 198020365 J44.1 increased cough and phlegm, will Rx. She uses Advair diskus Chronic depression 8 F34.1 mild. continue taking meds. citalopram . Mood and alertness are OK now. Some abnormal thinking has been helped by quetiapine . Diabetes mellitus 168341 09 E11.9 Take meds, well controlled ; refill when necessary. Check Hb A1c Trying to give up smoking 787114094 Z72.0 Still smokes, per her report, 3 cigarettes a week. [id number] Mark Crowley MD [facility] [address] [place] [address] [phone] 09/11/2018 08:10:27 09/11/2018 08:45:49 Type 2 diabetes mellitus without complication 779910016 E11.9 Self administer ed 20 units of insulin with my observatio n. Will f/u in one week with the log of her [facility] to see if more is needed. REportedly she does not receive the pm dose of 20. [id number] Mark Crowley MD [facility] [address] [place] [address] [phone] 10/04/2018 08:31:13 10/04/2018 09:59:09 Type 2 diabetes mellitus without complication 530225346 E11.9 Self administer ed 20 units of insulin with my observatio n. Will f/u in one week with the log of her [facility] to see if more is needed. REportedly she does not receive the pm dose of 20. Low back pain 162205343 M54.5 Acetaminop hen and local heat (explained ) [id number] GLORIA Mariano [facility] [address] [place] [address] [phone] 05/24/2019 10:12:41 05/24/2019 13:40:17 Type 2 diabetes mellitus without complication 359808781 E11.9 Pt is injecting insulin and according to her the BS is under control, i will send her for HGB A1c. Pure hypercholesterolemia 470651251 E78.00 Pt advised to watch his diet very close, try to be away from fatty food, exercise on a regular bases and take cholestero l med as directed on a daily bases. [id number] GLORIA Mariano [facility] [address] [place] [address] [phone] 0 06/21/2019 09:11:38 06/21/2019 11:13:34 Administration of pneumococcal vaccine 32632593 Z23 Adult [facility] th examination 012717525 Z00.01 Pt with a normal CPE, pt advised to eat healthily and exercise on a regular bases. Watch the: diet low sodium, fat and sugar. Pt will go for blood work today. Screening for osteoporosis 205222590 Z13.820 Screening mammography 24 030009 Z12.31 Health Concerns Section Related Observation LastModified by Organization Detai ls LastModified Time None Recorded Concern Status LastModified by Organization Details LastModified Time None Recorded Advance Directives Directive None Recorded Payers Encounter Date Sequence Insurance Name Policy Number Policy Garza Covered Member ID Garza Member ID Guarantor Name 07/31/2018 2 [place] [employer] Pebbles Zimmer [id number] Pebbles Zimmer 07/31/2018 2 [place] [facility] Pebbles Bourgeois [id number] Pebbles Zimmer 09/11/2018 2 [place] [employer] Pebbles Zimmer [id number] Pebbles Zimmer 09/11/2018 2 [place] [facility] Pebbles Bourgeois [id number] Pebbles Zimmer 10/04/2018 2 [place] [employer] Pebbles Zimmer [id number] Pebbles Zimmer 10/04/2018 2 [place] [facility] Pebbles Bourgeois [id number] Pebbles Zimmer 05/24/2019 1 [facility] [employer] (MEDICARE REPLACEMENT HMO) Pebbles Zimmer [id number] Pebbles Zimmer 05/24/2019 2 [place] [email or web address] [facility] Pebblse Zimmer [id number] Pebbles Zimmer 06/21/2019 1 [employer] (MEDICARE REPLACEMENT HMO) Pebbles Zimmer [id number] Pebbles Zimmer 06/21/2019 2 [place] [employer] Pebbles Zimmer [id number] Pebbles Zimmer Notes Date Note Type Note Provider Name and Address Organization Details Recorded Time 07/31/2018 text/html Stomach discomfo rt has improved VERN Tucker [employer] [facility] 07/31/2018 10:25:14 09/11/2018 text/html PT comes in for F/u on diabetes mellitus. Technique of self administering insulin VERN Tucker [employer] [facility] 09/11/2018 08:50:15 10/04/2018 text/html 62 y/o F present s today to follow up Type 2 diabetes mellitus without complication. BS is 130 in fasting. Insulin intake 20 units daily, self administered Mark nath [employer] - [employer] [facility] 10/04/2018 09:31:48 05/24/2019 text/html 63 Y/O F present today to F/U Type 2 diabetes mellitus without complication, Complaining of headache for three days. GLORIA Mariano [address] [facility] [address], [place], [phone], [employer] [facility], [place] 05/26/2019 17:40:02 06/21/2019 text/html 63 Y/O F present today to for CPE. GLORIA Mariano [address] [facility] [address], [place], [phone], [employer] [facility] 06/21/2019 11:09:12 OBGyn Episode No OBEpisode recorded.
--- OUTSIDE RECORDS SUMMARY | 2024-12-30 15:19 | XMS_ITS | Encounter Summary ---
Author Organization [employer] Address [address] [place] [address] Care Team Providers Care Director Vaccine Name Role Phone Shania Morgan MD Primary Care Provider [phone] Aileen Bernabe PharmD Unavailable [phone] Reason for Visit * Reason Comments Med Refill Encounter Details Date Type Department Care Team ([facility] st Contact Info) Description 09/17/2024 Refill [facility] [address], [place] [phone] Shania Morgan MD [address] [place] [address] Social History Tobacco Use Types Packs/Day Years [...] Description 01/03/2025 11:00 AM EDT Medication Management [facility] [address] [place] [phone] Aileen Bernabe PharmD [address] [place] [phone] 01/07/2025 9:15 AM EDT Procedure Visit [facility] [address] [place] [phone] Shania Morgan MD [address] [place] [phone] documented as of this encounter Visit Diagnoses Not on filedocumented in this encounter Additional Health Concerns Assessment Noted Time PHQ-9 Depression Total Score: 18 024 10:39 AM EST documented as of this encounter Care Teams Director Vaccine Relationship Specialty Start Date End Date Shania Morgan MD [address] [place] [address] [id number] PCP - General Family Medicine 08/01/23 Aileen Bernabe PharmD [address] [place] [address] [phone] Pharmacist Internal Medicine 11/20/24 documented as of this encounter
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
--- OUTSIDE RECORDS SUMMARY | 2024-12-30 15:19 | XMS_ITS | Encounter Summary ---
Author Organization [employer] Address [address] [facility] [address] [place] [address] Care Team Providers Care Machine Pan Greaser Name Role Phone Shania Morgan MD Primary Care Provider [phone] Aileen Bernabe PharmD Unavailable [phone] Reason for Visit * Reason Comments Med Refill Encounter Details Date Type Department Care Team ([facility] st Contact Info) Description 08/13/2024 Refill [facility] [address] [place] [address] Shania Morgan MD [address] [place] [address] Social History Tobacco Use Types Packs/Day Years [...] 11:00 AM EDT Medication Management [facility] [address] [place] [phone] Aileen Bernabe PharmD [address] [place] [phone] 01/07/2025 9:15 AM EDT Procedure Visit [facility] [address] [place] [phone] Shania Morgan MD [address] [place] [phone] documented as of this encounter Visit Diagnoses Not on filedocumented in this encounter Additional Health Concerns Assessment Noted Time PHQ-9 Depression Total Score: 18 024 10:39 AM EST documented as of this encounter Care Teams Machine Pan Greaser Relationship Specialty Start Date End Date Shania Morgan MD [address] [place] [id number] PCP - General Family Medicine 08/01/23 Aileen Bernabe PharmD [address] [place] [address] [phone] Pharmacist Internal Medicine 11/20/24 documented as of this encounter
== END 2024-12-30 14:55 | disposition home or self-care (01) ==
LOC: HO.HCS 13:44
PROVIDERS: PCP General Practice; Visit Provider Internal Medicine Cardiovascular Disease
DX: I42.9 Cardiomyopathy, unspecified (principal); Z95.810 Presence of automatic (implantable) cardiac defibrillator; J84.9 Interstitial pulmonary disease, unspecified; I48.0 Paroxysmal atrial fibrillation
CPT/HCPCS: 99214

== ENCOUNTER → 2024-12-30 13:43 | Outpatient (BNVA) | payer OTHER, SELFPAY | PROVIDERS: PCP General Practice; Visit Provider Internal Medicine Cardiovascular Disease | DX: I42.9 Cardiomyopathy, unspecified (principal); I48.0 Paroxysmal atrial fibrillation; J84.9 Interstitial pulmonary disease, unspecified; Z95.810 Presence of automatic (implantable) cardiac defibrillator | CPT/HCPCS: 99212 ==

== ENCOUNTER → 2025-01-06 23:59 | Outpatient (BNV) | payer OTHER, SELFPAY ==
--- NOTE | 2025-02-07 10:39 | A.OFFVIS_ITS ---
Intake Visit Reasons: Remote HF monitoring-Medtronic Allergies No Known Allergies Allergy (Verified 12/11/24 10:43) [facility] Medical History (Updated 12/11/24 @ 10:48 by Dangelo Marte MD) Osteoporosis Surgical History History of pacemaker Family History Mother Cancer of unknown origin Father Heart attack Social History Household Members: Children Household Members Other:: Son Alcohol intake: never Patient Tobacco Use Status: Former Tobacco user Office Procedures Cardiac Device Check Cardiac Device Check Details: HF monitoring Last 90 day optivol is showing volume buildup in last October/November and improvement in December. [id number] Cardiac Device Interrogation, cardio physiologic monitor Procedure code (CPT) selection complete Assessment & Plan Assessment & Plan (1) ICD (implantable cardioverter-defibrillator) discharge: Code(s): Z45.02 - Encounter for adjustment and management of automatic implantable cardiac defibrillator Category: Medical Plan Coding Level of Care Code Procedure Only Diagnoses ICD (implantable cardioverter-defibrillator) discharge Z45.02 CPT Codes Cardiac Device Check - Cardiac Device 15: [id number] Cardiac Device Interrogation, cardio physiologic monitor ([id number])
== END ==
PROVIDERS: PCP General Practice; Visit Provider Internal Medicine Cardiovascular Disease
DX: Z45.02 Encounter for adjustment and management of automatic implantable cardiac defibrillator (principal)
CPT/HCPCS: 93297

== ENCOUNTER → 2025-02-06 23:59 | Outpatient (BNV) | payer OTHER, SELFPAY ==
--- NOTE | 2025-02-20 21:53 | MHC.OFFVIS ---
Intake Visit Reasons: Remote HF monitoring-Medtronic Allergies No Known Allergies Allergy (Verified 02/08/25 09:38) PFSH Medical History Osteoporosis Surgical History History of pacemaker Family History Mother Cancer of unknown origin Father Heart attack Social History Household Members: Children Household Members Other:: Son Alcohol intake: never Patient Tobacco Use Status: Former Tobacco user Use of substances other than those prescribed or required for medical reasons: No Advance Directives: No Advance Directives Information Provided: No Office Procedures Cardiac Device Check Cardiac Device Check Details: HF monitoring Optivol showed ongoing volume overload from October to December with improvement in January. [id number] Cardiac Device Interrogation, cardio physiologic monitor Procedure code (CPT) selection complete Assessment & Plan Assessment & Plan (1) Cardiomyopathy: Code(s): I42.9 - Cardiomyopathy, unspecified Category: Medical Plan Coding Level of Care Code Procedure Only Diagnoses Cardiomyopathy I42.9 CPT Codes Cardiac Device Check - Cardiac Device 15: [id number] Cardiac Device Interrogation, cardio physiologic monitor ([id number])
== END ==
PROVIDERS: PCP General Practice; Visit Provider Internal Medicine Cardiovascular Disease
DX: I42.9 Cardiomyopathy, unspecified (principal); Z95.810 Presence of automatic (implantable) cardiac defibrillator
CPT/HCPCS: 93297

== ENCOUNTER 2025-02-08 09:35 | Emergency (ER) | payer OTHER, SELFPAY ==
--- NOTE | ~2025-02-08 | XR_ITS ---
CLINICAL HISTORY: cough sob 2 view chest x-ray Comparison: CT/[place]/SR - CT CHEST WO IV CON - 11/19/24 08:38 EDT CR/SR - XR CHEST 2V - 08/10/23 11:27 EST Findings: No consolidation. There is coarse increase of interstitial lung markings. Heart is enlarged. AICD. No acute fracture. IMPRESSION: 1. No acute findings. This document has been electronically signed by: Roseann Vera MD on 02/08/2025 10:17:18
[2025-02-08 09:37] VITALS: BP 121/70; PULSE 72; RESP 18; TEMP 36.1; O2SAT 97; BMI 24.1
--- NOTE | 2025-02-08 09:41 | ECG_ITS ---
Test Reason : SOB Blood Pressure : */* mmHG Vent. Rate : 71 BPM Atrial Rate : 71 BPM P-R Int : 112 ms QRS Dur : 104 ms QT Int : 416 ms P-R-T Axes : 40 -80 53 degrees QTcB Int : 452 ms Atrial-sensed ventricular-paced rhythm Biventricular pacemaker detected Abnormal ECG When compared with ECG of 06-Jun-2023 10:09, Electronic ventricular pacemaker has replaced Sinus rhythm Referred By: Generic ED Physician Electronically Signed By: PROSPER KAT MD
--- NOTE | 2025-02-08 10:07 | ED.SOB ---
HPI - SOB/Dyspnea General Chief Complaint: Dyspnea Stated Complaint: copd Time Seen by Provider: 02/08/25 09:51 Source: patient Mode of arrival: ambulatory Limitations: no limitations History of Present Illness ED Provider: Tina Harley APRN HPI Narrative: 69 yo female with a history of COPD on spiriva/ellipta, Hypertension, hyperlipidemia, afib on eliquis, diabetes presents to the ER with productive cough with yellow sputum for the last 3 days of shortness of breath with walking around. Patient has a history of COPD. She is supposed to be on home oxygen but refuses to use it. Per family the patient sent all of the tubing, supplies and oxygen back to the supplier. They did speak to her primary care doctor recently and they are sending out oxygen and new tubing for home. Patient reports some chest discomfort with coughing. She denies any fevers, chills, leg swelling, leg pain, vomiting or diarrhea. No recent travel, no recent sick contact. No recent hospitalizations. Patient is a former smoker. No history of DVT/PE Related Data Home Medications ?Medication ?Instructions ?Recorded ?Confirmed empagliflozin 10 mg tablet 10 mg PO DAILY 06/06/23 12/30/24 (Jardiance) gabapentin 300 mg capsule 300 mg PO BEDTIME 06/06/23 12/30/24 alcohol swabs (Alcohol Prep Pads) 1 pad topical TID 12/11/24 12/30/24 blood sugar diagnostic (Harpoon MedicalTouch #10 ea 12/11/24 12/30/24 Ultra Test strips) flash glucose scanning reader #1 ea 12/11/24 12/30/24 (FreeStyle Toña 2 Morris) flash glucose sensor (FreeStyle #1 ea 12/11/24 12/30/24 Toña 2 Sensor kit) insulin glargine 100 unit/mL (3 unit subcut 12/11/24 12/30/24 mL) subcutaneous pen (Lantus Solostar U-100 Insulin) lancets 33 gauge (Harpoon MedicalTouch Delica #100 ea 12/11/24 12/30/24 Plus Lancet) melatonin 5 mg tablet 5 mg PO BEDTIME 12/11/24 12/30/24 multivitamin (One Daily 1 tab PO DAILY 12/11/24 12/30/24 Multivitamin tablet) pen needle, diabetic 31 gauge x #1,200 ea 12/11/24 12/30/2411/10 (Easy Touch) Previous Rx's ?Medication ?Instructions ?Recorded atorvastatin 10 mg tablet 10 mg PO DAILY #90 tabs 07/26/23 fluticasone fur. 200 mcg-umeclid 1 inh inhalation DAILY #60 ea 12/18/23 62.5 mcg-vilant 25 mcg inhalat.powder (Trelegy Ellipta) apixaban 5 mg tablet (Eliquis) 5 mg PO BID 90 days #180 tabs 03/29/24 metoprolol succinate 50 mg 50 mg PO DAILY #90 tabs 06/14/24 tablet,extended release 24 hr sacubitril 49 mg-valsartan 51 mg 1 tab PO BID #120 tabs 12/09/24 tablet prednisone 50 mg tablet 50 mg PO DAILY #30 tabs 12/13/24 torsemide 20 mg tablet 20 mg PO DAILY #90 tabs 01/13/25 azithromycin 250 mg tablet 250 mg PO DAILY 4 days #4 tabs 02/08/25 benzonatate 200 mg capsule 200 mg PO TID PRN cough #15 caps 02/08/25 prednisone 20 mg tablet 60 mg (3 x 20 mg) PO DAILY #12 tabs 02/08/25 Allergies Allergy/AdvReac Type Severity Reaction Status Date / Time No Known Allergies Allergy Verified 02/08/25 09:38 Review of Systems Review of Systems: Yes all other systems are reviewed and are negative Constitutional: Constitutional: Reports no additional constitutional complaints, Denies body ache(s), Denies chills, Denies fever(s), Denies headache(s) and Denies weakness Eyes: Eyes: Reports no additional eye complaints and Denies change in vision ENT: Reports system reviewed and no additional complaints, except as documented, Denies dizziness, Denies headache(s), Denies nasal congestion, Denies nasal discharge and Denies neck pain Cardiovascular: Cardiovascular: Reports no additional cardiovascular complaints, Reports chest pain, Denies leg edema and Reports dyspnea Respiratory: Respiratory: Reports no additional respiratory complaints, Reports cough and Reports dyspnea Gastrointestinal: Gastrointestinal: Reports no additional gastrointestinal complaints, Denies abdominal pain, Denies diarrhea, Denies nausea and Denies vomiting Genitourinary: Genitourinary: Reports no additional female genitourinary complaints and Denies urinary incontinence Musculoskeletal: Musculoskeletal: Reports no additional musculoskeletal complaints, Denies back pain, Denies arthralgias, Denies joint swelling, Denies neck pain, Denies numbness and Denies tingling Integumentary/Breasts: Skin/Breast: Reports system reviewed and no additional complaints, except as docu and Denies rash Neurologic: Reports system reviewed and no additional complaints, except as documented, Denies Abnormal speech present, Denies dizziness, Denies headache(s), Denies numbness, Denies tingling and Denies weakness PMFSH Past Medical History Attestation statement: The following information was validated with the patient. Source: old records reviewed and nursing notes reviewed Medical History Osteoporosis Surgical History History of pacemaker Family History Family History Mother Cancer of unknown origin Father Heart attack Social History Social History Household Members: Children Household Members Other:: Son Alcohol intake: never Patient Tobacco Use Status: Former Tobacco user Use of substances other than those prescribed or required for medical reasons: No Advance Directives: No Advance Directives Information Provided: No Physical Exam Vital Signs: Vital Signs: Last Vital Signs Temp 97.0 F 02/08/25 09:37 Pulse 68 02/08/25 10:30 Resp 18 02/08/25 10:30 BP 121/70 02/08/25 09:37 Pulse Ox 97 02/08/25 09:37 O2 Del Method Room Air 02/08/25 09:37 BMI result Body Mass Index 24.1 Const: General: cooperative, healthy appearing, comfortable and no acute distress Orientation/consciousness: patient oriented x3 Limitations: no limitations HEENT: Head: Yes normal to inspection Ears: hearing grossly normal bilaterally General nose exam: Normal external nose present Face and sinus: Yes normal facial exam Mouth: Normal oral and palatal mucosa present Throat: Yes posterior oropharynx normal Eyes: General: appearance normal, both eyes and all related structures Pupils: Equal, round and reactive pupils present Neck: Neck: Yes normal visual inspection Chest: Chest palpation & inspection: normal inspection of the chest Resp: Other: Mild expiratory wheezing Effort & Inspection: normal respiratory effort Cardio: Rate: regular rate Rhythm: regular rhythm Peripheral pulses: Peripheral pulses 2+ throughout GI: Inspection: Yes normal to inspection Palpation (GI): Soft to palpation and nontender Auscultation: normal bowel sounds Back/Spine/Pelvis: Thoracic/Lumbar Spine: thoracic and lumbar spine normal to inspection Skin: General skin exam: no rashes or lesions noted Neuro: General: patient oriented x3, no focal motor deficits and normal sensation to monofilament Cranial nerves: Yes Equal, round and reactive pupils present Cognition (Neuro): normal cognition Speech: No Abnormal speech present Gait exam (Neuro): Normal gait present Motor exam (neuro): 5/5 motor strength present throughout Extrem: General: Yes normal to inspection, Yes no pedal edema and Yes no calf tenderness Medications Administered Discontinued Medications Generic Name Dose Route Start Last Admin Trade Name Freq PRN Reason Stop Dose Admin Azithromycin 500 mg 02/08/25 10:16 02/08/25 10:33 Azithromycin 500 Mg Tablet PO 02/08/25 10:17 500 mg ONCE ONE Administration Albuterol Sulfate 2.5 mg/ 0 mg 02/08/25 10:21 02/08/25 10:27 Albuterol/Ipratropium 3 ml INHALE 02/08/25 10:22 5 dose ONCE ONE Administration Prednisone 60 mg 02/08/25 10:16 02/08/25 10:33 Prednisone 20 Mg Tablet PO 02/08/25 10:17 60 mg ONCE ONE Administration Medical Decision Making Medical Decision Making MDM Narrative: 69 yo female with a history of COPD on spiriva/ellipta, Hypertension, hyperlipidemia, afib on eliquis, diabetes presents to the ER with productive cough with yellow sputum for the last 3 days of shortness of breath with walking around. Patient has a history of COPD. She is supposed to be on home oxygen but refuses to use it. Per family the patient sent all of the tubing, supplies and oxygen back to the supplier. They did speak to her primary care doctor recently and they are sending out oxygen and new tubing for home. Patient reports some chest discomfort with coughing. She denies any fevers, chills, leg swelling, leg pain, vomiting or diarrhea. No recent travel, no recent sick contact. No recent hospitalizations. Patient is a former smoker. No history of DVT/PE on exam vitals are stable. Patient has mild expiratory Wheezing. will obtain chest x-ray, viral testing will review labs and EKG ordered from triage will give albuterol bronchodilator, oral antibiotic and prednisone Differential Diagnosis Differential Diagnoses: The differential diagnosis associated with the presentation includes viral syndrome low suspicion for ACS, PE- HPI is atypical for ACS with a flat troponin and nonischemic EKG, patient has no hypoxia, no tachypnea, no clinical findings concerning for DVT so I doubt PE COPD exacerbation, pneumonia Admission/Observation Consideration of admission/observation: Escalation of care including admission/observation considered COPD exacerbation with no hypoxia or tachypnea requiring supplemental oxygen and or admission. Patient be discharged home with antibiotic, prednisone and recommendations to follow-up with her primary care doctor outpatient Lab Data MDM Lab Attestation statement: I reviewed the patient's lab results. 02/08/25 10:20 02/08/25 10:20 Labs: Lab Results 02/08/25 Range/Units 10:20 WBC 10.4 (4.8-10.8) X10*3/uL RBC 5.11 (4.20-5.50) X10*6/uL Hgb 14.9 (12.0-16.0) g/dl Hct 44.4 (37.0-47.0) % MCV 86.9 (80.0-98.0) fL MCH 29.2 (27.0-33.0) pg MCHC 33.6 (31.0-35.0) g/dl RDW 14.1 (11.0-16.0) % Plt Count 234 (160-400) X10*3/uL MPV 9.1 L (9.4-12.3) fL Immature Gran % (Auto) 0.4 (0.0-0.4) % Neut % (Auto) 70.8 (45-73) % Lymph % (Auto) 16.9 L (20-40) % Merced % (Auto) 5.2 (2-11) % Eos % (Auto) 6.2 H (0-4) % Baso % (Auto) 0.5 (0-2) % Lymph # (Auto) 1.8 (1.2-4.9) X10*3/uL [place] # (Auto) 0.5 (0.1-1.2) X10*3/uL Eos # (Auto) 0.7 H (0.0-0.4) X10*3/uL Baso # (Auto) 0.1 (0.0-0.2) X10*3/uL Abs Immat Gran (auto) 0.04 H (0.00-0.03) X10*3/uL Absolute Neuts (auto) 7.4 (2.0-8.3) x10*3/uL Absolute Nucleated RBC 0.000 (0.0-0.012) X10*3/uL Nucleated RBC % (auto) 0.0 (0.0-0.2) /100WBC Sodium 141 (135-145) mmol/L Potassium 4.0 (3.3-5.1) mmol/L Chloride 106 (96-108) mmol/L Carbon Dioxide 26 (22-29) mmol/L Anion Gap 13 (12-20) BUN 15 (9-16) mg/dL Creatinine 0.63 (0.5-1.4) mg/dL Estim Creat Clear Calc 64.8 Estimated GFR > 60 Random Glucose 138 H (60-115) mg/dL Calcium 9.2 (8.4-10.2) mg/dL Troponin I High Sens 3.4 (<3.5-17.0) ng/L Influenza Type A (PCR) NEGATIVE (Negative) Influenza Type B (PCR) NEGATIVE (Negative) RSV RNA Qual (PCR) NEGATIVE (Negative) SARS-CoV-2 RNA (RT-PCR) NEGATIVE (Negative) Independent Interpretation I performed an independent interpretation of an: EKG and Plain X-Ray Interpretation: I independently viewed the chest x-ray and agree with the radiology report Independently reviewed the EKG which shows AV paced rhythm Radiology Impression Discussion of test interpretation with radiology: I have reviewed the radiologist's reading. Radiologist Impression: [address] [address] XRay Report Signed Patient: Pebbles Bourgeois MR#: [id number] : 1955 Acct:[id number] Age/Sex: 69 / F ADM Date: 02/08/25 Loc: .ED Attending Dr: Ordering Physician: Glenny De La O DO Date of Service: 02/08/25 Procedure(s): XR chest 2V Accession Number(s): [id number] cc: Glenny De La O DO; Shania Morgan~ CLINICAL HISTORY: cough sob 2 view chest x-ray Comparison: CT/[place]/SR - CT CHEST WO IV CON - 11/19/24 08:38 EDT CR/SR - XR CHEST 2V - 08/10/23 11:27 EST Findings: No consolidation. There is coarse increase of interstitial lung markings. Heart is enlarged. AICD. No acute fracture. IMPRESSION: 1. No acute findings. Independent Historian Clinical information obtained from an independent historian. History obtained from or confirmed by: Other ( daughter) Prescription Management I considered prescription management with: Antibiotic Chronic Conditions Patient?s care impacted by: Diabetes and Other ( COPD) Discharge Plan Discharge Clinical Impression: COPD exacerbation Patient Disposition: Home, Self-Care Instructions: COPD (Chronic Obstructive Pulmonary Disease) (ED) Additional Instructions: your testing for flu, COVID, RSV are negative Your x-ray shows no signs of pneumonia Your blood work is normal Start your prednisone and antibiotic tomorrow Use the cough medication as needed Return for any worsening symptoms Prescriptions: New azithromycin 250 mg tablet 250 mg PO DAILY 4 Days Qty: 4 0RF Rx Instructions: start on day 2 of therapy prednisone 20 mg tablet 60 mg PO DAILY Qty: 12 0RF benzonatate 200 mg capsule 200 mg PO TID PRN (Reason: cough) Qty: 15 0RF No Action Eliquis 5 mg tablet 5 mg PO BID 90 Days Qty: 180 3RF metoprolol succinate 50 mg tablet extended release 24 hr 50 mg PO DAILY Qty: 90 3RF Rx Instructions: dose increased sacubitril-valsartan 49-51 mg tablet 1 tab PO BID Qty: 120 5RF prednisone 50 mg tablet 50 mg PO DAILY Qty: 30 1RF torsemide 20 mg tablet 20 mg PO DAILY Qty: 90 3RF gabapentin 300 mg Capsule 300 mg PO BEDTIME Jardiance 10 mg Tablet 10 mg PO DAILY atorvastatin 10 mg tablet 10 mg PO DAILY Qty: 90 1RF Trelegy Ellipta 200-62.5-25 mcg blister with device 1 inh inhalation DAILY Qty: 60 6RF melatonin 5 mg tablet 5 mg PO BEDTIME (DME) FreeStyle Toña 2 Morris Misc See Rx Instructions .ROUTE .MEDSUPPLY Qty: 1 Rx Instructions: As directed (DME) FreeStyle Toña 2 Sensor Kit See Rx Instructions .ROUTE .MEDSUPPLY Qty: 1 Rx Instructions: As directed (DME) lancets [OneTouch Delica Plus Lancet] 33 gauge misc See Rx Instructions .ROUTE QID Qty: 100 Rx Instructions: As directed insulin glargine [Lantus Solostar U-100 Insulin] 100 unit/mL (3 mL) insulin pen subcut alcohol swabs [Alcohol Prep Pads] Pads, Medicated 1 pad topical TID (DME) OneTouch Ultra Test Strip See Rx Instructions .ROUTE BID Qty: 10 Rx Instructions: As directed (DME) pen needle, diabetic [Easy Touch] 31 gauge x 3/16 needle See Rx Instructions .ROUTE DIRECTED Qty: 1200 Rx Instructions: As directed multivitamin [One Daily Multivitamin] Tablet 1 tab PO DAILY Print Language: Gabonese
[2025-02-08 10:24] LABS: MANUAL DIFF FLAG NO
[2025-02-08 10:26] LABS: Basophils Absolute Auto 0.1 X10*3/uL (0.0-0.2); Basophils Percent Auto 0.5 % (0-2); Eosinophils Absolute Auto 0.7 X10*3/uL (0.0-0.4); Eosinophils Percent Auto 6.2 % (0-4); Hematocrit 44.4 % (37.0-47.0); Hemoglobin 14.9 g/dl (12.0-16.0); Imm Gran Abs Auto 0.04 X10*3/uL (0.00-0.03); Imm Gran Pct Auto 0.4 % (0.0-0.4); Lymphocytes Absolute Auto 1.8 X10*3/uL (1.2-4.9); Lymphocytes Percent Auto 16.9 % (20-40); Mean Corpuscular HGB Conc 33.6 g/dl (31.0-35.0); Mean Corpuscular Hemoglobin 29.2 pg (27.0-33.0); Mean Corpuscular Volume 86.9 fL (80.0-98.0); Mean Platelet Volume 9.1 fL (9.4-12.3); Monocytes Absolute Auto 0.5 X10*3/uL (0.1-1.2); Monocytes Percent Auto 5.2 % (2-11); Neutrophils Absolute Auto 7.4 x10*3/uL (2.0-8.3); Neutrophils Percent Auto 70.8 % (45-73); Platelet Count 234 X10*3/uL (160-400); Red Blood Count 5.11 X10*6/uL (4.20-5.50); Red Cell Distribution Width 14.1 % (11.0-16.0); White Blood Count 10.4 X10*3/uL (4.8-10.8)
[2025-02-08] MEDS: Albuterol Sulfate 2.5 MG, Albuterol/Iprat 2.5/0.5MG 3 ML 3 ML INHALE (10:27)
[2025-02-08 10:30] VITALS: PULSE 68; RESP 18; O2SAT 95
[2025-02-08] MEDS: Azithromycin 500 MG TABLET PO (10:33)
[2025-02-08] MEDS: predniSONE 20 MG TABLET 60 MG PO (10:33)
--- NOTE | 2025-02-08 10:34 | PC.NURSE ---
pt a&ox3, medicated per order, RT at bedside giving updraft, lungs in/ex wheezing/rhonchi, call waddell within reach, plan of care ongoing
[2025-02-08 10:38] LABS: Anion Gap 13 (12-20); Blood Urea Nitrogen 15 mg/dL (9-16); Calcium 9.2 mg/dL (8.4-10.2); Carbon Dioxide 26 mmol/L (22-29); Chloride 106 mmol/L (96-108); Creatinine Clr Calc Pharmacy 64.8; Estimated Glomerular Filt Rate > 60; Glucose Random 138 mg/dL (60-115); Sodium 141 mmol/L (135-145)
[2025-02-08 10:47] LABS: Troponin-I High Sensitivity 3.4 ng/L (<3.5-17.0)
[2025-02-08 11:02] LABS: Influenza A PCR NEGATIVE (Negative); Influenza B PCR NEGATIVE (Negative); Resp Syncy Virus RNA Qual PCR NEGATIVE (Negative); SARS COV2 PCR INHOUSE NEGATIVE (Negative)
[2025-02-08 11:18] VITALS: BP 116/64; PULSE 75; RESP 15; TEMP 36.9; O2SAT 95
[2025-02-08 11:43] VITALS: BP 116/64; PULSE 75; RESP 15; TEMP 36.9; O2SAT 95
== END 2025-02-08 11:43 | disposition home or self-care (01) ==
PROVIDERS: Emergency Provider Emergency Medicine; PCP General Practice
DX: J44.1 Chronic obstructive pulmonary disease with (acute) exacerbation (principal); Z03.818 Encounter for observation for suspected exposure to other biological agents ruled out; R05.9 Cough, unspecified; R06.02 Shortness of breath; E11.9 Type 2 diabetes mellitus without complications; I10 Essential (primary) hypertension; E78.5 Hyperlipidemia, unspecified; I48.0 Paroxysmal atrial fibrillation; Z79.4 Long term (current) use of insulin; Z79.899 Other long term (current) drug therapy; Z79.01 Long term (current) use of anticoagulants; Z87.891 Personal history of nicotine dependence
CPT/HCPCS: 0241U; 71046; 80048; 84484; 85025; 93005; 94640; 99284; 99285

== ENCOUNTER → 2025-02-08 09:41 | Outpatient (BNV) | payer OTHER, SELFPAY | PROVIDERS: Emergency Provider Emergency Medicine; PCP General Practice; Visit Provider Nuclear Medicine | DX: R05.9 Cough, unspecified (principal); R06.02 Shortness of breath | CPT/HCPCS: 71046 ==

== ENCOUNTER → 2025-02-08 09:41 | Outpatient (BNV) | payer OTHER, SELFPAY | PROVIDERS: Emergency Provider Emergency Medicine; PCP General Practice; Visit Provider Internal Medicine Cardiovascular Disease | DX: R94.31 Abnormal electrocardiogram [ECG] [EKG] (principal); Z95.0 Presence of cardiac pacemaker | CPT/HCPCS: 93010 ==

== ENCOUNTER 2025-02-24 08:30 | Outpatient (AMB) | payer OTHER, SELFPAY ==
--- NOTE | 2025-02-24 08:57 | MHC.OFFVIS ---
Vital Signs 02/24/25 08:58 Height 5 ft 2 in Weight 133 lb 6.075 oz BMI 24.4 BP 110/64 Blood Pressure Location Rt brachial Position Sitting Pulse 60 Pulse Source Pulse Oximeter Pulse Oximetry (%) 98 Oxygen Delivery Method Room Air Intake Visit Reasons: COPD Allergies No Known Allergies Allergy (Verified 02/24/25 09:01) HPI HPI COPD: Details: Pebbles is a pleasant 69 year old female, former smoker with 80+ pack year history, quit approximately 10 years ago, with underlying ILD, COPD, CAD, HTN, LBBB, EF 32% s/p AICD and atrial fibrillation on coumadin. She has been well controlled on Trelegy and albuterol MDI, reporting minimal dyspnea on exertion. Denies cough, wheezing or chest tightness/congestion. Prior chest CT suggestive of pulmonary fibrosis with extensive subpleural and predominantly lower lung interstitial fibrosis present with honeycombing, extensive inter and intralobular septal thickening, peribronchovascular interstitial thickening, and mild traction bronchiectasis with bronchial thickening most notable in the right upper lobe, right middle lobe and lingula, and right greater than left lower lobes, suggestive of UIP vs NSIP. She was started on prednisone and repeat chest CT revealed radiologic improvements in addition to having positive rheumatology work up, BRITTNI+ elevated RF. She was referred to rheumatology, so she would be evaluated towards the end of her prednisone taper however patient no showed appointment on two occasions. She now has an appt in May. Prior 6MWT revealed need for supplemental oxygen with exertion however patient had returned equipment and adamantly refuses a new order. Since the last visit, she was seen in [facility] for COPD exacerbation, treated with azithromycin and prednisone on 02/08 however continues with difficulty expectorating, chest congestion and chills. CXR negative at that time for any acute findings. She also had AICD placed with Dr. Morin. [facility] Medical History Osteoporosis Surgical History History of pacemaker Family History Mother Cancer of unknown origin Father Heart attack Social History Household Members: Children Household Members Other:: Son Alcohol intake: never Patient Tobacco Use Status: Former Tobacco user Review of Systems Const Denies excessive sweating, Denies fever(s), Denies headache(s) and Denies night sweats Eyes Denies dry eyes, Denies irritation and Denies itchy eyes ENT Reports Normal hearing present, Denies headache(s), Denies nasal congestion, Denies nasal discharge, Denies post nasal drip and Denies sore throat Card Denies chest pain, Denies chest pain at rest, Denies chest pain with activity, Denies claudication, Denies leg edema, Denies orthopnea and Denies paroxysmal nocturnal dyspnea Resp Denies pain on inspiration, Denies pain with cough, Denies stridor and Denies wheezing Musc Denies myalgias Neuro Reports Normal hearing present and Denies headache(s) Endo Denies excessive sweating Evan/Lymph Denies lymphadenopathy Aller/Immun Denies itchy eyes, Denies seasonal rhinorrhea and Denies wheezing Physical Exam Vital Signs: Last Vital Signs Pulse 60 02/24/25 08:58 BP 110/64 02/24/25 08:58 Pulse Ox 98 02/24/25 08:58 Oxygen Delivery Method Room Air 02/24/25 08:58 BMI result Body Mass Index 24.4 Const General: cooperative, healthy appearing, comfortable, no acute distress, well developed and alert Orientation/consciousness: patient oriented x3 Limitations: no limitations HEENT Head: Yes normal to inspection, Yes normocephalic and Yes atraumatic Ears: hearing grossly normal bilaterally and external ears normal Eyes General: appearance normal, both eyes and all related structures Eyelids: Yes eyelids normal Sclerae: sclerae normal EOM: EOMs intact bilaterally Neck Neck: Yes normal visual inspection and Yes no lymphadenopathy Lymphatic: no lymphadenopathy noted Chest Chest palpation & inspection: normal inspection of the chest Resp Other: inspiratory crackles right mid to lung base, otherwise clear. Effort & Inspection: normal respiratory effort, able to speak in complete sentences, no audible wheezes, no cough, no stridor, not tachypneic, no tripod positioning and no use of accessory muscles Cardio Jugular venous distension: no JVD Rate: regular rate Rhythm: regular rhythm Skin Other: warm, dry General skin exam: no rashes or lesions noted Neuro General: patient oriented x3 Cranial nerves: Yes Normal hearing present Cognition (Neuro): normal cognition Gait exam (Neuro): Normal gait present Extrem General: Yes normal to inspection, Yes capillary refill normal, Yes no clubbing, cyanosis or edema and Yes no pedal edema Psych Appearance: grossly normal and well kempt Speech and movement: Normal speech and movement present and Clear speech present Affect: normal affect Attitude: cooperative Thought process: Normal thought process present Thought content: Normal thought content present Insight: Good insight present (Psych) Judgement: Good judgement present (Psych) Assessment & Plan Assessment & Plan (1) COPD (chronic obstructive pulmonary disease): Code(s): J44.9 - Chronic obstructive pulmonary disease, unspecified Category: Medical (2) Personal history of tobacco use: Code(s): Z87.891 - Personal history of nicotine dependence Category: Social Hx (3) Interstitial lung disease: Code(s): J84.9 - Interstitial pulmonary disease, unspecified Category: Medical Plan Will treat bronchitic symptoms with Vantin and she is aware to taper off prednisone. Reviewed progression of ILD based on last chest CT, emphasizing the need to continue prednisone and importance of keeping appointment with rheumatology. We again discussed potential treatments for ILD including steroids vs antifibrotic agents, as well as the possibility of progression of fibrosis with no treatments. We also reviewed importance of supplemental oxygen and potential complications of hypoxia, however continues to refuse. At baseline, patient feels symptoms are well controlled on current regimen of Trelegy and would like to defer other treatments at this time. She was agreeable to a nebulizer for home use with DuoNeb solution, will send this in. All questions were answered and patient is in agreement of plan. Will follow up in 4-6 weeks or sooner if needed. Medications: New cefpodoxime must administer with a meal/food 200 mg PO BID 20 tabs 0RF ipratropium-albuterol 0.5 mg-3 mg(2.5 mg base)/3 mL 3 mL inhalation Q6H PRN 180 mL 3RF wheezing Refilled jnfzlwyrsjk-govrnospj-wocpfayu 200-62.5-25 mcg (Trelegy Ellipta) 1 inh inhalation DAILY 60 ea 6RF Coding Level of Care Code Est Pt Level 4 (15231) Complex EM visit Add On G2211 Diagnoses COPD (chronic obstructive pulmonary disease) J44.9 Personal history of tobacco use Z87.891 Interstitial lung disease J84.9
[2025-02-24 08:58] VITALS: BP 110/64; PULSE 60; O2SAT 98; BMI 24.4
== END 2025-02-24 09:36 | disposition home or self-care (01) ==
PROVIDERS: PCP General Practice; Visit Provider Nurse Practitioner Family
DX: J44.9 Chronic obstructive pulmonary disease, unspecified (principal); Z87.891 Personal history of nicotine dependence; J84.9 Interstitial pulmonary disease, unspecified
CPT/HCPCS: 99214; G2211

== ENCOUNTER → 2025-02-24 08:30 | Outpatient (BNVA) | payer OTHER, SELFPAY | PROVIDERS: PCP General Practice; Visit Provider Nurse Practitioner Family | DX: J44.9 Chronic obstructive pulmonary disease, unspecified (principal); Z87.891 Personal history of nicotine dependence; I10 Essential (primary) hypertension; J84.9 Interstitial pulmonary disease, unspecified | CPT/HCPCS: 99212 ==

== ENCOUNTER → 2025-03-09 23:59 | Outpatient (BNV) | payer OTHER, SELFPAY ==
--- NOTE | 2025-04-13 21:04 | A.OFFVIS_ITS ---
Intake Visit Reasons: Remote ICD check- Medtronic Allergies No Known Allergies Allergy (Verified 04/09/25 10:49) PFSH Medical History Osteoporosis Surgical History History of pacemaker Family History Mother Cancer of unknown origin Father Heart attack Social History Household Members: Children Household Members Other:: Son Alcohol intake: never Patient Tobacco Use Status: Former Tobacco user Office Procedures Cardiac Device Check Cardiac Device Check Details: CLASSIFICATION AND TREATMENT DIRECTOR-D Good battery life EMPLOYMENT PROGRAMS ANALYST 98% Episodes of PAF. 29526-Rweooi Cardiac Device Interrogation, pacemaker or defibrillator Procedure code (CPT) selection complete Assessment & Plan Assessment & Plan (1) ICD (implantable cardioverter-defibrillator) discharge: Code(s): Z45.02 - Encounter for adjustment and management of automatic implantable cardiac defibrillator Category: Medical Plan Coding Level of Care Code Procedure Only Diagnoses ICD (implantable cardioverter-defibrillator) discharge Z45.02 CPT Codes Cardiac Device Check - Cardiac Device 14: 09523-[id number] Cardiac Device Interrogation, pacemaker or defibrillator ([id number])
== END ==
PROVIDERS: PCP General Practice; Visit Provider Internal Medicine Cardiovascular Disease
DX: Z45.02 Encounter for adjustment and management of automatic implantable cardiac defibrillator (principal)
CPT/HCPCS: 93295

== ENCOUNTER → 2025-03-09 23:59 | Outpatient (BNV) | payer OTHER, SELFPAY ==
--- NOTE | 2025-04-13 21:08 | A.OFFVIS_ITS ---
Intake Visit Reasons: Remote HF monitoring-Medtronic Allergies No Known Allergies Allergy (Verified 04/09/25 10:49) PFSH Medical History Osteoporosis Surgical History History of pacemaker Family History Mother Cancer of unknown origin Father Heart attack Social History Household Members: Children Household Members Other:: Son Alcohol intake: never Patient Tobacco Use Status: Former Tobacco user Office Procedures Cardiac Device Check Cardiac Device Check Details: EXECUTIVE PRODUCER 98.1% Stable thoracic impedance. [id number] Cardiac Device Interrogation, cardio physiologic monitor Procedure code (CPT) selection complete Assessment & Plan Assessment & Plan (1) ICD (implantable cardioverter-defibrillator) discharge: Code(s): Z45.02 - Encounter for adjustment and management of automatic implantable cardiac defibrillator Category: Medical Plan Coding Level of Care Code Procedure Only Diagnoses ICD (implantable cardioverter-defibrillator) discharge Z45.02 CPT Codes Cardiac Device Check - Cardiac Device 15: [id number]-[id number] Cardiac Device Interrogation, cardio physiologic monitor ([id number])
== END ==
PROVIDERS: PCP General Practice; Visit Provider Internal Medicine Cardiovascular Disease
DX: Z45.02 Encounter for adjustment and management of automatic implantable cardiac defibrillator (principal)
CPT/HCPCS: 93297

== ENCOUNTER 2025-04-09 10:25 | Outpatient (AMB) | payer OTHER, SELFPAY ==
[2025-04-09 10:46] VITALS: BP 118/70; PULSE 68; O2SAT 97; BMI 25.8
--- NOTE | 2025-04-09 10:46 | A.OFFVIS_ITS ---
Vital Signs 04/09/25 10:46 Height 5 ft 2 in Weight 141 lb 5.061 oz BMI 25.8 BP 118/70 Blood Pressure Location Rt brachial Position Sitting Pulse 68 Pulse Source Pulse Oximeter Pulse Oximetry (%) 97 Oxygen Delivery Method Room Air Intake Visit Reasons: Osteoporosis Intake Note: Patient present today for Osteoporosis follow up. 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 President [employer]ing [employer] Required: Yes [employer] Language: Regulatory Technician Services: [employer] Offered & Declined Accompanied by: Daughter Allergies No Known Allergies Allergy (Verified 04/09/25 10:49) Medication List - Last Reconciled 04/09/25 by Dangelo Marte MD alcohol swabs (Alcohol Prep Pads) 1 pad topical TID apixaban (Eliquis) 5 mg PO BID 90 days atorvastatin 10 mg PO DAILY benzonatate 200 mg PO TID PRN blood sugar diagnostic (Stereotypesuch Ultra Test strips) As directed cefpodoxime 200 mg PO BID empagliflozin (Jardiance) 10 mg PO DAILY flash glucose scanning reader (EQOStyle Toañ 2 [place]) As directed flash glucose sensor (FreeStyle Toña 2 Sensor kit) As directed etiilvcxmor-mecrjhtwy-ncsblcyi 200-62.5-25 mcg (Trelegy Ellipta) 1 inh inhalation DAILY gabapentin 300 mg PO BEDTIME insulin glargine (Lantus Solostar U-100 Insulin) units subcut ipratropium-albuterol 0.5 mg-3 mg(2.5 mg base)/3 mL 3 mL inhalation Q6H PRN lancets (OneTouch Delica Plus Lancet) As directed melatonin 5 mg PO BEDTIME metoprolol succinate ER 50 mg PO DAILY multivitamin (One Daily Multivitamin tablet) 1 tab PO DAILY pen needle, diabetic (Easy Touch) As directed prednisone 60 mg (3 x 20 mg) PO DAILY prednisone 10 mg PO DIRECTED prednisone 50 mg PO DAILY sacubitril-valsartan 49-51 mg 1 tab PO BID torsemide 20 mg PO DAILY HPI Comments Details: The patient is a 69 test [id number]-[id number] female presenting with osteoporosis. She was recently diagnosed and lacks past treatment for the condition. The patient denies any fractures or falls historically. A dietary assessment revealed consumption of [place] cheese and almond milk with no supplemental calcium in her routine, despite a recommendation for 1200 mg daily calcium intake. She acknowledges a gain in weight, which is recognized as beneficial for osteoporosis but is possibly detrimental to her cardiovascular status given her heart failure diagnosis. Of note, the patient hit menarche at age 10, experienced menopause at 54, and verified no familial predisposition to osteoporosis or related fractures. Her history of heavy smoking has contributed to chronic obstructive pulmonary disease, but she no longer smokes. The patient recalls a recent T-score result that indicates severe osteoporosis with high fracture risk regardless of trauma. First diagnosed in recently . Not Received treatment in the past No history of pathologic fracture or ONJ. Has several servings of dietary calcium per day in the form of cheese, milk , oranges . Takes Calcium supplement ? mg daily in divided doses. Takes ? IU of Vitamin D daily. - Daily vitamins: specific components undisclosed; includes calcium and vitamin D but not measured. The patient regularly includes [place] cheese and almond milk in her diet, emphasizing an interest in vegetables and fruits such as oranges, apples, and bananas. She was advised to maintain daily calcium intake of 1200 milligrams primarily through dietary sources rather than supplements. Denies ever using PPI, anticoagulant, antiepileptic or glucocorticoid medicati on. 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 UTD on dental cleanings and sees dentist every 6 months. No planned upcoming dental work or extractions. No heavy ETOH use but previous tabacco use DXA dated 11/06/24 : FINDINGS: The bone mineral density of the lumbar spine is 0.712 with a T-score of -4.1, and a Z-score of -2.2. The bone mineral density of the left total hip is 0.842 with a T-score of -1.3, and a Z-score of 0.3. The bone mineral density of the left femoral neck is 0.733 with a T-score of -2.2, and a Z-score of -0.4. MM/XR DEXA axial skeleton IMPRESSION: Based on bone mineral density, and according to World Health Organization (WHO) criteria, the diagnosis is consistent with osteoporosis. Labs: Secondary workup showed low vitamin-D and high urinary calcium 24 hour PFSH Medical History Osteoporosis Surgical History History of pacemaker Family History Mother Cancer of unknown origin Father Heart attack Social History Household Members: Children Household Members Other:: Son Alcohol intake: never Patient Tobacco Use Status: Former Tobacco user Assessment & Plan Assessment & Plan (1) Osteoporosis: Code(s): M81.0 - Age-related osteoporosis without current pathological fracture Category: Medical Plan: This is a 68-year-old female with a history of severe osteoporosis. Secondary workup showed low vitamin-D with high PTH and high 24 hour urine calcium. Possible differential diagnosis includes secondary hyperparathyroidism due to vitamin-D deficiency versus primary hyperparathyroidism Plan is to start vitamin-D supplementation 2000 IU and hold calcium supplementation and recheck calcium, albumin, PTH, 25 hydroxy vitamin-D, 24 hour [facility] calcium and [facility] . If results are consistent with primary hyperparathyroidism, patient would be a candidate for parathyroid exploration considering the very low bone density in the spine. If there was no evidence of primary hyperparathyroidism, would consider treatment with anabolic namely Evenity S the patient is very high risk for fracture Orders: Orders Creatinine, 24 Hr Group 2 Months M81.0 - Age-related osteoporosis without current pathological fracture Calcium, 24 Hr Ur 2 Months M81.0 - Age-related osteoporosis without current pathological fracture Coding Level of Care Code Est Pt Level 3 (77716) Diagnoses Osteoporosis M81.0
--- OUTSIDE RECORDS SUMMARY | 2025-04-09 11:10 | XMS_ITS | Encounter Summary ---
Author Organization [employer] Address [address] [place] [address] Care Team Providers Care Sintering Plant Supervisor Name Role Phone Shania Morgan MD Primary Care Provider [phone] Aileen Bernabe PharmD Unavailable [phone] Reason for Visit * Reason Comments Med Refill Encounter Details Date Type Department Care Team ([facility] st Contact Info) Description 08/13/2024 Refill [facility] [address] [place] [address] Shania Morgan MD [address] [place] [address] Social History Tobacco Use Types Packs/Day Years [...] Care Team (Late st Contact Info) Description 04/11/2025 9:30 AM EDT Medication Management [facility] MEDICINE [address] [place] [address] Aileen Bernabe PharmD [address] [place] [address] documented as of this encounter Visit Diagnoses Not on filedocumented in this encounter Additional Health Concerns Assessment Noted Time PHQ-9 Depression Total Score: 18 024 10:39 AM EST documented as of this encounter Care Teams Sintering Plant Supervisor Relationship Specialty Start Date End Date Shania Morgan MD [address] [place] [id number] PCP - General Family Medicine 08/01/23 Aileen Bernabe PharmD [address] [place] [phone] Pharmacist Internal Medicine 11/20/24 documented as of this encounter
--- OUTSIDE RECORDS SUMMARY | 2025-04-09 11:10 | XMS_ITS | Patient Health Record ---
Author Organization [facility] Address [address] [address] Care Team Providers Care Avionics Manager Name Role Phone Navi Barr Primary Care Provider Navi Barr MD Unavailable Unavailable Reason For Referral No Information Problems Problem Type SNOMED Code ICD Code Onset Dates Problem Status W/U Status Risk Notes Problem Occlusion and stenosis of multiple and bilateral cerebral arteries ([id number]) Occlusion and stenosis of bilateral carotid arteries (I65.23) Active confirmed Plan Of Treatment No Information Insurance Providers Payer Name Payer Address Payer Phone Subscriber Number Group Number Insured Name Patient Relationship to Insured Coverage Start Date Coverage End Date [facility] [address] [place] [phone] [id number] Pebbles Bourgeois Self - patient is the insured
== END 2025-04-09 11:05 | disposition home or self-care (01) ==
LOC: HO.ENCR 10:26
PROVIDERS: PCP Registered Nurse; Visit Provider Internal Medicine Endocrinology, Diabetes & Metabolism
DX: M81.0 Age-related osteoporosis without current pathological fracture (principal)
CPT/HCPCS: 99213

== ENCOUNTER → 2025-04-09 10:25 | Outpatient (BNVA) | payer OTHER, SELFPAY | PROVIDERS: PCP Registered Nurse; Visit Provider Internal Medicine Endocrinology, Diabetes & Metabolism | DX: M81.0 Age-related osteoporosis without current pathological fracture (principal) | CPT/HCPCS: 99212 ==

== ENCOUNTER → 2025-04-09 23:59 | Outpatient (BNV) | payer OTHER, SELFPAY ==
--- NOTE | 2025-04-13 20:16 | MHC.OFFVIS ---
Intake Visit Reasons: REmote HF monitoring- Medtronic Allergies No Known Allergies Allergy (Verified 04/09/25 10:49) PFSH Medical History Osteoporosis Surgical History History of pacemaker Family History Mother Cancer of unknown origin Father Heart attack Social History Household Members: Children Household Members Other:: Son Alcohol intake: never Patient Tobacco Use Status: Former Tobacco user Office Procedures Cardiac Device Check Cardiac Device Check Details: HF monitoring WIND DEVELOPMENT DIRECTOR 99% Stable thoracic impedance. [id number] Cardiac Device Interrogation, cardio physiologic monitor Procedure code (CPT) selection complete Assessment & Plan Assessment & Plan (1) ICD (implantable cardioverter-defibrillator) discharge: Code(s): Z45.02 - Encounter for adjustment and management of automatic implantable cardiac defibrillator Category: Medical Plan Coding Level of Care Code Procedure Only Diagnoses ICD (implantable cardioverter-defibrillator) discharge Z45.02 CPT Codes Cardiac Device Check - Cardiac Device 15: [id number] Cardiac Device Interrogation, cardio physiologic monitor ([id number])
== END ==
PROVIDERS: PCP Registered Nurse; Visit Provider Internal Medicine Cardiovascular Disease
DX: Z45.02 Encounter for adjustment and management of automatic implantable cardiac defibrillator (principal)
CPT/HCPCS: 93297

== ENCOUNTER 2025-04-24 07:49 | Outpatient (REF) | payer OTHER, SELFPAY ==
--- NOTE | ~2025-04-24 | MM_ITS ---
EXAMINATION: MM SCREENING DIGITAL BREAST TOMOSYNTHESIS, BILATERAL CLINICAL INFORMATION: Screening. Asymptomatic. COMPARISON: February 13, 2024 TECHNIQUE: Digital breast tomosynthesis is performed in mediolateral oblique and craniocaudal views along with computer-aided detection (CAD). Additional views were taken if needed. Best possible images according to technologist's notes. FINDINGS: BREAST COMPOSITION: There are scattered areas of fibroglandular density (ACR BI-RADS breast composition Category b). RIGHT BREAST: No significant masses, suspicious calcifications or other abnormalities are seen. LEFT BREAST: Pacemaker battery obscures local evaluation. No significant masses, suspicious calcifications or other abnormalities are seen. MM/MM tomosynthesis screening BI IMPRESSION: BILATERAL BREASTS: Negative, no mammographic evidence of malignancy. Normal interval follow-up is recommended in 12 months. ASSESSMENT: BI-RADS 1 - Negative RECOMMENDATION: Routine annual mammography screening. FOLLOW-UP: 1 year F/U This examination should not preclude the clinical evaluation of a suspicious palpable abnormality. This patient's information was entered into a reminder system with a target due date for their next mammogram. Electronically signed by: Fercho King MD 04/26/2025 04:05 PM EDT
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
--- OUTSIDE RECORDS SUMMARY | 2025-04-24 07:52 | XMS_ITS | Encounter Summary ---
Author Organization [employer] Address [address] [facility] [address] [place] [address] Care Team Providers Care Surgeon'S Assistant Name Role Phone Shania Morgan MD Primary Care Provider [phone] Aileen Bernabe PharmD Unavailable [phone] Reason for Visit * Reason Comments Med Refill Encounter Details Date Type Department Care Team ([facility] st Contact Info) Description 08/13/2024 Refill [facility] [address] [place] [address] Shania Morgan MD [address] [place] [address] Social History Tobacco Use Types Packs/Day Years [...] Description 05/02/2025 9:30 AM EDT Medication Management [facility] [address] [place] [address] Aileen Bernabe PharmD [address] [place] [address] documented as of this encounter Visit Diagnoses Not on filedocumented in this encounter Additional Health Concerns Assessment Noted Time PHQ-9 Depression Total Score: 18 024 10:39 AM EST documented as of this encounter Care Teams Surgeon'S Assistant Relationship Specialty Start Date End Date Shania Morgan MD [address] [place] [phone] PCP - General Family Medicine 08/01/23 Aileen Bernabe PharmD [address] [place] [phone] Pharmacist Internal Medicine 11/20/24 documented as of this encounter
--- OUTSIDE RECORDS SUMMARY | 2025-04-24 07:52 | XMS_ITS | Encounter Summary ---
Author Organization [employer] Address [address] [facility] [address]t [place] [address] Care Team Providers Care Home Service Consultant Name Role Phone Shania Morgan MD Primary Care Provider [phone] Aileen Bernabe PharmD Unavailable [phone] Reason for Visit * Reason Comments Med Refill Encounter Details Date Type Department Care Team ([facility] st Contact Info) Description 09/17/2024 Refill [facility] [address] [place], [place] [phone] Shania Morgan MD [address] [place] [address] Social History Tobacco Use Types Packs/Day Years [...] Description 05/02/2025 9:30 AM EDT Medication Management [facility] [address] [place] [address] Aileen Bernabe PharmD [address] [place] [address] documented as of this encounter Visit Diagnoses Not on filedocumented in this encounter Additional Health Concerns Assessment Noted Time PHQ-9 Depression Total Score: 18 024 10:39 AM EST documented as of this encounter Care Teams Home Service Consultant Relationship Specialty Start Date End Date Shania Morgan MD [address] [place] [phone] PCP - General Family Medicine 08/01/23 Aileen Bernabe PharmD [address] [place] [phone] Pharmacist Internal Medicine 11/20/24 documented as of this encounter
--- OUTSIDE RECORDS SUMMARY | 2025-04-24 07:53 | XMS_ITS | Patient Health Record ---
Author Organization [facility] Address [address] [address] Care Team Providers Care Web Production Manager Name Role Phone Navi Barr Primary Care Provider Navi Barr MD Unavailable Unavailable Reason For Referral No Information Problems Problem Type SNOMED Code ICD Code Onset Dates Problem Status W/U Status Risk Notes Problem Occlusion and stenosis of bilateral carotid arteries (I65.23) Active confirmed Plan Of Treatment No Information Insurance Providers Payer Name Payer Address Payer Phone Subscriber Number Group Number Insured Name Patient Relationship to Insured Coverage Start Date Coverage End Date [facility] [address] RUPERT Jimenez [phone] [id number] Pebbles Bourgeois Self - patient is the insured
== END 2025-04-24 07:50 | disposition home or self-care (01) ==
LOC: HO.MAMMO 07:49
PROVIDERS: PCP General Practice; Visit Provider General Practice
DX: Z12.31 Encounter for screening mammogram for malignant neoplasm of breast (principal)
CPT/HCPCS: 77063; 77067

== ENCOUNTER → 2025-04-24 08:15 | Outpatient (BNV) | payer OTHER, SELFPAY | PROVIDERS: PCP General Practice; Visit Provider Radiology Body Imaging | DX: Z12.31 Encounter for screening mammogram for malignant neoplasm of breast (principal) | CPT/HCPCS: 77063; 77067 ==

== ENCOUNTER → 2025-05-10 23:59 | Outpatient (BNV) | payer OTHER, SELFPAY ==
--- NOTE | 2025-06-21 13:20 | MHC.OFFVIS ---
Intake Visit Reasons: REmote HF monitoring- [employer] Allergies No Known Allergies Allergy (Verified 05/26/25 16:08) PFSH Medical History Osteoporosis Surgical History History of pacemaker Family History Mother Cancer of unknown origin Father Heart attack Social History Household Members: Children Household Members Other:: Son Alcohol intake: never Patient Tobacco Use Status: Former Tobacco user Office Procedures Cardiac Device Check Cardiac Device Check Details: HF monitoring Stable thoracic impedance. [id number] Cardiac Device Interrogation, cardio physiologic monitor Procedure code (CPT) selection complete Assessment & Plan Assessment & Plan (1) Cardiomyopathy: Code(s): I42.9 - Cardiomyopathy, unspecified Category: Medical Plan: Coding Level of Care Code Procedure Only Diagnoses Cardiomyopathy I42.9 CPT Codes Cardiac Device Check - Cardiac Device 15: [id number] Cardiac Device Interrogation, cardio physiologic monitor ([id number])
== END ==
PROVIDERS: PCP General Practice; Visit Provider Internal Medicine Cardiovascular Disease
DX: I42.9 Cardiomyopathy, unspecified (principal); Z95.810 Presence of automatic (implantable) cardiac defibrillator
CPT/HCPCS: 93297

== ENCOUNTER → 2025-05-16 23:59 | Outpatient (BNV) | payer OTHER, SELFPAY ==
--- NOTE | 2025-06-23 20:34 | A.OFFVIS_ITS ---
Intake Visit Reasons: Remote ICD check- Medtronic Allergies No Known Allergies Allergy (Verified 06/23/25 11:23) PFSH Medical History Osteoporosis Surgical History History of pacemaker Family History Mother Cancer of unknown origin Father Heart attack Social History Household Members: Children Household Members Other:: Son Alcohol intake: never Patient Tobacco Use Status: Former Tobacco user Advance Directives: Yes Advance Directives Information Provided: No Advance Directives on File: No Office Procedures Cardiac Device Check Cardiac Device Check Details: Biv AICD Good battery life CREDIT RISK ANALYTICS MANAGER 93% ATP episode recorded for episode of Afib. Patient previously had ICD discharge for Afib. 86190-Eukvpo Cardiac Device Interrogation, pacemaker or defibrillator Procedure code (CPT) selection complete Assessment & Plan Assessment & Plan (1) Cardiomyopathy: Code(s): I42.9 - Cardiomyopathy, unspecified Category: Medical Plan: Coding Level of Care Code Procedure Only Diagnoses Cardiomyopathy I42.9 CPT Codes Cardiac Device Check - Cardiac Device 14: 95178-Brqwre Cardiac Device Interrogation, pacemaker or defibrillator ([id number])
== END ==
PROVIDERS: PCP General Practice; Visit Provider Internal Medicine Cardiovascular Disease
DX: I42.9 Cardiomyopathy, unspecified (principal); I48.91 Unspecified atrial fibrillation; Z95.810 Presence of automatic (implantable) cardiac defibrillator
CPT/HCPCS: 93295

== ENCOUNTER 2025-05-20 09:28 | Outpatient (AMB) | payer OTHER, SELFPAY ==
--- NOTE | 2025-05-20 10:47 | A.OFFVIS_ITS ---
Vital Signs 05/20/25 10:48 Height 5 ft 2 in Weight 141 lb 1.533 oz BMI 25.8 BP 126/70 Blood Pressure Location Rt brachial Position Sitting Pulse 127 H Pulse Source Monitor Intake Visit Reasons: r/s km-4m follow up Policy Writer Services: Policy Writer Offered & Declined Accompanied by: Daughter Allergies No Known Allergies Allergy (Verified 05/20/25 10:56) Medication List - Last Reconciled 05/20/25 by LILIANA Loco alcohol swabs (Alcohol Prep Pads) 1 pad topical TID apixaban (Eliquis) 5 mg PO BID atorvastatin 10 mg PO DAILY benzonatate 200 mg PO TID PRN blood sugar diagnostic (TouchPo Android POSuch Ultra Test strips) As directed empagliflozin (Jardiance) 10 mg PO DAILY flash glucose scanning reader (SkipolaStyle Toña 2 [place]) As directed flash glucose sensor (FreeStyle Toña 2 Sensor kit) As directed bdigzytskch-iihqsfpaa-szvmlxhz 200-62.5-25 mcg (Trelegy Ellipta) 1 inh inhalation DAILY gabapentin 300 mg PO BEDTIME insulin glargine (Lantus Solostar U-100 Insulin) units subcut ipratropium-albuterol 0.5 mg-3 mg(2.5 mg base)/3 mL 3 mL inhalation Q6H PRN lancets (Control Medical TechnologyTouch Delica Plus Lancet) As directed melatonin 5 mg PO BEDTIME metoprolol succinate ER 50 mg PO BID 90 days multivitamin (One Daily Multivitamin tablet) 1 tab PO DAILY pen needle, diabetic (Easy Touch) As directed prednisone 60 mg (3 x 20 mg) PO DAILY prednisone 10 mg PO DIRECTED prednisone 50 mg PO DAILY sacubitril-valsartan 49-51 mg 1 tab PO BID torsemide 20 mg PO DAILY HPI HPI r/s km-4m follow up: Details: Pebbles is a 69-year-old female with past medical history of interstitial lung disease, COPD, nonischemic cardiomyopathy, left bundle branch block, Bi V ICD, paroxysmal atrial fibrillation who presents for follow-up after recent ICD shock for AFib RVR. Following the episode of her metoprolol was increased to 50 mg b.i.d.. Today she reports that she did not feel the ICD shock. She believes she may have been sleeping at that time. When she woke up that day she did have soreness in her chest. She does feel intermittent heart palpitations which could be from her AFib. No dizziness, presyncope, syncope, falls. No other chest discomfort at rest or with activity. She does have some shortness of breath with exertional activities which is not new. No recent change to her breathing, no PND, orthopnea. She has had discomfort in her left lower leg for the last 4 days. She does not recall any injury or other causes for this symptom. She says it has been worsening with time. Taking all meds as directed. No bleeding issues reported. She is drinking several cups of caffeinated coffee throughout each day. Daughter is present and she is assisting with Finnish translation at their request. [facility] Medical History Osteoporosis Surgical History History of pacemaker Family History Mother Cancer of unknown origin Father Heart attack Social History Household Members: Children Household Members Other:: Son Alcohol intake: never Patient Tobacco Use Status: Former Tobacco user Review of Systems Const Denies daytime sleepiness, Denies difficulty sleeping, Denies snoring, Denies stops breathing during sleep and Denies weakness Card Reports chest pain, Denies rapid heart rate, Denies irregular heart rhythm, Denies claudication, Denies leg edema, Denies lightheadedness, Reports palpitations, Reports dyspnea, Denies dyspnea on exertion, Denies orthopnea, Denies paroxysmal nocturnal dyspnea and Denies slow heart rate Resp Denies cough, Reports dyspnea, Denies dyspnea on exertion and Denies snoring GI Reports no additional complaints, Denies hematochezia, Denies change in stool character and Denies dyspepsia Musc Reports abnormal gait (right calf pain), Denies muscle weakness and Denies numbness Neuro Reports abnormal gait (right calf pain), Denies numbness and Denies weakness Endo Reports palpitations Physical Exam Vital Signs: Last Vital Signs BP 126/70 05/20/25 10:48 BMI result Body Mass Index 25.8 Const General: cooperative, healthy appearing, comfortable and no acute distress Orientation/consciousness: patient oriented x3 Neck Neck: Yes normal visual inspection Resp Effort & Inspection: normal respiratory effort Auscultation: clear to auscultation bilaterally, rales (Left base, right 1/3 up), no rhonchi and no wheezes Cardio Rate: regular rate Rhythm: regular rhythm Heart sounds: S1 normal heart sound present, S2 normal heart sound present, no gallops, no murmurs and no rubs Neuro General: patient oriented x3 Extrem General: Yes normal to inspection, No no pedal edema and Yes calf tenderness (left, without redness, has mild left foot puffiness) Psych Appearance: grossly normal Mental Status: mental status grossly normal Speech and movement: Normal speech and movement present Office Procedures Cardiac Device Check Cardiac Device Check Details: Medtronic Bi V ICD interrogation today, currently a since, Bi V paced 78 beats per minute, total V paced 98.6%, affective 98.4%, 80/AF burden 0.8%, optivol below threshold, 05/03/2025 received 2 shocks for high V rate, likely AFib RVR, V rate over 200, episode of ATP as well, right atrial threshold 0.75 volts at 0.4 milliseconds, RV threshold 1.5 volts at 0.4 milliseconds, LV threshold 0.75 volts at 0.4 milliseconds. Battery 4.9 years. DDD mode, low rate 60. 36665-NM Cardiac Device Check, multi lead implantable defibrillator Procedure code (CPT) selection complete EKG Details: today, read by me, atrial sensed, BiV paced, rate 75, Qtc 454ms [id number], Complete Assessment & Plan Assessment & Plan (1) Paroxysmal A-fib: Code(s): I48.0 - Paroxysmal atrial fibrillation Category: Medical Plan: History of paroxysmal atrial fibrillation with low burden. Has had ICD shock in the past for AFib RVR and she again had ICD shock x2 for AFib RVR as well as an episode of ATP for AF RVR. Device interrogation today shows current burden 0.8%. She has undergone EP evaluation and ablation not done due to low burden. She is not a good candidate for some antiarrhythmic due to interstitial lung disease. She has no CAD based on prior cardiac catheterization. Spoke with Dr. Morin and he is reaching out to regarding ablation. At this time will continue on metoprolo XL 50 mg b.i.d.. Flecainide is being considered. Continue Eliquis for anticoagulation. Ongoing remote monitoring of her ICD. Instructed to reduce caffeine intake. (2) Cardiomyopathy: Code(s): I42.9 - Cardiomyopathy, unspecified Category: Medical Plan: History of cardiomyopathy in the setting of left bundle branch block. Cardiac catheterization had shown no CAD. She is on Entresto and metoprolol for neurohormonal modulation. She is on torsemide as diuretic. Last echocardiogram 10/22/2024 showed EF 50-55%, apex dyskinetic. Bi V ICD in place. No signs of heart failure on examination. OptiVol below threshold. (3) ICD (implantable cardioverter-defibrillator) discharge: Code(s): Z45.02 - Encounter for adjustment and management of automatic implantable cardia c defibrillator Category: Medical Plan: Medtronic Bi V ICD interrogation today shows device is functioning normally. Battery 4.9 years. ICD shock x2 on 05/03/2025 for AFib RVR, rate over 200. Reviewed with [employer] rep, will leave treatment zone at rates greater than 200. Adjustment made by rep to make device recognize AF easier. Remote monitoring in use. (4) Cardiac defibrillator in place: Code(s): Z95.810 - Presence of automatic (implantable) cardiac defibrillator Category: Medical Plan: As above (5) LBBB (left bundle branch block): Code(s): I44.7 - Left bundle-branch block, unspecified Category: Medical Plan: Chronic, now has Bi V ICD. (6) Pain of left calf: Code(s): M79.662 - Pain in left lower leg Category: Medical Plan: Report of left calf discomfort x4 days without known cause. No redness, bruising. She does have tenderness to palpation of the calf muscle. Mild swelling noted in left foot. Most likely muscle type strain however due to the location and significance of her discomfort will order ultrasound to rule out D VT. Less likely to have DVT as she is on Eliquis for anticoagulation and reports compliance. Plan to call her with test results. Plan I discussed with the patient the potential for an ablation procedure to manage atrial fibrillation, pending Dr. Morin's feedback. We reviewed the importance of the defibrillator shocks occurring only in life-saving situations and not for atrial fibrillation. I advised reducing caffeine intake to help manage atrial fibrillation. We also planned an ultrasound to rule out a blood clot in the leg due to significant pain and tenderness. Orders: Orders US venous duplex LE LT Today I82.409 - Acute embolism and thrombosis of unspecified deep veins of unspecified lower extremity Patient Instructions: - Continue taking metoprolol and Eliquis twice daily as prescribed. - Reduce caffeine intake to help manage atrial fibrillation. - Await further instructions regarding potential ablation procedure. - Follow up for leg ultrasound to rule out blood clot. Patient was informed and verbally consented to the use of an ambient scribe for clinic note documentation during this visit. Visit time spent on chart review, interview, assessment, orders, documentation. Coding Level of Care Code Est Pt Level 4 (61909) Complex EM visit Add On G2211 Diagnoses Paroxysmal A-fib I48.0 Cardiomyopathy I42.9 ICD (implantable cardioverter-defibrillator) discharge Z45.[address] Z95.810 LBBB (left bundle branch block) I44.7 Pain of left calf M79.662 CPT Codes Cardiac Device Check - Cardiac Device 6: [id number]-TX Cardiac Device Check, multi lead implantable defibrillator ([id number]) EKG - CPT: 73783-Yxhqldfglyvieubhk, Complete ([id number]) Time Spent (min) 36
[2025-05-20 10:48] VITALS: BP 126/70; PULSE 127; BMI 25.8
--- OUTSIDE RECORDS SUMMARY | 2025-05-20 11:13 | XMS_ITS | Encounter Summary ---
Author Organization [facility] Address [address] [facility] [address] [place] [address] Care Team Providers Care Nail Sticker Name Role Phone Shania Morgan MD Primary Care Provider [phone] Aileen Bernabe PharmD Unavailable [phone] Reason for Visit * Reason Comments Med Refill Encounter Details Date Type Department Care Team ([facility] st Contact Info) Description 09/17/2024 Refill [facility] [address] [place], [place] [phone] Shania Morgan MD [address] [place] [address] Social History Tobacco Use Types Packs/Day Years [...] Care Team (Late st Contact Info) Description 05/26/2025 10:00 AM EDT Medication Management [facility] [address] [place] [phone] Aileen Bernabe PharmD [address] [place] [phone] 07/07/2025 2:15 PM EST Office Visit [facility] [address] [place] [phone] Shania Morgan MD [address] [place] [phone] documented as of this encounter Visit Diagnoses Not on filedocumented in this encounter Additional Health Concerns Assessment Noted Time PHQ-9 Depression Total Score: 18 024 10:39 AM EST documented as of this encounter Care Teams Nail Sticker Relationship Specialty Start Date End Date Shania Morgan MD [address] [place] [phone] PCP - General Family Medicine 08/01/23 Aileen Bernabe PharmD [address] [place] [address] [phone] Pharmacist Internal Medicine 11/20/24 documented as of this encounter
--- OUTSIDE RECORDS SUMMARY | 2025-05-20 11:13 | XMS_ITS | Encounter Summary ---
Author Organization [facility] Address [address] [facility] [address] [place] [address] Care Team Providers Care Pediatric Allergist Name Role Phone Shania Morgan MD Primary Care Provider [phone] Aileen Bernabe PharmD Unavailable [phone] Reason for Visit * Reason Comments Med Refill Encounter Details Date Type Department Care Team ([facility] st Contact Info) Description 08/13/2024 Refill [facility] [address] [place] [address] Shania Morgan MD [address] [place] [address] Social History Tobacco Use Types Packs/Day Years [...] your housing situation today? I have montez snaabria 08/02/[address] you li [...] Description 05/26/2025 10:00 AM EDT Medication Management [facility] [address] [place] [phone] Aileen Bernabe PharmD [address] [place] [phone] 07/07/2025 2:15 PM EST Office Visit [facility] [address] [place] [phone] Shania Morgan MD [address] [place] [phone] documented as of this encounter Visit Diagnoses Not on filedocumented in this encounter Additional Health Concerns Assessment Noted Time PHQ-9 Depression Total Score: 18 024 10:39 AM EST documented as of this encounter Care Teams Pediatric Allergist Relationship Specialty Start Date End Date Shania Morgan MD [address] [place] [phone] PCP - General Family Medicine 08/01/23 Aileen Bernabe PharmD [address] [place] [address] [phone] Pharmacist Internal Medicine 11/20/24 documented as of this encounter
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
--- OUTSIDE RECORDS SUMMARY | 2025-05-20 11:13 | XMS_ITS | Patient Health Record ---
Author Organization [facility] Address [address] [address] Care Team Providers Care Frame Straightener Name Role Phone Navi Barr Primary Care Provider Navi Barr MD Unavailable Unavailable Reason For Referral No Information Problems Problem Type SNOMED Code ICD Code Onset Dates Problem Status W/U Status Risk Notes Problem Occlusion and stenosis of multiple and bilateral cerebral arteries (633052720) Occlusion and stenosis of bilateral carotid arteries (I65.23) Active confirmed Plan Of Treatment No Information Insurance Providers Payer Name Payer Address Payer Phone Subscriber Number Group Number Insured Name Patient Relationship to Insured Coverage Start Date Coverage End Date [facility] [address] [place] [address] [phone] [id number] Pebbles Bourgeois Self - patient is the insured
== END 2025-05-20 11:37 | disposition home or self-care (01) ==
PROVIDERS: PCP General Practice; Visit Provider Nurse Practitioner Family
DX: I48.0 Paroxysmal atrial fibrillation (principal); I42.9 Cardiomyopathy, unspecified; Z45.02 Encounter for adjustment and management of automatic implantable cardiac defibrillator; Z95.810 Presence of automatic (implantable) cardiac defibrillator; I44.7 Left bundle-branch block, unspecified; M79.662 Pain in left lower leg
CPT/HCPCS: 93010; 93284; 99214; G2211

== ENCOUNTER → 2025-05-20 09:28 | Outpatient (BNVA) | payer OTHER, SELFPAY | PROVIDERS: PCP General Practice; Visit Provider Nurse Practitioner Family | DX: Z45.02 Encounter for adjustment and management of automatic implantable cardiac defibrillator (principal); I48.0 Paroxysmal atrial fibrillation; I42.9 Cardiomyopathy, unspecified; I44.7 Left bundle-branch block, unspecified; M79.662 Pain in left lower leg | CPT/HCPCS: 93005; 99212 ==

== ENCOUNTER 2025-05-20 15:30 | Outpatient (REF) | payer OTHER, SELFPAY ==
--- NOTE | ~2025-05-20 | US_ITS ---
EXAMINATION: US TRIPLEX LOWER EXTREMITY, LEFT CLINICAL INFORMATION: Left lower extremity pain. COMPARISON: None available. TECHNIQUE: Color-flow triplex imaging with spectral analysis and compression Doppler were performed on the left lower extremity. FINDINGS: Respiratory variation, normal compression and augmented flow are noted throughout the left lower extremity. The visualized common femoral vein, superficial femoral vein, profunda femoral vein, popliteal vein and midcalf peroneal and posterior tibial venous segments show no evidence of deep venous thrombosis. There is no Reina's cyst. US/US venous duplex LE LT IMPRESSION: No evidence of deep venous thrombosis involving the left lower extremity. Electronically signed by: Alex Alves MD 05/20/2025 04:15 PM EDT RP
== END 2025-05-20 15:31 | disposition home or self-care (01) ==
LOC: HO.US 15:30
PROVIDERS: PCP General Practice; Visit Provider Nurse Practitioner Family
DX: I82.402 Acute embolism and thrombosis of unspecified deep veins of left lower extremity (principal)
CPT/HCPCS: 93971

== ENCOUNTER → 2025-05-20 15:34 | Outpatient (BNV) | payer OTHER, SELFPAY | PROVIDERS: PCP General Practice; Visit Provider Radiology Diagnostic Radiology | DX: M79.662 Pain in left lower leg (principal) | CPT/HCPCS: 93971 ==

== ENCOUNTER 2025-05-26 15:57 | Outpatient (AMB) | payer OTHER, SELFPAY ==
--- NOTE | 2025-05-26 16:03 | MHC.OFFVIS ---
Vital Signs 05/26/25 16:04 Height 5 ft 2 in Weight 138 lb 14.259 oz BMI 25.4 BP 110/72 Blood Pressure Location Rt brachial Position Sitting Pulse 63 Pulse Source Pulse Oximeter Pulse Oximetry (%) 96 Oxygen Delivery Method Room Air Intake Visit Reasons: COPD Allergies No Known Allergies Allergy (Verified 05/26/25 16:08) HPI HPI COPD: Details: Pebbles is a pleasant 69 year old female, former 80+ pack year smoker, quit approximately 10 years ago, with underlying ILD, COPD, CAD, HTN, LBBB, EF 32% s/p AICD and atrial fibrillation on coumadin. Prior chest CT suggestive of pulmonary fibrosis with extensive subpleural and predominantly lower lung interstitial fibrosis present with honeycombing, extensive inter and intralobular septal thickening, peribronchovascular interstitial thickening, and mild traction bronchiectasis with bronchial thickening most notable in the right upper lobe, right middle lobe and lingula, and right greater than left lower lobes, suggestive of UIP vs NSIP. She was started on prednisone and repeat chest CT revealed radiologic improvements in addition to having positive rheumatology work up, BRITTNI+ elevated RF. She was referred to rheumatology, so she would be evaluated towards the end of her prednisone taper however patient no showed appointment on two occasions. She now has an appt in May. We had previously discussed repeating prednisone vs trialing CellCept however patient declined as she feels symptoms are well controlled despite the potential for further progression and fibrosis. Of note, she was also started on amiodarone aware of potential pulmonary effects and is aware to monitor symptoms. Prior 6MWT revealed need for supplemental oxygen with exertion however patient had returned equipment and adamantly refuses a new order. She has been well controlled on Trelegy and albuterol MDI and reports overall improvements in the last few months. She denies dyspnea, wheezing or chest tightness however has developed a productive cough with yellow sputum and chest congestion over the last few days. Denies fevers or chills. [facility] Medical History Osteoporosis Surgical History History of pacemaker Family History Mother Cancer of unknown origin Father Heart attack Social History Household Members: Children Household Members Other:: Son Alcohol intake: never Patient Tobacco Use Status: Former Tobacco user Review of Systems Const Denies excessive sweating, Denies fever(s), Denies headache(s) and Denies night sweats Eyes Denies dry eyes, Denies irritation and Denies itchy eyes ENT Reports Normal hearing present, Denies headache(s), Denies nasal congestion, Denies nasal discharge, Denies post nasal drip and Denies sore throat Card Denies chest pain, Denies chest pain at rest, Denies chest pain with activity, Denies claudication, Denies leg edema, Denies dyspnea on exertion, Denies orthopnea and Denies paroxysmal nocturnal dyspnea Resp Reports change in phlegm color, Reports chest congestion, Reports cough, Denies hemoptysis, Denies excessive phlegm production, Denies pain on inspiration, Denies pain with cough, Denies dyspnea on exertion, Denies stridor and Denies wheezing Musc Denies myalgias Neuro Reports Normal hearing present and Denies headache(s) Endo Denies excessive sweating Evan/Lymph Denies lymphadenopathy Aller/Immun Denies itchy eyes, Denies seasonal rhinorrhea and Denies wheezing Physical Exam Vital Signs: Last Vital Signs Pulse 63 05/26/25 16:04 BP 110/72 05/26/25 16:04 Pulse Ox 96 05/26/25 16:04 Oxygen Delivery Method Room Air 05/26/25 16:04 BMI result Body Mass Index 25.4 Const General: cooperative, healthy appearing, comfortable, no acute distress, well developed and alert Orientation/consciousness: patient oriented x3 Limitations: no limitations HEENT Head: Yes normal to inspection, Yes normocephalic and Yes atraumatic Ears: hearing grossly normal bilaterally and external ears normal Eyes General: appearance normal, both eyes and all related structures Eyelids: Yes eyelids normal Sclerae: sclerae normal EOM: EOMs intact bilaterally Neck Neck: Yes normal visual inspection and Yes no lymphadenopathy Lymphatic: no lymphadenopathy noted Chest Chest palpation & inspection: normal inspection of the chest Resp Other: inspiratory coarse crackles right mid to lung base, otherwise clear. Effort & Inspection: normal respiratory effort, able to speak in complete sentences, no audible wheezes, no cough, no stridor, not tachypneic, no tripod positioning and no use of accessory muscles Cardio Jugular venous distension: no JVD Rate: regular rate Rhythm: regular rhythm Skin Other: warm, dry General skin exam: no rashes or lesions noted Neuro General: patient oriented x3 Cranial nerves: Yes Normal hearing present Cognition (Neuro): normal cognition Gait exam (Neuro): Normal gait present Extrem General: Yes normal to inspection, Yes capillary refill normal, Yes no clubbing, cyanosis or edema and Yes no pedal edema Psych Appearance: grossly normal and well kempt Speech and movement: Normal speech and movement present and Clear speech present Affect: normal affect Attitude: cooperative Thought process: Normal thought process present Thought content: Normal thought content present Insight: Good insight present (Psych) Judgement: Good judgement present (Psych) Assessment & Plan Assessment & Plan (1) COPD (chronic obstructive pulmonary disease): Code(s): J44.9 - Chronic obstructive pulmonary disease, unspecified Category: Medical (2) Personal history of tobacco use: Code(s): Z87.891 - Personal history of nicotine dependence Category: Social Hx (3) Interstitial lung disease: Code(s): J84.9 - Interstitial pulmonary disease, unspecified Category: Medical Plan Will treat bronchitic symptoms with doxycycline. Reviewed progression of ILD based on last chest CT, emphasizing the need to consider medications such as prednisone, CellCept as well as the possibility of progression of fibrosis with no treatments, however she adamantly refuses. Emphasized importance of keeping appointment with rheumatology. We also reviewed importance of supplemental oxygen and potential complications of hypoxia, however continues to refuse. At baseline, patient feels symptoms are well controlled on current regimen of Trelegy and would like to defer other treatments at this time. She is agreeable to doxycycline given bronchitic symptoms. She is aware to call if symptoms do not improve. Aware to monitor symptoms due to known h/o ILD as well as recently starting Amiodarone. Will send for updated chest CT to assess for further progression of ILD. All questions were answered and patient is in agreement of plan. Will follow up in 4-6 weeks or sooner if needed. Orders: Orders CT chest wo IV con Today J84.9 - Interstitial pulmonary disease, unspecified Hypersensitive Pneumonitis Prf 05/26/25 R05.9 - Cough, unspecified Medications: New doxycycline hyclate 100 mg PO BID 14 caps 0RF Coding Level of Care Code Est Pt Level 4 (32659) Complex EM visit Add On G2211 Diagnoses COPD (chronic obstructive pulmonary disease) J44.9 Personal history of tobacco use Z87.891 Interstitial lung disease J84.9
[2025-05-26 16:04] VITALS: BP 110/72; PULSE 63; O2SAT 96; BMI 25.4
--- OUTSIDE RECORDS SUMMARY | 2025-05-26 18:02 | XMS_ITS | Encounter Summary ---
Author Organization [employer] Address [address] [facility] 7t [place] [address] Care Team Providers Care Purchasing Manager Name Role Phone Shania Morgan MD Primary Care Provider [phone] Aileen Bernabe PharmD Unavailable [phone] Encounter Details Date Type Department Care Team (Latest Contact Info) Description 05/26/2025 Travel Social History Tobacco Use Types Packs/Day [...] Care Team (Late st Contact Info) Description 06/27/2025 10:00 AM EDT Medication Management [facility] MEDICINE [address] [place] [phone] Aileen Bernabe PharmD [address] [place] [address] 07/07/2025 2:15 PM EST Office Visit [facility] MEDICINE [address] [place] [phone] Shania Morgan MD [address] [place] [phone] documented as of this encounter Visit Diagnoses Not on filedocumented in this encounter Additional Health Concerns Assessment Noted Time PHQ-9 Depression Total Score: 0 09/30/19 25 10:31 AM EST documented as of this encounter Care Teams Purchasing Manager Relationship Specialty Start Date End Date Shania Morgan MD [address] [place] [address] PCP - General Family Medicine 08/01/23 Aileen Bernabe PharmD [address] [place] [address] 42787 Pharmacist Internal Medicine 11/20/24 documented as of this encounter
--- OUTSIDE RECORDS SUMMARY | 2025-05-26 18:02 | XMS_ITS | Encounter Summary ---
Author Organization [employer] Address [address] [facility] 7t [place] [address] Care Team Providers Care Manufacturing Production Technician Name Role Phone Shania Morgan MD Primary Care Provider [phone] Aileen Bernabe PharmD Unavailable [phone] Reason for Visit * Reason Comments Med Refill Encounter Details Date Type Department Care Team ([facility] st Contact Info) Description 09/17/2024 Refill [facility] MEDICINE [address] [place], [place] [phone] Shania Morgan MD [address] [place] [address] Social History Tobacco Use Types Packs/Day Years [...] Description 06/27/2025 10:00 AM EDT Medication Management [facility] MEDICINE [address] [place] [phone] Aileen Bernabe PharmD [address] [place] [phone] 07/07/2025 2:15 PM EST Office Visit [facility] MEDICINE [address] [place] [address] Shania Morgan MD [address] [place] [address] 164[address] documented as of this encounter Visit Diagnoses Not on filedocumented in this encounter Additional Health Concerns Assessment Noted Time PHQ-9 Depression Total Score: 18 024 10:39 AM EST documented as of this encounter Care Teams Manufacturing Production Technician Relationship Specialty Start Date End Date Shania Morgan MD [address] [place] [phone] PCP - General Family Medicine 08/01/23 Aileen Bernabe PharmD [address] [place] [address] [phone] Pharmacist Internal Medicine 11/20/24 documented as of this encounter
--- OUTSIDE RECORDS SUMMARY | 2025-05-26 18:02 | XMS_ITS | Encounter Summary ---
Author Organization [employer] Address 75 [facility] 7t [place] [address] Care Team Providers Care Administrative Services Director Name Role Phone Shania Morgan MD Primary Care Provider [phone] Aileen Bernabe PharmD Unavailable [phone] Reason for Visit * Reason Comments Med Refill Encounter Details Date Type Department Care Team ([facility] st Contact Info) Description 08/13/2024 Refill [facility] MEDICINE 230 [place] [address] Shania Morgan MD 230 [place] [address] Social History Tobacco Use Types Packs/Day Years [...] Description 06/27/2025 10:00 AM EDT Medication Management [facility] MEDICINE [address] [place] [phone] Aileen Bernabe PharmD [address] [place] [address] 07/07/2025 2:15 PM EST Office Visit [facility] MEDICINE [address] [place] [address] Shania Morgan MD [address] [place] [address] [phone] documented as of this encounter Visit Diagnoses Not on filedocumented in this encounter Additional Health Concerns Assessment Noted Time PHQ-9 Depression Total Score: 18 024 10:39 AM EST documented as of this encounter Care Teams Administrative Services Director Relationship Specialty Start Date End Date Shania Morgan MD [address] [place] [phone] PCP - General Family Medicine 08/01/23 Aileen Bernabe PharmD [address] [place] [address] [phone] Pharmacist Internal Medicine 11/20/24 documented as of this encounter
--- OUTSIDE RECORDS SUMMARY | 2025-05-26 18:02 | XMS_ITS | Encounter Summary ---
Author Organization [employer] Address [address] [facility] 7t [place] [address] Care Team Providers Care Laborer Pipeline Name Role Phone Shania Morgan MD Primary Care Provider Aileen Bernabe PharmD Unavailable [phone] Encounter Details Date Type Department Care Team (Late st Contact Info) Description 05/22/2025 Telephone [facility] MEDICINE 230 [place], [place] [phone] Aileen Bernabe, PharmD [address] [place] [address] Social History Tobacco Use Types Packs/Day Years [...] t he electric, gas, oil or water [employer] threatened to shut off services in your [...] encounter Miscellaneous Notes * Telephone Encounter - Aileen Bernabe PharmD - 05/22/2025 9:31 AM EDT Incoming call from Pilar in pharmacy. Patient's CGM reader has malfunctioned. She/daughter have already contacted [email or web address] for a replacement but will waiting they are in need of new prescription for OneTouch glucometer. Prescription issued today as requested. [facility] to follow [facility] next week aspreviously scheduled. documented in this encounter Plan of Treatment Upcoming Encounters Date Type Department Care Team (Late st Contact Info) Description 06/27/2025 10:00 AM EDT Medication Management [facility] MEDICINE [address] [place] [phone] Aileen Bernabe PharmD [address] [place] [address] 07/07/2025 2:15 PM EST Office Visit [facility] MEDICINE [address] [place] [address] Shania Morgan MD [address] [place] [address] 10868 documented as of this encounter Visit Diagnoses Diagnosis Type 2 diabetes mellitus with hyperglycemia, with long-term current use of insulin (HCC)- Primary documented in this encounter Additional Health Concerns Assessment Noted Time PHQ-9 Depression Total Score: 0 09/30/19 10:31 AM EST documented as of this encounter Care Teams Laborer Pipeline Relationship Specialty Start Date End Date Shania Morgan MD [address] [place], [place] [phone] PCP - General Family Medicine 08/01/23 Aileen Bernabe PharmD 230 [place] [address] Pharmacist Internal Medicine 11/20/24 documented as of this encounter
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
--- OUTSIDE RECORDS SUMMARY | 2025-05-26 18:03 | XMS_ITS | Patient Health Record ---
Author Organization [facility] Address [address] [address] Care Team Providers Care Customer Leader Name Role Phone Navi Barr Primary Care Provider [phone] Navi Barr MD Unavailable Unavailable Reason For Referral No Information Problems Problem Type SNOMED Code ICD Code Onset Dates Problem Status W/U Status Risk Notes Problem Occlusion and stenosis of multiple and bilateral cerebral arteries (767054219) Occlusion and stenosis of bilateral carotid arteries (I65.23) Active confirmed Plan Of Treatment No Information Insurance Providers Payer Name Payer Address Payer Phone Subscriber Number Group Number Insured Name Patient Relationship to Insured Coverage Start Date Coverage End Date [facility] [address] [place] [phone] [id number] Pebbles Bourgeois Self - patient is the insured
== END 2025-05-26 16:33 | disposition home or self-care (01) ==
LOC: HO.HPS 15:57
PROVIDERS: PCP General Practice; Visit Provider Nurse Practitioner Family
DX: J44.9 Chronic obstructive pulmonary disease, unspecified (principal); Z87.891 Personal history of nicotine dependence; J84.9 Interstitial pulmonary disease, unspecified
CPT/HCPCS: 99214; G2211

== ENCOUNTER → 2025-05-26 15:57 | Outpatient (BNVA) | payer OTHER, SELFPAY | PROVIDERS: PCP General Practice; Visit Provider Nurse Practitioner Family | DX: J44.9 Chronic obstructive pulmonary disease, unspecified (principal); J84.9 Interstitial pulmonary disease, unspecified; Z87.891 Personal history of nicotine dependence | CPT/HCPCS: 99212 ==

== ENCOUNTER → 2025-06-10 23:59 | Outpatient (BNV) | payer OTHER, SELFPAY ==
--- NOTE | 2025-06-23 21:50 | MHC.OFFVIS ---
Intake Visit Reasons: REmote HF monitoring- Medtronic Allergies No Known Allergies Allergy (Verified 06/23/25 11:23) PFSH Medical History Osteoporosis Surgical History History of pacemaker Family History Mother Cancer of unknown origin Father Heart attack Social History Household Members: Children Household Members Other:: Son Alcohol intake: never Patient Tobacco Use Status: Former Tobacco user Advance Directives: Yes Advance Directives Information Provided: No Advance Directives on File: No Office Procedures Cardiac Device Check Cardiac Device Check Details: HF Stable thoracic impedance. 52767-Lulgdk Cardiac Device Interrogation, cardio physiologic monitor Procedure code (CPT) selection complete Assessment & Plan Assessment & Plan (1) Cardiac defibrillator in place: Code(s): Z95.810 - Presence of automatic (implantable) cardiac defibrillator Category: Medical Plan: Coding Level of Care Code Procedure Only Diagnoses Cardiac defibrillator in place Z95.810 CPT Codes Cardiac Device Check - Cardiac Device 15: 52830-Jnsmsv Cardiac Device Interrogation, cardio physiologic monitor ([id number])
== END ==
PROVIDERS: PCP General Practice; Visit Provider Internal Medicine Cardiovascular Disease
DX: I50.9 Heart failure, unspecified (principal); Z95.810 Presence of automatic (implantable) cardiac defibrillator
CPT/HCPCS: 93297

== ENCOUNTER → 2025-06-10 23:59 | Outpatient (BNV) | payer OTHER, SELFPAY ==
--- NOTE | 2025-06-23 21:51 | MHC.OFFVIS ---
Intake Visit Reasons: Remote ICD check- Medtronic Allergies No Known Allergies Allergy (Verified 06/23/25 11:23) PFSH Medical History Osteoporosis Surgical History History of pacemaker Family History Mother Cancer of unknown origin Father Heart attack Social History Household Members: Children Household Members Other:: Son Alcohol intake: never Patient Tobacco Use Status: Former Tobacco user Advance Directives: Yes Advance Directives Information Provided: No Advance Directives on File: No Office Procedures Cardiac Device Check Cardiac Device Check Details: BiV AICD Good battery life BP 97% No new alerts. 49022-Iinvjy Cardiac Device Interrogation, pacemaker or defibrillator Procedure code (CPT) selection complete Assessment & Plan Assessment & Plan (1) Cardiomyopathy: Code(s): I42.9 - Cardiomyopathy, unspecified Category: Medical Plan: Coding Level of Care Code Procedure Only Diagnoses Cardiomyopathy I42.9 CPT Codes Cardiac Device Check - Cardiac Device 14: 97671-Kocalk Cardiac Device Interrogation, pacemaker or defibrillator ([id number])
== END ==
PROVIDERS: PCP General Practice; Visit Provider Internal Medicine Cardiovascular Disease
DX: I42.9 Cardiomyopathy, unspecified (principal); Z95.810 Presence of automatic (implantable) cardiac defibrillator
CPT/HCPCS: 93295

== ENCOUNTER 2025-06-23 11:17 | Emergency (ER) | payer OTHER, SELFPAY ==
--- NOTE | ~2025-06-23 | XR_ITS ---
EXAMINATION: X-ray bilateral knees CLINICAL INFORMATION: Pain COMPARISON: None TECHNIQUE: Right knee 4 views. Left knee 4 views. FINDINGS: Right knee: Bone mineralization appears decreased. No visible acute fracture, dislocation or suspicious bony lesion. No significant effusion. Small tibial tubercle spurring. No suspicious soft tissue calcification. Left knee: Bone mineralization appears slightly decreased. No visible acute fracture, dislocation or suspicious bony lesion. No significant joint space narrowing. No significant effusion. No abnormal soft tissue calcification. XR/XR Knee Kapil 4V IMPRESSION: No acute findings. Electronically signed by: Jacob Chester MD 06/23/2025 11:50 AM EDT
[2025-06-23 11:22] VITALS: BP 115/70; PULSE 75; RESP 16; TEMP 36.1; O2SAT 95; BMI 33.3
--- NOTE | 2025-06-23 11:23 | ED.GENADULT ---
HPI - General Adult General Chief complaint: Extremity Problem Stated complaint: knee pain Time Seen by Provider: 06/23/25 12:27 Source: patient, RN notes reviewed and old records reviewed Mode of arrival: ambulatory History of Present Illness ED Provider: Jaye Barbosa PA-C HPI narrative: 69-year-old [place] Citizen-speaking female with a past medical history of AFib, COPD, cardiomyopathy, left bundle-branch block, presenting to the ED complaining of atraumatic bilateral knee pain and swelling x3 days. Reports difficulty ambulating secondary to pain. Reports mild left buttock pain. Denies fever, chills, calf pain, travel, weakness, incontinence/retention. Denies taking anything for pain Related Data Home Medications ?Medication ?Instructions ?Recorded ?Confirmed empagliflozin 10 mg tablet 10 mg PO DAILY 06/06/23 05/20/25 (Jardiance) gabapentin 300 mg capsule 300 mg PO BEDTIME 06/06/23 05/20/25 alcohol swabs (Alcohol Prep Pads) 1 pad topical TID 12/11/24 05/20/25 blood sugar diagnostic (OneTouch #10 ea 12/11/24 04/09/25 Ultra Test strips) flash glucose scanning reader #1 ea 12/11/24 04/09/25 (FreeStyle Toña 2 Solon) flash glucose sensor (FreeStyle #1 ea 12/11/24 04/09/25 Toña 2 Sensor kit) insulin glargine 100 unit/mL (3 unit subcut 12/11/24 05/20/25 mL) subcutaneous pen (Lantus Solostar U-100 Insulin) lancets 33 gauge (OneTouch Delica #100 ea 12/11/24 04/09/25 Plus Lancet) melatonin 5 mg tablet 5 mg PO BEDTIME 12/11/24 05/20/25 multivitamin (One Daily 1 tab PO DAILY 12/11/24 05/20/25 Multivitamin tablet) pen needle, diabetic 31 gauge x #1,200 ea 12/11/24 04/09/2511/10 (Easy Touch) Previous Rx's ?Medication ?Instructions ?Recorded atorvastatin 10 mg tablet 10 mg PO DAILY #90 tabs 07/26/23 prednisone 50 mg tablet 50 mg PO DAILY #30 tabs 12/13/24 torsemide 20 mg tablet 20 mg PO DAILY #90 tabs 01/13/25 benzonatate 200 mg capsule 200 mg PO TID PRN cough #15 caps 02/08/25 prednisone 20 mg tablet 60 mg (3 x 20 mg) PO DAILY #12 tabs 02/08/25 prednisone 10 mg tablet 10 mg PO DIRECTED #210 tabs 02/14/25 fluticasone fur. 200 mcg-umeclid 1 inh inhalation DAILY #60 ea 02/24/25 62.5 mcg-vilant 25 mcg inhalat.powder (Trelegy Ellipta) ipratropium 0.5 mg-albuterol 3 mg 3 ml inhalation Q6H PRN wheezing 02/24/25 (2.5 mg base)/3 mL nebulization #180 mL soln apixaban 5 mg tablet (Eliquis) 5 mg PO BID #180 tabs 04/14/25 metoprolol succinate 50 mg 50 mg PO BID 90 days #180 tabs 05/08/25 tablet,extended release 24 hr amiodarone 200 mg tablet 200 mg PO DAILY #30 tabs 05/22/25 doxycycline hyclate 100 mg capsule 100 mg PO BID #14 caps 05/26/25 sacubitril 49 mg-valsartan 51 mg 1 tab PO BID #180 tabs 06/19/25 tablet acetaminophen 500 mg tablet 500 mg PO Q6H PRN fever or pain 06/23/25 (Tylenol Extra Strength) #14 tabs lidocaine 5 % topical patch 1 patch topical DAILY PRN pain #30 06/23/25 (Lidoderm) ea Allergies Allergy/AdvReac Type Severity Reaction Status Date / Time No Known Allergies Allergy Verified 06/23/25 11:23 Review of Systems Review of Systems: Yes all other systems are reviewed and are negative Constitutional: Constitutional: Reports as per HPI Neurologic: Denies Sensory deficit (Neuro) [facility] Past Medical History Attestation statement: The following information was validated with the patient. Source: old records reviewed Medical History Osteoporosis Surgical History History of pacemaker Family History Family History Mother Cancer of unknown origin Father Heart attack Social History Social History Household Members: Children Household Members Other:: Son Alcohol intake: never Patient Tobacco Use Status: Former Tobacco user Advance Directives: Yes Advance Directives Information Provided: No Advance Directives on File: No Physical Exam ED Vital Signs: Vital Signs - 24 hr 06/23/25 11:22 Temperature 97 F Pulse Rate 75 Respiratory Rate 16 Blood Pressure 115/70 Pulse Oximetry 95 Oxygen Delivery Method Room Air BMI result Body Mass Index 33.3 Const General: cooperative, healthy appearing and no acute distress Orientation/consciousness: patient oriented x3 Limitations: no limitations HENMT Head: Yes normal to inspection and Yes atraumatic Ears: hearing grossly normal bilaterally General nose exam: Normal external nose present Face and sinus: Yes normal facial exam Eyes General: appearance normal, both eyes and all related structures EOM: EOMs intact bilaterally Neck Neck: Yes normal visual inspection and Yes no meningeal signs Resp Effort & Inspection: normal respiratory effort and no respiratory distress Cardio Rate: regular rate GI Inspection: Yes normal to inspection Palpation (GI): Soft to palpation, nontender, no guarding and not rigid General: Yes no CVA tenderness Back/Spine/Pelvis Other: No midline cervical/thoracic/lumbar spinous tenderness/step-off or deformity. Mild left buttock reproducible tenderness Back: no CVA tenderness Skin Rashes: no rashes Wounds: no wounds Neuro Other: Strength intact throughout. No saddle anesthesia. Sensation intact to light touch. Neurovascular intact distally General: patient oriented x3, tone normal, moves all extremities and no meningeal signs Cranial nerves: Yes CN's II-XII intact bilaterally Gait exam (Neuro): Normal gait present Motor exam (neuro): 5/5 motor strength present throughout Sensory Exam: No Sensory deficit (Neuro) Extrem Other: Bilateral knees without appreciable swelling. No erythema or warmth. Diffusely tender to palpation. ROM intact with discomfort. Neurovascularly intact distally bilaterally. No pitting edema. General: Yes normal to inspection, Yes no pedal edema and No calf tenderness Course Course Course Narrative: Rapid medical examination performed in triage by [place] Bates PA-C. Patient is a 69 year old assigned female at presenting to the emergency department with bilateral knee pain that is causing her difficulty walking and family is concerned for her safety with ambulation. Detailed physical exam and review of systems are deferred to the solar pool heating installer. Imaging ordered. Patient placed back in the waiting room pending room availability and results. -x-rays unremarkable >> patient ambulated with pain in the ED. Will obtain PT/case management consult. Physician observation initiated at 14:35 -1627--patient does not want to wait any longer in the ED for PT eval. Would like to be discharged home. Will discharge home with pain medication and recommended close PCP follow-up Results discussed with patient including worrisome signs and symptoms and strict return precautions, and when to return to the emergency department. They verbalized understanding and feel safe for discharge at this time. Medications Administered Discontinued Medications Generic Name Dose Route Start Last Admin Trade Name Freq PRN Reason Stop Dose Admin Acetaminophen 325 mg 06/23/25 12:35 06/23/25 13:00 Acetaminophen 325 Mg Tablet PO 06/23/25 12:36 325 mg ONCE ONE Administration Ketorolac Tromethamine 30 mg 06/23/25 12:35 06/23/25 13:00 Ketorolac Tromethamine 30 Mg/Ml Vial IM 06/23/25 12:36 30 mg ONCE ONE Administration Medical Decision Making Medical Decision Making [facility] Narrative: 69-year-old [place] Citizen-speaking female with a past medical history of AFib, COPD, cardiomyopathy, left bundle-branch block, presenting to the ED complaining of atraumatic bilateral knee pain and swelling x3 days. On exam vital signs stable, NAD, nontoxic appearing physical exam as noted above. Concern for osteoarthritis vs arthralgias vs sciatica/MSK pain. No evidence of septic joint/arthritis. No evidence of compartment syndrome. Unlikely arterial compromise or DVT. Plan: X-ray, pain control, +/-PT/CM Please refer to course for remaining clinical decision making, interpretation of labs/imaging results, and discussions with consultants and/or family members. Differential Diagnosis Differential Diagnoses: The differential diagnosis associated with the presentation includes As above Admission/Observation Consideration of admission/observation: Escalation of care including admission/observation considered Lab Data [facility] Lab Attestation statement: I reviewed the patient's lab results. Radiology Impression Discussion of test interpretation with radiology: I have reviewed the radiologist's reading. Independent Historian Clinical information obtained from an independent historian. History obtained from or confirmed by: Other (Daughter) External Record Review External record reviewed: Inpatient record, Office record, Outpatient record, Prior outpatient labs, Prior outpatient radiology, Primary care record and Outside ED record Tests considered The following testing was considered but not selected: As above Prescription Management I considered prescription management with: Pain Medication Chronic Conditions Patient?s care impacted by: Other (Proximal AFib, COPD) Social Determinants Patient?s care significantly limited by Social Determinants of Health including: Other Social Determinant of Health Discharge Plan Discharge Clinical Impression: Knee pain, bilateral Patient Disposition: Home, Self-Care Instructions: Knee Pain (ED), Arthralgia (ED) Additional Instructions: Please have close follow up with your doctor Tylenol and use Lidoderm patches for pain as needed Ice and elevate If her symptoms persist or worsens/pain becomes unbearable return to the emergency department Prescriptions: New acetaminophen [Tylenol Extra Strength] 500 mg tablet 500 mg PO Q6H PRN (Reason: fever or pain) Qty: 14 0RF lidocaine [Lidoderm] 5 % adhesive patch,medicated 1 patch topical DAILY MDD remove after 12 hours PRN (Reason: pain) Qty: 30 0RF Rx Instructions: leave on most painful area for up to 12 hrs No Action prednisone 50 mg tablet 50 mg PO DAILY Qty: 30 1RF torsemide 20 mg tablet 20 mg PO DAILY Qty: 90 3RF prednisone 10 mg tablet 10 mg PO DIRECTED Qty: 210 0RF Rx Instructions: see taper instructions 50 mg x 2 weeks, 40 mg x 2 weeks, 30 mg x 2 weeks, 20 mg x 2 weeks, 10 mg x 2 weeks Eliquis 5 mg tablet 5 mg PO BID Qty: 180 3RF metoprolol succinate 50 mg tablet extended release 24 hr 50 mg PO BID 90 Days Qty: 180 3RF Rx Instructions: dose increased amiodarone 200 mg tablet 200 mg PO DAILY Qty: 30 1RF sacubitril-valsartan 49-51 mg tablet 1 tab PO BID Qty: 180 3RF gabapentin 300 mg Capsule 300 mg PO BEDTIME Jardiance 10 mg Tablet 10 mg PO DAILY prednisone 20 mg tablet 60 mg PO DAILY Qty: 12 0RF benzonatate 200 mg capsule 200 mg PO TID PRN (Reason: cough) Qty: 15 0RF atorvastatin 10 mg tablet 10 mg PO DAILY Qty: 90 1RF melatonin 5 mg tablet 5 mg PO BEDTIME (DME) FreeStyle Toña 2 Solon Misc See Rx Instructions .ROUTE .MEDSUPPLY Qty: 1 Rx Instructions: As directed (DME) FreeStyle Toña 2 Sensor Kit See Rx Instructions .ROUTE .MEDSUPPLY Qty: 1 Rx Instructions: As directed (DME) lancets [OneTouch Delica Plus Lancet] 33 gauge misc See Rx Instructions .ROUTE QID Qty: 100 Rx Instructions: As directed insulin glargine [Lantus Solostar U-100 Insulin] 100 unit/mL (3 mL) insulin pen subcut alcohol swabs [Alcohol Prep Pads] Pads, Medicated 1 pad topical TID (DME) OneTouch Ultra Test Strip See Rx Instructions .ROUTE BID Qty: 10 Rx Instructions: As directed (DME) pen needle, diabetic [Easy Touch] 31 gauge x 3/16 needle See Rx Instructions .ROUTE DIRECTED Qty: 1200 Rx Instructions: As directed multivitamin [One Daily Multivitamin] Tablet 1 tab PO DAILY ipratropium-albuterol 0.5 mg-3 mg(2.5 mg base)/3 mL solution for nebulization 3 ml inhalation Q6H PRN (Reason: wheezing) Qty: 180 3RF Trelegy Ellipta 200-62.5-25 mcg blister with device 1 inh inhalation DAILY Qty: 60 6RF doxycycline hyclate 100 mg capsule 100 mg PO BID Qty: 14 0RF Referrals: Shania Morgan MD [Primary Care Provider, Internal Medicine] - 3 days Print Language: [place] Citizen
[2025-06-23 15:00] LABS: COVID-19 Test Negative (Negative); IDNOW Serial# 55D5AD1C
--- OUTSIDE RECORDS SUMMARY | 2025-06-23 16:09 | XMS_ITS | Encounter Summary ---
Author Organization [employer] Address [address] [facility] [address] [place] [address] Care Team Providers Care Mine Motor Engineer Name Role Phone Shania Morgan MD Primary Care Provider [phone] Aileen Bernabe PharmD Unavailable [phone] Reason for Visit * Reason Comments Med Refill Encounter Details Date Type Department Care Team ([facility] st Contact Info) Description 08/13/2024 Refill [facility] [address] [place] [address] Shania Morgan MD [address] [place] [address] Social History Tobacco Use Types Packs/Day Years [...] Description 06/27/2025 10:00 AM EDT Medication Management [facility] [address] [place] [phone] Aileen Bernabe PharmD [address] [place] [phone] 07/07/2025 2:15 PM EST Office Visit [facility] [address] [place] [phone] Shania Morgan MD [address] [place] [phone] documented as of this encounter Visit Diagnoses Not on filedocumented in this encounter Additional Health Concerns Assessment Noted Time PHQ-9 Depression Total Score: 18 024 10:39 AM EST documented as of this encounter Care Teams Mine Motor Engineer Relationship Specialty Start Date End Date Shania Morgan MD [address] [place] [phone] PCP - General Family Medicine 08/01/23 Aileen Bernabe PharmD [address] [place] [address] [phone] Pharmacist Internal Medicine 11/20/24 documented as of this encounter
--- OUTSIDE RECORDS SUMMARY | 2025-06-23 16:09 | XMS_ITS | Patient Health Record ---
Author Organization [facility] Address [address] [address] Care Team Providers Care Box Builder Name Role Phone Navi Barr Primary Care Provider Navi Barr MD Unavailable Unavailable Reason For Referral No Information Problems Problem Type SNOMED Code ICD Code Onset Dates Problem Status W/U Status Risk Notes Problem Occlusion and stenosis of multiple and bilateral cerebral arteries ([id number]) Occlusion and stenosis of bilateral carotid arteries (I65.23) Active confirmed Plan Of Treatment No Information Insurance Providers Payer Name Payer Address Payer Phone Subscriber Number Group Number Insured Name Patient Relationship to Insured Coverage Start Date Coverage End Date [facility] [address] [place] [phone] [id number] Pebbles Bourgeois Self - patient is the insured
--- OUTSIDE RECORDS SUMMARY | 2025-06-23 16:09 | XMS_ITS | Encounter Summary ---
Author Organization [employer] Address [address] [facility] [address] [place] [address] Care Team Providers Care Sales Representative [employer] Name Role Phone Shania Morgan MD Primary Care Provider [phone] Aileen Bernabe PharmD Unavailable [phone] Reason for Visit * Reason Comments Med Refill Encounter Details Date Type Department Care Team ([facility] st Contact Info) Description 09/17/2024 Refill [facility] [address] [place], [place] [phone] Shania Morgan MD [address] [place] [address] Social History Tobacco Use Types Packs/Day Years [...] Description 06/27/2025 10:00 AM EDT Medication Management [facility] [address] [place] [phone] Aileen Bernabe PharmD [address] [place] [phone] 07/07/2025 2:15 PM EST Office Visit [facility] [address] [place] [phone] Shania Morgan MD [address] [place] [phone] documented as of this encounter Visit Diagnoses Not on filedocumented in this encounter Additional Health Concerns Assessment Noted Time PHQ-9 Depression Total Score: 18 024 10:39 AM EST documented as of this encounter Care Teams Sales Representative [employer] Relationship Specialty Start Date End Date Shania Morgan MD [address] [place] [phone] PCP - General Family Medicine 08/01/23 Aileen Bernabe PharmD [address] [place] [address] [phone] Pharmacist Internal Medicine 11/20/24 documented as of this encounter
--- OUTSIDE RECORDS SUMMARY | 2025-06-23 16:09 | XMS_ITS | Clinical Summary ---
Author Organization [employer] Address [address] [place] [address] Care Team Providers Care Doll Maker Name Role Phone Shania Morgan MD Primary Care Provider [phone] Aileen Bernabe PharmD Unavailable [phone] Allergies No known active allergies Medications * This document contains information received from the source organization and may not represent a complete record from that organization. torsemide (Demadex) 20 MG tablet 3 Active Eliquis 5 MG tablet Take 5 mg by mouth 2 times daily. 4 Active Entresto 49-51 MG tablet Take 1 tablet by mouth 2 times daily. 4 Active melatonin 5 MG tablet TAKE 1 TABLET BY MOUTH AT BEDTIME NEEDED for SLEEP 90 tablet 3 4 Active gabapentin (Neurontin) 300 MG capsule TAKE 1 CAPSULE BY MOUTH AT BEDTIME 90 capsule 3 4 Active Multiple Vitamin (Multivitamin) tablet TAKE 1 TABLET BY MOUTH EVERY MORNING 90 tablet 3 4 Active aspirin 81 MG chewable tablet Chew 1 tablet (81 mg) Once per day. 90 tablet 3 4 08/15/20 25 Active Alcohol Swabs (Alcohol Prep) padsIndication s:Type 2 diabetes mellitus with hyperglycemia, with long-term current use of insulin (HCC) Use one pad each to prep skin prior to injection as directed 100 each 11 5 Active atorvastatin (Lipitor) 20 MG tablet Take 1 tablet (20 mg) by mouth in the morning. 90 tablet 3 5 Active metoprolol succinate XL (Toprol-XL) 50 MG 24 hr tablet Take 1 tablet by mouth Once per day. 5 Active albuterol 108 (90 Base) MCG/ACT inhaler Inhale 2 puffs every 6 (six) hours if needed for wheezing. 18 g 5 5 11/21/19 Active famotidine (Pepcid) 40 MG tablet Take 1 tablet (40 mg) by mouth Once per day. 90 tablet 3 5 11/26/19 Active Continuous Glucose Heading Machine Operator (FreeStyle Toña 3 [place]) deviceIndicati ons:Type 2 diabetes mellitus with hyperglycemia, with long-term current use of insulin ([facility]) 1 each Once per day. Use as directed for CGM 1 each 5 Active Continuous Glucose Sensor (FreeStyle Toña 3 Plus Sensor) miscIndication s:Type 2 diabetes mellitus with hyperglycemia, with long-term current use of insulin ([facility]) Apply 1 every 15 days as directed for CGM 2 each 5 Active Budeson-Glycop yrrol-Formoter ol (Breztri Aerosphere) 160-9-4.8 MCG/ACT aerosolIndicat ions:Interstit ial lung disease (CMS/HCC) ([facility]) Use 2 puffs twice daily as directed. Rinse mouth after each use. 10.7 g 5 Active insulin pen needle 32G x 4 mm misc Use to inject insulin 2 times daily 100 each 5 Active ipratropium-al buterol (Duo-Neb) 0.5-2.5 mg/3 mL nebulizer solution INHALE 1 AMPULE USING A NEBULIZER EVERY 6 HOURS NEEDED FOR WHEEZING 5 Active insulin degludec (Tresiba FlexTouch) 100 UNIT/ML injection Inject 5 Units under the skin at bedtime. 5 Active insulin lispro (HumaLOG KWIKPEN) 100 UNIT/ML injection Inject 12 units subQ once daily with dinner. 5 Active Additional Information Patient taking differently: No details specified, Reason: see CDTM note 05/02/25, Reported on 05/02/2025 empagliflozin (Jardiance) 25 MG Take 1 tablet (25 mg) by mouth Once per day. 90 tablet 3 5 05/02/20 Active Blood Glucose Monitoring Suppl (ONE TOUCH ULTRA 2) w/Device kitIndications :Type 2 diabetes mellitus with hyperglycemia, with long-term current use of insulin ([facility]) Use to check blood sugar as directed 1 kit 5 Active Lancets (OneTouch Delica Plus Uikpag55X) miscIndication s:Type 2 diabetes mellitus with hyperglycemia, with long-term current use of insulin (HCC) Use to test blood sugar twice daily 5 Active glucose blood test stripIndicatio ns:Type 2 diabetes mellitus with hyperglycemia, with long-term current use of insulin ([facility]) Use to test blood sugar twice daily 5 05/22/20 26 Active Dulaglutide (Trulicity) 1.5 MG/0.5ML solution auto-injector Inject 1.5 mg under the skin 1 (one) time per week. 2 mL 5 Active Dulaglutide (Trulicity) 0.75 MG/0.5ML solution auto-injectorI ndications:Typ e 2 diabetes mellitus with hyperglycemia, with long-term current use of insulin (HCC) Inject 0.75 mg under the skin 1 (one) time per week. 2 mL 5 05/26/20 25 Discontin ued(Dose adjustmen t) Hospital, Clinic, or Other Facility Administered Medication Ordered Dose Route Frequency Start Date End Date Status triamcinolone acetonide (Kenalog-40) injection 40 mgIndications:Arthritis of right acromioclavicular joint 40 mg IX Once 01/10/2025 Active lidocaine (Xylocaine) 2 % injection 40 mgIndications:Arthritis of right acromioclavicular joint 40 mg IJ Once 01/07/2025 Active Active Problems Problem Noted Date Diagnosed Date Paroxysmal A-fib 10/02/2024 Interstitial lung disease ([facility]) 07/16/2024 Moderate episode of recurren t major depressive disorder ([facility]) 08/31/2023 Assessment & Plan (02/09/2024 10:28 AM EDT): Her mood is improving with the activities and social interaction from the 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 [address] [place] [phone] Aileen Bernabe, Yann 05/02/2025 Travel 04/24/[address] [facility] [address] [place] [address] Shania Morgan MD 04/11/2025 Travel from Last 3 Months Immunizations Immunization [...] Description 06/27/2025 10:00 AM EDT Medication Management [facility] [address] [place] [phone] Aileen Bernabe, Yann [address] [place] [address] 07/07/2025 2:15 PM EST Office Visit [facility] [address] [place] [phone] Shania Morgan MD [address] [place] [address] Health Maintenance Due Date Last Done Comments [...] Screening 09/30/2025 09/30/2024 Depression Screening 09/30/2025 09/30/2024, 02/03/20 25 SDOH Screening 09/30/2025 09/30/2024 Tobacco Screening 01/10/2026 [...] hyperglycemia, with long-term current use of insulin ([facility]) BI MAMMOGRAM SCREENING TOMOSYNTHESIS BILATERAL Routine 04/24/2025 [...] 4:00 PM EDT) 05/20/2025 4:00 PM EDT [facility] IM[facility] - 05/20/2025 4:18 PM EDT [place] [address] Ultrasound Report Signed Patient: Pebbles Bourgeois MR#: [id number] : 1955 Acct:[id number] Age/Sex: 69 / F ADM Date: 05/20/25 Loc: . Attending Dr: Camille FORD Ordering Physician: Camille Pineda Date of Service: 05/20/25 Procedure(s): US venous duplex LE Accession Number(s): [id number] cc: Camille Pineda; Shania Morgan Reason for [...] Alex Alves MD 05/20/2025 04:15 PM EDT RP Dictated By: Alex Alves MD Signed By: <Electronically signed by Alex Alves MD in OV> 05/20/25 1615 DD/ 1600 TD/TT: 05/20/25 1608 Battery Container Finishing Hand: Procedure Note Donotuseinterpreter, Image - 05/20/2025 [place] [address] Ultrasound Report Signed Patient: Piedad Bourgeois#: [id number] : 1955cct:[id number] Age/Sex: 69 / FADM Date: 05/20/25 Loc: . Attending Dr: Camille FORD Ordering Physician: Camille Pineda Date of Service: 05/20/25 Procedure(s): US venous duplex LE LT Accession Number(s): [id number] cc: Camlile Pineda; Shania Morgan Reason for Exam: I82.409 [...] Alex Alves MD 05/20/2025 04:15 PM EDT RP Dictated By: Alex Alves MD Signed By: <Electronically signed by Alex Alves MD in OV> 05/20/25 1615 DD/ 1600 TD/TT: 05/20/25 1608 Battery Container Finishing Hand: [facility] External Provider CV VASC ULAR PROCEDURES Final Result Performing Organization Address City/State/[facility] Co de Phone Number [facility] [address] [place] [phone] * (ABNORMAL) POCT HGB A1C (05/02/2025 10:26 AM EDT) Hemoglobin A1C 10.0(A) 4.0 - 5.7 % Blood 05/02/2025 10:2 6 AM EDT Shania Morgan MD POINT OF CARE TEST ENTER/EDIT ORDERABLES Final Result * BI Mammogram Screening Tomosynthesis Bilateral (04/24/2025 8:00 AM EDT) Anatomical Region Laterality Modality Breast Bilateral Mammography 04/24/2025 8:00 AM EDT Narrative 04/26/2025 4:08 PM EDT [address] [place] [address] Mammography Report Signed Patient: Pebbles Bourgeois MR#: [id number] : 1955 Acct:[id number] Age/Sex: 69 / F ADM Date: 04/24/25 Loc: HO.MAMMO Attending Dr: Shania Morgan MD Ordering Physician: Shania Morgan Results: 1Negative Date of Service: 04/24/25 Follow Up: 1 Year From Orig inal Mammogram Procedure(s): MM tomosynthesis screening BI Accession Number(s): [id number] cc: Shania Morgan EXAMINATION: MM SCREENING DIGITAL [...] 04/26/25 1605 DD/ 0800 TD/TT: 04/24/25 0821 Battery Container Finishing Hand: Procedure Note Donotuseinterpreter, Image - 04/26/2025 [facility] [address] [place] [address] Mammography Report Signed Patient: Piedad Bourgeois#: [id number] : 4Acct:[id number] Age/Sex: 69 / FADM Date: 04/24/25 Loc: [facility] Attending Dr: Shania Morgan MD Ordering Physician: Delilah Morganults: 1Negative Date of Service: 04/24/25Follow Up: 1 Year From Orig inal Mammogram Procedure(s): MM tomosynthesis screening BI Accession Number(s): [id number] cc: Shania Morgan EXAMINATION: MM SCREENING DIGITAL [...] 04/26/25 1605 DD/ 0800 TD/TT: 04/24/25 0821 Battery Container Finishing Hand: Shania Morgan MD IM BI PROCEDURES Final Result * Albumin, Random Urine W/Creatinine (02/09/2024 9:50 AM EDT) Creatinine, Urine 93.43 mg/dL [facility] Microalbumin Urine 14.0 mg/L [facility] Microalbum Creatinine Ratio Ur 14.9 <30 ug/mg cr [facility] Comment:Albumin/Creatinine R atio Reference Ranges: Normal: < 30 ug/mg creatinine Microalbuminuria: 30 - 300 ug/mg creatinineClinical Albuminuria: > 300 ug/mg creatinine Urine (Urine, Random) 02/09/2024 9:50 AM EDT 02/09/2024 11:10 AM EDT Shania Morgan MD LAB URINE ORDERABLES Final Res ult Performing Organization Address [facility] Co de Phone Number [facility] [address] [place] [phone] * Hepatitis C Antibody with Reflex to HCV, RNA, Quantitative, Real-Time PCR (02/09/2024 9:50 AM EDT) Hepatitis C Antibody Nonreactive Nonreactive [facility] Comment:Antibodies to HCV no t detected; does not exclude early acuteHCV infection. Blood Venous blood specimen / Unknown 02/09/2024 9:50 AM EDT 02/09/2024 11:12 AM EDT Shania Morgan MD LAB BLOOD ORDERABLES Final Res ult Performing Organization Address [facility] Co de Phone Number [facility] [address] [place] [phone] * (ABNORMAL) Lipid Panel, Standard (02/09/2024 9:50 AM EDT) Triglycerides 82 <150 mg/dL [facility] Comment:Desirable Triglyceri de: less than 150 mg/dLBorderline High Triglyceride 150-199 mg/dLHigh Triglyceride: 200-499 mg/dLVery High Triglyceride: greater than or equal to 5OO mg/dL Cholesterol 167 <200 mg/dL [facility] Comment:Desirable Cholestero l: less than 200 mg/dLBorderline High Cholesterol: 200-239 mg/dLHigh Cholesterol: greater than 239 mg/dL LDL Cholesterol Calculated 110(H) <100 mg/dL [facility] Comment:Desirable LDL: less than 100 mg/dLNear Optimal/Above Optimal LDL: 110- 129 mg/dLBorderline High LDL: 130-159 mg/dLHigh LDL: 160-189 mg/dLVery High LDL: greater than or equal to 190 mg/dL HDL Cholesterol 41 >40 mg/dL [facility] Comment:Desirable HDL: great er than 40 mg/dL Note: This HDL assay may give artificially low results in patients with liver disease. Blood Venous blood specimen / Unknown 02/09/2024 9:50 AM EDT 02/09/2024 11:12 AM EDT us Shania Morgan MD LAB BLOOD ORDERABLES Final Res ult [facility] [address] [place] [phone] [phone] from Last 3 Months or Most Recently Relevant to Health Maintenance Insurance [facility] [place] [facility] Care Teams Doll Maker Relationship Specialty Start Date End Date Shania Morgan MD [address] [place] [address] PCP - General Family Medicine 08/01/23 Aileen Bernabe, TsihaD [address] [place] [address] Pharmacist Internal Medicine 11/20/24
[2025-06-23 17:07] VITALS: BP 123/70; PULSE 72; RESP 16; TEMP 36.6; O2SAT 95
--- NOTE | 2025-06-23 17:13 | MHC.CM.ED ---
CM did not see patient. Pt is requesting to be discharge to home. Does not want to wait for PT assessment.
== END 2025-06-23 17:07 | disposition home or self-care (01) ==
PROVIDERS: Physician Assistant; Emergency Provider Emergency Medicine; PCP General Practice
DX: M25.561 Pain in right knee (principal); M25.562 Pain in left knee; R60.0 Localized edema; Z03.818 Encounter for observation for suspected exposure to other biological agents ruled out
CPT/HCPCS: 73564; 87635; 96372; 99283; 99284; J1885

== ENCOUNTER → 2025-06-23 11:24 | Outpatient (BNV) | payer OTHER, SELFPAY | PROVIDERS: Visit Provider Radiology Diagnostic Ultrasound | DX: M25.561 Pain in right knee (principal); M25.562 Pain in left knee | CPT/HCPCS: 73564 ==

== ENCOUNTER 2025-07-04 19:13 | Inpatient (IN) | payer OTHER, SELFPAY ==
--- NOTE | ~2025-07-04 | XR_ITS ---
CLINICAL HISTORY: chest pain 1 view chest x-ray. Comparison: CR - XR CHEST 2V - 02/08/25 09:56 EDT Findings: AICD with leads in the right atrium, right ventricle, and coronary sinus. Heart size is similarly borderline in size. Tortuous thoracic aorta. Airspace opacities in the right lung. Background of interstitial lung disease. No large pleural effusion or pneumothorax. No acute fracture. Sequela of subacromial impingement bilaterally. Right AC joint arthritis. The visualized upper abdomen is unremarkable. Impression: Right lung airspace opacities in a background of interstitial lung disease. This document has been electronically signed by: Ave Chicas MD on 07/04/2025 20:11:31
--- NOTE | ~2025-07-04 | CT_ITS ---
CLINICAL HISTORY: cough CT chest without contrast Comparison: CR - XR CHEST 1V - 07/04/25 19:[address]/OH/SR - CT CHEST WO IV CON - 11/19/24 08:38 EDT Findings: Pulmonary fibrosis is again identified. This has a basilar predominance. There are increasing areas of hazy density within the right middle lobe and right lower lobe compared to prior study. No pleural effusion or pneumothorax. Left-sided ICD device is in place with right atrial and biventricular leads. Pulmonary nodules described on prior study are unchanged. Moderate coronary artery calcification. Small hiatal hernia. No free fluid or free air within the upper abdomen. Degenerative change throughout the visualized vertebral column without acute fracture. IMPRESSION: Continued findings of pulmonary fibrosis like with likely superimposed mild edema or pneumonitis within the right middle lobe and right lower lobe. This document has been electronically signed by: Julio César Walls MD on 07/04/2025 22:18:59
--- NOTE | 2025-07-04 19:15 | ECG_ITS ---
Test Reason : CP Blood Pressure : */* mmHG Vent. Rate : 85 BPM Atrial Rate : 85 BPM P-R Int : 128 ms QRS Dur : 98 ms QT Int : 382 ms P-R-T Axes : 37 -61 72 degrees QTcB Int : 454 ms Atrial-sensed ventricular-paced rhythm Biventricular pacemaker detected Abnormal ECG When compared with ECG of 08-Feb-2025 09:53, Vent. rate has increased by 14 bpm Referred By: Generic ED Physician Electronically Signed By: Pawan Morin
[2025-07-04 19:16] VITALS: BP 100/86; BP 137/82; PULSE 80; PULSE 90; RESP 18; TEMP 36.9; O2SAT 94; BMI 26.5
--- OUTSIDE RECORDS SUMMARY | 2025-07-04 19:42 | XMS_ITS | Encounter Summary ---
Author Organization [employer] Address [address] [facility] [address] [place] [address] Care Team Providers Care Front Maker Lockstitch Name Role Phone Shania Morgan MD Primary Care Provider [phone] Aileen Bernabe PharmD Unavailable [phone] Reason for Visit * Reason Comments Med Refill Encounter Details Date Type Department Care Team ([facility] st Contact Info) Description 09/17/2024 Refill [facility] [address] [place], [place] [phone] Shania Morgan MD [address] [place] [address] Social History Tobacco Use Types Packs/Day Years [...] Care Team (Late st Contact Info) Description 07/07/2025 2:15 PM EST Office Visit [facility] [address] [place] [phone] Shania Morgan MD [address] [place] [phone] 07/28/2025 9:00 AM EST Medication Management [facility] [address] [place] [phone] Aileen Bernabe PharmD [address] [place] [phone] documented as of this encounter Visit Diagnoses Not on filedocumented in this encounter Additional Health Concerns Assessment Noted Time PHQ-9 Depression Total Score: 18 024 10:39 AM EST documented as of this encounter Care Teams Front Maker Lockstitch Relationship Specialty Start Date End Date Shania Morgan MD [address] [place] [phone] PCP - General Family Medicine 08/01/23 Aileen Bernabe PharmD [address] [place] [address] [phone] Pharmacist Internal Medicine 11/20/24 documented as of this encounter
--- OUTSIDE RECORDS SUMMARY | 2025-07-04 19:42 | XMS_ITS | Encounter Summary ---
Author Organization [employer] Address [address] [facility] [address] [place] [address] Care Team Providers Care Manager Pacu Name Role Phone Shania Morgan MD Primary Care Provider [phone] Aileen Bernabe PharmD Unavailable [phone] Reason for Visit * Reason Comments Med Refill Encounter Details Date Type Department Care Team ([facility] st Contact Info) Description 08/13/2024 Refill [facility] [address] [place] [address] Shania Morgan MD [address] [place] [address] Social History Tobacco Use Types Packs/Day Years [...] Description 07/07/2025 2:15 PM EST Office Visit [facility] [address] [place] [phone] Shania Morgan MD [address] [place] [phone] 07/28/2025 9:00 AM EST Medication Management [facility] [address] [place] [phone] Aileen Bernabe PharmD [address] [place] [phone] documented as of this encounter Visit Diagnoses Not on filedocumented in this encounter Additional Health Concerns Assessment Noted Time PHQ-9 Depression Total Score: 18 024 10:39 AM EST documented as of this encounter Care Teams Manager Pacu Relationship Specialty Start Date End Date Shania Morgan MD [address] [place] [phone] PCP - General Family Medicine 08/01/23 Aileen Bernabe PharmD [address] [place] [address] [phone] Pharmacist Internal Medicine 11/20/24 documented as of this encounter
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
--- NOTE | 2025-07-04 20:05 | PC.NURSE ---
pt wanted ems line removed from LAC. iv was patent, removed, catheter intact. 20g iv established to L. forearm.
[2025-07-04 20:06] LABS: MANUAL DIFF FLAG NO
[2025-07-04 20:12] LABS: Hematocrit 41.4 % (37.0-47.0); Hemoglobin 13.4 g/dl (12.0-16.0); Imm Gran Abs Auto 0.02 X10*3/uL (0.00-0.03); Imm Gran Pct Auto 0.3 % (0.0-0.4); Lymphocytes Absolute Auto 2.5 X10*3/uL (1.2-4.9); Mean Corpuscular HGB Conc 32.4 g/dl (31.0-35.0); Mean Corpuscular Hemoglobin 28.2 pg (27.0-33.0); Mean Corpuscular Volume 87.2 fL (80.0-98.0); NRBC Abs Auto 0.000 X10*3/uL (0.0-0.012); NRBC Pct Auto 0.0 /100WBC (0.0-0.2); Platelet Count 246 X10*3/uL (160-400); Red Blood Count 4.75 X10*6/uL (4.20-5.50); White Blood Count 7.6 X10*3/uL (4.8-10.8)
[2025-07-04 20:21] LABS: Alanine Aminotransferase 15 U/L (0-31); Albumin Level 3.4 g/dL (3.5-5.0); Alkaline Phosphatase 62 U/L (39-117); Anion Gap 14 (12-20); Aspartate Amino Transferase 34 U/L (5-31); Blood Urea Nitrogen 7 mg/dL (9-16); COVID-19 Test Negative (Negative); Calcium 8.6 mg/dL (8.4-10.2); Carbon Dioxide 21 mmol/L (22-29); Chloride 108 mmol/L (96-108); Creatinine Clr Calc Pharmacy 77.8; Estimated Glomerular Filt Rate > 60; IDNOW Serial# 55D5AD1C; Magnesium 1.8 mg/dL (1.6-2.6); Potassium 3.3 mmol/L (3.3-5.1); Sodium 140 mmol/L (135-145); Total Protein 6.3 g/dL (6.5-8.0)
[2025-07-04 20:22] LABS: IDNOW Serial# 58CA691E; Influenza B2 Negative (Negative)
--- NOTE | 2025-07-04 20:25 | ED.CHESTPAIN ---
HPI - Chest Pain General Chief Complaint: Chest Pain Stated Complaint: L sided Chest pain Time Seen by Provider: 07/04/25 20:24 Source: patient, old records reviewed and language interpreter Mode of arrival: ambulatory Limitations: no limitations History of Present Illness ED Provider: ADOLPH SOLOMON narrative: 69-year-old female with a past medical history of interstitial lung disease, COPD, cardiomyopathy, left bundle-branch block, biventricular ICD status post history of shock for AFib with RVR, paroxysmal AFib on Eliquis, prior cardiac catheterization did not show any coronary artery disease, she follows with Dr. Morin she presents today with complaint of not feeling well for the last few days has aches and pains on the left side of her body but no numbness or weakness, she has no fevers or rash. She states in her sleep around 02:00 last night she woke up with left-sided chest pain and thinks she underwent defibrillation again this is the 3rd or 4th time this has happened for AFib with RVR currently she is not a candidate for ablation. She did not have chest pain prior to bed. Now she feels left-sided chest pain with some shortness of breath, and increased leg swelling. She never misses her torsemide or blood thinners. She received aspirin and nitro with EMS with no relief of pain. She denies any cough, runny nose, fever. The daughter received a phone call around 15:00 this afternoon from [facility] and was told by someone from Cardiology that she was in fact defibrillated the daughter told that individual her mom was not feeling well so they referred her to come to the ED. I can find no documentation of this event in our EMR so on arrival I did do a [employer] device check and I am waiting for results. complaint: chest pain Pertinent past history: other Onset (ago): hour(s) (02:00 today) Timing of current episode: constant Prior episodes: Yes Onset: during rest Pain location: left chest Pain radiation: left arm Severity: moderate Quality: aching Relieving factors: nothing Exacerbating factors: nothing Context: other Associated symptoms: dyspnea Treatment prior to arrival: aspirin and nitroglycerin Related Data Home Medications ?Medication ?Instructions ?Recorded ?Confirmed empagliflozin 10 mg tablet 10 mg PO DAILY 06/06/23 05/20/25 (Jardiance) gabapentin 300 mg capsule 300 mg PO BEDTIME 06/06/23 05/20/25 alcohol swabs (Alcohol Prep Pads) 1 pad topical TID 12/11/24 05/20/25 blood sugar diagnostic (OneTouch #10 ea 12/11/24 04/09/25 Ultra Test strips) flash glucose scanning reader #1 ea 12/11/24 04/09/25 (FreeStyle Toña 2 [place]) flash glucose sensor (FreeStyle #1 ea 12/11/24 04/09/25 Toña 2 Sensor kit) insulin glargine 100 unit/mL (3 unit subcut 12/11/24 05/20/25 mL) subcutaneous pen (Lantus Solostar U-100 Insulin) lancets 33 gauge (OneTouch Delica #100 ea 12/11/24 04/09/25 Plus Lancet) melatonin 5 mg tablet 5 mg PO BEDTIME 12/11/24 05/20/25 multivitamin (One Daily 1 tab PO DAILY 12/11/24 05/20/25 Multivitamin tablet) pen needle, diabetic 31 gauge x #1,200 ea 12/11/24 04/09/2511/10 (Easy Touch) Previous Rx's ?Medication ?Instructions ?Recorded atorvastatin 10 mg tablet 10 mg PO DAILY #90 tabs 07/26/23 prednisone 50 mg tablet 50 mg PO DAILY #30 tabs 12/13/24 torsemide 20 mg tablet 20 mg PO DAILY #90 tabs 01/13/25 benzonatate 200 mg capsule 200 mg PO TID PRN cough #15 caps 02/08/25 prednisone 20 mg tablet 60 mg (3 x 20 mg) PO DAILY #12 tabs 02/08/25 prednisone 10 mg tablet 10 mg PO DIRECTED #210 tabs 02/14/25 fluticasone fur. 200 mcg-umeclid 1 inh inhalation DAILY #60 ea 02/24/25 62.5 mcg-vilant 25 mcg inhalat.powder (Trelegy Ellipta) ipratropium 0.5 mg-albuterol 3 mg 3 ml inhalation Q6H PRN wheezing 02/24/25 (2.5 mg base)/3 mL nebulization #180 mL soln apixaban 5 mg tablet (Eliquis) 5 mg PO BID #180 tabs 04/14/25 metoprolol succinate 50 mg 50 mg PO BID 90 days #180 tabs 05/08/25 tablet,extended release 24 hr amiodarone 200 mg tablet 200 mg PO DAILY #30 tabs 05/22/25 doxycycline hyclate 100 mg capsule 100 mg PO BID #14 caps 05/26/25 sacubitril 49 mg-valsartan 51 mg 1 tab PO BID #180 tabs 06/19/25 tablet acetaminophen 500 mg tablet 500 mg PO Q6H PRN fever or pain 06/23/25 (Tylenol Extra Strength) #14 tabs lidocaine 5 % topical patch 1 patch topical DAILY PRN pain #30 06/23/25 (Lidoderm) ea Allergies Allergy/AdvReac Type Severity Reaction Status Date / Time No Known Allergies Allergy Verified 07/04/25 19:26 Review of Systems Review of Systems: Constitutional : No Weight loss, No Fever, No Chills ENT/Mouth : No sore throat, No Rhinorrhea Eyes: No Eye Pain, No Swelling Cardiovascular : pos Chest Pain, pos SOB, no Dyspnea on Exertion, No Orthopnea, No Edema, No Palpitations Respiratory : No Cough, No Sputum Gastrointestinal : pos Nausea, No Vomiting, No Diarrhea, No abdominal Pain, No Hematochezia, No Melena Genitourinary : No Dysuria, No Urinary Frequency Musculoskeletal : No joint pain, No Myalgias, No Joint Swelling Skin : No Skin Lesions, No rash Neuro : No Weakness, No Numbness, No Dizziness, No Headache All other systems reviewed and are negative [facility] Past Medical History Attestation statement: The following information was validated with the patient. Source: old records reviewed Medical History (Updated 07/04/25 @ 22:29 by Glenny De La O DO) COPD (chronic obstructive pulmonary disease) Cardiac defibrillator in place Paroxysmal A-fib ICD (implantable cardioverter-defibrillator) discharge LBBB (left bundle branch block) Cardiomyopathy Osteoporosis Surgical History History of pacemaker Family History Family History Mother Cancer of unknown origin Father Heart attack Social History Social History Household Members: Children Household Members Other:: Son Alcohol intake: never Patient Tobacco Use Status: Former Tobacco user Advance Directives: No Advance Directives Information Provided: No Do you have a plan to hurt others: No Plan Physical Exam Vital Signs: Vital Signs: Last Vital Signs Temp 98.3 F 07/04/25 22:05 Pulse 84 07/04/25 22:05 Resp 18 07/04/25 22:05 BP 170/72 H 07/04/25 22:05 Pulse Ox 96 07/04/25 22:05 O2 Del Method Room Air 07/04/25 22:05 BMI result Body Mass Index 26.5 Appearance: Alert. Oriented X3. No acute distress. Eyes: Pupils equal, round and reactive to light. ENT: Pharynx normal. Neck: Normal inspection. Neck supple. CVS: Normal heart rate and rhythm. Pulses normal. Chest she does have some tenderness to palpation in the left upper chest, left upper arm, pulses are intact symmetrically Respiratory: No respiratory distress. Breath sounds she has mild upper expiratory wheezes, and rales in both bases Abdomen: Soft and nontender. Skin: Skin warm and dry. Normal skin color. Normal skin turgor. Extremities: Trace pitting edema bilateral ankles, she reports pain along left knee but there is no effusion and no signs of septic joint Neuro: Oriented X 3. No motor deficit. No sensory deficit. CN2-12 intact Course Course Course Narrative: 907pm: called by [email or web address] 4.5 years on battery expected lead measurements 05/20/25 since then this patient has had one treated Vfib zone based off rate, monitored event one sustained VT, 17 non sustained VT episodes, one SVT event, two atrial tach afib/events most recent events 07/03 did receive V-tach 2 ATP and one 35J shock for this. Duration was 2 min 11 secs, average vent rate 214bpm. patient had atrial arrhythmia at the same time. Medications Administered Generic Name Dose Route Start Last Admin Trade Name Freq PRN Reason Stop Dose Admin Sodium Chloride 3 ml 07/05/25 00:00 07/04/25 23:04 0.9 % Sodium Chloride Flush 3 Ml Syringe IVFLUSH Not Given QSHIFT KEYSHAWN Discontinued Medications Generic Name Dose Route Start Last Admin Trade Name Freq PRN Reason Stop Dose Admin Furosemide 20 mg 07/04/25 21:33 07/04/25 22:02 Furosemide 20 Mg/2 Ml Vial IVPUSH 07/04/25 21:34 20 mg ONCE ONE Administration Protocol Levalbuterol HCl 1.25 mg 07/04/25 20:41 07/04/25 21:01 Levalbuterol Hcl 1.25 Mg/3 Ml Vial.Neb INHALE 07/04/25 20:42 1.25 mg ONCE ONE Administration Morphine Sulfate 4 mg 07/04/25 20:41 07/04/25 20:52 Morphine Sulfate 4 Mg/Ml Cartridge IVPUSH 07/04/25 20:42 4 mg ONCE ONE Administration Protocol Medical Decision Making Medical Decision Making [facility] Narrative: 69-year-old female with a past medical history of interstitial lung disease, COPD, cardiomyopathy, left bundle-branch block, biventricular ICD status post history of shock for AFib with RVR, paroxysmal AFib on Eliquis, prior cardiac catheterization did not show any coronary artery disease, now here with complaint of leg swelling, being told her defibrillator went off last night, chest pain, that is reproducible on exam at this time she has had pain for over 6 hours I am obtaining 1 troponin, BNP markers, chest x-ray versus CT scan, I am going to give Xopenex as she is wheezing, but I also hear rales on exam so she likely is in CHF exacerbation. I doubt she has pneumonia based on lack of infectious symptoms, and she is compliant with Eliquis doubt pulmonary embolus Differential Diagnosis Differential Diagnoses: The differential diagnosis associated with the presentation includes Pain related to event last night with defibrillator, musculoskeletal pain, COPD exacerbation triggered by chronic lung disease, CHF, chest wall pain Admission/Observation Consideration of admission/observation: Escalation of care including admission/observation considered Will admit for treatment of CHF per cardiology recommendations Consult Healthcare Provider Management of the patient was discussed with: Hospitalist (Will admit) and Rolloff Driver Mikel message sent regarding device interrogation findings as well as workup Admit for CHF, states chest pain can occur with VT Lab Data [facility] Lab Attestation statement: I reviewed the patient's lab results. 07/04/25 20:02 07/04/25 20:02 Labs: Lab Results 07/04/25 Range/Units 20:02 WBC 7.6 (4.8-10.8) X10*3/uL RBC 4.75 (4.20-5.50) X10*6/uL Hgb 13.4 (12.0-16.0) g/dl Hct 41.4 (37.0-47.0) % MCV 87.2 (80.0-98.0) fL MCH 28.2 (27.0-33.0) pg MCHC 32.4 (31.0-35.0) g/dl RDW 13.2 (11.0-16.0) % Plt Count 246 (160-400) X10*3/uL MPV 9.0 L (9.4-12.3) fL Immature Gran % (Auto) 0.3 (0.0-0.4) % Neut % (Auto) 42.2 L (45-73) % Lymph % (Auto) 33.1 (20-40) % [place] % (Auto) 12.3 H (2-11) % Eos % (Auto) 11.6 H (0-4) % Baso % (Auto) 0.5 (0-2) % Lymph # (Auto) 2.5 (1.2-4.9) X10*3/uL [place] # (Auto) 0.9 (0.1-1.2) X10*3/uL Eos # (Auto) 0.9 H (0.0-0.4) X10*3/uL Baso # (Auto) 0.0 (0.0-0.2) X10*3/uL Abs Immat Gran (auto) 0.02 (0.00-0.03) X10*3/uL Absolute Neuts (auto) 3.2 (2.0-8.3) x10*3/uL Absolute Nucleated RBC 0.000 (0.0-0.012) X10*3/uL Nucleated RBC % (auto) 0.0 (0.0-0.2) /100WBC Sodium 140 (135-145) mmol/L Potassium 3.3 (3.3-5.1) mmol/L Chloride 108 (96-108) mmol/L Carbon Dioxide 21 L (22-29) mmol/L Anion Gap 14 (12-20) BUN 7 L (9-16) mg/dL Creatinine 0.59 (0.5-1.4) mg/dL Estim Creat Clear Calc 77.8 Estimated GFR > 60 Random Glucose 147 H (60-115) mg/dL Calcium 8.6 D (8.4-10.2) mg/dL Magnesium 1.8 (1.6-2.6) mg/dL Total Bilirubin 0.6 (0.0-1.0) mg/dL AST 34 H (5-31) U/L ALT 15 (0-31) U/L Alkaline Phosphatase 62 (39-117) U/L Troponin I High Sens 4.6 (<3.5-17.0) ng/L NT-Pro-B Natriuret Pep 675.3 H (<300) pg/mL Total Protein 6.3 L (6.5-8.0) g/dL Albumin 3.4 L (3.5-5.0) g/dL COVID-19 (TREMAINE) Negative (Negative) COVID-19 Clin Com See Note Influenza Type A (CHRISTIANO) Negative (Negative) Influenza Type B (CHRISTIANO) Negative (Negative) Influenza A & B Note See Note Independent Interpretation I performed an independent interpretation of an: EKG, Plain X-Ray (Questionable right-sided opacity versus interstitial lung disease) and CT Scan (No consolidation) Interpretation: Rate: 85 Rhythm: Atrial sensed V paced rhythm [place]: Left Normal P waves. Normal KARLEY. Normal QRS complex. ST T wave : No ST-elevation but flattened T-waves in 1 aVL before V5 V6 qTC: 454 prior studies: T-waves are more flattened in the lateral leads The study has been interpreted contemporaneously by me. . Radiology Impression Discussion of test interpretation with radiology: I have reviewed the radiologist's reading. Independent Historian Clinical information obtained from an independent historian. History obtained from or confirmed by: Other (Daughter) External Record Review External record reviewed: Outpatient record Discharge Plan Discharge Clinical Impression: Ventricular tachycardia, sustained Acute CHF Qualifiers: Heart failure type: unspecified Qualified Code(s): I50.9 - Heart failure, unspecified Cardiomyopathy Qualifiers: Cardiomyopathy type: unspecified Qualified Code(s): I42.9 - Cardiomyopathy, unspecified Patient Disposition: Admitted As Inpatient
[2025-07-04 20:28] LABS: NT Pro B Type Natriuretic Pept 675.3 pg/mL (<300); Troponin-I High Sensitivity 4.6 ng/L (<3.5-17.0)
[2025-07-04 20:50] VITALS: BP 126/78; PULSE 75; RESP 18; TEMP 36.4; O2SAT 96
[2025-07-04 21:05] VITALS: PULSE 78; O2SAT 96
[2025-07-04 22:02] VITALS: BP 138/71
[2025-07-04] MEDS: Furosemide 20 MG/2 ML VIAL IVPUSH (22:02)
[2025-07-04 22:05] VITALS: BP 170/72; PULSE 84; RESP 18; TEMP 36.8; O2SAT 96
--- NOTE | 2025-07-04 22:22 | PC.NURSE ---
Pt placed on Purewick.
--- NOTE | 2025-07-04 22:35 | PM.IMHP ---
History of Present Illness Date of Service: 07/04/25 Chief Complaint: Chest pain 69-year-old female with a past medical history of HTN, HLD, cardiomyopathy, ventricular tachycardia status post AICD, left bundle branch block interstitial lung disease, OCD; AFib on Eliquis; presented to the hospital today with a chief complaint of chest pain. Patient mentioned that over the middle of the night she felt shock. Follow up if she develops chest pain. She has had shocked about few months ago. Reports having swelling in her legs which has been gradually worsening over the past few days. Mentions she has been having shortness of breath which is slightly worse over the past 1-2 days. Denies any cough or sputum production. Denies any nausea vomiting or diarrhea. Denies any urinary symptoms. Denies any palpitations Review of all other systems is negative except mentioned above ER course: Per ER team, patient reportedly had V-tach and got shocked. Currently asymptomatic. Has mild chest discomfort at the AICD site. Usage nonischemic. Troponin negative. Discussed with patient's form block maker Dr. Morin who reviewed the [employer] reading and noted that patient had sustained V-tach prior to the shock episode; suggested to admit the patient to the hospital for acute CHF and will evaluate the patient in the morning. [facility] Medical History (Updated 07/04/25 @ 22:29 by Glenny De La O DO) COPD (chronic obstructive pulmonary disease) Cardiac defibrillator in place Paroxysmal A-fib ICD (implantable cardioverter-defibrillator) discharge LBBB (left bundle branch block) Cardiomyopathy Osteoporosis Family History Mother Cancer of unknown origin Father Heart attack Surgical History History of pacemaker Social History Household Members: Children Household Members Other:: Son Alcohol intake: never Patient Tobacco Use Status: Former Tobacco user Advance Directives: No Advance Directives Information Provided: No Do you have a plan to hurt others: No Plan Nutrition Risks: No Nutritional Risk Meds Allergies Allergy/AdvReac Type Severity Reaction Status Date / Time No Known Allergies Allergy Verified 07/04/25 19:26 Active Medications: Current Medications Acetaminophen (Acetaminophen 325 Mg Tablet) 650 mg PO Q6H PRN PRN Reason: Pain, Mild 1-3,fever,headache Albuterol/Ipratropium (Albuterol/Iprat 2.5/0.5mg 3 Ml Ampul.Neb) 3 ml INHALE Q4H PRN PRN Reason: Shortness of Breath/Wheezing Benzonatate (Benzonatate 100 Mg Capsule) 100 mg PO TID PRN PRN Reason: Cough Calcium Carbonate (Calcium Carbonate 750 Mg Tab.Chew) 750 mg PO Q4H PRN PRN Reason: Heartburn Hydromorphone HCl (Hydromorphone Hcl 1 Mg/Ml Syringe) 0.5 mg IVPUSH Q4H PRN; Protocol PRN Reason: Breakthrough Pain Magnesium Hydroxide (Milk Of Magnesia 30 Ml Oral.Susp) 30 ml PO DAILY PRN PRN Reason: Constipation Melatonin (Melatonin 3 Mg Tablet) 6 mg PO BEDTIME PRN PRN Reason: Insomnia Sodium Chloride (0.9 % Sodium Chloride Flush 3 Ml Syringe) 3 ml IVFLUSH [facility] Medications ?Medication ?Instructions ?Recorded ?Confirmed ?Last Taken ?Type empagliflozin 10 mg tablet 10 mg PO DAILY 06/06/23 05/20/25 Unknown History (Jardiance) gabapentin 300 mg capsule 300 mg PO BEDTIME 06/06/23 05/20/25 Unknown History alcohol swabs (Alcohol Prep Pads) 1 pad topical TID 12/11/24 05/20/25 Unknown History blood sugar diagnostic (EverPoweruch #10 ea 12/11/24 04/09/25 Unknown History Ultra Test strips) flash glucose scanning reader #1 ea 12/11/24 04/09/25 Unknown History (FreeStyle Toña 2 [place]) flash glucose sensor (FreeStyle #1 ea 12/11/24 04/09/25 Unknown History Toña 2 Sensor kit) insulin glargine 100 unit/mL (3 unit subcut 12/11/24 05/20/25 Unknown History mL) subcutaneous pen (Lantus Solostar U-100 Insulin) lancets 33 gauge ([employer] Delica #100 ea 12/11/24 04/09/25 Unknown History Plus Lancet) melatonin 5 mg tablet 5 mg PO BEDTIME 12/11/24 05/20/25 Unknown History multivitamin (One Daily 1 tab PO DAILY 12/11/24 05/20/25 Unknown History Multivitamin tablet) pen needle, diabetic 31 gauge x #1,200 ea 12/11/24 04/09/25 Unknown History 11/10 (Easy Touch) Physical Exam Vital Signs and Narrative: Vital Signs: Last Vital Signs Temp 98.3 F 07/04/25 22:05 Pulse 84 07/04/25 22:05 Resp 18 07/04/25 22:05 BP 170/72 H 07/04/25 22:05 Pulse Ox 96 07/04/25 22:05 O2 Del Method Room Air 07/04/25 22:05 BMI result Body Mass Index 26.5 Gen: Appears be in no acute distress HEENT: NCAT, Moist mucosa. Pulmonary: Fine crackles present. Chest pain reproducible. CVS: Normal S1-S2 Abdomen: BS+, Soft, Nontender Extremities: Warm well perfused Neuro: Alert and awake. Results Labs 07/05/25 03:56 07/05/25 03:56 Labs: Laboratory Results - last 24 hr 07/04/25 20:02 MCV 87.2 MCH 28.2 MCHC 32.4 RDW 13.2 Plt Count 246 MPV 9.0 L Immature Gran % (Auto) 0.3 Neut % (Auto) 42.2 L Lymph % (Auto) 33.1 [place] % (Auto) 12.3 H Eos % (Auto) 11.6 H Baso % (Auto) 0.5 Lymph # (Auto) 2.5 [place] # (Auto) 0.9 Eos # (Auto) 0.9 H Baso # (Auto) 0.0 Abs Immat Gran (auto) 0.02 Absolute Neuts (auto) 3.2 Absolute Nucleated RBC 0.000 Nucleated RBC % (auto) 0.0 Anion Gap 14 Estim Creat Clear Calc 77.8 Estimated GFR > 60 Random Glucose 147 H Calcium 8.6 D Magnesium 1.8 Total Bilirubin 0.6 AST 34 H ALT 15 Alkaline Phosphatase 62 Troponin I High Sens 4.6 NT-Pro-B Natriuret Pep 675.3 H Total Protein 6.3 L Albumin 3.4 L COVID-19 (TREMAINE) Negative COVID-19 Clin Com See Note Influenza Type A (CHRISTIANO) Negative Influenza Type B (CHRISTIANO) Negative Influenza A & B Note See Note Assessment and Plan (1) Acute CHF: Qualifiers: Heart failure type: unspecified Qualified Code(s): I50.9 - Heart failure, unspecified Status: Acute Plan 69-year-old female with a past medical history of HTN, HLD, cardiomyopathy, ventricular tachycardia status post AICD, left bundle branch block interstitial lung disease, OCD; AFib on Eliquis; presented to the hospital today with a chief complaint of chest pain. Chest pain: In the setting of AICD shock. Reproducible. Troponin negative. Will monitor. Pain control. Acute CHF: Not in respiratory distress. Has mild leg swelling. Continue Lasix 20 mg IV. Cardiology follow up in a.m.. V-tach: Patient had an episode of V-tach aspirated on the [employer] reading at 02:00 last night. Status post AICD shock. Continue home amiodarone. AFib: Patient on Eliquis. Diabetes: Insulin sliding scale Med reconciliation: Resume home medications once med rec is completed by pharmacy in a.m.. DVT prophylaxis: Patient on Eliquis Code status: Full code Quality Stroke Does the patient have a stroke diagnosis?: No VTE Prior VTE?: No VTE Risk Level:: Medical - moderate - high VTE Device Contraindication: Treatment Not Indicated VTE Drug Contraindication: N/A - Med Ordered
[2025-07-05] VITALS (10 sets, daily range): BP systolic 126–151; BP diastolic 64–83; PULSE 80–98; RESP 12–20; TEMP 36.6–37.6; O2SAT 90–96; BMI 26.8
--- NOTE | 2025-07-05 03:23 | HO.NURTONUR ---
Addendum entered by Emma Avina RN 07/05/25 18:47: Hospital bed provided for Pt. Original Note: Pt is a 69 y.o. female coming in with generalized weakness, feeling unwell, body pain, and chest pain. PMH interstitial lung disease, COPD, cardiomyopathy, left bundle-branch block, biventricular ICD status post history of shock for AFib with RVR, paroxysmal AFib on Eliquis. Covid and flu neg, other labs grossly unremarkable. BNP 675. Chest XR and chest CT both showing interstitial lung disease. Pt's defibrillator fired on the morning of 07/03 around 2am for an episode of sustained ventricular tachycardia. Pt medicated per [facility] orders. VSS, a&ox4. Pt is primarily Serbian speaking. Family reports pt has a cane at home but refuses to use it. 20 g IV left forearm.
[2025-07-05 04:18] LABS: MANUAL DIFF FLAG NO
[2025-07-05 04:21] LABS: Hematocrit 40.4 % (37.0-47.0); Hemoglobin 13.1 g/dl (12.0-16.0); Imm Gran Abs Auto 0.03 X10*3/uL (0.00-0.03); Imm Gran Pct Auto 0.4 % (0.0-0.4); Lymphocytes Absolute Auto 2.3 X10*3/uL (1.2-4.9); Mean Corpuscular HGB Conc 32.4 g/dl (31.0-35.0); Mean Corpuscular Hemoglobin 28.4 pg (27.0-33.0); Mean Corpuscular Volume 87.6 fL (80.0-98.0); NRBC Abs Auto 0.000 X10*3/uL (0.0-0.012); NRBC Pct Auto 0.0 /100WBC (0.0-0.2); Platelet Count 231 X10*3/uL (160-400); Red Blood Count 4.61 X10*6/uL (4.20-5.50); White Blood Count 8.0 X10*3/uL (4.8-10.8)
[2025-07-05 04:37] LABS: Alanine Aminotransferase 16 U/L (0-31); Albumin Level 3.4 g/dL (3.5-5.0); Alkaline Phosphatase 61 U/L (39-117); Anion Gap 13 (12-20); Aspartate Amino Transferase 33 U/L (5-31); Blood Urea Nitrogen 5 mg/dL (9-16); Calcium 8.4 mg/dL (8.4-10.2); Carbon Dioxide 25 mmol/L (22-29); Chloride 107 mmol/L (96-108); Creatinine Clr Calc Pharmacy 79.1; Estimated Glomerular Filt Rate > 60; Potassium 4.2 mmol/L (3.3-5.1); Sodium 141 mmol/L (135-145); Total Protein 6.3 g/dL (6.5-8.0)
[2025-07-05] MEDS: 0.9 % Sodium Chloride Flush 3 ML SYRINGE IVFLUSH ×2 (08:45→22:03)
[2025-07-05] MEDS: Furosemide 20 MG/2 ML VIAL IVPUSH (08:45)
--- NOTE | 2025-07-05 09:17 | PHA.MEDREC ---
Pharmacy Consult ? Medication Reconciliation Pharmacy has completed the medication reconciliation.Med rec complete, spoke to patient's daughter who speaks welsh and she provided me with a med box card to organize all the medications. She was also able to verify the insulin, trulicity, and inhaler for her mom.
--- NOTE | 2025-07-05 12:04 | HO.PM.IMPN ---
Subjective Subjective Date of Service: 07/05/25 Review of Systems Follow up chest pain from ICD firing still soreness, no nausea or vomiting Physical Exam Exam: Exam: Appearing in no acute distress lung sounds are clear to auscultation heart regular rate rhythm, clear S1, S2 positive bowel sounds, abdomen is soft, nontender neuro patient is alert x3, no focal deficits Vital Signs: Vital Signs: Last Vital Signs Temp 97.9 F 07/05/25 08:31 Pulse 81 07/05/25 08:31 Resp 18 07/05/25 08:46 BP 135/83 07/05/25 08:45 Pulse Ox 92 07/05/25 08:31 O2 Del Method Room Air 07/05/25 08:31 BMI result Body Mass Index 26.5 Objective Data Active Medications Acetaminophen (Acetaminophen 325 Mg Tablet) 650 mg PO Q6H PRN PRN Reason: Pain, Mild 1-3,fever,headache Albuterol/Ipratropium (Albuterol/Iprat 2.5/0.5mg 3 Ml Ampul.Neb) 3 ml INHALE Q4H PRN PRN Reason: Shortness of Breath/Wheezing Amiodarone HCl (Amiodarone Hcl 200 Mg Tablet) 200 mg PO DAILY [facility] Last Admin: 07/05/25 08:45 Dose: 200 mg Documented By: JOVITA Apixaban (Apixaban 5 Mg Tablet) 5 mg PO BID [facility] Last Admin: 07/05/25 08:45 Dose: 5 mg Documented By: JOVITA Benzonatate (Benzonatate 100 Mg Capsule) 100 mg PO TID PRN PRN Reason: Cough Calcium Carbonate (Calcium Carbonate 750 Mg Tab.Chew) 750 mg PO Q4H PRN PRN Reason: Heartburn Furosemide (Furosemide 20 Mg/2 Ml Vial) 20 mg IVPUSH DAILY [facility]; Protocol Last Admin: 07/05/25 08:45 Dose: 20 mg Documented By: JOVITA Hydromorphone HCl (Hydromorphone Hcl 1 Mg/Ml Syringe) 0.5 mg IVPUSH Q4H PRN; Protocol PRN Reason: Breakthrough Pain Last Admin: 07/05/25 08:46 Dose: 0.5 mg Documented By: JOVITA Magnesium Hydroxide (Milk Of Magnesia 30 Ml Oral.Susp) 30 ml PO DAILY PRN PRN Reason: Constipation Melatonin (Melatonin 3 Mg Tablet) 6 mg PO BEDTIME PRN PRN Reason: Insomnia Sodium Chloride (0.9 % Sodium Chloride Flush 3 Ml Syringe) [facility] Admin: 07/05/25 08:45 Dose: 3 ml Documented By: JOVITA Labs 07/05/25 03:56 07/05/25 03:56 Labs: Laboratory Results - last 24 hr 07/04/25 07/05/25 20:02 03:56 MCV 87.2 87.6 MCH 28.2 28.4 MCHC 32.4 32.4 RDW 13.2 13.3 Plt Count 246 231 MPV 9.0 L 9.2 L Immature Gran % (Auto) 0.3 0.4 Neut % (Auto) 42.2 L 47.0 Lymph % (Auto) 33.1 28.2 [place] % (Auto) 12.3 H 13.1 H Eos % (Auto) 11.6 H 10.8 H Baso % (Auto) 0.5 0.5 Lymph # (Auto) 2.5 2.3 [place] # (Auto) 0.9 1.1 Eos # (Auto) 0.9 H 0.9 H Baso # (Auto) 0.0 0.0 Abs Immat Gran (auto) 0.02 0.03 Absolute Neuts (auto) 3.2 3.8 Absolute Nucleated RBC 0.000 0.000 Nucleated RBC % (auto) 0.0 0.0 Anion Gap 14 13 Estim Creat Clear Calc 77.8 79.1 Estimated GFR > 60 > 60 Random Glucose 147 H 145 H Calcium 8.6 D 8.4 Magnesium 1.8 Total Bilirubin 0.6 0.4 AST 34 H 33 H ALT 15 16 Alkaline Phosphatase 62 61 Troponin I High Sens 4.6 NT-Pro-B Natriuret Pep 675.3 H Total Protein 6.3 L 6.3 L Albumin 3.4 L 3.4 L COVID-19 ([facility]REMAINE) Negative COVID-19 Clin Com See Note Influenza Type A (CHRISTIANO) Negative Influenza Type B (CHRISTIANO) Negative Influenza A & B Note See Note Assessment and Plan (1) Acute CHF: Status: Acute Plan 69-year-old female with a past medical history of HTN, HLD, cardiomyopathy, ventricular tachycardia status post AICD, left bundle branch block interstitial lung disease, OCD; AFib on Eliquis; presented to the hospital today with a chief complaint of chest pain. Chest pain In the setting of AICD shock. Reproducible. Troponin negative. Acute CHF Not in respiratory distress. mild leg swelling. Continue Lasix 20 mg IV. Cardiology follow up V-tach Patient had an episode of V-tach aspirated on the [employer] reading at 02:00 last night. Status post AICD shock. Continue home amiodarone. AFib Patient on Eliquis. Diabetes 2 Insulin sliding scale, ada diet DVT prophylaxis: Patient on Eliquis Code status: Full code Quality Stroke Does the patient have a stroke diagnosis?: No VTE Prior VTE?: No VTE Risk Level:: Medical - moderate - high VTE Device Contraindication: Treatment Not Indicated VTE Drug Contraindication: N/A - Med Ordered
--- NOTE | 2025-07-05 13:25 | P.CONCA_ITS ---
History of Present Illness History of Present Illness Date of Service: 07/05/25 Requesting physician: Mitzy Palacios Chief complaint: CHF Narrative: 69-year-old lady presenting with ICD shock. She has known history of nonischemic cardiomyopathy and had Bi V ICD placed in the past. She unfortunately had few shocks from the device from atrial fibrillation. Unfortunately she had another episode of atrial fibrillation and received a shock. We discussed the case with electrophysiology in the past and plan was that she will be set up for ablation. She is on amiodarone 200 mg daily. She never received the loading dose because EP was in favor of just starting low- dose amiodarone given her history of interstitial lung disease. She is also complaining of some shortness of breath and clinically appeared to be volume overloaded and received some IV diuretics. Overall she is feeling better at this point. Since the shock she is also complaining of severe left shoulder pain. There is clear tenderness with range of motion of the left shoulder. [facility] Past Medical History Medical History (Updated 07/05/25 @ 13:28 by Pawan Morin MD) ICD (implantable cardioverter-defibrillator) discharge COPD (chronic obstructive pulmonary disease) Cardiac defibrillator in place Paroxysmal A-fib LBBB (left bundle branch block) Cardiomyopathy Osteoporosis Family History Family History Mother Cancer of unknown origin Father Heart attack Surgical History Surgical History History of pacemaker Social History Social History Household Members: Children Household Members Other:: Son Alcohol intake: never Patient Tobacco Use Status: Former Tobacco user Advance Directives: No Advance Directives Information Provided: No Do you have a plan to hurt others: No Plan Nutrition Risks: No Nutritional Risk Meds Allergies Allergy/AdvReac Type Severity Reaction Status Date / Time No Known Allergies Allergy Verified 07/04/25 19:26 Active Medications: Current Medications Acetaminophen (Acetaminophen 325 Mg Tablet) 650 mg PO Q6H PRN PRN Reason: Pain, Mild 1-3,fever,headache Albuterol/Ipratropium (Albuterol/Iprat 2.5/0.5mg 3 Ml Ampul.Neb) 3 ml INHALE Q4H PRN PRN Reason: Shortness of Breath/Wheezing Amiodarone HCl (Amiodarone Hcl 200 Mg Tablet) 200 mg PO BID [facility] Apixaban (Apixaban 5 Mg Tablet) 5 mg PO BID [facility] Last Admin: 07/05/25 08:45 Dose: 5 mg Aspirin (Aspirin 81 Mg Tab.Chew) 81 mg PO DAILY [facility] Atorvastatin Calcium (Atorvastatin Calcium 20 Mg Tablet) 20 mg PO DAILY [facility] Benzonatate (Benzonatate 100 Mg Capsule) 100 mg PO TID PRN PRN Reason: Cough Calcium Carbonate (Calcium Carbonate 750 Mg Tab.Chew) 750 mg PO Q4H PRN PRN Reason: Heartburn Empagliflozin (Empagliflozin 25 Mg Tablet) 25 mg PO DAILY [facility] Famotidine (Famotidine 20 Mg Tablet) 40 mg PO DAILY [facility] Furosemide (Furosemide 20 Mg/2 Ml Vial) 20 mg IVPUSH DAILY [facility]; Protocol Last Admin: 07/05/25 08:45 Dose: 20 mg Gabapentin (Gabapentin 300 Mg Capsule) 300 mg PO BEDTIME [facility] Hydromorphone HCl (Hydromorphone Hcl 1 Mg/Ml Syringe) 0.5 mg IVPUSH Q4H PRN; Protocol PRN Reason: Breakthrough Pain Last Admin: 07/05/25 08:46 Dose: 0.5 mg Insulin Glargine (Insulin Glargine,Hum.Rec.Anlog 100 Unit/Ml 10 Ml Vial) 6 unit SUBCUT BEDTIME [facility] Magnesium Hydroxide (Milk Of Magnesia 30 Ml Oral.Susp) 30 ml PO DAILY PRN PRN Reason: Constipation Melatonin (Melatonin 3 Mg Tablet) 6 mg PO BEDTIME PRN PRN Reason: Insomnia Metoprolol Succinate (Metoprolol Succinate Er 50 Mg Tab.Er.24h) 50 mg PO BID [facility]; Protocol Multivitamins/Vitamin C (Multivitamin Tablet) 1 tab PO DAILY [facility] Non-Formulary Medication (Muxkffspvj-Wgukytrk-Vgnbalgejl [Breztri Aerosphere]) 2 inhalation INHALE BID [facility] Sacubitril/Valsartan (Sacubitril/Valsartan 49/51 1 Tab Tablet) 1 tab PO BID [facility]; Protocol Sodium Chloride (0.9 % Sodium Chloride Flush 3 Ml Syringe) 3 ml IVFLUSH QSHIFT [facility] Last Admin: 07/05/25 08:45 Dose: 3 ml Home Medications ?Medication ?Instructions ?Recorded ?Confirmed ?Last Taken ?Type gabapentin 300 mg capsule 300 mg PO BEDTIME 06/06/23 1 09/04/24 07/04/25 History blood sugar diagnostic (NatTouch #10 ea 12/11/2404/09 Unknown History Ultra Test strips) flash glucose scanning reader #1 ea 12/11/24 04/09/25 Unknown History (FreeStyle Toña 2 [place]) flash glucose sensor (FreeStyle #1 ea 12/11/24 5 Unknown History Toña 2 Sensor kit) lancets 33 gauge (Oumaruch Delica #100 ea 12/11/24 Unknown History Plus Lancet) melatonin 5 mg tablet 5 mg PO BEDTIME PRN Sleep 07/05/25 Unknown History multivitamin (One Daily 1 tab PO DAILY 12/11/2404/2107/04/25 History Multivitamin tablet) pen needle, diabetic 31 gauge x #1,200 ea 12/11/24 Unknown History 11/10 (Easy Touch) aspirin 81 mg chewable tablet 81 mg PO DAILY 07/05/25 07/05/25 07/04/25 History atorvastatin 20 mg tablet 20 mg PO DAILY 07/05/2504/2107/04/25 History budesonide 160 mcg-glycopyr 9 2 inh inhalation BID 04/2107/05/25 07/04/25 History mcg-formot 4.8 mcg/actuation HFA inhaler (Breztri Aerosphere) dulaglutide 1.5 mg/0.5 mL 1.5 mg subcut PERALTA@0900 07/05/25 06/22/25 History subcutaneous pen injector (Trulicity) empagliflozin 25 mg tablet 25 mg PO DAILY 07/05/2504/2107/04/25 History (Jardiance) famotidine 40 mg tablet 40 mg PO DAILY 07/05/2504/2107/04/25 History insulin degludec 100 unit/mL 8 unit subcut BEDTIME 04/2107/05/25 07/04/25 History subcutaneous solution (Tresiba U-100 Insulin) insulin lispro 100 unit/mL 10 unit subcut BIDAC 07/05/25 Unknown History subcutaneous solution Physical Exam 2 Vital Signs: Vital Signs: Last Vital Signs Temp 97.9 F 07/05/25 08:31 Pulse 81 07/05/25 08:31 Resp 18 07/05/25 08:46 BP 135/83 07/05/25 08:45 Pulse Ox 92 07/05/25 08:31 O2 Del Method Room Air 07/05/25 08:31 BMI result Body Mass Index 26.5 GENERAL APPEARANCE: in no acute distress, pleasant. NECK: no carotid bruit, mild jugular venous distention. SKIN: no suspicious lesions, warm and dry. HEART: no murmurs, regular rate and rhythm. LUNGS: Fine crackles due to interstitial lung disease. ABDOMEN: soft, nontender. EXTREMITIES: no edema. Left shoulder pain with movement of arm. PERIPHERAL PULSES: equal. NEUROLOGIC: No gross deficits, AAO X 3 Objective Labs and Meds 07/05/25 03:56 07/05/25 03:56 Lab results: Laboratory Results - last 24 hr 07/04/25 07/05/25 20:02 03:56 WBC 7.6 8.0 RBC 4.75 4.61 Hgb 13.4 13.1 Hct 41.4 40.4 MCV 87.2 87.6 MCH 28.2 28.4 MCHC 32.4 32.4 RDW 13.2 13.3 Plt Count 246 231 MPV 9.0 L 9.2 L Immature Gran % (Auto) 0.3 0.4 Neut % (Auto) 42.2 L 47.0 Lymph % (Auto) 33.1 28.2 [place] % (Auto) 12.3 H 13.1 H Eos % (Auto) 11.6 H 10.8 H Baso % (Auto) 0.5 0.5 Lymph # (Auto) 2.5 2.3 [place] # (Auto) 0.9 1.1 Eos # (Auto) 0.9 H 0.9 H Baso # (Auto) 0.0 0.0 Abs Immat Gran (auto) 0.02 0.03 Absolute Neuts (auto) 3.2 3.8 Absolute Nucleated RBC 0.000 0.000 Nucleated RBC % (auto) 0.0 0.0 Sodium 140 141 Potassium 3.3 4.2 D Chloride 108 107 Carbon Dioxide 21 L 25 Anion Gap 14 13 BUN 7 L 5 L Creatinine 0.59 0.58 Estim Creat Clear Calc 77.8 79.1 Estimated GFR > 60 > 60 Random Glucose 147 H 145 H Calcium 8.6 D 8.4 Magnesium 1.8 Total Bilirubin 0.6 0.4 AST 34 H 33 H ALT 15 16 Alkaline Phosphatase 62 61 Troponin I High Sens 4.6 NT-Pro-B Natriuret Pep 675.3 H Total Protein 6.3 L 6.3 L Albumin 3.4 L 3.4 L COVID-19 (TREMAINE) Negative COVID-19 Clin Com See Note Influenza Type A (CHRISTIANO) Negative Influenza Type B (CHRISTIANO) Negative Influenza A & B Note See Note Assessment and Plan (1) Acute CHF: Qualifiers: Heart failure type: unspecified Qualified Code(s): I50.9 - Heart failure, unspecified Status: Acute (2) Paroxysmal atrial fibrillation with rapid ventricular response: Status: Acute (3) ICD (implantable cardioverter-defibrillator) discharge: Status: Acute Plan 69-year-old lady presenting for ICD shock due to atrial fibrillation. This is happened twice before and she was referred to EP for AFib ablation. She is on amiodarone 200 mg daily. Increase amiodarone to 200 mg twice a day. Increase torsemide to 40 mg daily. Continue rest of the medications as before. I have given her the option to be transferred to [facility] to be considered for inpatient ablation but she wishes to go back home and do workup as outpatient. I have reached out to her property management coordinator at [facility] to see if they can expedite the ablation. Thank you for allowing me to participate in the care of your patient. Please feel free to contact me if you have any questions. Procedures Date of Service Date of Service: 07/05/25
[2025-07-05] MEDS: Metoprolol Succinate ER 50 MG TAB.ER.24H PO (22:01)
[2025-07-05] MEDS: Sacubitril/Valsartan 49/51 1 TAB TABLET PO (22:01)
[2025-07-05] MEDS: Insulin Glargine,Hum.rec.anlog 100 UNIT/ML 10 ML VIAL 6 UNIT SUBCUT (22:02)
[2025-07-05 22:08] LABS: Glucose, Whole Blood 110 mg/dL (60-115)
[2025-07-06] VITALS: BP 150/85; PULSE 94; RESP 18; TEMP 37.2; O2SAT 94
[2025-07-06 04:00] VITALS: BP 128/82; PULSE 87; RESP 18; TEMP 36.6; O2SAT 94
[2025-07-06 07:21] LABS: Glucose, Whole Blood 122 mg/dL (60-115)
[2025-07-06 07:44] VITALS: BP 141/67; PULSE 78; RESP 14; TEMP 36.8; O2SAT 93
--- NOTE | 2025-07-06 08:42 | P.DS_ITS ---
DS: Providers Provider Date of Service: 07/06/25 Date of admission: 07/04/25 22:30 Date of discharge: 07/06/25 Primary care physician: Shania Morgan MD Consults: 07/04/25 22:30 Consult to Cardiology Routine Consulting Provider: [facility] Reason for consultation: chf; vtach DS: Diagnosis Discharge Diagnosis (1) Acute CHF: Status: Acute DS: Summary Hospital Course Hospital Course: History and physical as per admitting provider. 69-year-old female with a past medical history of HTN, HLD, cardiomyopathy, ventricular tachycardia status post AICD, left bundle branch block interstitial lung disease, OCD; AFib on Eliquis; presented to the hospital today with a chief complaint of chest pain. Patient mentioned that over the middle of the night she felt shock. Follow up if she develops chest pain. She has had shocked about few months ago. Reports having swelling in her legs which has been gradually worsening over the past few days. Mentions she has been having shortness of breath which is slightly worse over the past 1-2 days. Denies any cough or sputum production. Denies any nausea vomiting or diarrhea. Denies any urinary symptoms. Denies any palpitations Review of all other systems is negative except mentioned above ER course:Per ER team, patient reportedly had V-tach and got shocked. Currently asymptomatic. Has mild chest discomfort at the AICD site. Usage nonischemic. Troponin negative. 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 Morin who reviewed the [employer] reading and noted that patient had sustained V-tach prior to the shock episode; suggested to admit the patient to the hospital for acute CHF and will evaluate the patient in the morning. 69-year-old woman admitted with chest pain secondary to AICD discharge. Troponins have remained negative. She appeared to be in mild congestive heart failure but no respiratory distress. She received IV Lasix, discussed with Cardiology and plan is to increase amiodarone to twice daily and increase torsemide to 40 mg daily. Patient she will be in communication with Cardiology to schedule ablation. She reported that she will be going on a road trip with her daughter 1st and then discussed with Cardiology when the ablation can happen. History of V-tach. She did have AICD discharge. Amiodarone increased to twice daily Atrial fibrillation. Continue Eliquis and amiodarone Diabetes mellitus type 2. Continue home medications Time Attestation Discharge Coordination Time (in mins): 45 Quality: Safe Use of Opioids Does Pt have an Active Cancer Diagnosis on the Problem List?: No Quality: Stroke Does the patient have a stroke diagnosis?: No Physical Exam Exam: Exam: Appearing in no acute distress head is normocephalic atraumatic eyes pupils are PERRLA sclera is anicteric mouth throat mucous membranes are intact and moist neck is supple no lymphadenopathy, no JVD noted lung sounds are clear to auscultation heart regular rate rhythm, clear S1, S2 positive bowel sounds, abdomen is soft, nontender neuro patient is alert x3, no focal deficits Vital Signs: Vital Signs: Last Vital Signs Temp 98.2 F 07/06/25 07:44 Pulse 78 07/06/25 07:44 Resp 14 07/06/25 07:44 BP 141/67 H 07/06/25 07:44 Pulse Ox 93 07/06/25 07:44 O2 Del Method Room Air 07/06/25 07:44 BMI result Body Mass Index 26.8 DS: Data Data Completed and Pending Labs on day of discharge: Laboratory Results - last 24 hr 07/05/25 07/06/25 22:05 07:15 POC Glucose 110 122 H Discharge Plan Discharge Anticipated Discharge Date/Time: 07/06/25 08:40 Patient Disposition: Home, Self-Care Discharge Diagnosis: AICD discharge Mild congestive heart failure Referrals: Shania Morgan MD [Primary Care Provider, Internal Medicine] - 1 Week Discharge Medications: Continued Eliquis 5 mg tablet 5 mg PO BID Qty: 180 3RF metoprolol succinate 50 mg tablet extended release 24 hr 50 mg PO BID 90 Days Qty: 180 3RF sacubitril-valsartan 49-51 mg tablet 1 tab PO BID Qty: 180 3RF gabapentin 300 mg Capsule 300 mg PO BEDTIME acetaminophen [Tylenol Extra Strength] 500 mg tablet 500 mg PO Q6H PRN (Reason: fever or pain) Qty: 14 0RF aspirin 81 mg Tablet,Chewable 81 mg PO DAILY Trulicity 1.5 mg/0.5 mL Pen Injector 1.5 mg SUBCUT PERALTA@0900 Breztri Aerosphere 160-9-4.8 mcg/actuation HFA aerosol inhaler 2 inh INHALATION BID atorvastatin 20 mg Tablet 20 mg PO DAILY famotidine 40 mg Tablet 40 mg PO DAILY Jardiance 25 mg Tablet 25 mg PO DAILY insulin degludec [Tresiba U-100 Insulin] 100 unit/mL Solution 8 unit SUBCUT BEDTIME insulin lispro 100 unit/mL Solution 10 unit SUBCUT BIDAC melatonin 5 mg tablet 5 mg PO BEDTIME PRN (Reason: Sleep) (DME) FreeStyle Toña 2 [place] Misc See Rx Instructions .ROUTE .MEDSUPPLY Qty: 1 Rx Instructions: As directed (DME) FreeStyle Toña 2 Sensor Kit See Rx Instructions .ROUTE .MEDSUPPLY Qty: 1 Rx Instructions: As directed (DME) lancets [OneTouch Delica Plus Lancet] 33 gauge misc See Rx Instructions .ROUTE QID Qty: 100 Rx Instructions: As directed (DME) OneTouch Ultra Test Strip See Rx Instructions .ROUTE BID Qty: 10 Rx Instructions: As directed (DME) pen needle, diabetic [Easy Touch] 31 gauge x 3/16 needle See Rx Instructions .ROUTE DIRECTED Qty: 1200 Rx Instructions: As directed multivitamin [One Daily Multivitamin] Tablet 1 tab PO DAILY Changed torsemide 20 mg tablet 40 mg PO DAILY Qty: 90 3RF amiodarone 200 mg tablet 200 mg PO BID Qty: 30 1RF Discharge Orders: Discharge Order (Routine); Ordered 07/06/25 Ordered By: Mitzy Palacios Diet: Advance to usual diet Activity on Discharge: As tolerated Stand Alone Forms: Patient Portal Discharge page Print Language: Croatian Care Plan Goals: Torsemide increased to 40 mg daily Amiodarone increased to 200 mg twice daily Follow up with Cardiology to schedule ablation Health Concerns: AICD discharge Mild congestive heart failure Plan of Treatment: Follow up with the primary care provider as needed Take all medications as prescribed Assessment: See discharge summary
[2025-07-06] MEDS: Metoprolol Succinate ER 50 MG TAB.ER.24H PO (09:05)
[2025-07-06] MEDS: Sacubitril/Valsartan 49/51 1 TAB TABLET PO (09:06)
[2025-07-06] MEDS: Furosemide 20 MG/2 ML VIAL IVPUSH (09:07)
[2025-07-06] MEDS: 0.9 % Sodium Chloride Flush 3 ML SYRINGE IVFLUSH (09:07)
== END 2025-07-06 10:00 | disposition home or self-care (01) | DRG 292 ==
LOC: HO.ED 21:35 → HO.EDOVER 22:35 → HO.IMC 07-05 19:52
PROVIDERS: Admitting Provider Hospitalist; Emergency Provider Emergency Medicine; PCP General Practice; Visit Provider Nurse Practitioner Acute Care
DX: I50.9 Heart failure, unspecified (principal); I47.20 Ventricular tachycardia, unspecified; E11.9 Type 2 diabetes mellitus without complications; I48.0 Paroxysmal atrial fibrillation; I42.8 Other cardiomyopathies; Z20.822 Contact with and (suspected) exposure to COVID-19; Z95.810 Presence of automatic (implantable) cardiac defibrillator; Z87.891 Personal history of nicotine dependence; Z79.4 Long term (current) use of insulin; Z79.01 Long term (current) use of anticoagulants; Z79.82 Long term (current) use of aspirin; Z79.85 Long-term (current) use of injectable non-insulin antidiabetic drugs; Z79.899 Other long term (current) drug therapy
CPT/HCPCS: 36415; 71045; 71250; 80053; 82947; 83735; 83880; 84484; 85025; 87502; 87635; 93005; 94640; 99285; J1171; J1938; J2270

== ENCOUNTER → 2025-07-04 19:40 | Outpatient (BNV) | payer OTHER, SELFPAY | PROVIDERS: Emergency Provider Emergency Medicine; PCP General Practice; Visit Provider Student in an Organized Health Care Education/Training Program | DX: J84.9 Interstitial pulmonary disease, unspecified (principal); R91.8 Other nonspecific abnormal finding of lung field | CPT/HCPCS: 71045 ==

== ENCOUNTER → 2025-07-04 22:30 | Outpatient (BNV) | payer OTHER, SELFPAY | PROVIDERS: Admitting Provider Hospitalist; Emergency Provider Emergency Medicine; PCP General Practice; Visit Provider Nurse Practitioner Acute Care | DX: I50.9 Heart failure, unspecified (principal) | CPT/HCPCS: 99223; 99232 ==

== ENCOUNTER → 2025-07-04 22:30 | Outpatient (BNV) | payer OTHER, SELFPAY | PROVIDERS: Admitting Provider Hospitalist; Emergency Provider Emergency Medicine; PCP General Practice; Visit Provider Internal Medicine Cardiovascular Disease | DX: I50.9 Heart failure, unspecified (principal); I48.0 Paroxysmal atrial fibrillation; Z45.02 Encounter for adjustment and management of automatic implantable cardiac defibrillator | CPT/HCPCS: 93010; 99223 ==

== ENCOUNTER → 2025-07-07 13:45 | Outpatient (BNV) | payer OTHER, SELFPAY | PROVIDERS: PCP General Practice; Visit Provider Internal Medicine Cardiovascular Disease | DX: I42.9 Cardiomyopathy, unspecified (principal); Z95.810 Presence of automatic (implantable) cardiac defibrillator | CPT/HCPCS: 93297 ==

== ENCOUNTER 2025-07-15 12:18 | Outpatient (REF) | payer OTHER, SELFPAY ==
--- NOTE | ~2025-07-15 | CT_ITS ---
CLINICAL HISTORY: J84.9 - Interstitial pulmonary disease, unspecified CT chest without contrast Comparison: CT/REG/SR - CT CHEST WO IV CON - 07/04/25 21:28 EST Findings: The heart size is normal. The visualized thyroid and mediastinum are unremarkable. Redemonstration of severe architectural distortion, honeycombing and interstitial opacity of the right lung as well as less severe of the left lower lobe. Findings are grossly unchanged in the interval. No focal consolidation, pleural effusion or pneumothorax. The upper abdomen is unremarkable. The bones are intact. IMPRESSION: 1. Grossly unchanged severe chronic interstitial lung disease (UIP pattern) predominantly within the right lung and less severe of the left lower lobe. No acute disease. This document has been electronically signed by: Gill Canada MD on 07/15/2025 19:14:54
--- OUTSIDE RECORDS SUMMARY | 2025-07-16 03:18 | XMS_ITS | Clinical Summary ---
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 11:10 AM EDT Shania Morgan MD LAB URINE ORDERABLES Final Res ult Performing Organization Address [facility] Co de Phone Number [facility] [address] [place] [phone] * Hepatitis C Antibody with Reflex to HCV, RNA, Quantitative, Real-Time PCR (02/09/2024 9:50 AM EDT) Pathologist [facility] Hepatitis C Antibody Nonreactive Nonreactive [facility] Comment:Antibodies to HCV no t detected; does not exclude early acuteHCV infection. Blood Venous blood specimen / Unknown 02/09/2024 9:50 AM EDT 02/09/2024 11:12 AM EDT Shania Morgan MD LAB BLOOD ORDERABLES Final Res ult Performing Organization Address City/[facility] Co de Phone Number [facility] [address] [place] [phone] * (ABNORMAL) Lipid Panel, Standard (02/09/2024 9:50 AM EDT) Pathologist [facility] Triglycerides 82 <150 mg/dL [facility] Comment:Desirable Triglyceri de: less than 150 mg/dLBorderline High Triglyceride 150-199 mg/dLHigh Triglyceride: 200-499 mg/dLVery High Triglyceride: greater than or equal to 5OO mg/dL Cholesterol 167 <200 mg/dL [facility] Comment:Desirable Cholestero l: less than 200 mg/dLBorderline High Cholesterol: 200-239 mg/dLHigh Cholesterol: greater than 239 mg/dL LDL Cholesterol Calculated 110(H) <100 mg/dL [facility] Comment:Desirable LDL: less than 100 mg/dLNear Optimal/Above Optimal LDL: 110- 129 mg/dLBorderline High LDL: 130-159 mg/dLHigh LDL: 160-189 mg/dLVery High LDL: greater than or equal to 190 mg/dL HDL Cholesterol 41 >40 mg/dL [facility] Comment:Desirable HDL: great er than 40 mg/dL Note: This HDL assay may give artificially low results in patients with liver disease. Blood Venous blood specimen / Unknown 02/09/2024 9:50 AM EDT 02/09/2024 11:12 AM EDT us Shania Morgan MD LAB BLOOD ORDERABLES Final Res ult [facility] [address] [place] [phone] from Last 3 Months or Most Recently Relevant to Health Maintenance Additional Health Concerns Active Problems Noted Date Diagnosed Date Help patients manage their type 2 diabetes 07/10 Weekly blood pressure task 07/10/2025 Help patients manage their type 2 diabetes 07/10 Patient has chronic kidney disease 07/10/2025 Insurance [facility] [employer] Care Teams Fast Food Cashier Relationship Specialty Start Date End Date Shania Morgan MD [address] [place] [phone] PCP - General Family Medicine 08/01/23 Aileen Bernabe PharmD [address] [place] [address] Pharmacist Internal Medicine 11/20/24
--- OUTSIDE RECORDS SUMMARY | 2025-07-16 03:18 | XMS_ITS | Encounter Summary ---
Author Organization [employer] Address [address] [facility] 7t [place] [address] Care Team Providers Care Rubber Mill Tender Name Role Phone Shania Morgan MD Primary Care Provider Aileen Bernabe PharmD Unavailable [phone] Reason for Visit * Reason Comments Med Refill Encounter Details Date Type Department Care Team ([facility] st Contact Info) Description 08/13/2024 Refill [facility] [address] [place] [address] Shania Morgan MD [address] [place] [address] Social History Tobacco Use Types Packs/Day Years [...] Description 07/28/2025 9:00 AM EST Medication Management [facility] [address] [place] [address] Aileen Bernabe PharmD [address] [place] [address] documented as of this encounter Visit Diagnoses Not on filedocumented in this encounter Additional Health Concerns Assessment Noted Time PHQ-9 Depression Total Score: 18 024 10:39 AM EST documented as of this encounter Care Teams Rubber Mill Tender Relationship Specialty Start Date End Date Shania Morgan MD [address] [place] [phone] PCP - General Family Medicine 08/01/23 Aileen Bernabe PharmD [address] [place] [phone] Pharmacist Internal Medicine 11/20/24 documented as of this encounter
--- OUTSIDE RECORDS SUMMARY | 2025-07-16 03:19 | XMS_ITS | Encounter Summary ---
Author Organization [employer] Address [address] [facility] 7t [place] [address] Care Team Providers Care Plant Production Manager Name Role Phone Shania Morgan MD Primary Care Provider [phone] Aileen Bernabe PharmD Unavailable [phone] Encounter Details Date Type Department Care Team (Late st Contact Info) Description 07/15/2025 Orders Only [facility] External Provider, [facility] Social History Tobacco Use Types Packs/Day Years [...] Description 07/28/2025 9:00 AM EST Medication Management [facility] [address] [place], [place] [phone] Aileen Bernabe, TishaD [address] [place], [place] [phone] documented as of this encounter Goals Goal Patient Goal Type Associated Problems [...] Patient has chronic kidney disease Ashia Herndon documented as of this encounter Procedures Procedure Name Priority Date/Time Associated Diagnosis Comments CT CHEST WO CONTRAST Routine 07/15/2025 7:14 PM EST documented in this encounter Results * CT Chest w/o Contrast (07/15/2025 7:14 PM EST) Anatomical Region Laterality Modality Body, Chest Computed Tomogra phy 07/15/2025 7:14 PM EST Narrative 07/15/2025 7:16 PM EST [address] [address] [address] Scan Report Signed Patient: Pebbles Bourgeois MR#: [id number] : 1955 Acct:[id number] Age/Sex: 69 / F ADM Date: 07/15/25 Loc: HO.CT Attending Dr: Roz Mobley B2B ACCOUNT EXECUTIVE Ordering Physician: Roz Mobley NP Date of Service: 07/15/25 Procedure(s): CT chest wo IV con Accession Number(s): [id number] cc: Jose Morgan Natalie B2B ACCOUNT EXECUTIVE Report Number: [id number]: Total DLP = 173.00 mGy-cm Reason for [...] in OV> 07/15/251914 DD/ 13 TD/TT: 07/15/251913 Cryptologic Technician Technical: Procedure Note Donotuseinterpreter, Image - 07/15/[address] [place] [address] [address] Scan Report Signed Patient: Piedad Bourgeois#: [id number] : 4Acct:[id number] Age/Sex: 69 / FADM Date: 07/15/25 Loc: HO.CT Attending Dr: Roz Mobley NP Ordering Physician: Roz Mobley NP Date of Service: 07/15/25 Procedure(s): CT chest wo IV con Accession Number(s): [id number] cc: Shania Morgan; Roz Mobley B2B ACCOUNT EXECUTIVE Report Number: [id number]: Total DLP = 173.00 mGy-cm Reason for [...] in OV> 07/15/251914 DD/ 13 TD/TT: 07/15/251913 Cryptologic Technician Technical: [facility] External Provider IMG CT PROCEDURES Final Result documented in this encounter Visit Diagnoses Not on filedocumented in this encounter Additional Health Concerns Active Problems Noted Date Diagnosed Date Help patients manage their type 2 diabetes 07/10 Weekly blood pressure task 07/10/2025 Help patients manage their type 2 diabetes 07/10 Patient has chronic kidney disease 07/10/2025 Assessment Noted Time PHQ-9 Depression Total Score: 0 09/30/19 25 10:31 AM EST documented as of this encounter Care Teams Plant Production Manager Relationship Specialty Start Date End Date Shania Morgan MD [address] [place], [place] [phone] PCP - General Family Medicine 08/01/23 Aileen Bernabe PharmD [address] [place], [place] [phone] Pharmacist Internal Medicine 11/20/24 documented as of this encounter
--- OUTSIDE RECORDS SUMMARY | 2025-07-16 03:19 | XMS_ITS | Patient Health Record ---
Author Organization [facility] Address [address] [address] Care Team Providers Care Sustainability Coordinator Name Role Phone Navi Barr Primary Care Provider Navi Barr MD Unavailable Unavailable Reason For Referral No Information Problems Problem Type SNOMED Code ICD Code Onset Dates Problem Status W/U Status Risk Notes Problem Occlusion and stenosis of multiple and bilateral cerebral arteries (744280418) Occlusion and stenosis of bilateral carotid arteries (I65.23) Active confirmed Plan Of Treatment No Information Insurance Providers Payer Name Payer Address Payer Phone Subscriber Number Group Number Insured Name Patient Relationship to Insured Coverage Start Date Coverage End Date [facility] [address] [place] [address] [phone] [id number] Pebbles Bourgeois Self - patient is the insured
--- OUTSIDE RECORDS SUMMARY | 2025-07-16 03:19 | XMS_ITS | Encounter Summary ---
Author Organization [employer] Address [address] [facility] 7t [place] [address] Care Team Providers Care Academic Hospitalist Name Role Phone Shania Morgan MD Primary Care Provider [phone] Aileen Bernabe PharmD Unavailable [phone] Reason for Visit * Reason Comments Med Refill Encounter Details Date Type Department Care Team ([facility] st Contact Info) Description 07/13/2025 Refill [facility] [address] [place] [address] Shania Morgan MD [address] [place] [address] Social History Tobacco Use Types Packs/Day Years [...] Description 07/28/2025 9:00 AM EST Medication Management [facility] [address] [place] [address] Aileen Bernabe PharmD [address] [place], [place] [phone] documented as of this encounter Goals Goal [...] Ashia Herndon documented as of this encounter Visit Diagnoses [...] documented as of this encounter Care Teams Academic Hospitalist Relationship Specialty Start Date End Date Shania Morgan MD [address] [place] [address] PCP - General Family Medicine 08/01/23 Aileen Bernabe, TishaD [address] [place] [address] Pharmacist Internal Medicine 11/20/24 documented as of this encounter
--- OUTSIDE RECORDS SUMMARY | 2025-07-16 03:19 | XMS_ITS | Encounter Summary ---
Author Organization [employer] Address [address] [facility] 7t [place] [address] Care Team Providers Care Director Of Catering Sales Name Role Phone Shania Morgan MD Primary Care Provider [phone] Aileen Bernabe PharmD Unavailable [phone] Reason for Visit * Reason Comments Med Refill Encounter Details Date Type Department Care Team ([facility] st Contact Info) Description 09/17/2024 Refill [facility] [address] [place], [place] [phone] Shania Morgan MD [address] [place] [address] Social History Tobacco Use Types Packs/Day Years [...] Description 07/28/2025 9:00 AM EST Medication Management [facility] [address] [place] [address] Aileen Bernabe PharmD [address] [place] [address] documented as of this encounter Visit Diagnoses Not on filedocumented in this encounter Additional Health Concerns Assessment Noted Time PHQ-9 Depression Total Score: 18 024 10:39 AM EST documented as of this encounter Care Teams Director Of Catering Sales Relationship Specialty Start Date End Date Shania Morgan MD [address] [place] [address] PCP - General Family Medicine 08/01/23 Aileen Bernabe PharmD [address] [place] [phone] Pharmacist Internal Medicine 11/20/24 documented as of this encounter
== END 2025-07-15 12:19 | disposition home or self-care (01) ==
LOC: HO.CT 12:18
PROVIDERS: PCP General Practice; Visit Provider Nurse Practitioner Family
DX: J84.9 Interstitial pulmonary disease, unspecified (principal)
CPT/HCPCS: 71250

== ENCOUNTER → 2025-07-15 12:20 | Outpatient (BNV) | payer OTHER, SELFPAY | PROVIDERS: PCP General Practice; Visit Provider Student in an Organized Health Care Education/Training Program | DX: J84.9 Interstitial pulmonary disease, unspecified (principal) | CPT/HCPCS: 71250 ==

== ENCOUNTER 2025-07-16 16:26 | Emergency (ER) | payer OTHER, SELFPAY ==
--- NOTE | ~2025-07-16 | XR_ITS ---
CLINICAL HISTORY: cp 1 view chest x-ray Comparison: 07/04/2025 Findings: Worsening right perihilar consolidation. Question pneumonia, please correlate. Stable underlying interstitial fibrosis. No pneumothorax. Heart size normal. No acute bony abnormalities. Left pacemaker is unchanged. Impression: Right perihilar consolidation, possible pneumonia This document has been electronically signed by: Jean-Pierre Whitlock MD on 07/16/2025 21:16:45
[2025-07-16 16:46] VITALS: BP 112/66; BP 130/76; PULSE 74; PULSE 84; RESP 18; TEMP 37; O2SAT 94; O2SAT 97; BMI 29.3
--- NOTE | 2025-07-16 18:04 | ED.GENADULT ---
HPI - General Adult General Chief complaint: General Medical Stated complaint: BODY ACHES Time Seen by Provider: 07/16/25 18:04 Source: patient Mode of arrival: ambulatory Limitations: no limitations History of Present Illness ED Provider: Dr. Calixto HPI narrative: This is a 69-year-old female history of interstitial lung disease, COPD, cardiomyopathy, left bundle-branch block, biventricular ICD for history of AFib RVR. Not currently anticoagulated presented to ER today for evaluation of fatigue, body wide aches. Patient stated that this has been going on since her previous visits. She does not have any specific pain. However patient stated that she has body wide aches. No shortness of breath . Family noticed that patient has difficulty ambulating due to his pain. She was evaluated here and offer rehab placement here however patient has refused. Related Data Home Medications ?Medication ?Instructions ?Recorded ?Confirmed gabapentin 300 mg capsule 300 mg PO BEDTIME 06/06/23 07/17/25 blood sugar diagnostic (Teraminduch #10 ea 12/11/24 04/09/25 Ultra Test strips) flash glucose scanning reader #1 ea 12/11/24 04/09/25 (FreeStyle Toña 2 [place]) flash glucose sensor (FreeStyle #1 ea 12/11/24 04/09/25 Toña 2 Sensor kit) lancets 33 gauge (oneDrumTouch Delica #100 ea 12/11/24 04/09/25 Plus Lancet) melatonin 5 mg tablet 5 mg PO BEDTIME PRN Sleep 12/11/24 07/17/25 multivitamin (One Daily 1 tab PO DAILY 12/11/24 07/17/25 Multivitamin tablet) pen needle, diabetic 31 gauge x #1,200 12/11/24 04/09/2511/10 (Easy Touch) aspirin 81 mg chewable tablet 81 mg PO DAILY 07/05/25 07/17/25 atorvastatin 20 mg tablet 20 mg PO DAILY 07/05/25 07/17/25 budesonide 160 mcg-glycopyr 9 2 inh inhalation BID 07/05/25 07/17/25 mcg-formot 4.8 mcg/actuation HFA inhaler (Breztri Aerosphere) dulaglutide 1.5 mg/0.5 mL 1.5 mg subcut PERALTA@0900 07/05/25 07/17/25 subcutaneous pen injector (Trulicity) empagliflozin 25 mg tablet 25 mg PO DAILY 07/05/25 07/17/25 (Jardiance) famotidine 40 mg tablet 40 mg PO DAILY 07/05/25 07/17/25 insulin degludec 100 unit/mL 8 unit subcut BEDTIME 07/05/25 07/17/25 subcutaneous solution (Tresiba U-100 Insulin) insulin lispro 100 unit/mL 10 unit subcut BIDAC 07/05/25 07/17/25 subcutaneous solution meloxicam 7.5 mg tablet 7.5 mg PO BID 07/17/25 07/17/25 Previous Rx's ?Medication ?Instructions ?Recorded apixaban 5 mg tablet (Eliquis) 5 mg PO BID #180 tabs 04/14/25 metoprolol succinate 50 mg 50 mg PO BID 90 days #180 tabs 05/08/25 tablet,extended release 24 hr sacubitril 49 mg-valsartan 51 mg 1 tab PO BID #180 tabs 06/19/25 tablet acetaminophen 500 mg tablet 500 mg PO Q6H PRN fever or pain 06/23/25 (Tylenol Extra Strength) #14 tabs torsemide 20 mg tablet 40 mg (2 x 20 mg) PO DAILY #90 tabs 07/06/25 walker (Ultra-Light Rollator misc) #1 ea 07/06/25 amiodarone 200 mg tablet 200 mg PO ONCE #90 tabs 07/18/25 Allergies Allergy/AdvReac Type Severity Reaction Status Date / Time No Known Allergies Allergy Verified 07/16/25 16:49 Review of Systems Review of Systems: Pertinent review of systems as mentioned in HPI. All other system otherwise negative. [facility] Past Medical History [facility] Narrative: Medical history as mentioned in HPI Medical History Cardiomyopathy ICD (implantable cardioverter-defibrillator) discharge COPD (chronic obstructive pulmonary disease) Cardiac defibrillator in place Paroxysmal A-fib LBBB (left bundle branch block) Cardiomyopathy Osteoporosis Surgical History History of pacemaker Family History Family History Mother Cancer of unknown origin Father Heart attack Social History Social History Household Members: Family Household Members Other:: Son Housing: Condominium Do you presently have visiting nurse or other home services: No Alcohol intake: never Patient Tobacco Use Status: Former Tobacco user Smoked in Last 30 Days: No Second Hand Smoke Exposure: No Use of substances other than those prescribed or required for medical reasons: No Advance Directives: Yes Advance Directives on File: Yes Advance Directives Date on File: 07/16/25 Physical Exam ED Exam Exam: General: Appears uncomfortable and frustrated Head: Normacephalic, atraumatic ENT: oral mucosa moist, neck supple, no tracheal deviation Cardiovascular: regular rate, regular rhythm, no murmurs, rubbing, gallops Respiratory: CTAB, no wheeze, rales, rhonchi Gastrointestinal: Soft, non distended, non tender, non guarding Neurological: Awake and alert, no facial droop noted Skin: Warm and dry Psychiatric: Appropriate mood and thoughts Vital Signs: Vital Signs - 24 hr 07/17/25 14:00 07/17/25 16:27 07/18/25 06:00 Temperature 97.8 F 96.9 F Pulse Rate 83 75 80 Respiratory Rate 14 18 16 Blood Pressure 149/72 H 147/87 H 140/89 H Pulse Oximetry 96 95 94 Oxygen Delivery Method Room Air Room Air Room Air BMI result Body Mass Index 29.3 Course Reevaluation(s) Reevaluation #1: Time: 08:28 Date: 07/17/25 Provider: GLORIA Avendaño Patient in physician observation for case management needs. No acute events reported overnight.? No current issues or complaints. VS stable. Awaiting PT/CM eval. Will continue to monitor. Reevaluation #2: Time: 8:46 a.m. Date: 07/18/2025 Provider: Natali Padilla PA-C Patient in physician observation for case management needs. No acute events reported overnight by nursing staff. Patient is complaining of pain of bilateral shoulders, and of mild nausea after eating her breakfast this morning. Patient medicated with 975 mg p.o. Tylenol as this is what she requested for pain management, and 4 mg sublingual Zofran for nausea. Patient without abdominal pain, diarrhea, vomiting. Patient to [facility] to [facility] for STR at 11am. today via BLS. Will continue to monitor as we await transportation for discharge. Time: 08:46 Medications Administered Generic Name Dose Route Start Last Admin Trade Name Barber PRN Reason Stop Dose Admin Amiodarone HCl 200 mg 07/18/25 09:00 07/18/25 08:54 Amiodarone Hcl 200 Mg Tablet PO 200 mg BID KEYSHAWN Administration Apixaban 5 mg 07/18/25 09:00 07/18/25 08:54 Apixaban 5 Mg Tablet PO 5 mg BID KEYSHAWN Administration Aspirin 81 mg 07/18/25 09:00 07/18/25 08:54 Aspirin 81 Mg Tab.Chew PO 81 mg DAILY KEYSHAWN Administration Doxycycline Monohydrate 100 mg 07/17/25 09:00 07/18/25 08:14 Doxycycline Monohydrate 100 Mg Capsule PO 100 mg BID KEYSHAWN Administration Discontinued Medications Generic Name Dose Route Start Last Admin Trade Name Barber PRN Reason Stop Dose Admin Acetaminophen 975 mg 07/17/25 23:04 07/17/25 23:09 Acetaminophen 325 Mg Tablet PO 07/17/25 23:05 975 mg ONCE ONE Administration Acetaminophen 975 mg 07/18/25 08:44 07/18/25 08:54 Acetaminophen 325 Mg Tablet PO 07/18/25 08:45 975 mg ONCE ONE Administration Doxycycline Monohydrate 100 mg 07/16/25 21:22 07/16/25 23:02 Doxycycline Monohydrate 100 Mg Capsule PO 07/16/25 21:23 100 mg NOW STA Administration Magnesium Sulfate 2 gm in 50 mls @ 50 mls/hr 07/16/25 19:20 07/16/25 20:52 Magnesium Sulfate/H2o IV 07/16/25 20:19 Infused ONCE ONE Infusion Lactated Ringer's 500 mls @ 999 mls/hr 07/16/25 19:30 07/16/25 21:33 Lr IV 07/16/25 20:00 Infused .Q31M KEYSHAWN Infusion Ketorolac Tromethamine 15 mg 07/16/25 19:20 07/16/25 20:05 Ketorolac Tromethamine 15 Mg/Ml Vial IVPUSH 07/16/25 19:21 15 mg ONCE ONE Administration Melatonin 3 mg 07/17/25 01:52 07/17/25 01:56 Melatonin 3 Mg Tablet PO 07/17/25 01:53 3 mg ONCE ONE Administration Metoclopramide HCl 5 mg 07/16/25 19:20 07/16/25 20:06 Metoclopramide Hcl 10 Mg/2 Ml Vial IV 07/16/25 19:21 5 mg ONCE ONE Administration Ondansetron HCl 4 mg 07/18/25 02:57 07/18/25 03:17 Ondansetron Hcl 4 Mg/2 Ml Vial IVPUSH 07/18/25 02:58 4 mg ONCE ONE Administration Ondansetron HCl 4 mg 07/18/25 08:45 07/18/25 08:54 Ondansetron Odt 4 Mg Tab.Rapdis TRANSLINGU 07/18/25 08:46 4 mg ONCE ONE Administration Medical Decision Making Medical Decision Making MDM Narrative: This is a 69-year-old female history of COPD, interstitial lung disease, cardiomyopathy, biventricular ICD presented hospital today for evaluation of body aches. Patient is also complaining of headaches with photophobia. Patient is complaining of overall fatigue as well. Given patient's cardiac history we will perform a cardiac workup including troponin, EKG, basic lab work CK level TSH. Magnesium level will be added to the patient. BNP will be added to the patient as well. We will plan to give patient a dose of IV Toradol IV magnesium IV Reglan. Chest x-ray will be obtained. Patient will be signed out to oncoming provider pending completion of her workup. Anticipate Phys Obs for case management and physical therapy evaluation. Pending interrogation of the patient's AICD I received sign-out from my colleague Dr. Mazariegos Medtronic AICD interrogation pending. We do have the device for entire duration here, patient's nurse was able to run the interrogation. The last time that the patient was shocked by her AICD was on 07/03/2025, and prior to that was in May 17. Patient's troponin BNP within normal limits, patient is asymptomatic Our case preparer and liner Mitzy was able to talk to the patient and her daughter, both agreeable to proceed with physical therapy and consultation to case management for possible placement. Differential Diagnosis Differential Diagnoses: The differential diagnosis associated with the presentation includes ACS, pneumonia, body aches, rhabdomyolysis, defibrillator firing, CHF exacerbation, electrolyte abnormality Admission/Observation Consideration of admission/observation: Escalation of care including admission/observation considered (Patient will be under physician observation, patient's disposition pending. Given that the patient was shocked earlier this month, observation was considered) Lab Data MDM Lab Attestation statement: I reviewed the patient's lab results. 07/16/25 19:51 07/16/25 19:51 Labs: Lab Results 07/16/25 07/16/25 07/17/25 Range/Units 19:51 20:05 08:03 WBC 10.4 (4.8-10.8) X10*3/uL RBC 5.17 (4.20-5.50) X10*6/uL Hgb 14.4 (12.0-16.0) g/dl Hct 44.2 (37.0-47.0) % MCV 85.5 (80.0-98.0) fL MCH 27.9 (27.0-33.0) pg MCHC 32.6 (31.0-35.0) g/dl RDW 13.3 (11.0-16.0) % Plt Count 407 H D (160-400) X10*3/uL MPV 9.1 L (9.4-12.3) fL Immature Gran % (Auto) 0.3 (0.0-0.4) % Neut % (Auto) 53.6 (45-73) % Lymph % (Auto) 27.3 (20-40) % [place] % (Auto) 8.9 (2-11) % Eos % (Auto) 9.2 H (0-4) % Baso % (Auto) 0.7 (0-2) % Lymph # (Auto) 2.8 (1.2-4.9) X10*3/uL [place] # (Auto) 0.9 (0.1-1.2) X10*3/uL Eos # (Auto) 1.0 H (0.0-0.4) X10*3/uL Baso # (Auto) 0.1 (0.0-0.2) X10*3/uL Abs Immat Gran (auto) 0.03 (0.00-0.03) X10*3/uL Absolute Neuts (auto) 5.6 (2.0-8.3) x10*3/uL Absolute Nucleated RBC 0.000 (0.0-0.012) X10*3/uL Nucleated RBC % (auto) 0.0 (0.0-0.2) /100WBC Sodium 141 (135-145) mmol/L Potassium 3.4 (3.3-5.1) mmol/L Chloride 104 (96-108) mmol/L Carbon Dioxide 27 (22-29) mmol/L Anion Gap 13 (12-20) BUN 12 (9-16) mg/dL Creatinine 0.66 (0.5-1.4) mg/dL Estim Creat Clear Calc 72.8 Estimated GFR > 60 POC Glucose 110 (60-115) mg/dL Random Glucose 96 (60-115) mg/dL Calcium 9.0 D (8.4-10.2) mg/dL Magnesium 2.1 (1.6-2.6) mg/dL Total Bilirubin 0.3 (0.0-1.0) mg/dL AST 25 (5-31) U/L ALT 10 (0-31) U/L Alkaline Phosphatase 58 (39-117) U/L Total Creatine Kinase 30 (26-140) U/L Troponin I High Sens 2.7 (<3.5-17.0) ng/L NT-Pro-B Natriuret Pep 246.3 (<300) pg/mL Total Protein 7.0 (6.5-8.0) g/dL Albumin 3.3 L (3.5-5.0) g/dL TSH 4.49 H (0.32-4.0) uIU/mL Free T4 1.31 (0.71-1.85) ng/dL Urine Color Yellow Urine Appearance Clear Urine pH 6.5 (5.0-9.0) Ur Specific [place] 1.020 (1.005-1.025) Urine Protein Negative (Neg-Trace) mg/dL Urine Glucose (UA) >=1000 H (Negative) mg/dL Urine Ketones Negative (Negative) mg/dL Urine Blood Negative (Negative) Urine Nitrite Negative (Negative) Ur Leukocyte Esterase Negative (Negative) Urine RBC 0-2 (0-2) /HPF Urine WBC 0-5 (0-5) /HPF Ur Squamous Epith Cells 0-2 (0-2) /HPF Urine Bacteria None Seen (None Seen) Hyaline Casts 0-2 (0-2) /LPF Influenza Type A (PCR) NEGATIVE (Negative) Influenza Type B (PCR) NEGATIVE (Negative) RSV RNA Qual (PCR) NEGATIVE (Negative) SARS-CoV-2 RNA (RT-PCR) NEGATIVE (Negative) 07/17/25 07/17/25 07/18/25 Range/Units 16:31 23:28 07:19 WBC (4.8-10.8) X10*3/uL RBC (4.20-5.50) X10*6/uL Hgb (12.0-16.0) g/dl Hct (37.0-47.0) % MCV (80.0-98.0) fL MCH (27.0-33.0) pg MCHC (31.0-35.0) g/dl RDW (11.0-16.0) % Plt Count (160-400) X10*3/uL MPV (9.4-12.3) fL Immature Gran % (Auto) (0.0-0.4) % Neut % (Auto) (45-73) % Lymph % (Auto) (20-40) % [place] % (Auto) (2-11) % Eos % (Auto) (0-4) % Baso % (Auto) (0-2) % Lymph # (Auto) (1.2-4.9) X10*3/uL [place] # (Auto) (0.1-1.2) X10*3/uL Eos # (Auto) (0.0-0.4) X10*3/uL Baso # (Auto) (0.0-0.2) X10*3/uL Abs Immat Gran (auto) (0.00-0.03) X10*3/uL Absolute Neuts (auto) (2.0-8.3) x10*3/uL Absolute Nucleated RBC (0.0-0.012) X10*3/uL Nucleated RBC % (auto) (0.0-0.2) /100WBC Sodium (135-145) mmol/L Potassium (3.3-5.1) mmol/L Chloride (96-108) mmol/L Carbon Dioxide (22-29) mmol/L Anion Gap (12-20) BUN (9-16) mg/dL Creatinine (0.5-1.4) mg/dL Estim Creat Clear Calc Estimated GFR POC Glucose 91 105 115 (60-115) mg/dL Random Glucose (60-115) mg/dL Calcium (8.4-10.2) mg/dL Magnesium (1.6-2.6) mg/dL Total Bilirubin (0.0-1.0) mg/dL AST (5-31) U/L ALT (0-31) U/L Alkaline Phosphatase (39-117) U/L Total Creatine Kinase (26-140) U/L Troponin I High Sens (<3.5-17.0) ng/L NT-Pro-B Natriuret Pep (<300) pg/mL Total Protein (6.5-8.0) g/dL Albumin (3.5-5.0) g/dL TSH (0.32-4.0) uIU/mL Free T4 (0.71-1.85) ng/dL Urine Color Urine Appearance Urine pH (5.0-9.0) Ur Specific [place] (1.005-1.025) Urine Protein (Neg-Trace) mg/dL Urine Glucose (UA) (Negative) mg/dL Urine Ketones (Negative) mg/dL Urine Blood (Negative) Urine Nitrite (Negative) Ur Leukocyte Esterase (Negative) Urine RBC (0-2) /HPF Urine WBC (0-5) /HPF Ur Squamous Epith Cells (0-2) /HPF Urine Bacteria (None Seen) Hyaline Casts (0-2) /LPF Influenza Type A (PCR) (Negative) Influenza Type B (PCR) (Negative) RSV RNA Qual (PCR) (Negative) SARS-CoV-2 RNA (RT-PCR) (Negative) Critical Care Time Critical Care Time Critical Care Time: Yes Total Critical Care Time: 35 Attestation: I have personally provided critical care time. Time includes review of lab data, radiology results, discussion with consultants, and monitoring for potential decompensation. Intervention performed as documented. Discharge Plan Discharge Clinical Impression: Body aches Prescriptions: No Action Eliquis 5 mg tablet 5 mg PO BID Qty: 180 3RF metoprolol succinate 50 mg tablet extended release 24 hr 50 mg PO BID 90 Days Qty: 180 3RF sacubitril-valsartan 49-51 mg tablet 1 tab PO BID Qty: 180 3RF amiodarone 200 mg tablet 200 mg PO ONCE Qty: 90 1RF meloxicam 7.5 mg tablet 7.5 mg PO BID gabapentin 300 mg Capsule 300 mg PO BEDTIME acetaminophen [Tylenol Extra Strength] 500 mg tablet 500 mg PO Q6H PRN (Reason: fever or pain) Qty: 14 0RF aspirin 81 mg Tablet,Chewable 81 mg PO DAILY Trulicity 1.5 mg/0.5 mL Pen Injector 1.5 mg SUBCUT PERALTA@0900 Breztri Aerosphere 160-9-4.8 mcg/actuation HFA aerosol inhaler 2 inh INHALATION BID atorvastatin 20 mg Tablet 20 mg PO DAILY famotidine 40 mg Tablet 40 mg PO DAILY Jardiance 25 mg Tablet 25 mg PO DAILY insulin degludec [Tresiba U-100 Insulin] 100 unit/mL Solution 8 unit SUBCUT BEDTIME insulin lispro 100 unit/mL Solution 10 unit SUBCUT BIDAC torsemide 20 mg tablet 40 mg PO DAILY Qty: 90 3RF (DME) Ultra-Light Rollator Misc See Rx Instructions .Route Qty: 1 0RF Rx Instructions: As directed melatonin 5 mg tablet 5 mg PO BEDTIME PRN (Reason: Sleep) (DME) FreeStyle Toña 2 [place] Misc See Rx Instructions .ROUTE .MEDSUPPLY Qty: 1 Rx Instructions: As directed (DME) FreeStyle Toña 2 Sensor Kit See Rx Instructions .ROUTE .MEDSUPPLY Qty: 1 Rx Instructions: As directed (DME) lancets [OneTouch Delica Plus Lancet] 33 gauge misc See Rx Instructions .ROUTE QID Qty: 100 Rx Instructions: As directed (DME) OneTouch Ultra Test Strip See Rx Instructions .ROUTE BID Qty: 10 Rx Instructions: As directed (DME) pen needle, diabetic [Easy Touch] 31 gauge x 3/16 needle See Rx Instructions .ROUTE DIRECTED Qty: 1200 Rx Instructions: As directed multivitamin [One Daily Multivitamin] Tablet 1 tab PO DAILY Referrals: [facility] [Outside] Print Language: English
[2025-07-16 18:30] VITALS: BP 130/68; PULSE 69; RESP 18; TEMP 37; O2SAT 94
--- NOTE | 2025-07-16 19:22 | ECG_ITS ---
Test Reason : chest pain Blood Pressure : */* mmHG Vent. Rate : 67 BPM Atrial Rate : 67 BPM P-R Int : 116 ms QRS Dur : 112 ms QT Int : 466 ms P-R-T Axes : 61 -86 20 degrees QTcB Int : 492 ms Atrial-sensed ventricular-paced rhythm Biventricular pacemaker detected Abnormal ECG When compared with ECG of 04-Jul-2025 19:21, Vent. rate has decreased by 18 bpm Referred By: Penelope Calixto Electronically Signed By: MINA CHAVEZ
[2025-07-16 19:55] LABS: MANUAL DIFF FLAG NO
[2025-07-16 19:58] LABS: Hematocrit 44.2 % (37.0-47.0); Hemoglobin 14.4 g/dl (12.0-16.0); Imm Gran Abs Auto 0.03 X10*3/uL (0.00-0.03); Imm Gran Pct Auto 0.3 % (0.0-0.4); Lymphocytes Absolute Auto 2.8 X10*3/uL (1.2-4.9); Mean Corpuscular HGB Conc 32.6 g/dl (31.0-35.0); Mean Corpuscular Hemoglobin 27.9 pg (27.0-33.0); Mean Corpuscular Volume 85.5 fL (80.0-98.0); NRBC Abs Auto 0.000 X10*3/uL (0.0-0.012); NRBC Pct Auto 0.0 /100WBC (0.0-0.2); Platelet Count 407 X10*3/uL (160-400); Red Blood Count 5.17 X10*6/uL (4.20-5.50); White Blood Count 10.4 X10*3/uL (4.8-10.8)
[2025-07-16] MEDS: Magnesium Sulfate/H2O 2 GM/50 ML PIGGYBACK IV (20:05)
[2025-07-16] MEDS: Lactated Ringers 500 ML 999 ML IV (20:07)
[2025-07-16 20:16] VITALS: BP 127/67; PULSE 67; RESP 14; TEMP 36.2; O2SAT 94
--- NOTE | 2025-07-16 20:17 | PC.NURSE ---
20g placed in left ac and pt medicated per mar. vss at this time and awaiting results.
[2025-07-16 20:30] LABS: Troponin-I High Sensitivity 2.7 ng/L (<3.5-17.0)
[2025-07-16 20:31] LABS: Alanine Aminotransferase 10 U/L (0-31); Albumin Level 3.3 g/dL (3.5-5.0); Alkaline Phosphatase 58 U/L (39-117); Anion Gap 13 (12-20); Aspartate Amino Transferase 25 U/L (5-31); Blood Urea Nitrogen 12 mg/dL (9-16); Calcium 9.0 mg/dL (8.4-10.2); Carbon Dioxide 27 mmol/L (22-29); Chloride 104 mmol/L (96-108); Creatinine Clr Calc Pharmacy 72.8; Estimated Glomerular Filt Rate > 60; Potassium 3.4 mmol/L (3.3-5.1); Sodium 141 mmol/L (135-145); Total Protein 7.0 g/dL (6.5-8.0)
[2025-07-16 20:37] LABS: Appearance Urine Clear; Glucose Urine UA >=1000 mg/dL (Negative); PH 6.5 (5.0-9.0); Specific Gravity - Urine 1.020 (1.005-1.025); UMIC TRIGGER UACC YES
[2025-07-16 20:51] LABS: Resp Syncy Virus RNA Qual PCR NEGATIVE (Negative); SARS COV2 PCR INHOUSE NEGATIVE (Negative)
[2025-07-16 21:04] LABS: Magnesium 2.1 mg/dL (1.6-2.6)
[2025-07-16 21:09] LABS: NT Pro B Type Natriuretic Pept 246.3 pg/mL (<300)
[2025-07-16 21:15] LABS: Free T4 (Free Thyroxine) 1.31 ng/dL (0.71-1.85)
--- NOTE | 2025-07-16 22:07 | MHC.CM.ED ---
CM met with patient and her daughter with medical imaging specialist, as patient is Cameroonian speaking and requested interpretive services. Daughter does speak Armenian. Pt presented to ED with weakness, body aches and inability to ambulate. She lives with her son. Her daughter provides ADL assistance. She has no DME or services. Daughter tells CM she furniture walks . She lives in a condo, bedroom and bathroom upstairs, so patient spends a lot of time upstairs. HCP is on file. HCP/daughter Sarika Calderóniago Bk ([phone]). CXR shows pneumonia. Will treat with antibiotics. No criteria for admission. Pt has a biventricular ICD. Pt is agreeable to PT in the morning with probable STR. Pt and daughter are aware that PT will make a recommendation. CM will place local referrals. Family has no requests. Pt has [employer] insurance. CM will follow for discharge planning.
--- NOTE | 2025-07-16 22:16 | PC.NURSE ---
medtronic interpretation completed at this time by this RN
[2025-07-16 22:34] VITALS: BP 129/73; PULSE 67; RESP 16; TEMP 36.7; O2SAT 96
--- NOTE | 2025-07-16 23:33 | PC.NURSE ---
medtronic interpretation received at this time ,MD Ansari made aware. plan for transport to overflow unit. report given to Antonio IRWIN
[2025-07-17 00:18] VITALS: BP 159/78; PULSE 78; RESP 18; TEMP 36.5; O2SAT 93
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
--- OUTSIDE RECORDS SUMMARY | 2025-07-17 05:04 | XMS_ITS | Encounter Summary ---
Author Organization [employer] Address [address] [facility] 7t [place] [address] Care Team Providers Care Administrative Services Manager Name Role Phone Shania Morgan MD Primary Care Provider Aileen Bernabe PharmD Unavailable Encounter Details Date Type Department Care Team (Late st Contact Info) Description 07/15/2025 Orders Only [facility] External Provider, [facility] Social History Tobacco Use Types Packs/Day [...] Description 07/28/2025 9:00 AM EST Medication Management [facility] [address] [place], [place] [phone] Aileen Bernabe, TishaD [address] [place], [place] [phone] documented as of this encounter Goals Goal [...] PM EST Narrative 07/15/2025 7:16 PM EST [address] [address] [address] Scan Report Signed Patient: Pebbles Bourgeois MR#: [id number] 507 : 1955 Acct:[id number] Age/Sex: 69 / F ADM Date: 07/15/25 Loc: HO.CT Attending Dr: Roz Mobley FUSE COILER Ordering Physician: Roz Mobley NP Date of Service: 07/15/25 Procedure(s): CT chest wo IV con Accession Number(s): [id number] cc: Jose Morgan Natalie FUSE COILER Report Number: [id number]: Total DLP = 173.00 mGy-cm Reason for [...] in OV> 07/15/251914 DD/ 13 TD/TT: 07/15/251913 Senior Speech Pathologist: Procedure Note Donotuseinterpreter, Image - 07/15/[address] [place] [address] [address] Scan Report Signed Patient: Piedad Bourgeois#: [id number] 507 : 4Acct:[id number] Age/Sex: 69 / FADM Date: 07/15/25 Loc: HO.CT Attending Dr: Roz Mobley NP Ordering Physician: Roz Mobley NP Date of Service: 07/15/25 Procedure(s): CT chest wo IV con Accession Number(s): [id number] cc: Shania Morgan; Roz Mobley FUSE COILER Report Number: [id number]: Total DLP = 173.00 mGy-cm Reason for [...] in OV> 07/15/251914 DD/ 13 TD/TT: 07/15/251913 Senior Speech Pathologist: [facility] External Provider IMG CT PROCEDURES [...] of this encounter Care Teams Administrative Services Manager Relationship Specialty Start Date End Date Shania Morgan MD [address] [place], [place] [phone] PCP - General Family Medicine 08/01/23 Aileen Bernabe PharmD [address] [place], [place] [phone] Pharmacist Internal Medicine 11/20/24 documented as of this encounter
--- OUTSIDE RECORDS SUMMARY | 2025-07-17 05:04 | XMS_ITS | Encounter Summary ---
Author Organization [employer] Address [address] [facility] 7t [place] [address] Care Team Providers Care Set Illustrator Name Role Phone Shania Morgan MD Primary Care Provider [phone] Aileen Bernabe PharmD Unavailable [phone] Reason for Visit * Reason Comments Med Refill Encounter Details Date Type Department Care Team ([facility] st Contact Info) Description 08/13/2024 Refill [facility] [address] [place] [address] Shania Morgan MD [address] [place] [address] Social History Tobacco Use Types Packs/Day Years [...] Description 07/28/2025 9:00 AM EST Medication Management [facility] [address] [place] [address] Aileen Bernabe PharmD [address] [place] [address] documented as of this encounter Visit Diagnoses Not on filedocumented in this encounter Additional Health Concerns Assessment Noted Time PHQ-9 Depression Total Score: 18 024 10:39 AM EST documented as of this encounter Care Teams Set Illustrator Relationship Specialty Start Date End Date Shania Morgan MD [address] [place] [phone] PCP - General Family Medicine 08/01/23 Aileen Bernabe PharmD [address] [place] [phone] Pharmacist Internal Medicine 11/20/24 documented as of this encounter
--- OUTSIDE RECORDS SUMMARY | 2025-07-17 05:04 | XMS_ITS | Encounter Summary ---
Author Organization [employer] Address [address] [facility] 7t [place] [address] Care Team Providers Care Sewing Inspector Name Role Phone Shania Morgan MD Primary Care Provider [phone] Aileen Bernabe PharmD Unavailable [phone] Reason for Visit * Reason Comments Med Refill Encounter Details Date Type Department Care Team ([facility] st Contact Info) Description 09/17/2024 Refill [facility] MED[facility]INE [address] [place], [place] [phone] Shania Morgan MD [address] [place] [address] Social History Tobacco Use Types Packs/Day Years [...] Description 07/28/2025 9:00 AM EST Medication Management [facility] [address] [place] [address] Aileen Bernabe PharmD [address] [place] [address] documented as of this encounter Visit Diagnoses Not on filedocumented in this encounter Additional Health Concerns Assessment Noted Time PHQ-9 Depression Total Score: 18 024 10:39 AM EST documented as of this encounter Care Teams Sewing Inspector Relationship Specialty Start Date End Date Shania Morgan MD [address] [place] [phone] PCP - General Family Medicine 08/01/23 Aileen Bernabe PharmD [address] [place] [phone] Pharmacist Internal Medicine 11/20/24 documented as of this encounter
--- OUTSIDE RECORDS SUMMARY | 2025-07-17 05:04 | XMS_ITS | Encounter Summary ---
Author Organization [employer] Address [address] [facility] 7t [place] [address] Care Team Providers Care Port Steward Name Role Phone Shania Morgan MD Primary Care Provider [phone] Aileen Bernabe PharmD Unavailable [phone] Reason for Visit * Reason Comments Med Refill Encounter Details Date Type Department Care Team ([facility] st Contact Info) Description 07/13/2025 Refill [facility] MEDICINE [address] [place] [address] Shania Morgan MD [address] [place] [address] Social History Tobacco Use Types Packs/Day Years [...] Description 07/28/2025 9:00 AM EST Medication Management [facility]INE [address] [place] [address] Aileen Bernabe PharmD [address] [place], [place] [phone] documented as of this encounter Goals Goal [...] documented as of this encounter Care Teams Port Steward Relationship Specialty Start Date End Date Shania Morgan MD [address] [place] [address] PCP - General Family Medicine 08/01/23 Aileen Bernabe, TishaD [address] [place] [address] Pharmacist Internal Medicine 11/20/24 documented as of this encounter
--- OUTSIDE RECORDS SUMMARY | 2025-07-17 05:05 | XMS_ITS | Encounter Summary ---
Author Organization [employer] Address [address] [facility] 7t [place] [address] Care Team Providers Care Touring Production Manager Name Role Phone Shania Morgan MD Primary Care Provider [phone] Aileen Bernabe PharmD Unavailable [phone] Encounter Details Date Type Department Care Team (Late st Contact Info) Description 07/16/2025 Orders Only GENERIC EXTERNAL DATA DEPARTMENT Provider, Generic External Data Social History Tobacco Use Types Packs/Day Years [...] Description 07/28/2025 9:[address] EST [address] [facility] [address] [place] [address] Aileen Bernabe, TishaD [address] [place], [place] [phone] documented as of this encounter Goals Goal [...] TO CULTURE Routine 07/16/2025 8:05 PM EST HIGH SENSITIVITY TROPONIN I Routine 07/16/2025 7:51 PM EST TSH W/REFLEX TO FT4 Routine 07/16/2025 7 :51 PM EST SARS COV2/INFLUENZA A/B AND RSV RNA QL NAAT Routine 07/16/2025 7:51 PM EST NT-PROBNP Routine 07/16/2025 7:51 PM EST CBC WITH AUTO DIFFERENTIAL Routine 07/16/2025 7:51 PM EST T4, FREE Routine 07/16/2025 7:51 PM EST MAGNESIUM Routine 07/16/2025 7:51 PM EST CREATINE KINASE, TOTAL Routine 7:51 PM EST COMPREHENSIVE METABOLIC PANEL Routine 07/16/2025 7:51 PM EST documented in this encounter Results * XR Chest 1 View (07/16/2025 9:16 PM EST) Anatomical Region Laterality Modality Chest Radiographic Trista ging 07/16/2025 9:16 PM EST Narrative 07/16/2025 9:18 PM EST [place] [address] XRay Report Signed Patient: Pebbles Bourgeois MR#: [id number] 507 : 1955 Acct:[id number] Age/Sex: 69 / F ADM Date: 07/16/25 Loc: .ED Attending Dr: Ordering Physician: Penelope Calixto DO Date of Service: 07/16/25 Procedure(s): XR chest 1V Accession Number(s): [id number] cc: Penelope Calixto DO; Shania Morgan Reason [...] in OV> 07/16/252117 DD/ 15 TD/TT: 07/16/252115 Spark Tester: Procedure Note Donotuseinterpreter, Image - 07/16/2025 [place] [id number] [place] [address] XRay Report Signed Patient: Piedad Bourgeois#: [id number] 507 : 4Acct:[id number] Age/Sex: 69 / FADM Date: 07/16/25 Loc: HO.ED Attending Dr: Ordering Physician: Penelope Calixto DO Date of Service: 07/16/25 Procedure(s): XR chest 1V Accession Number(s): [id number] cc: Penelope Calixto DO; Shania Morgan Reason [...] in OV> 07/16/252117 DD/ 15 TD/TT: 07/16/252115 Spark Tester: [facility] External Provider IMG XR PROCEDURES Edited Result - Final * (ABNORMAL) Urinalysis, Complete, with Reflex to Culture (07/16/2025 8:05 PM EST) Color Urine Yellow [facility] Appearance Urine Clear [facility] PH 6.5 5.0 - 9.0 [facility] Glucose Urine UA >=1000(A) Negative mg/dL [facility] Urine Blood Negative Negative [facility] Specific [place] - Urine 1.020 1.005 - 1.025 [facility] Urine Protein Negative Neg-Trace mg/dL [facility] Urine Ketones Negative Negative mg/dL [facility] Nitrite Urine Negative Negative [facility] Leukocyte Esterase Urine Negative Negative [facility] RBC Urine 0-2 0 - 2 /HPF [facility] Urine WBC 0-5 0 - 5 /HPF [facility] Urine Squamous Epithelial Cell 0-2 0 - 2 /HPF [facility] Urine Bacteria None Seen None Seen [facility] Hyaline Casts, Urine 0-2 0 - 2 /LPF [facility] 07/16/2025 8:05 PM EST 07/16/2025 8:17 PM EST Narrative [facility] - 07/16/2025 9:22 PM EST [id number], Clean Catch us Generic External Data Provider LAB URINE ORDERAB LES Final Result Performing Organization Address [facility] Co de Phone Number [facility] [address] [place] [phone] * T4, Free (07/16/2025 7:51 PM EST) Free T4 (Free Thyroxine) 1.31 0.71 - 1.85 ng/dL [facility] 07/16/2025 7:51 PM EST 07/16/2025 7:54 PM EST us Generic External Data Provider LAB BLOOD ORDERAB LES Final Result Performing Organization Address [facility] Co de Phone Number [facility] [address] [place] [phone] * Magnesium (07/16/2025 7:51 PM EST) Magnesium 2.1 1.6 - 2.6 mg/dL [facility] 07/16/2025 7:51 PM EST 07/16/2025 7:54 PM EST us Generic External Data Provider LAB BLOOD ORDERAB LES Final Result Performing Organization Address [facility] Co de Phone Number [facility] [address] [place] [phone] * NT-proBNP (07/16/2025 7:51 PM EST) NT-proBNP 246.3 <300 pg/mL [facility] Comment:Reference Range:Age Group (years) NT-proBNP (pg/ml) InterpretationAll <300 Negative: HF unlikelyFor patients presenting to the ED with clinical suspicion ofnew onset or worsening HF, see below:18 to <50 >299.9 to <450.0 Grayzone: [id number] to 75 >299.9 to <900.0 other causes of>75 >299.9 to <1800.0 NT-proBNP [id number] to <50 >449.9 Positive: HF [id number] >899.9>75 >1799.9Note: Elevated NT-proBNP levels should be interpreted inthe context of other clinical information. 07/16/2025 7:51 PM EST 07/16/2025 7:54 PM EST us Generic External Data Provider LAB BLOOD ORDERAB LES Final Result [facility] [address] [place] [phone] * SARS-CoV-2 RNA, Influenza A/B, and RSV RNA, Ql NAAT (07/16/2025 7:51 PM EST) Influenza A PCR NEGATIVE Negative [facility] Influenza B PCR NEGATIVE Negative [facility] Resp Syncy Virus RNA Qual PCR NEGATIVE Negative [facility] SARS COV2 PCR NEGATIVE Negative [facility] Comment:All test results mus t be [...] use by authorized laboratories.Testing performed on the [email or web address] GeneXpert utilizingreal-time RT-PCR.All SARS CoV2 and positive influenza A/B results arereported to [facility]. 07/16/2025 7:51 PM EST 07/16/2025 7:54 PM EST Generic External Data Provider LAB MICROBIOLOGY - GENERAL ORDERABLES Final Result Performing Organization Address [facility]/ZIP Co de Phone Number [facility] [address] [place] [phone] * (ABNORMAL) TSH with Reflex to Free T4 (07/16/2025 7:51 PM EST) Pathologist [facility] TSH reflex Free T4 4.49(H) 0.32 - 4.0 uIU/mL [facility] 07/16/2025 7:51 PM EST 07/16/2025 7:54 PM EST Generic External Data Provider LAB BLOOD ORDERAB LES Final Result Performing Organization Address [facility] Co de Phone Number [facility] [address] [place] [phone] * Creatine Kinase, Total (07/16/2025 7:51 PM EST) Pathologist [facility] Creatine Kinase Total 30 26 - 140 U/L [facility] 07/16/2025 7:51 PM EST 07/16/2025 7:54 PM EST Generic External Data Provider LAB BLOOD ORDERAB LES Final Result Performing Organization Address [facility] Co de Phone Number [facility] [address] [place] [phone] * (ABNORMAL) Comprehensive Metabolic Panel (07/16/2025 7:51 PM EST) Pathologist [facility] Sodium 141 135 - 145 mmol/L [facility] Potassium 3.4 3.3 - 5.1 mmol/L [facility] Chloride 104 96 - 108 mmol/L [facility] Carbon Dioxide 27 22 - 29 mmol/L [facility] Anion Gap 13 12 - 20 [facility] Urea Nitrogen (BUN) 12 9 - 16 mg/dL [facility] Creatinine, Serum 0.66 0.5 - 1.4 mg/dL [facility] Creatinine Clr Calc Pharmacy 72.8 [facility] Comment:Provided height and weight: 157.48 cm,72.575 kg.eGFR (calculated from the MDRD study equation) and eCrCl(calculated from the Cockcroft-Gault equation) are based ondifferent parameters and may not yield comparable results.If eCrCl result is absurd, please check patient'sheight/weight. Estimated Glomerular Filt Rate >60 [facility] Comment:Chronic Kidney Disea se: Estimated GFR < 60 mL/min/1.28u1Suflwi Kidney Disease: Estimated GFR < 15 mL/min/1.73m2 Glucose 96 60 - 115 mg/dL [facility] Calcium 9.0 8.4 - 10.2 mg/dL [facility] Bilirubin, Total 0.3 0.0 - 1.0 mg/dL [facility] Aspartate Amino Transferase 25 5 - 31 U/L [facility] Alanine Aminotransferase 10 0 - 31 U/L [facility] Total Protein 7.0 6.5 - 8.0 g/dL [facility] Albumin Level 3.3(L) 3.5 - 5.0 g/dL [facility] Alkaline Phosphatase 58 39 - 117 U/L [facility] 07/16/2025 7:51 PM EST 07/16/2025 7:54 PM EST us Generic External Data Provider LAB BLOOD ORDERAB LES Final Result [facility] [address] [place] [phone] * High Sensitivity Troponin I (07/16/2025 7:51 PM EST) TROPONIN I HIGH SENSITIVITY 2.7 <3.5 - 17.0 ng/L [facility] Comment:The Edmondson high sens itivity Troponin-I results should beused in conjunction with other diagnostic information suchas ECG, clinical observations and information, and patientsymptoms to aid in the diagnosis of [place]. 07/16/2025 7:51 PM EST 07/16/2025 7:54 PM EST us Generic External Data Provider LAB BLOOD ORDERAB LES Final Result [facility] [address] [place] [phone] * (ABNORMAL) CBC auto differential (07/16/2025 7:51 PM EST) White Blood Count 10.4 4.8 - 10.8 X10*3/uL [facility] Red Blood Count 5.17 4.20 - 5.50 X10*6/uL [facility] Hemoglobin 14.4 12.0 - 16.0 g/dl [facility] Hematocrit 44.2 37.0 - 47.0 % [facility] Mean Corpuscular Volume 85.5 80.0 - 98.0 fL [facility] Mean Corpuscular Hemoglobin 27.9 27.0 - 33.0 pg [facility] Mean Corpuscular HGB Conc 32.6 31.0 - 35.0 g/dl [facility] Red Cell Distribution Width 13.3 11.0 - 16.0 % [facility] Platelet Count 407(H) 160 - 400 X10*3/uL [facility] Mean Platelet Volume 9.1(L) 9.4 - 12.3 fL [facility] Neutrophils Percent Auto 53.6 45 - 73 % [facility] Imm Gran Pct Auto 0.3 0.0 - 0.4 % [facility] Lymphocytes Percent Auto 27.3 20 - 40 % [facility] Monocytes Percent Auto 8.9 2 - 11 % [facility] Eosinophils Percent Auto 9.2(H) 0 - 4 % [facility] Basophils Percent Auto 0.7 0 - 2 % [facility] NRBC Pct Auto 0.0 0.0 - 0.2 /100WBC [facility] Neutrophils Absolute Auto 5.6 2.0 - 8.3 x10*3/uL [facility] Imm Gran Abs Auto 0.03 0.00 - 0.03 X10*3/uL [facility] Lymphocytes Absolute Auto 2.8 1.2 - 4.9 X10*3/uL [facility] Monocytes Absolute Auto 0.9 0.1 - 1.2 X10*3/uL [facility] Eosinophils Absolute Auto 1.0(H) 0.0 - 0.4 X10*3/uL [facility] Basophils Absolute Auto 0.1 0.0 - 0.2 X10*3/uL [facility] NRBC Abs Auto 0.000 0.0 - 0.012 X10*3/uL [facility] 07/16/2025 7:51 PM EST 07/16/2025 7:54 PM EST us Generic External Data Provider LAB BLOOD ORDERAB LES Final Result Performing Organization Address City/State/[facility] Co de Phone Number [facility] [address] [place] [phone] documented in this encounter Visit Diagnoses Not [...] documented as of this encounter Care Teams Touring Production Manager Relationship Specialty Start Date End Date Shania Morgan MD [address] [place] [address] PCP - General Family Medicine 08/01/23 Aileen Bernabe PharmD [address] [place] [address] Pharmacist Internal Medicine 11/20/24 documented as of this encounter
--- OUTSIDE RECORDS SUMMARY | 2025-07-17 05:05 | XMS_ITS | Patient Health Record ---
Author Organization [facility] Address [address] [phone] Care Team Providers Care Oiler Bander Name Role Phone Navi Barr Primary Care Provider [phone] Navi Barr MD Unavailable Unavailable Reason For Referral No Information Problems Problem Type SNOMED Code ICD Code Onset Dates Problem Status W/U Status Risk Notes Problem Occlusion and stenosis of multiple and bilateral cerebral arteries (231220745) Occlusion and stenosis of bilateral carotid arteries (I65.23) Active confirmed Plan Of Treatment No Information Insurance Providers Payer Name Payer Address Payer Phone Subscriber Number Group Number Insured Name Patient Relationship to Insured Coverage Start Date Coverage End Date [facility] [address] [place] [address] [phone] [id number] Pebbles Bourgeois Self - patient is the insured
[2025-07-17 05:19] VITALS: BP 137/83; PULSE 100; RESP 18; TEMP 36.5; O2SAT 94
[2025-07-17 08:06] LABS: Glucose, Whole Blood 110 mg/dL (60-115)
--- NOTE | 2025-07-17 09:26 | PC.NURSE ---
Patient is alert and oriented x4, Nigerien speaking, interpreter deaf at bed side, no complains from the pt. PT worked with pt. this am.
[2025-07-17 09:45] VITALS: BP 138/75; PULSE 79; RESP 18; TEMP 36.6; O2SAT 98
--- NOTE | 2025-07-17 12:32 | MHC.CM.ED ---
Patient remains in ER overflow. Physical therapy eval completed. Short term rehab is recommended. Met with patient, daughter Sarika and orthopedic assistant at daughter's request. [facility], [facility], [facility], [facility], [facility], and [facility] are able to offer a bed. [facility], [facility], [facility] and [facility] are still reviewing. [facility]. [facility] has been asked to obtain insurance auth. Patient and daughter aware patient will most likely remain in ER overnight. Continue to monitor for d/c needs.
[2025-07-17 14:00] VITALS: BP 149/72; PULSE 83; RESP 14; TEMP 36.6; O2SAT 96
--- NOTE | 2025-07-17 15:23 | PHA.MEDREC ---
Addendum entered by Emmanuel Calle PharmD 07/17/25 15:37: reviewed Original Note: Pharmacy Consult ? Medication Reconciliation Pharmacy has completed the medication reconciliation. Spoke with pt daughter at bedside and she was able to confirm pt med list pt just discharged with us 07/06 and daughter states no changes from that DC. Pt started taking Amiodarone 200mg bid and Torsemide 20mg 2 tabs (40mg) once daily from 07/06 dc, she is taking Meloxicam 7.5mg tabs 1 BID; only medication that was prescribed after 07/06 dc, she uses Tresiba; injecting 8 units at bedtime, Insulin Lispro; 10 units at BIDAC and pt taking Trulicity once a week on Sundays; daughter states she was not able to take Trulicity this week but took it 2 weeks ago and pt daughter unsure the last time the pt took her medications before coming in; possibly yesterday Am but not entirely sure at this time.
--- NOTE | 2025-07-17 15:59 | PC.NURSE ---
Assumed care of this patient at 1500. Patient resting quietly in bed w/ family at bedside. No signs of acute distress. Med rec recently completed by pharmacy, provider Priscilla made aware to order.
--- NOTE | 2025-07-17 16:21 | MHC.CM.ED ---
Insurance auth has been obtained by [facility]. [facility] booked for 07/18 at 3pm. [facility] with chart. Patient, Snow IRWIN and Priscilla CASTRO aware. Continue to monitor for d/c needs.
[2025-07-17 16:27] VITALS: BP 147/87; PULSE 75; RESP 18; O2SAT 95
[2025-07-17 16:35] LABS: Glucose, Whole Blood 91 mg/dL (60-115)
[2025-07-17 23:30] LABS: Glucose, Whole Blood 105 mg/dL (60-115)
[2025-07-18 06:00] VITALS: BP 140/89; PULSE 80; RESP 16; TEMP 36.1; O2SAT 94
--- NOTE | 2025-07-18 06:23 | PC.NURSE ---
Assumed care of patient in ED OVF at 1900. Patient is primarily estonian speaking, does know some sri lankan. Alert and oriented x 3. She is assist x 1 to bedside commode. XL bowel movement throughout night. Around 0300 , patient woke up dry heaving and reporting nausea. Medicated with zofran with effect. No further complaints throughout the night. Bed in lowest setting, locked and alarmed.? Call waddell within reach. Plan: D/C to [facility] 07/18
[2025-07-18 07:22] LABS: Glucose, Whole Blood 115 mg/dL (60-115)
--- NOTE | 2025-07-18 07:58 | PC.NURSE ---
Addendum entered by Mal Dale RN 07/18/25 11:09: report given to EMS. belongings with pt. paperwork given to EMS Addendum entered by Mal Dale RN 07/18/25 09:27: report given to facility and family member contacted and updated Original Note: [facility] at bedside for assessment and med pass
--- NOTE | 2025-07-18 09:13 | MHC.CM.ED ---
Patient remains in ER overflow. Originally scheduled to transport to [facility] via BLS at 3pm. Transport changed to 11am. Patient, Mal IRWIN and Natali CASTRO aware. Continue to monitor for d/c needs.
[2025-07-18] MEDS: Sacubitril/Valsartan 49/51 1 TAB TABLET PO (10:35)
[2025-07-18] MEDS: Metoprolol Succinate ER 50 MG TAB.ER.24H PO (10:35)
== END 2025-07-18 11:08 ==
PROVIDERS: Student in an Organized Health Care Education/Training Program; Emergency Provider Emergency Medicine; PCP General Practice
DX: M79.10 Myalgia, unspecified site (principal); J44.9 Chronic obstructive pulmonary disease, unspecified; R51.9 Headache, unspecified; R53.83 Other fatigue; H53.149 Visual discomfort, unspecified; Z03.818 Encounter for observation for suspected exposure to other biological agents ruled out; I44.7 Left bundle-branch block, unspecified; Z87.891 Personal history of nicotine dependence; Z79.899 Other long term (current) drug therapy
CPT/HCPCS: 36415; 71045; 80053; 81001; 82550; 82947; 83735; 83880; 84439; 84443; 84484; 85025; 87637; 93005; 96361; 96365; 96375; 97162; 99284; 99285; J1885; J2405; J2765; J3475; J7120

== ENCOUNTER → 2025-07-16 19:22 | Outpatient (BNV) | payer OTHER, SELFPAY | PROVIDERS: Emergency Provider Emergency Medicine; PCP General Practice; Visit Provider Internal Medicine | DX: R94.31 Abnormal electrocardiogram [ECG] [EKG] (principal); Z95.0 Presence of cardiac pacemaker | CPT/HCPCS: 93010 ==

== ENCOUNTER → 2025-07-16 19:23 | Outpatient (BNV) | payer OTHER, SELFPAY | PROVIDERS: Emergency Provider Emergency Medicine; PCP General Practice; Visit Provider Radiology Diagnostic Radiology | DX: R07.9 Chest pain, unspecified (principal) | CPT/HCPCS: 71045 ==

== ENCOUNTER → 2025-08-04 12:47 | Outpatient (BNV) | payer OTHER, SELFPAY | PROVIDERS: PCP General Practice; Visit Provider Internal Medicine Cardiovascular Disease | DX: Z45.02 Encounter for adjustment and management of automatic implantable cardiac defibrillator (principal) | CPT/HCPCS: 93297 ==